=== PATIENT | male | born 1945 | race Caucasian/White ===

== ENCOUNTER → 2020-05-11 11:42 | Outpatient (BNVA) | payer MEDICARE, SELFPAY | PROVIDERS: PCP Internal Medicine; Visit Provider Internal Medicine | DX: E66.9 Obesity, unspecified (principal); G47.33 Obstructive sleep apnea (adult) (pediatric); J84.10 Pulmonary fibrosis, unspecified | CPT/HCPCS: 99212 ==

== ENCOUNTER → 2020-05-26 13:10 | Outpatient (REF) | payer MEDICARE, SELFPAY | LOC: HO.SL 13:10 | PROVIDERS: PCP Internal Medicine; Visit Provider Internal Medicine | DX: G47.33 Obstructive sleep apnea (adult) (pediatric) (principal) | CPT/HCPCS: 95806 ==

== ENCOUNTER 2020-06-08 15:28 | Inpatient (IN) | payer MEDICARE, SELFPAY ==
[2020-06-08] VITALS (8 sets, daily range): BP systolic 122–173; BP diastolic 60–76; PULSE 66–96; RESP 10–20; TEMP 36–36.8; O2SAT 91–98; BMI 27.1; BMI 27.8
--- NOTE | ~2020-06-08 | NM_ITS ---
Lexiscan Myocardial perfusion study Indication: Preoperative cardiovascular evaluation, assess for coronary disease Technique: The patient was brought in for a Lexiscan perfusion study on 06/11/2020 and was injected 0.4 mg of Lexiscan intravenously. Within a minute of this injection 30 mCi of sestamibi was given intravenously. Images were obtained using the SPECT gamma camera interlaced with the gating device. Images were obtained in supine position. Resting perfusion study was performed on 06/10/2020. Patient was administered 30 mCi of sestamibi intravenously at rest. Images were then obtained in supine position. Total DLP 71mGy-cm. Images were processed with the software and compared side to side in short axis, horizontal long axis and vertical long axis views. Findings: Raw acquisition was reviewed. The stress perfusion study showed no significant perfusion abnormality. Both uncorrected as well as CT attenuation corrected images were reviewed. The gated study shows normal LV systolic function with calculated LVEF of 63%. LV cavity is normal in size. The gated study shows normal wall thickening and contraction of segments. Resting study shows no significant perfusion abnormality. Gating at rest reveals normal wall motion with ejection fraction at 46%; but visually this appears much higher. The findings are consistent with no reversible or fixed perfusion defects. NM/NM bandar perf SPECT rest & str Impression: 1. Myocardial perfusion imaging study shows normal myocardial perfusion. 2. Gated LVEF is 60% during stress. 3. Transient ischemic dilatation not present. EKG component of the test reported separately.
--- NOTE | ~2020-06-08 | CT_ITS ---
EXAMINATION: CT ANGIOGRAM HEAD CT ANGIOGRAM NECK CLINICAL INFORMATION: Near syncope. History of carotid artery stenosis. COMPARISON: CT head from 01/20/2018. TECHNIQUE: Initial noncontrast gynecological assistant imaging of the head and neck was performed. Noncontrast head CT was also performed. Test bolus sequences followed by intravenous administration 70 mL of Omnipaque 350. Helical imaging was performed in the axial plane from the aortic arch to the skull vertex. Delayed postcontrast imaging of the head was also performed. The data was processed at the echocardiography technologist's workstation for generation of MIP sequences. Angled MIPs and volume rendered reformatted images were also generated at an offline 3D workstation. Stenoses are assessed in accordance with NASCET criteria unless otherwise indicated. This CT examination was performed using dose optimization techniques as appropriate, variously including the following: *Automated exposure control. *Adjustment of mA and/or kV according to patient size (this includes techniques or standardized protocols for targeted exams where dose is matched to indication/reason for exam; i.e. extremities or head). *Use of iterative reconstruction technique. DLP: 2309 mGy-cm FINDINGS: CT Head: There is no evidence of acute intracranial hemorrhage or edematous territorial infarction. Scattered hypoattenuation in the periventricular and deep white matter are consistent with moderate microangiopathy. Chronic lacunar infarcts of the bilateral lentiform nuclei. No new loss of dunbar-white matter differentiation. Proportional prominence of the ventricles and sulcal spaces. No evidence for obstructive hydrocephalus. No abnormal mass effect or midline shift. No extra-axial fluid collections. No pathologic intra-axial enhancement or regional oligemia. No acute soft tissue or osseous abnormalities. Mild mucosal thickening of the paranasal sinuses. Moderate rightward nasal septal deviation with spurring. Periapical lucency associated with the maxillary right 2nd molar. The mastoid air cells and middle ear cavities remain well aerated. Chronic mild diminutive appearance of the lateral semicircular canals bilaterally. Moderate left-sided and mild right-sided degenerative arthropathy of the temporal mandibular joints. Left-sided lens extraction. CT Neck: The thyroid gland and remaining cervical soft tissues are within normal limits. Moderate multilevel degenerative spondyloarthropathy of the cervical spine. There is mild degenerative anterolisthesis of C3 on C4 and C4 on C5. Advanced degenerative disc disease at C5-C6. Moderate degenerative disc disease at C6-C7. Associated disc-osteophyte complexes at these levels. Facet and uncovertebral joint arthropathy leads to osseous encroachment on the neural foramina from C5-C7. CT Upper Chest: The visualized lung apices and upper mediastinum are within normal limits. Neck CTA: Aortic Arch: Normal contour and caliber with moderate atherosclerotic disease. There are irregular plaques along the quintana of the visualized proximal descending thoracic aorta. Classic 3 vessel branching pattern of the aortic arch. Great Vessel Origins: No significant stenosis of the branch origins. Right Common Carotid Artery: Normal opacification without focal stenosis or occlusion. Cervical Right Internal Carotid Artery: Heavy mixed lipid-rich and calcific atherosclerotic disease of the carotid bulb and proximal internal carotid artery causes up to 85% stenosis, involving the proximal 1.5 cm segment of the right ICA. Left Common Carotid Artery: Normal opacification without focal stenosis or occlusion. Cervical Left Internal Carotid Artery: Calcific atherosclerotic disease of the carotid bulb and proximal internal carotid artery causes 60% stenosis of the origin of the left ICA. Cervical Right Vertebral Artery: Co-dominant. Normal opacification without focal stenosis or occlusion. Cervical Left Vertebral Artery: Co-dominant. Normal opacification without focal stenosis or occlusion. Brain CTA: Intracranial Internal Carotid Arteries: Calcific atherosclerotic disease of the intracranial internal carotid arteries without occlusion or flow-limiting stenosis. Otherwise, normal contrast opacification of the petrous, cavernous, paraophthalmic, and supraclinoid segments of the internal carotid arteries without focal stenosis. Right Anterior Cerebral Artery: Normal A1 segment. Normal opacification of the distal segments of the ELENA. Left Anterior Cerebral Artery: Normal A1 segment. Normal opacification of the distal segments of the ELENA. Anterior Communicating Artery: Normal. Right Middle Cerebral Artery: Normal opacification of the M1 segment of the MCA without focal stenosis or occlusion. Normal arborization of the distal segments. Left Middle Cerebral Artery: Normal opacification of the M1 segment of the MCA without focal stenosis or occlusion. Normal arborization of the distal segments. Right Vertebral Artery: Normal opacification of the V4 segment. Normal opacification of the proximal segments of the posterior inferior cerebellar artery. Left Vertebral Artery: Normal opacification of the V4 segment. Normal opacification of the proximal segments of the posterior inferior cerebellar artery. Basilar Artery: Normal opacification without focal stenosis or occlusion. Normal appearance of the proximal superior cerebellar arteries. Right Posterior Cerebral Artery: Normal P1 segment. Mild to moderate narrowing of the P2-P3 junction. Otherwise, normal opacification of the distal segments of the DE[employer]OR. Left Posterior Cerebral Artery: Normal P1 segment. Mild to moderate narrowing of the P2-P3 junction. Otherwise, normal opacification of the distal segments of the DE[employer] COUN[employer]OR. Normal opacification of the superior sagittal, straight, transverse, and sigmoid sinuses. CT/CT angio head neck IMPRESSION: 1. No evidence of acute intracranial hemorrhage or edematous territorial infarction. Moderate underlying microangiopathy and generalized cerebral volume loss. 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 2. Atherosclerotic disease causes up to 85% stenosis of the proximal 1.5 cm segment of the right ICA. Atherosclerotic disease causes 60% stenosis of the origin of the left ICA. 3. Otherwise, CTA of the head and neck without proximal occlusion.
--- NOTE | 2020-06-08 15:52 | ECG_ITS ---
Test Reason : FALL Blood Pressure : / mmHG Vent. Rate : 077 BPM Atrial Rate : 077 BPM P-R Int : 130 ms QRS Dur : 090 ms QT Int : 406 ms P-R-T Axes : 033 -05 033 degrees QTc Int : 459 ms Normal sinus rhythm Minimal voltage criteria for LVH, may be normal variant Nonspecific T wave abnormality Abnormal ECG When compared with ECG of 20-JAN-2018 16:04, No significant change was found Referred By: Generic ED Physician Electronically Signed By:AMANDA FUNES
--- NOTE | 2020-06-08 16:49 | ED_ITS ---
HPI - Syncope General Chief Complaint: Dizziness Stated Complaint: DIZZY,FALL Time Seen by Provider: 06/08/20 16:47 Source: patient Mode of arrival: ambulatory Limitations: no limitations History of Present Illness HPI narrative: Patient's history of pulmonary fibrosis obstructive sleep apnea not using CPAP in the night, history of right carotid artery stenosis been having these episodes of near syncope especially on standing multiple times which got worse for last 3 days had multiple times of near-syncope patient feels lightheaded and banerjee of blood to the head and sometime when he sits down he gets better, he fell couple of times. Symptoms are getting worse now. Patient denies any chest pain or palpitation no headache or head injury MD complaint: felt faint, almost passed out and collapsed Related Data Home Medications Medication Instructions Recorded Confirmed atorvastatin 40 mg tablet 40 mg PO DAILY tab 05/11/20 06/08/20 gabapentin 600 mg tablet 600 mg PO TID 05/11/20 06/08/20 meclizine 25 mg tablet 25 mg PO TID PRN tab 05/11/20 06/08/20 omeprazole 20 mg capsule,delayed 20 mg PO DAILY 05/11/20 06/08/20 release tamsulosin 0.4 mg capsule 0.4 mg PO DAILY 05/11/20 06/08/20 aspirin 81 mg PO DAILY 06/08/20 06/08/20 duloxetine 60 mg PO DAILY 06/08/20 06/08/20 Allergies Allergy/AdvReac Type Severity Reaction Status Date / Time Crustaceans Allergy Mild HIVES Uncoded 06/08/20 15:44 shrimp Allergy Mild Swelling Uncoded 06/09/20 00:14 Review of Systems Review of Systems: Constitutional : No Weight loss, No Fever, No Chills ENT/Mouth : No sore throat, No Rhinorrhea Eyes: No Eye Pain, No Swelling Cardiovascular : No Chest Pain, no palpitations Respiratory : No Cough, No Sputum, no shortness of breath Gastrointestinal : no Nausea, No Vomiting, No Diarrhea, No abdominal Pain, no black stools Genitourinary : No Dysuria, No Urinary Frequency Musculoskeletal : No joint pain, No Myalgias, No Joint Swelling Skin : No Skin Lesions, No rash Neuro : No Weakness, No Numbness, + Dizziness, No Headache Psych : No Anxiety/Panic, No Depression Heme/Lymph: No Bruising, No Lymphadenopathy Endocrine : No Polyuria, No Polydipsia All other systems reviewed and are negative [facility] Past Medical History Medical History BPH (benign prostatic hyperplasia) Carotid artery stenosis Chronic vertigo Dyspnea on exertion Esophageal reflux Fatigue Hypercholesteremia Obesity (BMI 30-39.9) MASSIEL (obstructive sleep apnea) Peripheral neuropathy Pulmonary fibrosis Skin lesion Surgical History H/O colonoscopy H/O lumbosacral spine surgery History of appendectomy Social History Social History Household Members: Spouse Household Members Other:: Housing: House Do you presently have visiting nurse or other home services: No Smoking Status: Never smoker Use of substances other than those prescribed or required for medical reasons: No Currently Displaying Signs/Symptoms of Drug Intoxication Withdrawal: No Have you been hit, kicked, punched, or otherwise hurt by someone within the past year? If so, by whom?: No Do you feel safe in your current relationship?: Yes Is there a partner from a previous relationship who is making you feel unsafe now?: No Are you made to feel afraid or neglected: No Advance Directives: No Advance Directives Information Provided: No Do you have thoughts of harming others: None Do you have a plan to hurt others: No Plan Recently lost weight without trying: No Physical Exam Vital Signs: Vital Signs: Last Vital Signs Temp 96.8 F 06/08/20 23:20 Pulse 66 06/08/20 23:20 Resp 20 06/08/20 23:20 BP 159/74 H 06/08/20 23:20 Pulse Ox 96 06/08/20 23:20 Body Mass Index 27.1 Appearance: Alert. Oriented X3. No acute distress. Eyes: Pupils equal, round and reactive to light. ENT: Pharynx normal. Neck: Normal inspection. Neck supple. No carotid bruit CVS: Normal heart rate and rhythm. Pulses normal. Respiratory: No respiratory distress. Breath sounds normal. Abdomen: Soft and nontender. Bowel sounds are present, no mass palpable, no CVA tenderness Skin: Skin warm and dry. Normal skin color. Normal skin turgor. Extremities: No lower extremity edema. No calf tenderness Neuro: Oriented X 3. No motor deficit. No sensory deficit. MDM - Syncope MDM Narrative Medical decision making narrative: Patient has recurrent near-syncope episode with bilateral carotid artery disease etiology is not very clear at this time ? because of carotid artery blockage versus cardiac arrhythmia. Will admit patient for further evaluation CTA done of the head and neck without any vertebrobasilar insufficiency, orthostatic was normal Differential Diagnosis Differential diagnosis: Likely syncope due to orthostatic hypotension and vasovagal syncope Medical Records Attestation: I reviewed the patient's medical records. Lab Data Attestation: I reviewed the patient's lab results. Result diagrams: 06/08/20 16:39 06/08/20 16:39 Labs: Lab Results 06/08/20 06/08/20 06/08/20 Range/Units 16:39 16:39 16:39 WBC 7.3 (4.8-10.8) X10*3/uL RBC 4.25 L (4.60-5.80) X10*6/uL Hgb 14.6 (14.0-18.0) g/dl Hct 41.1 L (42-52) % MCV 96.7 (80-98) fL MCH 34.4 H (27.0-33.0) pg MCHC 35.5 (31.0-36.0) g/dl RDW 12.3 (11.0-16.0) % Plt Count 193 (160-400) X10*3/uL MPV 9.3 L (9.4-12.4) fL Immature Gran % (Auto) 0.3 (0.0-0.4) % Neut % (Auto) 70.2 (45-73) % Lymph % (Auto) 16.0 L (20-40) % [place] % (Auto) 8.6 (2-11) % Eos % (Auto) 4.4 H (0-4) % Baso % (Auto) 0.5 (0-2) % Lymph # (Auto) 1.2 (1.2-4.9) X10*3/uL [place] # (Auto) 0.6 (0.1-1.2) X10*3/uL Eos # (Auto) 0.3 (0.0-0.4) X10*3/uL Baso # (Auto) 0.0 (0.0-0.2) X10*3/uL Abs Immat Gran (auto) 0.02 (0.00-0.03) X10*3/uL Absolute Neuts (auto) 5.2 (2.0-8.3) X10*3/uL Absolute Nucleated RBC 0.000 (0.0-0.012) X10*3/uL Nucleated RBC % (auto) 0.0 (0.0-0.2) /100WBC PT 12.8 (10.8-13.0) SEC INR 1.1 (0.9-1.1) Sodium 139 (135-145) mmol/L Potassium 4.3 (3.3-5.1) mmol/L Chloride 103 (96-108) mmol/L Carbon Dioxide 24 (22-29) mmol/L Anion Gap 16 (12-20) BUN 15 (9-16) mg/dL Creatinine 1.23 (0.5-1.4) mg/dL Estim Creat Clear Calc 53.5 Estimated GFR 57 Random Glucose 106 (60-115) mg/dL Calcium 9.0 (8.4-10.2) mg/dL Magnesium 2.2 (1.6-2.6) mg/dL Troponin I High Sens (<3.5-35.0) ng/L B-Natriuretic Peptide (<100) pg/mL COVID-19 (DEB) (Negative) COVID-19 Clin Com 06/08/20 06/08/20 06/08/20 Range/Units 16:39 16:39 17:07 WBC (4.8-10.8) X10*3/uL RBC (4.60-5.80) X10*6/uL Hgb (14.0-18.0) g/dl Hct (42-52) % MCV (80-98) fL MCH (27.0-33.0) pg MCHC (31.0-36.0) g/dl RDW (11.0-16.0) % Plt Count (160-400) X10*3/uL MPV (9.4-12.4) fL Immature Gran % (Auto) (0.0-0.4) % Neut % (Auto) (45-73) % Lymph % (Auto) (20-40) % [place] % (Auto) (2-11) % Eos % (Auto) (0-4) % Baso % (Auto) (0-2) % Lymph # (Auto) (1.2-4.9) X10*3/uL [place] # (Auto) (0.1-1.2) X10*3/uL Eos # (Auto) (0.0-0.4) X10*3/uL Baso # (Auto) (0.0-0.2) X10*3/uL Abs Immat Gran (auto) (0.00-0.03) X10*3/uL Absolute Neuts (auto) (2.0-8.3) X10*3/uL Absolute Nucleated RBC (0.0-0.012) X10*3/uL Nucleated RBC % (auto) (0.0-0.2) /100WBC PT (10.8-13.0) SEC INR (0.9-1.1) Sodium (135-145) mmol/L Potassium (3.3-5.1) mmol/L Chloride (96-108) mmol/L Carbon Dioxide (22-29) mmol/L Anion Gap (12-20) BUN (9-16) mg/dL Creatinine (0.5-1.4) mg/dL Estim Creat Clear Calc Estimated GFR Random Glucose (60-115) mg/dL Calcium (8.4-10.2) mg/dL Magnesium (1.6-2.6) mg/dL Troponin I High Sens 4.2 (<3.5-35.0) ng/L B-Natriuretic Peptide 20 (<100) pg/mL COVID-19 (DEB) Negative (Negative) COVID-19 Clin Com See Note ECG Data Attestation: I personally reviewed and interpreted this ECG as follows: Interpretation: Normal sinus rhythm with heart rate 77 beats per minute LVH nonspecific ST T wave changes normal intervals no acute ischemia Discharge Plan Discharge Clinical Impression: Syncope and collapse Patient Disposition: Admitted As Inpatient Interventions: Admission Worksheet (ED) Last Done: 06/08/20 23:12 Discharge Date/Time: 06/08/20 23:13
[2020-06-08 16:57] LABS: MANUAL DIFF FLAG NO
[2020-06-08 17:05] LABS: INTERNATIONAL NORM RATIO 1.1 (0.9-1.1); Prothrombin Time 12.8 SEC (10.8-13.0)
[2020-06-08 17:06] LABS: Basophils Percent Auto 0.5 % (0-2); Eosinophils Absolute Auto 0.3 X10*3/uL (0.0-0.4); Eosinophils Percent Auto 4.4 % (0-4); Hematocrit 41.1 % (42-52); Hemoglobin 14.6 g/dl (14.0-18.0); Imm Gran Abs Auto 0.02 X10*3/uL (0.00-0.03); Imm Gran Pct Auto 0.3 % (0.0-0.4); Lymphocytes Absolute Auto 1.2 X10*3/uL (1.2-4.9); Mean Corpuscular HGB Conc 35.5 g/dl (31.0-36.0); Mean Corpuscular Hemoglobin 34.4 pg (27.0-33.0); Mean Corpuscular Volume 96.7 fL (80-98); Mean Platelet Volume 9.3 fL (9.4-12.4); Monocytes Absolute Auto 0.6 X10*3/uL (0.1-1.2); Monocytes Percent Auto 8.6 % (2-11); Neutrophils Absolute Auto 5.2 X10*3/uL (2.0-8.3); Neutrophils Percent Auto 70.2 % (45-73); Platelet Count 193 X10*3/uL (160-400); Red Blood Count 4.25 X10*6/uL (4.60-5.80); Red Cell Distribution Width 12.3 % (11.0-16.0); White Blood Count 7.3 X10*3/uL (4.8-10.8)
--- NOTE | 2020-06-08 17:09 | PC.NURSE ---
TASHA [phone] DAUGHTER
[2020-06-08] MEDS: 0.9 % Sodium Chloride 1,000 ML 999 ML IVCONT (17:15)
[2020-06-08 17:29] LABS: Carbon Dioxide 24 mmol/L (22-29); Chloride 103 mmol/L (96-108); Potassium 4.3 mmol/L (3.3-5.1); Sodium 139 mmol/L (135-145)
[2020-06-08 17:30] LABS: Anion Gap 16 (12-20); Blood Urea Nitrogen 15 mg/dL (9-16); Creatinine Clr Calc Pharmacy 53.5; Estimated Glomerular Filt Rate 57; Glucose Random 106 mg/dL (60-115)
[2020-06-08 17:35] LABS: B Type Natriuretic Peptide 20 pg/mL (<100); Troponin-I High Sensitivity 4.2 ng/L (<3.5-35.0)
[2020-06-08 17:41] LABS: COVID-19 Test Negative (Negative); IDNOW Serial# 9DD0AD1C
[2020-06-08 17:57] LABS: Magnesium 2.2 mg/dL (1.6-2.6)
--- NOTE | 2020-06-08 21:41 | PM.IMHP ---
History of Present Illness Date of Service: 06/08/20 Chief Complaint: near-syncope This is a 75-year-old male with past medical history of chronic vertigo, esophageal reflux, chronic dyspnea on exertion, hyperlipidemia who presents to the hospital with complaints of near syncope. Patient reports that he was with his at a medical facility to get blood work, he was pushing her on a wheelchair, he started feeling dizzy, short of breath, hot and sweaty, by time they got to lab work for his , he felt severely weak and he was not able to stand straight, sat on the floor, and was unable to get up off the floor. He did not lose any consciousness, and he was so weak that they had to call EMS to get into the hospital. He denies any similar previous episodes. He does have chronic vertigo but this did not feel the same. He does have chronic shortness of breath, but this was worse and also this was sudden onset. He otherwise reports doing well, with no headache, change in vision, he did not have any chest pain, no palpitations, no nausea or vomiting, no diarrhea or constipation, no urinary symptoms. No abdominal pain. No lower extremity edema. On arrival to the ED patient hemodynamically stable with no significant abnormal vitals WBC of 7.3, hemoglobin of 14.6, PT of 12.8, INR of 1.1, sodium of 139, potassium of 4.3, labs otherwise unremarkable. COVID-19 negative. No acute EKG changes. CT angiogram of the head and neck done in the ED shows no evidence of acute intracranial hemorrhage or at [facility] territorial infarction but moderate underlying microangiopathy and generalized cerebral volume loss. This CT angiogram also showed atherosclerotic disease of up to 85% stenosis of the proximal 1.5 cm segment of the right ICA, as well as 60% stenosis of the origin of the left ICA. Past medical history as below on confirm with patient Review of Systems Review of Systems: Yes all other systems are reviewed and are negative [facility] Medical History (Updated 06/09/20 @ 05:39 by Eric La MD) BPH (benign prostatic hyperplasia) Chronic vertigo Dyspnea on exertion Esophageal reflux Fatigue Hypercholesteremia Obesity (BMI 30-39.9) MASSIEL (obstructive sleep apnea) Peripheral neuropathy Pulmonary fibrosis Skin lesion Surgical History H/O colonoscopy H/O lumbosacral spine surgery History of appendectomy Social History Household Members: Spouse Household Members Other:: Housing: House Do you presently have visiting nurse or other home services: No Smoking Status: Never smoker Use of substances other than those prescribed or required for medical reasons: No Currently Displaying Signs/Symptoms of Drug Intoxication Withdrawal: No Have you been hit, kicked, punched, or otherwise hurt by someone within the past year? If so, by whom?: No Do you feel safe in your current relationship?: Yes Is there a partner from a previous relationship who is making you feel unsafe now?: No Are you made to feel afraid or neglected: No Advance Directives: No Advance Directives Information Provided: No Do you have thoughts of harming others: None Do you have a plan to hurt others: No Plan Recently lost weight without trying: No Meds Allergies Allergy/AdvReac Type Severity Reaction Status Date / Time Crustaceans Allergy Mild HIVES Uncoded 06/08/20 15:44 shrimp Allergy Mild Swelling Uncoded 06/09/20 00:14 Active Medications: Current Medications Generic Name Dose Route Start Last Admin Trade Name Freq PRN Reason Stop Dose Admin Pharmacy Consult 1 each 06/08/20 19:43 Consult Rx Perform Med Rec MISCELLANE ONCE PRN Consult order Home Medications Medication Instructions Recorded Confirmed Last Taken Type atorvastatin 40 mg tablet 40 mg PO DAILY tab 05/11/20 06/08/20 Unknown History gabapentin 600 mg tablet 600 mg PO TID 05/11/20 06/08/20 Unknown History meclizine 25 mg tablet 25 mg PO TID PRN tab 05/11/20 06/08/20 Unknown History omeprazole 20 mg capsule,delayed 20 mg PO DAILY 05/11/20 06/08/20 Unknown History release tamsulosin 0.4 mg capsule 0.4 mg PO DAILY 05/11/20 06/08/20 Unknown History aspirin 81 mg PO DAILY 06/08/20 06/08/20 Unknown History duloxetine 60 mg PO DAILY 06/08/20 06/08/20 Unknown History Physical Exam Vital Signs and Narrative: Vital Signs: Last Vital Signs Temp 97.6 F 06/08/20 19:36 Pulse 71 06/08/20 19:36 Resp 17 06/08/20 19:36 BP 143/69 H 06/08/20 19:36 Pulse Ox 94 06/08/20 19:36 Body Mass Index 27.1 Const: General: cooperative and no acute distress Orientation/consciousness: patient oriented x3 Eyes: General: appearance normal, both eyes and all related structures Resp: Effort & Inspection: normal respiratory effort and able to speak in complete sentences Cardio: Rate: regular rate Rhythm: regular rhythm GI: Palpation (GI): Soft to palpation Auscultation: normal bowel sounds Skin: General skin exam: no rashes or lesions noted Neuro: Other: No neurological deficits, no nystagmus General: patient oriented x3 Cognition (Neuro): normal cognition Extrem: General: Yes normal to inspection and Yes no pedal edema Results Labs CBC and Chem 7: 06/09/20 04:09 06/08/20 16:39 Labs: Laboratory Results - last 24 hr 06/08/20 06/08/20 06/08/20 16:39 16:39 16:39 MCV 96.7 MCH 34.4 H MCHC 35.5 RDW 12.3 Plt Count 193 MPV 9.3 L Immature Gran % (Auto) 0.3 Neut % (Auto) 70.2 Lymph % (Auto) 16.0 L [place] % (Auto) 8.6 Eos % (Auto) 4.4 H Baso % (Auto) 0.5 Lymph # (Auto) 1.2 [place] # (Auto) 0.6 Eos # (Auto) 0.3 Baso # (Auto) 0.0 Abs Immat Gran (auto) 0.02 Absolute Neuts (auto) 5.2 Absolute Nucleated RBC 0.000 Nucleated RBC % (auto) 0.0 PT 12.8 INR 1.1 Anion Gap 16 Estim Creat Clear Calc 53.5 Estimated GFR 57 Random Glucose 106 Calcium 9.0 Magnesium 2.2 Troponin I High Sens B-Natriuretic Peptide COVID-19 (DEB) COVID-19 Clin Com 06/08/20 06/08/20 06/08/20 16:39 16:39 17:07 MCV MCH MCHC RDW Plt Count MPV Immature Gran % (Auto) Neut % (Auto) Lymph % (Auto) [place] % (Auto) Eos % (Auto) Baso % (Auto) Lymph # (Auto) [place] # (Auto) Eos # (Auto) Baso # (Auto) Abs Immat Gran (auto) Absolute Neuts (auto) Absolute Nucleated RBC Nucleated RBC % (auto) PT INR Anion Gap Estim Creat Clear Calc Estimated GFR Random Glucose Calcium Magnesium Troponin I High Sens 4.2 B-Natriuretic Peptide 20 COVID-19 (DEB) Negative COVID-19 Clin Com See Note Imaging Radiologist's Impressions: Impressions Head/Neck CTA 06/08/20 16:57 IMPRESSION: 1. No evidence of acute intracranial hemorrhage or edematous territorial infarction. Moderate underlying microangiopathy and generalized cerebral volume loss. 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 2. Atherosclerotic disease causes up to 85% stenosis of the proximal 1.5 cm segment of the right ICA. Atherosclerotic disease causes 60% stenosis of the origin of the left ICA. 3. Otherwise, CTA of the head and neck without proximal occlusion. Assessment and Plan (1) Pre-syncope: Status: Acute This is a 75-year-old male with past medical history of hyperlipidemia, chronic vertigo who presents to the hospital with complaints of presyncopal episodes. # Pre-syncope - Possibly vasvagal given his prodromal symptoms - Cardiac cannot be ruled out given CTA result of coronary artery stenosis plan: - will admit to telelmetry - obtain echocardiam to assess his cardiac risk - Will also consult cardiology to evaluate pt given his findings of high stenosis on CTA head and neck # CAD - pt has no chest pain - reports never had hx of heart attack or heart ds - Has no palpitations - EKG shows no acute changes - CTA head and neck shows stenosis of 85% of RCA - given the near-syncope and age will consult cardiology for eveluation and to possibly start OMT # Chronic vertigo - continue meclizine # hyperlipidemia - continue statin # esophageal reflux - continue omeprazole # BPH - continue tamsulosin DVT prophylaxis: Lovenox
--- NOTE | 2020-06-08 22:28 | PC.NURSE ---
CALLED UP TO FLOOR TO GIVE REPORT
[2020-06-08] MEDS: Enoxaparin Sodium 40 MG/0.4 ML SYRINGE SUBCUT (23:50)
[2020-06-08] MEDS: 0.9 % Sodium Chloride Flush 3 ML SYRINGE IVFLUSH (23:50)
[2020-06-09 03:16] VITALS: BP 137/60; PULSE 68; RESP 20; TEMP 35.7; O2SAT 95
[2020-06-09 05:02] LABS: MANUAL DIFF FLAG NO
[2020-06-09 05:13] LABS: Basophils Percent Auto 0.3 % (0-2); Eosinophils Absolute Auto 0.4 X10*3/uL (0.0-0.4); Eosinophils Percent Auto 6.8 % (0-4); Hematocrit 39.4 % (42-52); Hemoglobin 13.8 g/dl (14.0-18.0); Imm Gran Abs Auto 0.02 X10*3/uL (0.00-0.03); Imm Gran Pct Auto 0.3 % (0.0-0.4); Lymphocytes Absolute Auto 1.7 X10*3/uL (1.2-4.9); Lymphocytes Percent Auto 26.9 % (20-40); Mean Platelet Volume 9.5 fL (9.4-12.4); Monocytes Absolute Auto 0.6 X10*3/uL (0.1-1.2); Monocytes Percent Auto 9.4 % (2-11); Neutrophils Absolute Auto 3.5 X10*3/uL (2.0-8.3); Neutrophils Percent Auto 56.3 % (45-73); Platelet Count 188 X10*3/uL (160-400); Red Blood Count 4.06 X10*6/uL (4.60-5.80); Red Cell Distribution Width 12.3 % (11.0-16.0); White Blood Count 6.3 X10*3/uL (4.8-10.8)
[2020-06-09 05:44] LABS: Anion Gap 14 (12-20); Blood Urea Nitrogen 12 mg/dL (9-16); Calcium 8.4 mg/dL (8.4-10.2); Carbon Dioxide 26 mmol/L (22-29); Chloride 103 mmol/L (96-108); Creatinine Clr Calc Pharmacy 64.7; Estimated Glomerular Filt Rate > 60; Glucose Random 100 mg/dL (60-115); Potassium 3.8 mmol/L (3.3-5.1); Sodium 139 mmol/L (135-145)
[2020-06-09] MEDS: Omeprazole 20 MG CAPSULE.DR PO (05:52)
[2020-06-09 08:00] VITALS: BP 131/64; PULSE 67; RESP 18; TEMP 36.2; O2SAT 96
[2020-06-09] MEDS: 0.9 % Sodium Chloride Flush 3 ML SYRINGE IVFLUSH ×2 (08:20→16:48)
[2020-06-09] MEDS: Atorvastatin Calcium 40 MG TABLET PO (08:20)
[2020-06-09] MEDS: DULoxetine HCl 60 MG CAPSULE.DR PO (08:20)
[2020-06-09] MEDS: Tamsulosin HCL 0.4 MG CAPSULE PO (08:20)
[2020-06-09] MEDS: Gabapentin 600 MG TABLET PO ×2 (08:20→21:16)
--- NOTE | 2020-06-09 09:50 | MHC.CM.PN ---
IMM 06/09/20 MALE 75 DX NEAR-SYNCOPEHe lives with his . He is independent all functional mobility. 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 His is WC bound r/t MS and Lung CA. DP home no services private transportation. CM will follow.
--- NOTE | 2020-06-09 10:32 | PM.CNCAR ---
History of Present Illness History of Present Illness Date of Service: 06/09/20 Chief complaint: Near-syncope Narrative: This is a cardiology consultation regarding syncopal episode. He has chronic vertigo. However no known cardiovascular issues like coronary disease or myocardial infarction or cardiomyopathy. He states that he was pushing his who was in a wheelchair at [facility]. It at that time, he suddenly felt dizzy with some shortness of breath and also hot and sweaty. Then he sat on the floor unable to get up. He has had these steps episodes with exertion at different times in the past. He also has vertigo type symptoms but he states that these episodes are not the same and feel different. Whenever he exerts himself, he feels as though his whole body becomes very weak especially his legs. No anginal-type chest pains. These episodes have happened for the last few years and possibly more so recently. Review of Systems Review of Systems: Yes all other systems are reviewed and are negative Constitutional: Constitutional: Reports weakness Cardiovascular: Cardiovascular: Reports as per HPI, Reports no additional cardiovascular complaints, Denies acrocyanosis, Denies cool extremities, Denies painful fingertips, Denies chest pain, Denies chest pain at rest, Denies diaphoresis, Denies syncope, Denies irregular heart rhythm, Denies claudication, Denies leg edema, Reports lightheadedness, Denies palpitations and Reports dyspnea Respiratory: Respiratory: Reports dyspnea Neurologic: Denies syncope and Reports weakness Endocrine: Endocrine: Denies palpitations PMFSH Past Medical History Medical History (Updated 06/09/20 @ 10:40 by Norbert Chandra MD) BPH (benign prostatic hyperplasia) Chronic vertigo Dyspnea on exertion Esophageal reflux Fatigue Hypercholesteremia Obesity (BMI 30-39.9) MASSIEL (obstructive sleep apnea) Peripheral neuropathy Pulmonary fibrosis Skin lesion Family History Family history: reviewed and not pertinent Surgical History Surgical History H/O colonoscopy H/O lumbosacral spine surgery History of appendectomy Social History Social History Household Members: Spouse Household Members Other:: Housing: House Do you presently have visiting nurse or other home services: No Smoking Status: Never smoker Use of substances other than those prescribed or required for medical reasons: No Currently Displaying Signs/Symptoms of Drug Intoxication Withdrawal: No Have you been hit, kicked, punched, or otherwise hurt by someone within the past year? If so, by whom?: No Do you feel safe in your current relationship?: Yes Is there a partner from a previous relationship who is making you feel unsafe now?: No Are you made to feel afraid or neglected: No Advance Directives: No Advance Directives Information Provided: No Do you have thoughts of harming others: None Do you have a plan to hurt others: No Plan Recently lost weight without trying: No service: No Current occupational status: retired Meds Allergies Allergy/AdvReac Type Severity Reaction Status Date / Time Crustaceans Allergy Mild HIVES Uncoded 06/08/20 15:44 shrimp Allergy Mild Swelling Uncoded 06/09/20 00:14 Active Medications: Current Medications Generic Name Dose Route Start Last Admin Trade Name Freq PRN Reason Stop Dose Admin Acetaminophen 650 mg 06/08/20 22:42 Acetaminophen 325 Mg Tablet PO Q6H PRN Pain, Mild (Pain Scale 1-3) Atorvastatin Calcium 40 mg 06/09/20 09:00 06/09/20 08:20 Atorvastatin Calcium 40 Mg Tablet PO 40 mg DAILY KANNAN Administration Docusate Sodium 100 mg 06/08/20 22:42 Docusate Sodium 100 Mg Capsule PO DAILY PRN Constipation Duloxetine HCl 60 mg 06/09/20 09:00 06/09/20 08:20 Duloxetine Hcl 60 Mg Capsule. PO 60 mg DAILY KANNAN Administration Enoxaparin Sodium 40 mg 06/08/20 22:00 06/08/20 23:50 Enoxaparin Sodium 40 Mg/0.4 Ml Syringe SUBCUT 40 mg Q24H KANNAN Administration Gabapentin 600 mg 06/09/20 09:00 06/09/20 08:20 Gabapentin 600 Mg Tablet PO 600 mg TID KANNAN Administration Meclizine HCl 25 mg 06/08/20 22:42 Meclizine Hcl 25 Mg Tablet PO TID PRN Dizziness Omeprazole 20 mg 06/09/20 06:30 06/09/20 05:52 Omeprazole 20 Mg Capsule. PO 20 mg DAILY@0630 KANNAN Administration Ondansetron HCl 4 mg 06/08/20 22:42 Ondansetron Hcl 4 Mg/2 Ml Vial IVPUSH Q8H PRN Nausea and Vomiting Pharmacy Consult 1 each 06/08/20 19:43 Consult Rx Perform Med Rec MISCELLANE ONCE PRN Consult order Sodium Chloride 3 ml 06/09/20 00:00 06/09/20 08:20 0.9 % Sodium Chloride Flush 3 Ml Syringe IVFLUSH 3 ml QSHIFT KANNAN Administration Tamsulosin HCl 0.4 mg 06/09/20 09:00 06/09/20 08:20 Tamsulosin Hcl 0.4 Mg Capsule PO 0.4 mg DAILY KANNAN Administration Home Medications Medication Instructions Recorded Confirmed Last Taken Type atorvastatin 40 mg tablet 40 mg PO DAILY tab 05/11/20 06/08/20 Unknown History gabapentin 600 mg tablet 600 mg PO TID 05/11/20 06/08/20 Unknown History meclizine 25 mg tablet 25 mg PO TID PRN tab 05/11/20 06/08/20 Unknown History omeprazole 20 mg capsule,delayed 20 mg PO DAILY 05/11/20 06/08/20 Unknown History release tamsulosin 0.4 mg capsule 0.4 mg PO DAILY 05/11/20 06/08/20 Unknown History aspirin 81 mg PO DAILY 06/08/20 06/08/20 Unknown History duloxetine 60 mg PO DAILY 06/08/20 06/08/20 Unknown History Physical Exam Vital Signs: Vital Signs: Last Vital Signs Temp 97.2 F 06/09/20 08:00 Pulse 67 06/09/20 08:00 Resp 18 06/09/20 08:00 BP 131/64 06/09/20 08:00 Pulse Ox 96 06/09/20 08:00 Body Mass Index 27.8 Const: General: cooperative, comfortable and no acute distress Orientation/consciousness: patient oriented x3 HENMT: Other: Unremarkable Neck: Neck: Yes normal visual inspection Chest: Chest palpation & inspection: normal inspection of the chest Resp: Auscultation: clear to auscultation bilaterally, no crackles and no wheezes Cardio: Jugular venous distension: no JVD Palpation: normal PMI Heart sounds: S1 normal heart sound present, S2 normal heart sound present, no gallops, no murmurs and no rubs GI: Palpation (GI): Soft to palpation Back/Spine/Pelvis: Other: unremarkable Skin: General skin exam: no rashes or lesions noted Neuro: General: patient oriented x3 Extrem: General: Yes no clubbing, cyanosis or edema Psych: Mental Status: mental status grossly normal Results Labs and Meds Result diagrams: 06/09/20 04:09 06/09/20 04:09 Lab results: Laboratory Results - last 24 hr 06/08/20 06/08/20 06/08/20 16:39 16:39 16:39 WBC 7.3 RBC 4.25 L Hgb 14.6 Hct 41.1 L MCV 96.7 MCH 34.4 H MCHC 35.5 RDW 12.3 Plt Count 193 MPV 9.3 L Immature Gran % (Auto) 0.3 Neut % (Auto) 70.2 Lymph % (Auto) 16.0 L [place] % (Auto) 8.6 Eos % (Auto) 4.4 H Baso % (Auto) 0.5 Lymph # (Auto) 1.2 [place] # (Auto) 0.6 Eos # (Auto) 0.3 Baso # (Auto) 0.0 Abs Immat Gran (auto) 0.02 Absolute Neuts (auto) 5.2 Absolute Nucleated RBC 0.000 Nucleated RBC % (auto) 0.0 PT 12.8 INR 1.1 Sodium 139 Potassium 4.3 Chloride 103 Carbon Dioxide 24 Anion Gap 16 BUN 15 Creatinine 1.23 Estim Creat Clear Calc 53.5 Estimated GFR 57 Random Glucose 106 Calcium 9.0 Magnesium 2.2 Troponin I High Sens B-Natriuretic Peptide COVID-19 (DEB) COVID-19 Clin Com 06/08/20 06/08/20 06/08/20 16:39 16:39 17:07 WBC RBC Hgb Hct MCV MCH MCHC RDW Plt Count MPV Immature Gran % (Auto) Neut % (Auto) Lymph % (Auto) [place] % (Auto) Eos % (Auto) Baso % (Auto) Lymph # (Auto) [place] # (Auto) Eos # (Auto) Baso # (Auto) Abs Immat Gran (auto) Absolute Neuts (auto) Absolute Nucleated RBC Nucleated RBC % (auto) PT INR Sodium Potassium Chloride Carbon Dioxide Anion Gap BUN Creatinine Estim Creat Clear Calc Estimated GFR Random Glucose Calcium Magnesium Troponin I High Sens 4.2 B-Natriuretic Peptide 20 COVID-19 (DEB) Negative COVID-19 Clin Com See Note 06/09/20 06/09/20 04:09 04:09 WBC 6.3 RBC 4.06 L Hgb 13.8 L Hct 39.4 L MCV 97.0 MCH 34.0 H MCHC 35.0 RDW 12.3 Plt Count 188 MPV 9.5 Immature Gran % (Auto) 0.3 Neut % (Auto) 56.3 Lymph % (Auto) 26.9 [place] % (Auto) 9.4 Eos % (Auto) 6.8 H Baso % (Auto) 0.3 Lymph # (Auto) 1.7 [place] # (Auto) 0.6 Eos # (Auto) 0.4 Baso # (Auto) 0.0 Abs Immat Gran (auto) 0.02 Absolute Neuts (auto) 3.5 Absolute Nucleated RBC 0.000 Nucleated RBC % (auto) 0.0 PT INR Sodium 139 Potassium 3.8 Chloride 103 Carbon Dioxide 26 Anion Gap 14 BUN 12 Creatinine 1.10 Estim Creat Clear Calc 64.7 Estimated GFR > 60 Random Glucose 100 Calcium 8.4 D Magnesium Troponin I High Sens B-Natriuretic Peptide COVID-19 (DEB) COVID-19 Clin Com ECG Attestation: I personally reviewed and interpreted this ECG as follows: Interpretation: Admission EKG with sinus rhythm at 77/Min; minimal criteria for LVH which may be normal variant, but otherwise unremarkable. Overall, similar to prior EKG from 2018. Imaging Radiologist's impression: Impressions Head/Neck CTA 06/08/20 16:57 IMPRESSION: 1. No evidence of acute intracranial hemorrhage or edematous territorial infarction. Moderate underlying microangiopathy and generalized cerebral volume loss. 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 2. Atherosclerotic disease causes up to 85% stenosis of the proximal 1.5 cm segment of the right ICA. Atherosclerotic disease causes 60% stenosis of the origin of the left ICA. 3. Otherwise, CTA of the head and neck without proximal occlusion. Assessment and Plan (1) Syncope and collapse: Status: Acute (2) Stenosis of right carotid artery: Status: Acute Reviewed his prior cardiology notes from , [facility]. Similar presentations around 2019 or so. Echocardiogram then with normal LVEF, 60-65% and essentially otherwise unremarkable. It seems that he also underwent a Holter monitor than that showed rare supraventricular ventricular ectopy but otherwise unremarkable. Carotid had shown right-sided 50-69% stenosis by ultrasound but nothing significant on the left side. Exercise treadmill test in 2019 showed poor exercise tolerance of only 1.25 minutes reaching 3.6 Mets and 94% of predicted heart rate. No ischemia at that level of activity. Limited by shortness of breath and dizziness. Overall, he could be extremely deconditioned at baseline leading to his symptoms. Current CTA shows 85% stenosis on the right side and I am not clear if that plays a role in his description of generalized weakness with activity. Requires vascular evaluation of carotids. Consider Neurology evaluation. Telemetry this admission is essentially unremarkable showing sinus only. Overall doubt any clear cardiac etiology for his symptoms. We will follow up with you tomorrow.
[2020-06-09 11:51] VITALS: BP 133/60; PULSE 73; RESP 18; TEMP 36.2; O2SAT 96
--- NOTE | 2020-06-09 13:25 | MHC.CM.PN ---
IMM 06/09/20 The Pt is scheduled for an ECHO today. The plan is to discharge to home later today, per MD rounds. CM will follow.
--- NOTE | 2020-06-09 14:30 | HO.PM.IMPN ---
Subjective Subjective Date of Service: 06/09/20 Interval History: f/u on recurrent syncopal episodes, no evidence of arrythmia Review of Systems Gen: no fever Resp: no sob, no cough CV: no chest, no [place], no leg edema GI: No n/v, no abd pain Neuro: No confusion Physical Exam Vital Signs: Vital Signs: Last Vital Signs Temp 97.1 F 06/09/20 11:51 Pulse 73 06/09/20 11:51 Resp 18 06/09/20 11:51 BP 133/60 06/09/20 11:51 Pulse Ox 96 06/09/20 11:51 Body Mass Index 27.8 General: AO X 3, no acute distress Resp: CTA bilateral CVS: S1,S2,RRR GI: +BS, NT, no distention Skin: No rash Neuro: motor grossly intact Psych: appropriate affect Objective Data Current Medications Generic Name Dose Route Start Last Admin Trade Name Freq PRN Reason Stop Dose Admin Acetaminophen 650 mg 06/08/20 22:42 Acetaminophen 325 Mg Tablet PO Q6H PRN Pain, Mild (Pain Scale 1-3) Atorvastatin Calcium 40 mg 06/09/20 09:00 06/09/20 08:20 Atorvastatin Calcium 40 Mg Tablet PO 40 mg DAILY KANNAN Administration Docusate Sodium 100 mg 06/08/20 22:42 Docusate Sodium 100 Mg Capsule PO DAILY PRN Constipation Duloxetine HCl 60 mg 06/09/20 09:00 06/09/20 08:20 Duloxetine Hcl 60 Mg Capsule. PO 60 mg DAILY KANNAN Administration Enoxaparin Sodium 40 mg 06/08/20 22:00 06/08/20 23:50 Enoxaparin Sodium 40 Mg/0.4 Ml Syringe SUBCUT 40 mg Q24H KANNAN Administration Gabapentin 600 mg 06/09/20 09:00 06/09/20 14:13 Gabapentin 600 Mg Tablet PO Not Given TID KANNAN Meclizine HCl 25 mg 06/08/20 22:42 Meclizine Hcl 25 Mg Tablet PO TID PRN Dizziness Omeprazole 20 mg 06/09/20 06:30 06/09/20 05:52 Omeprazole 20 Mg Capsule. PO 20 mg DAILY@0630 KANNAN Administration Ondansetron HCl 4 mg 06/08/20 22:42 Ondansetron Hcl 4 Mg/2 Ml Vial IVPUSH Q8H PRN Nausea and Vomiting Pharmacy Consult 1 each 06/08/20 19:43 Consult Rx Perform Med Rec MISCELLANE ONCE PRN Consult order Sodium Chloride 3 ml 06/09/20 00:00 06/09/20 08:20 0.9 % Sodium Chloride Flush 3 Ml Syringe IVFLUSH 3 ml QSHIFT KANNAN Administration Tamsulosin HCl 0.4 mg 06/09/20 09:00 06/09/20 08:20 Tamsulosin Hcl 0.4 Mg Capsule PO 0.4 mg DAILY KANNAN Administration Labs CBC & Chem 7: 06/09/20 04:09 06/09/20 04:09 Assessment and Plan (1) Pre-syncope: Status: Acute Assessment and Plan: 75-year-old male with past medical history of hyperlipidemia, chronic vertigo who presents to the hospital with complaints of presyncopal episodes. # Pre-syncope etilogy not clear, he has had these in past, cardiac w/u has been unremarkable. -It is probable signficant carotid stenosis 85% on right side is playing a role -will continue to observe and get Vascular surgery evaluation, he may need CEA # CAD - pt has no chest pain - reports never had hx of heart attack or heart ds - Has no palpitations - EKG shows no acute changes # Chronic vertigo - continue meclizine # hyperlipidemia - continue statin # esophageal reflux - continue omeprazole # BPH - continue tamsulosin DVT prophylaxis: Lovenox
[2020-06-09 16:00] VITALS: BP 175/73; PULSE 76; RESP 19; TEMP 36.6; O2SAT 98
--- NOTE | 2020-06-09 17:12 | PM.CNGS ---
History of Present Illness Consult details Consult date: 06/09/20 Reason for consult: other (Carotid stenosis) Narrative: Very pleasant 75-year-old gentleman with a known history of carotid stenosis is had a near syncopal episode. Of note he was caring for his who has metastatic cancer and history of MS where he started to feel dizzy lightheaded and started to have profuse sweating. He subsequently was brought over to the emergency room and worked up. He was noted to have high-grade right carotid stenosis on CTA of the neck. There was no evidence of acute stroke. Of note this is a recurrent event in upon discussion with him he had a similar episode when he was up in [place] on not too long ago. He now presents to us for vascular evaluation. Review of Systems Review of Systems: Yes all other systems are reviewed and are negative Constitutional: Constitutional: Reports no additional constitutional complaints ENT: Reports Normal hearing present Cardiovascular: Cardiovascular: Denies chest pain, Denies chest pain at rest, Denies chest pain with activity and Denies pedal edema Respiratory: Respiratory: Denies cough Gastrointestinal: Gastrointestinal: Denies abdominal pain Musculoskeletal: Musculoskeletal: Denies abnormal gait, Denies muscle cramps and Denies radiating pain into limb Integumentary/Breasts: Skin/Breast: Denies skin ulcer and Denies wounds Neurologic: Reports Normal hearing present and Denies abnormal gait Psychiatric: Psychiatric: Reports no additional psychiatric complaints [facility] Past Medical History Medical History (Updated 06/09/20 @ 10:40 by Norebrt Chandra MD) BPH (benign prostatic hyperplasia) Chronic vertigo Dyspnea on exertion Esophageal reflux Fatigue Hypercholesteremia Obesity (BMI 30-39.9) MASSIEL (obstructive sleep apnea) Peripheral neuropathy Pulmonary fibrosis Skin lesion Family History Family history: reviewed and not pertinent Surgical History Surgical History H/O colonoscopy H/O lumbosacral spine surgery History of appendectomy Social History Social History Household Members: Spouse Household Members Other:: Housing: House Do you presently have visiting nurse or other home services: No Smoking Status: Never smoker Use of substances other than those prescribed or required for medical reasons: No Currently Displaying Signs/Symptoms of Drug Intoxication Withdrawal: No Have you been hit, kicked, punched, or otherwise hurt by someone within the past year? If so, by whom?: No Do you feel safe in your current relationship?: Yes Is there a partner from a previous relationship who is making you feel unsafe now?: No Are you made to feel afraid or neglected: No Advance Directives: No Advance Directives Information Provided: No Do you have thoughts of harming others: None Do you have a plan to hurt others: No Plan Recently lost weight without trying: No service: No Current occupational status: retired Meds Allergies Allergy/AdvReac Type Severity Reaction Status Date / Time Crustaceans Allergy Mild HIVES Uncoded 06/08/20 15:44 shrimp Allergy Mild Swelling Uncoded 06/09/20 00:14 Active Medications: Current Medications Generic Name Dose Route Start Last Admin Trade Name Freq PRN Reason Stop Dose Admin Acetaminophen 650 mg 06/08/20 22:42 Acetaminophen 325 Mg Tablet PO Q6H PRN Pain, Mild (Pain Scale 1-3) Atorvastatin Calcium 40 mg 06/09/20 09:00 06/09/20 08:20 Atorvastatin Calcium 40 Mg Tablet PO 40 mg DAILY KANNAN Administration Docusate Sodium 100 mg 06/08/20 22:42 Docusate Sodium 100 Mg Capsule PO DAILY PRN Constipation Duloxetine HCl 60 mg 06/09/20 09:00 06/09/20 08:20 Duloxetine Hcl 60 Mg Capsule. PO 60 mg DAILY KANNAN Administration Enoxaparin Sodium 40 mg 06/08/20 22:00 06/08/20 23:50 Enoxaparin Sodium 40 Mg/0.4 Ml Syringe SUBCUT 40 mg Q24H KANNAN Administration Gabapentin 600 mg 06/09/20 09:00 06/09/20 14:13 Gabapentin 600 Mg Tablet PO Not Given TID KANNAN Meclizine HCl 25 mg 06/08/20 22:42 Meclizine Hcl 25 Mg Tablet PO TID PRN Dizziness Omeprazole 20 mg 06/09/20 06:30 06/09/20 05:52 Omeprazole 20 Mg Capsule. PO 20 mg DAILY@0630 KANNAN Administration Ondansetron HCl 4 mg 06/08/20 22:42 Ondansetron Hcl 4 Mg/2 Ml Vial IVPUSH Q8H PRN Nausea and Vomiting Pharmacy Consult 1 each 06/08/20 19:43 Consult Rx Perform Med Rec MISCELLANE ONCE PRN Consult order Sodium Chloride 3 ml 06/09/20 00:00 06/09/20 16:48 0.9 % Sodium Chloride Flush 3 Ml Syringe IVFLUSH 3 ml QSHIFT KANNAN Administration Tamsulosin HCl 0.4 mg 06/09/20 09:00 06/09/20 08:20 Tamsulosin Hcl 0.4 Mg Capsule PO 0.4 mg DAILY KANNAN Administration Home Medications Medication Instructions Recorded Confirmed Last Taken Type atorvastatin 40 mg tablet 40 mg PO DAILY tab 05/11/20 06/08/20 Unknown History gabapentin 600 mg tablet 600 mg PO TID 05/11/20 06/08/20 Unknown History meclizine 25 mg tablet 25 mg PO TID PRN tab 05/11/20 06/08/20 Unknown History omeprazole 20 mg capsule,delayed 20 mg PO DAILY 05/11/20 06/08/20 Unknown History release tamsulosin 0.4 mg capsule 0.4 mg PO DAILY 05/11/20 06/08/20 Unknown History aspirin 81 mg PO DAILY 06/08/20 06/08/20 Unknown History duloxetine 60 mg PO DAILY 06/08/20 06/08/20 Unknown History Physical Exam Vital Signs: Vital Signs: Last Vital Signs Temp 97.9 F 06/09/20 16:00 Pulse 76 06/09/20 16:00 Resp 19 06/09/20 16:00 BP 175/73 H 06/09/20 16:00 Pulse Ox 98 06/09/20 16:00 Body Mass Index 27.8 Const: General: cooperative, healthy appearing and comfortable Orientation/consciousness: oriented to person, oriented to place and oriented to time HENMT: Head: Yes normal to inspection Neck: Neck: Yes normal visual inspection Carotids: no bruits Chest: Chest palpation & inspection: normal inspection of the chest Resp: Effort & Inspection: normal respiratory effort and able to speak in complete sentences Auscultation: clear to auscultation bilaterally, no crackles, no rales, no rhonchi and no wheezes Cardio: Rate: regular rate Rhythm: regular rhythm Heart sounds: S1 normal heart sound present and S2 normal heart sound present Bruits: no carotid bruits Peripheral pulses: Peripheral pulses 2+ throughout GI: Inspection: Yes normal to inspection Skin: Wounds: no wounds Hair: normal Neuro: General: oriented to person, oriented to place and oriented to time Cranial nerves: Yes CN's II-XII intact bilaterally and Yes Normal hearing present Cognition (Neuro): normal cognition Motor exam (neuro): 5/5 motor strength present throughout Extrem: Other: venous exam: No significant superficial varicosities or spider telangiectasias, minimal edema General: No clubbing, No cyanosis and No edema Psych: Appearance: grossly normal Mental Status: mental status grossly normal Speech and movement: Normal speech and movement present Results Labs Result diagrams: 06/09/20 04:09 06/09/20 04:09 Labs: Abnormal lab results 06/09/20 Range/Units 04:09 RBC 4.06 L (4.60-5.80) X10*6/uL Hgb 13.8 L (14.0-18.0) g/dl Hct 39.4 L (42-52) % MCH 34.0 H (27.0-33.0) pg Eos % (Auto) 6.8 H (0-4) % Short CBC 06/09/20 Range/Units 04:09 WBC 6.3 (4.8-10.8) X10*3/uL Hgb 13.8 L (14.0-18.0) g/dl Hct 39.4 L (42-52) % Plt Count 188 (160-400) X10*3/uL BMP 06/08/20 06/09/20 16:39 04:09 Sodium 139 139 Potassium 4.3 3.8 Chloride 103 103 Carbon Dioxide 24 26 BUN 15 12 Creatinine 1.23 1.10 Calcium 9.0 8.4 D All other labs normal. Assessment and Plan (1) Stenosis of right carotid artery: Status: Acute In short the patient has high-grade right carotid stenosis of nearly 85% the question is whether this was a TIA episode or an independent event. In either event he will require right carotid endarterectomy at some point. He will need cardiac risk stratification. He has already been seen by Cardiology. S spent an extensive amount of time discussing findings with the patient along with the pathophysiology of carotid disease and stroke. He demonstrated a clear understanding of this. He is eager to proceed with whatever needs to be done as he is the caregiver for his . He is quite concerned about her overall status. Will also order Pulmonary evaluation as he has a history of pulmonary fibrosis and sleep apnea. He has been seen by Pulmonary and past. At the time of my exam he had no respiratory issues. We will closely monitor this patient with you. Thank you for allowing us to assist in this patient's care. 45 minutes was spent with direct discussion with the patient, record assessment, ordering and reviewing imaging, independent assessment of imaging, and management of services.
[2020-06-09 19:26] VITALS: BP 115/56; PULSE 79; RESP 19; TEMP 36.8; O2SAT 94
[2020-06-09] MEDS: Enoxaparin Sodium 40 MG/0.4 ML SYRINGE SUBCUT (21:16)
--- NOTE | 2020-06-09 22:42 | CA_ITS ---
Transthoracic Echocardiogram Patient (Last, First, Middle): Martín Jordan, Gender: Male Date of : 1945 Age: 75 Procedure Date: 06/09/2020 Procedure Type: Transthoracic Echocardiogram Location: [facility] [place] Height: 180.34 cm Weight: 90.27 kg BSA: 2.10 m2 Heart Rate: bpm BP: 137 / 60 mmHg Urology Nurse: Referring MD: Eric La MD Symptoms: near syncope Study Quality: Fair ECG Rhythm: Sinus Conclusions: - The left ventricular systolic function is normal. The visually estimated ejection fraction is between 55-60%. - The basal inferior segment is hypokinetic. - There is mild tricuspid valve regurgitation. Findings Left Ventricle Normal left ventricular cavity size. There is normal left ventricular wall thickness. The left ventricular systolic function is normal. The visually estimated ejection fraction is between 55-60%. Diastolic function is normal for age. Wall Motion Rest Echo Findings The basal inferior segment is hypokinetic. Right Ventricle Normal right ventricular cavity size and systolic function. Atria Both atria are normal in size. Aortic Valve There is a normal trileaflet aortic valve. There is no aortic valve stenosis. There is trace (trivial) aortic valve regurgitation. Mitral Valve The mitral valve appears normal. There is trace mitral valve regurgitation. There is no mitral valve stenosis. Pulmonic Valve The pulmonic valve was not well visualized. There is trace pulmonic valve regurgitation. Tricuspid Valve Normal tricuspid valve structure. There is mild tricuspid valve regurgitation. The pulmonary artery systolic pressure is normal. Great Vessels The aortic annulus, sinuses of valsalva, and asc aorta are normal in size. Venous The inferior vena cava was not well visualized. The inferior vena cava is normal in size. Pericardium/Pleural There is no evidence of pericardial effusion. Prior Study Comparison No prior study available for comparison. Measurements 2D Linear Measurements IVSd: 1.03 0.6-0.9/0.6-1.0 cm LVIDd: 4.06 3.9-5.3/4.2-5.9 cm LVIDd Index: 1.93 2.4-3.2/2.2-3.1 cm/m2 LVIDs: 2.77 2.0-3.6 cm LVPWd: 0.91 0.7-1.1 cm Ao Root: 3.10 2.1-3.5 cm LA Diam: 3.50 2.7-3.8/3.0-4.0 cm LAIDs Index: 1.67 1.5-2.3 cm/m2 LV Mass: 155.38 67-162/88-224 g LV Mass Index: 73.99 43-95/49-115 g/m2 LVOT Diam: 2.10 3.0+(-)1.3 cm Mitral Valve MV Pk E: 0.73 MV PK A: 0.92 MV Decel Time: 243.00 E/A: 0.80 E'Lateral: 6.29 E'Medial: 5.90 E/E' Med: 12.30 E/E' Lat: 11.60 PHT: 71.00 MVA PHT: 3.10 Decel Galax: 2.99 Aortic Valve AoV Pk Yobani: 1.44 AoV Mn Yobani: 0.96 AoV VTI: 0.32 AoV Pk Grad: 8.00 Aov Mn Grad: 4.00 STEPHEN Cont.VTI: 1.89 LVOT LVOT Pk Yobani: 0.88 LVOT Mn Yobani: 0.53 LVOT VTI: 0.18 LVOT Pk Grad: 3.00 LVOT Mn Grad: 1.00 LVOT Diam: 2.10 LVOT Area: 3.46 Diastolic Function MV Pk E: 0.73 MV Pk A: 0.92 E/A: 0.80 E'Medial: 5.90 E/E' Med: 12.30 E' Laterial: 6.29 E/E' Lat: 11.60 Tricuspid Valve TR Pk Yobani: 2.34 TR Pk Grad: 22.00 RA Press: 3.00 RVSP: 25.00 Great Vessels Aorta Ao Root-2D: 3.10 2.0-3.7 cm Ao Asc: 3.10 2.1-3.4 cm Pulmonary Valve PV Pk Yobani: 1.15 Peak PV Grad: 5.00 Updated in Other Vendor System with Status of Final Norbert Chandra MD electronically signed on 06/09/2020 5:23:26 PM with status of Final
[2020-06-09 23:32] VITALS: BP 128/59; PULSE 80; RESP 18; TEMP 37.1; O2SAT 94
--- NOTE | 2020-06-10 | CA_ITS ---
Acquisition Time: 2020-06-11 10:34:06 Total Exercise Time: 00:02:00 Test Indications: syncope, fatigue, Medications: see chart Protocol: LEXISCAN Max HR: 115 BPM 80% of Pred: 143 BPM Max BP: 124/084 mmHG Max Work Load: 1.0 METS Pharmacological stress test using Lexiscan while sitting. Denies any anginal sx. EKG with no arrhythmias, non-diagnostic for ischemia. Nuclear images to follow. Normotensive response to test. Test reviewed with Dr. Chandra. Referred By: Norbert Chandra Overread By: Cecily Chance NP
[2020-06-10] MEDS: 0.9 % Sodium Chloride Flush 3 ML SYRINGE IVFLUSH ×4 (00:39→21:33)
[2020-06-10 03:17] VITALS: BP 123/62; PULSE 75; RESP 18; TEMP 36.3; O2SAT 94
[2020-06-10] MEDS: Omeprazole 20 MG CAPSULE.DR PO (05:41)
[2020-06-10 07:38] VITALS: BP 132/62; PULSE 70; RESP 18; TEMP 36.1; O2SAT 94
[2020-06-10] MEDS: Gabapentin 600 MG TABLET PO ×3 (09:14→21:33)
[2020-06-10] MEDS: Tamsulosin HCL 0.4 MG CAPSULE PO (09:14)
[2020-06-10] MEDS: DULoxetine HCl 60 MG CAPSULE.DR PO (09:15)
[2020-06-10] MEDS: Atorvastatin Calcium 40 MG TABLET PO (09:15)
--- NOTE | 2020-06-10 10:39 | P.PNCA_ITS ---
Subjective Subjective Date of Service: 06/10/20 Interval history: He states that he feels okay. No specific complaints. Review of Systems Review of Systems Yes all other systems are reviewed and are negative Constitutional: Reports weakness Cardiovascular: Reports as per HPI, Reports no additional cardiovascular complaints, Denies acrocyanosis, Denies cool extremities, Denies painful fingertips, Denies chest pain, Denies chest pain at rest, Denies diaphoresis, Denies syncope, Denies irregular heart rhythm, Denies claudication, Denies leg edema, Reports lightheadedness, Denies palpitations and Reports dyspnea Respiratory: Reports dyspnea Denies syncope and Reports weakness Endocrine: Denies palpitations Physical Exam Vital Signs: Last Vital Signs Temp 97 F 06/10/20 07:38 Pulse 70 06/10/20 07:38 Resp 18 06/10/20 07:38 BP 132/62 06/10/20 07:38 Pulse Ox 94 06/10/20 07:38 Body Mass Index 27.8 Const General: cooperative, comfortable and no acute distress Orientation/consciousness: patient oriented x3 HENMT Other: Unremarkable Neck Neck: Yes normal visual inspection Chest Chest palpation & inspection: normal inspection of the chest Resp Auscultation: clear to auscultation bilaterally, no crackles and no wheezes Cardio Jugular venous distension: no JVD Palpation: normal PMI Heart sounds: S1 normal heart sound present, S2 normal heart sound present, no gallops, no murmurs and no rubs GI Palpation (GI): Soft to palpation Back/Spine/Pelvis Other: unremarkable Skin General skin exam: no rashes or lesions noted Neuro General: patient oriented x3 Extrem General: Yes no clubbing, cyanosis or edema Psych Mental Status: mental status grossly normal Results Labs and Meds Result diagrams: 06/09/20 04:09 06/09/20 04:09 Progress Note: A&P Assessment and plan (1) Syncope and collapse: Status: Acute (2) Stenosis of right carotid artery: Status: Acute Assessment and Plan: Reviewed his prior cardiology notes from , [facility]. Similar presentations around 2019 or so. Echocardiogram then with normal LVEF, 60-65% and essentially otherwise unremarkable. It seems that he also underwent a Holter monitor than that showed rare supraventricular ventricular ectopy but otherwise unremarkable. Carotid had shown right-sided 50-69% stenosis by ultrasound but nothing significant on the left side. Exercise treadmill test in 2019 showed poor exercise tolerance of only 1.25 minutes reaching 3.6 Mets and 94% of predicted heart rate. No ischemia at that level of activity. Limited by shortness of breath and dizziness. Current CTA shows 85% stenosis on the right side and I am not clear if that plays a role in his description of generalized weakness with activity. Vascular consultation is noted. We can proceed with stress test for ischemia evaluation in anticipation of possible carotid endarterectomy per his note. Fall Risk Details Current Medications: Current Medications Generic Name Dose Route Start Last Admin Trade Name Freq PRN Reason Stop Dose Admin Acetaminophen 650 mg 06/08/20 22:42 Acetaminophen 325 Mg Tablet PO Q6H PRN Pain, Mild (Pain Scale 1-3) Atorvastatin Calcium 40 mg 06/09/20 09:00 06/10/20 09:15 Atorvastatin Calcium 40 Mg Tablet PO 40 mg DAILY KANNAN Administration Docusate Sodium 100 mg 06/08/20 22:42 Docusate Sodium 100 Mg Capsule PO DAILY PRN Constipation Duloxetine HCl 60 mg 06/09/20 09:00 06/10/20 09:15 Duloxetine Hcl 60 Mg Capsule. PO 60 mg DAILY KANNAN Administration Enoxaparin Sodium 40 mg 06/08/20 22:00 06/09/20 21:16 Enoxaparin Sodium 40 Mg/0.4 Ml Syringe SUBCUT 40 mg Q24H KANNAN Administration Gabapentin 600 mg 06/09/20 09:00 06/10/20 09:14 Gabapentin 600 Mg Tablet PO 600 mg TID KANNAN Administration Meclizine HCl 25 mg 06/08/20 22:42 Meclizine Hcl 25 Mg Tablet PO TID PRN Dizziness Omeprazole 20 mg 06/09/20 06:30 06/10/20 05:41 Omeprazole 20 Mg Capsule. PO 20 mg DAILY@0630 KANNAN Administration Ondansetron HCl 4 mg 06/08/20 22:42 Ondansetron Hcl 4 Mg/2 Ml Vial IVPUSH Q8H PRN Nausea and Vomiting Pharmacy Consult 1 each 06/08/20 19:43 Consult Rx Perform Med Rec MISCELLANE ONCE PRN Consult order Sodium Chloride 3 ml 06/09/20 00:00 06/10/20 09:15 0.9 % Sodium Chloride Flush 3 Ml Syringe IVFLUSH 3 ml QSHIFT KANNAN Administration Tamsulosin HCl 0.4 mg 06/09/20 09:00 06/10/20 09:14 Tamsulosin Hcl 0.4 Mg Capsule PO 0.4 mg DAILY KANNAN Administration Time Spent With Patient Time: Total time spent is greater than 50% in coordination of care (as documented) at patient's floor/unit and/or counseling patient: Time with patient: less than 15 minutes
[2020-06-10 11:32] VITALS: BP 116/69; PULSE 80; RESP 16; TEMP 36.1; O2SAT 94
--- NOTE | 2020-06-10 12:46 | PM.CNPUL ---
History of Present Illness History of Present Illness Consult date: 06/10/20 Reason for consult: other (PREOP) Chief complaint: Near-syncope Narrative: This is a 75-year-old male who presents to the hospital with complaints of near syncope. Patient reports that he was with his at a medical facility to get blood work, he was pushing her on a wheelchair, he started feeling dizzy, short of breath, hot and sweaty, by time they got to lab work for his , he felt severely weak and he was not able to stand straight, sat on the floor, and was unable to get up off the floor. He did not lose any consciousness, and he was so weak that they had to call EMS to get into the hospital. He denies any similar previous episodes. He does have chronic vertigo but this did not feel the same. Therefore, the patient was brought to the [facility] ED. He did have a CT scan of the brain and also CT scan of the neck demonstrating evidence of carotid stenosis. He was then evaluated by vascular surgery. Patient carries a diagnosis of obstructive sleep apnea. Initially diagnosed back in 2012 with a positive sleep study. He did try CPAP at the time but could not tolerated. The patient has been symptomatic with daytime drowsiness. Therefore he had a repeat study more recently demonstrating mild sleep apnea and significant hypoxia. In addition to that he has underlying history of chronic respiratory restriction. His last PFTs in 2019 demonstrating a moderate restrictive ventilatory defect. He did have a CT scan of the chest previously demonstrating some areas of pulmonary fibrosis primarily in the left base that likely is contributing to the decreased total lung capacity. The patient does not use any oxygen although he does get short of breath with activity. He does not use any inhalers at this time. He did not have any evidence of any obstructive airway disease on his recent pulmonary function studies. At this point the patient is being evaluated for potential surgery. He does have increased risk for perioperative pulmonary complications which include atelectasis, hypoxia, prolonged mechanical ventilation and pneumonia. At this point the patient has moderate risks, but, he is medically optimized and is able to proceed with surgery at this time from a pulmonary standpoint. In the meantime time we will see about starting his CPAP therapy to see if we can get him to get acquainted with it and get used to it while he is here. Review of Systems Constitutional: Constitutional: Reports daytime sleepiness, Denies night sweats and Denies weakness ENT: Denies change in voice, Reports dizziness, Denies lip swelling, Denies mouth pain, Reports nasal congestion, Reports nasal discharge and Denies tongue swelling Cardiovascular: Cardiovascular: Denies chest pain, Reports dyspnea and Reports dyspnea on exertion Respiratory: Respiratory: Reports cough, Reports dyspnea and Reports dyspnea on exertion Gastrointestinal: Gastrointestinal: Denies abdominal pain Musculoskeletal: Musculoskeletal: Denies no additional musculoskeletal complaints Neurologic: Reports Neuro-related abnormal movements, Reports dizziness and Denies weakness Psychiatric: Psychiatric: Denies no additional psychiatric complaints Hematologic/Lymphatic: Hematologic/Lymphatic: Denies easy bleeding and Denies lymphadenopathy Allergic/Immunologic: Allergic/Immunologic: Denies lip swelling and Denies tongue swelling PMFSH Past Medical History Medical History (Updated 06/10/20 @ 12:57 by Jean Carlos Recinos MD) BPH (benign prostatic hyperplasia) Chronic vertigo Dyspnea on exertion Esophageal reflux Fatigue Hypercholesteremia Obesity (BMI 30-39.9) MASSIEL (obstructive sleep apnea) Peripheral neuropathy Pre-op chest exam Pulmonary fibrosis Skin lesion Family History Family history: reviewed and not pertinent Surgical History Surgical History H/O colonoscopy H/O lumbosacral spine surgery History of appendectomy Social History Social History Household Members: Spouse Household Members Other:: Housing: House Do you presently have visiting nurse or other home services: No Smoking Status: Never smoker Use of substances other than those prescribed or required for medical reasons: No Currently Displaying Signs/Symptoms of Drug Intoxication Withdrawal: No Have you been hit, kicked, punched, or otherwise hurt by someone within the past year? If so, by whom?: No Do you feel safe in your current relationship?: Yes Is there a partner from a previous relationship who is making you feel unsafe now?: No Are you made to feel afraid or neglected: No Advance Directives: No Advance Directives Information Provided: No Do you have thoughts of harming others: None Do you have a plan to hurt others: No Plan Recently lost weight without trying: No service: No Current occupational status: retired Meds Allergies Allergy/AdvReac Type Severity Reaction Status Date / Time Crustaceans Allergy Mild HIVES Uncoded 06/08/20 15:44 shrimp Allergy Mild Swelling Uncoded 06/09/20 00:14 Active Medications: Current Medications Generic Name Dose Route Start Last Admin Trade Name Miguelina PRN Reason Stop Dose Admin Acetaminophen 650 mg 06/08/20 22:42 Acetaminophen 325 Mg Tablet PO Q6H PRN Pain, Mild (Pain Scale 1-3) Atorvastatin Calcium 40 mg 06/09/20 09:00 06/10/20 09:15 Atorvastatin Calcium 40 Mg Tablet PO 40 mg DAILY KANNAN Administration Docusate Sodium 100 mg 06/08/20 22:42 Docusate Sodium 100 Mg Capsule PO DAILY PRN Constipation Duloxetine HCl 60 mg 06/09/20 09:00 06/10/20 09:15 Duloxetine Hcl 60 Mg Capsule. PO 60 mg DAILY KANNAN Administration Enoxaparin Sodium 40 mg 06/08/20 22:00 06/09/20 21:16 Enoxaparin Sodium 40 Mg/0.4 Ml Syringe SUBCUT 40 mg Q24H KANNAN Administration Gabapentin 600 mg 06/09/20 09:00 06/10/20 09:14 Gabapentin 600 Mg Tablet PO 600 mg TID KANNAN Administration Meclizine HCl 25 mg 06/08/20 22:42 Meclizine Hcl 25 Mg Tablet PO TID PRN Dizziness Omeprazole 20 mg 06/09/20 06:30 06/10/20 05:41 Omeprazole 20 Mg Capsule. PO 20 mg DAILY@0630 KANNAN Administration Ondansetron HCl 4 mg 06/08/20 22:42 Ondansetron Hcl 4 Mg/2 Ml Vial IVPUSH Q8H PRN Nausea and Vomiting Pharmacy Consult 1 each 06/08/20 19:43 Consult Rx Perform Med Rec MISCELLANE ONCE PRN Consult order Sodium Chloride 3 ml 06/09/20 00:00 06/10/20 09:15 0.9 % Sodium Chloride Flush 3 Ml Syringe IVFLUSH 3 ml QSHIFT KANNAN Administration Tamsulosin HCl 0.4 mg 06/09/20 09:00 06/10/20 09:14 Tamsulosin Hcl 0.4 Mg Capsule PO 0.4 mg DAILY KANNAN Administration Home Medications Medication Instructions Recorded Confirmed Last Taken Type atorvastatin 40 mg tablet 40 mg PO DAILY tab 05/11/20 06/08/20 Unknown History gabapentin 600 mg tablet 600 mg PO TID 05/11/20 06/08/20 Unknown History meclizine 25 mg tablet 25 mg PO TID PRN tab 05/11/20 06/08/20 Unknown History omeprazole 20 mg capsule,delayed 20 mg PO DAILY 05/11/20 06/08/20 Unknown History release tamsulosin 0.4 mg capsule 0.4 mg PO DAILY 05/11/20 06/08/20 Unknown History aspirin 81 mg PO DAILY 06/08/20 06/08/20 Unknown History duloxetine 60 mg PO DAILY 06/08/20 06/08/20 Unknown History Physical Exam Vital Signs: Vital Signs: Last Vital Signs Temp 97 F 06/10/20 11:32 Pulse 80 06/10/20 11:32 Resp 16 06/10/20 11:32 BP 116/69 06/10/20 11:32 Pulse Ox 94 06/10/20 11:32 Body Mass Index 27.8 Const: General: alert HENMT: General nose exam: Abnormal external nose present and Nasal discharge present Neck: Neck: Yes normal visual inspection, Yes full ROM and Yes no lymphadenopathy Chest: Chest palpation & inspection: normal inspection of the chest Resp: Auscultation: crackles bilateral at the base and diminished lung sounds Cardio: Rate: regular rate Rhythm: regular rhythm Heart sounds: S1 normal heart sound present and S2 normal heart sound present GI: Palpation (GI): Soft to palpation and nontender Auscultation: normal bowel sounds Skin: General skin exam: rashes and/or lesions noted Results Laboratory Findings CBC and BMP: 06/09/20 04:09 06/09/20 04:09 ABG, PT/INR, D-dimer: PT/INR, D-dimer PT 12.8 SEC (10.8-13.0) 06/08/20 16:39 INR 1.1 (0.9-1.1) 06/08/20 16:39 Abnormal lab findings: Abnormal Labs 06/08/20 06/09/20 16:39 04:09 RBC 4.25 L 4.06 L Hgb 13.8 L Hct 41.1 L 39.4 L MCH 34.4 H 34.0 H MPV 9.3 L Lymph % (Auto) 16.0 L Eos % (Auto) 4.4 H 6.8 H Assessment and Plan (1) Pre-op chest exam: Problem details: The patient does have evidence of restrictive lung disease moderate severity and untreated sleep apnea. Therefore, patient is moderate risk for perioperative pulmonary complications which include again, atelectasis hypoxia up pneumonia and prolonged mechanical ventilation. The patient is okay to undergo surgery understanding these risks. Patient is able to tolerate general anesthesia. Will try to minimize her to less than 4 hours of possible. Incentive spirometer and oxygen supplementation may be necessary postoperatively. Status: Acute (2) Pulmonary fibrosis: Problem details: MILD BIBASIALR FIBROSIS Status: Acute (3) MASSIEL (obstructive sleep apnea): Problem details: HE DOES HAVE PST H/O MASSIEL, BUT STOPPED USING CPAP ABOUT 6 YERAS AGO . C/O INCREASED SYMPTOMS . AND WOULD LIKE TO BE ON CPAP THERAPY AGAIN . HE HAS NOT USED IT FOR ABOUT SIX YERAS , HE WOULD NEED A NEW SLEEP STUDY . CAN DO IT AT HOME . Status: Acute Okay to undergo surgery with general anesthesia or pulmonary standpoint. May need oxygen supplementation afterwards Start CPAP therapy Workup and follow-up pulmonary fibrosis is outpatient
--- NOTE | 2020-06-10 13:58 | HO.PM.IMPN ---
Subjective Subjective Date of Service: 06/10/20 Interval History: f/u on recurrent syncopal episodes, no evidence of arrythmia, no dizziness or passing today Review of Systems Gen: no fever Resp: no sob, no cough CV: no chest, no MCLAUGHLIN, no leg edema GI: No n/v, no abd pain Neuro: No confusion Physical Exam Vital Signs: Vital Signs: Last Vital Signs Temp 97 F 06/10/20 11:32 Pulse 80 06/10/20 11:32 Resp 16 06/10/20 11:32 BP 116/69 06/10/20 11:32 Pulse Ox 94 06/10/20 11:32 Body Mass Index 27.8 General: AO X 3, no acute distress Resp: CTA bilateral CVS: S1,S2,RRR, slight right carotid bruit GI: +BS, NT, no distention Skin: No rash Neuro: motor grossly intact Psych: appropriate affect Objective Data Current Medications Generic Name Dose Route Start Last Admin Trade Name Freq PRN Reason Stop Dose Admin Acetaminophen 650 mg 06/08/20 22:42 Acetaminophen 325 Mg Tablet PO Q6H PRN Pain, Mild (Pain Scale 1-3) Atorvastatin Calcium 40 mg 06/09/20 09:00 06/10/20 09:15 Atorvastatin Calcium 40 Mg Tablet PO 40 mg DAILY KANNAN Administration Docusate Sodium 100 mg 06/08/20 22:42 Docusate Sodium 100 Mg Capsule PO DAILY PRN Constipation Duloxetine HCl 60 mg 06/09/20 09:00 06/10/20 09:15 Duloxetine Hcl 60 Mg Capsule. PO 60 mg DAILY KANNAN Administration Enoxaparin Sodium 40 mg 06/08/20 22:00 06/09/20 21:16 Enoxaparin Sodium 40 Mg/0.4 Ml Syringe SUBCUT 40 mg Q24H KANNAN Administration Gabapentin 600 mg 06/09/20 09:00 06/10/20 09:14 Gabapentin 600 Mg Tablet PO 600 mg TID KANNAN Administration Meclizine HCl 25 mg 06/08/20 22:42 Meclizine Hcl 25 Mg Tablet PO TID PRN Dizziness Omeprazole 20 mg 06/09/20 06:30 06/10/20 05:41 Omeprazole 20 Mg Capsule. PO 20 mg DAILY@0630 KANNAN Administration Ondansetron HCl 4 mg 06/08/20 22:42 Ondansetron Hcl 4 Mg/2 Ml Vial IVPUSH Q8H PRN Nausea and Vomiting Pharmacy Consult 1 each 06/08/20 19:43 Consult Rx Perform Med Rec MISCELLANE ONCE PRN Consult order Sodium Chloride 3 ml 06/09/20 00:00 06/10/20 09:15 0.9 % Sodium Chloride Flush 3 Ml Syringe IVFLUSH 3 ml QSHIFT KANNAN Administration Tamsulosin HCl 0.4 mg 06/09/20 09:00 06/10/20 09:14 Tamsulosin Hcl 0.4 Mg Capsule PO 0.4 mg DAILY KANNAN Administration Labs CBC & Chem 7: 06/09/20 04:09 06/09/20 04:09 Assessment and Plan (1) Pre-syncope: Status: Acute Assessment and Plan: 75-year-old male with past medical history of hyperlipidemia, chronic vertigo who presents to the hospital with complaints of presyncopal episodes. # Pre-syncope etilogy not clear, he has had these in past, cardiac w/u has been unremarkable. -It is probable signficant carotid stenosis 85% on right side is playing a role -Vascular recommend CEA planned for tomorrow Right carotid stenosis likely cause of dizziness and passing out -CEA tomorrow, aware of risks and benefits and would like to proceed. Will have stress test today. Pulmonary cleared # CAD - pt has no chest pain - reports never had hx of heart attack or heart ds - Has no palpitations - EKG shows no acute changes # Chronic vertigo - continue meclizine # hyperlipidemia - continue statin # esophageal reflux - continue omeprazole # BPH - continue tamsulosin DVT prophylaxis: Lovenox
--- NOTE | 2020-06-10 14:19 | PC.NURSE ---
1400 Denies dizziness. Gavi diet. No c/o pain. Had first half of stress test. Tomorow to finish. VSS
[2020-06-10 15:30] VITALS: BP 104/62; PULSE 90; RESP 18; TEMP 36.2; O2SAT 94
--- NOTE | 2020-06-10 16:39 | P.PNVS_ITS ---
Subjective Subjective Date of Service: 06/10/20 Patient reports: no new complaints and feels better Interval history: 75-year-old gentleman presents for follow-up regarding right carotid stenosis. He has had multiple syncopal episodes. Unclear etiology. He had undergone CTA, which demonstrated no acute stroke but right-sided stenosis of 85% and left-sided stenosis of 60%. He is currently undergoing cardiac evaluation and he has undergone stress testing today. In addition he has undergone Pulmonary evaluation as well. Physical Exam Vital Signs: Vital Signs: Last Vital Signs Temp 97.2 F 06/10/20 15:30 Pulse 90 06/10/20 15:30 Resp 18 06/10/20 15:30 BP 104/62 06/10/20 15:30 Pulse Ox 94 06/10/20 15:30 Body Mass Index 27.8 Const: General: cooperative, healthy appearing and no acute distress Orientation/consciousness: oriented to person, oriented to place and oriented to time HENMT: Head: Yes normal to inspection Neck: Carotids: no bruits Chest: Chest palpation & inspection: normal inspection of the chest Resp: Effort & Inspection: normal respiratory effort and able to speak in complete sentences Auscultation: clear to auscultation bilaterally Cardio: Rate: regular rate Heart sounds: S1 normal heart sound present and S2 normal heart sound present GI: Inspection: Yes normal to inspection Skin: General skin exam: no rashes or lesions noted Wounds: no wounds Neuro: General: oriented to person, oriented to place, oriented to time and CN's II-XI intact bilaterally Extrem: General: Yes normal to inspection, Yes full ROM and Yes no clubbing, cyanosis or edema Psych: Appearance: grossly normal and well kempt Speech and movement: Normal speech and movement present Affect: normal affect Progress Note: A&P Assessment and plan (1) Stenosis of right carotid artery: Status: Acute Assessment and Plan: In short Martín has high-grade right carotid stenosis. He is in need of a right carotid endarterectomy. We are waiting final cardiac risk stratification. ECHO demonstrates ejection fraction between 55 and 60%. Stress test results are still pending. He is noted to be stable from a pulmonary perspective. We will try to schedule him during this admission. Thank you for allowing us to assist in his care. Fall Risk Details Current Medications: Current Medications Generic Name Dose Route Start Last Admin Trade Name Freq PRN Reason Stop Dose Admin Acetaminophen 650 mg 06/08/20 22:42 Acetaminophen 325 Mg Tablet PO Q6H PRN Pain, Mild (Pain Scale 1-3) Atorvastatin Calcium 40 mg 06/09/20 09:00 06/10/20 09:15 Atorvastatin Calcium 40 Mg Tablet PO 40 mg DAILY KANNAN Administration Docusate Sodium 100 mg 06/08/20 22:42 Docusate Sodium 100 Mg Capsule PO DAILY PRN Constipation Duloxetine HCl 60 mg 06/09/20 09:00 06/10/20 09:15 Duloxetine Hcl 60 Mg Capsule. PO 60 mg DAILY KANNAN Administration Enoxaparin Sodium 40 mg 06/08/20 22:00 06/09/20 21:16 Enoxaparin Sodium 40 Mg/0.4 Ml Syringe SUBCUT 40 mg Q24H KANNAN Administration Gabapentin 600 mg 06/09/20 09:00 06/10/20 15:35 Gabapentin 600 Mg Tablet PO 600 mg TID KANNAN Administration Meclizine HCl 25 mg 06/08/20 22:42 Meclizine Hcl 25 Mg Tablet PO TID PRN Dizziness Omeprazole 20 mg 06/09/20 06:30 06/10/20 05:41 Omeprazole 20 Mg Capsule. PO 20 mg DAILY@0630 KANNAN Administration Ondansetron HCl 4 mg 06/08/20 22:42 Ondansetron Hcl 4 Mg/2 Ml Vial IVPUSH Q8H PRN Nausea and Vomiting Pharmacy Consult 1 each 06/08/20 19:43 Consult Rx Perform Med Rec MISCELLANE ONCE PRN Consult order Sodium Chloride 3 ml 06/09/20 00:00 06/10/20 15:35 0.9 % Sodium Chloride Flush 3 Ml Syringe IVFLUSH 3 ml QSHIFT KANNAN Administration Tamsulosin HCl 0.4 mg 06/09/20 09:00 06/10/20 09:14 Tamsulosin Hcl 0.4 Mg Capsule PO 0.4 mg DAILY KANNAN Administration Time Spent With Patient Time: Total time spent is greater than 50% in coordination of care (as doc umented) at patient's floor/unit and/or counseling patient: Time with patient: 15 - 24 minutes
[2020-06-10 19:09] VITALS: BP 124/62; PULSE 84; RESP 18; TEMP 36.4; O2SAT 94
[2020-06-10] MEDS: Enoxaparin Sodium 40 MG/0.4 ML SYRINGE SUBCUT (21:33)
[2020-06-10 23:33] VITALS: BP 166/72; PULSE 76; RESP 18; TEMP 36.8; O2SAT 92
[2020-06-11 03:12] VITALS: BP 135/56; PULSE 70; RESP 18; TEMP 36.1; O2SAT 93
[2020-06-11 07:45] VITALS: BP 137/65; PULSE 71; RESP 20; TEMP 35.7; O2SAT 94
[2020-06-11] MEDS: 0.9 % Sodium Chloride Flush 3 ML SYRINGE IVFLUSH ×3 (08:18→21:08)
[2020-06-11] MEDS: Gabapentin 600 MG TABLET PO ×3 (08:18→21:03)
[2020-06-11] MEDS: Omeprazole 20 MG CAPSULE.DR PO (08:18)
[2020-06-11] MEDS: DULoxetine HCl 60 MG CAPSULE.DR PO (08:18)
--- NOTE | 2020-06-11 08:45 | HO.PM.IMPN ---
Subjective Subjective Date of Service: 06/11/20 Interval History: f/u on recurrent syncopal episodes, and carotid stenosis. For surgery today. Review of Systems Gen: no fever Resp: no sob, no cough CV: no chest, no MCLAUGHLIN, no leg edema GI: No n/v, no abd pain Neuro: No confusion Physical Exam Vital Signs: Vital Signs: Last Vital Signs Temp 96.2 F L 06/11/20 07:45 Pulse 71 06/11/20 07:45 Resp 20 06/11/20 07:45 BP 137/65 06/11/20 07:45 Pulse Ox 94 06/11/20 07:45 Body Mass Index 27.8 Objective Data Current Medications Generic Name Dose Route Start Last Admin Trade Name Freq PRN Reason Stop Dose Admin Acetaminophen 650 mg 06/08/20 22:42 Acetaminophen 325 Mg Tablet PO Q6H PRN Pain, Mild (Pain Scale 1-3) Atorvastatin Calcium 40 mg 06/11/20 21:00 Atorvastatin Calcium 40 Mg Tablet PO BEDTIME KANNAN Docusate Sodium 100 mg 06/08/20 22:42 Docusate Sodium 100 Mg Capsule PO DAILY PRN Constipation Duloxetine HCl 60 mg 06/09/20 09:00 06/11/20 08:18 Duloxetine Hcl 60 Mg Capsule. PO 60 mg DAILY KANNAN Administration Enoxaparin Sodium 40 mg 06/08/20 22:00 06/10/20 21:33 Enoxaparin Sodium 40 Mg/0.4 Ml Syringe SUBCUT 40 mg Q24H KANNAN Administration Gabapentin 600 mg 06/09/20 09:00 06/11/20 08:18 Gabapentin 600 Mg Tablet PO 600 mg TID KANNAN Administration Meclizine HCl 25 mg 06/08/20 22:42 Meclizine Hcl 25 Mg Tablet PO TID PRN Dizziness Omeprazole 20 mg 06/09/20 06:30 06/11/20 08:18 Omeprazole 20 Mg Capsule. PO 20 mg DAILY@0630 KANNAN Administration Ondansetron HCl 4 mg 06/08/20 22:42 Ondansetron Hcl 4 Mg/2 Ml Vial IVPUSH Q8H PRN Nausea and Vomiting Pharmacy Consult 1 each 06/08/20 19:43 Consult Rx Perform Med Rec MISCELLANE ONCE PRN Consult order Sodium Chloride 3 ml 06/09/20 00:00 06/11/20 08:18 0.9 % Sodium Chloride Flush 3 Ml Syringe IVFLUSH 3 ml QSHIFT KANNAN Administration Tamsulosin HCl 0.4 mg 06/11/20 17:30 Tamsulosin Hcl 0.4 Mg Capsule PO DAILY@1730 [facility] Labs CBC & Chem 7: 06/09/20 04:09 06/09/20 04:09 Assessment and Plan (1) Pre-syncope: Status: Acute Assessment and Plan: 75-year-old male with past medical history of hyperlipidemia, chronic vertigo who presents to the hospital with complaints of presyncopal episodes. # Pre-syncope etilogy not clear, he has had these in past, cardiac w/u has been unremarkable. -It is probable signficant carotid stenosis 85% on right side is playing a role -Vascular recommend CEA planned for today 06/[address] Slaughter Right carotid stenosis likely cause of dizziness and passing out -CEA tomorrow, aware of risks and benefits and would like to proceed. Will have stress test today. Pulmonary cleared # CAD - pt has no chest pain - reports never had hx of heart attack or heart ds - Has no palpitations - EKG shows no acute changes # Chronic vertigo - continue meclizine # hyperlipidemia - continue statin # esophageal reflux - continue omeprazole # BPH - continue tamsulosin DVT prophylaxis: Lovenox
--- NOTE | 2020-06-11 10:34 | P.PNCA_ITS ---
Subjective Subjective Date of Service: 06/11/20 Interval history: He states that he feels ok. Review of Systems Review of Systems Yes all other systems are reviewed and are negative Constitutional: Reports weakness Cardiovascular: Reports as per HPI, Reports no additional cardiovascular complaints, Denies acrocyanosis, Denies cool extremities, Denies painful fingertips, Denies chest pain, Denies chest pain at rest, Denies diaphoresis, Denies syncope, Denies irregular heart rhythm, Denies claudication, Denies leg edema, Reports lightheadedness, Denies palpitations and Reports dyspnea Respiratory: Reports dyspnea Denies syncope and Reports weakness Endocrine: Denies palpitations Physical Exam Vital Signs: Last Vital Signs Temp 96.2 F L 06/11/20 07:45 Pulse 71 06/11/20 07:45 Resp 20 06/11/20 07:45 BP 137/65 06/11/20 07:45 Pulse Ox 94 06/11/20 07:45 Body Mass Index 27.8 Const General: cooperative, comfortable and no acute distress Orientation/consciousness: patient oriented x3 HENMT Other: Unremarkable Neck Neck: Yes normal visual inspection Chest Chest palpation & inspection: normal inspection of the chest Resp Auscultation: clear to auscultation bilaterally, no crackles and no wheezes Cardio Jugular venous distension: no JVD Palpation: normal PMI Heart sounds: S1 normal heart sound present, S2 normal heart sound present, no gallops, no murmurs and no rubs GI Palpation (GI): Soft to palpation Back/Spine/Pelvis Other: unremarkable Skin General skin exam: no rashes or lesions noted Neuro General: patient oriented x3 Extrem General: Yes no clubbing, cyanosis or edema Psych Mental Status: mental status grossly normal Results Labs and Meds Result diagrams: 06/09/20 04:09 06/09/20 04:09 Progress Note: A&P Assessment and plan (1) Syncope and collapse: Status: Acute (2) Stenosis of right carotid artery: Status: Acute Assessment and Plan: Reviewed his prior cardiology notes from , [facility]. Similar presentations around 2019 or so. Echocardiogram then with normal LVEF, 60-65% and essentially otherwise unremarkable. It seems that he also underwent a Holter monitor than that showed rare supraventricular ventricular ectopy but otherwise unremarkable. Carotid had shown right-sided 50-69% stenosis by ultrasound but nothing significant on the left side. Exercise treadmill test in 2019 showed poor exercise tolerance of only 1.25 minutes reaching 3.6 Mets and 94% of predicted heart rate. No ischemia at that level of activity. Limited by shortness of breath and dizziness. Current CTA shows 85% stenosis on the right side and I am not clear if that plays a role in his description of generalized weakness with activity. Vascular consultation is noted. Stress test today for evaluation in anticipation of possible carotid endarterectomy per his note. Fall Risk Details Current Medications: Current Medications Generic Name Dose Route Start Last Admin Trade Name Freq PRN Reason Stop Dose Admin Acetaminophen 650 mg 06/08/20 22:42 Acetaminophen 325 Mg Tablet PO Q6H PRN Pain, Mild (Pain Scale 1-3) Atorvastatin Calcium 40 mg 06/11/20 21:00 Atorvastatin Calcium 40 Mg Tablet PO BEDTIME KANNAN Docusate Sodium 100 mg 06/08/20 22:42 Docusate Sodium 100 Mg Capsule PO DAILY PRN Constipation Duloxetine HCl 60 mg 06/09/20 09:00 06/11/20 08:18 Duloxetine Hcl 60 Mg Capsule. PO 60 mg DAILY KANNAN Administration Enoxaparin Sodium 40 mg 06/08/20 22:00 06/10/20 21:33 Enoxaparin Sodium 40 Mg/0.4 Ml Syringe SUBCUT 40 mg Q24H KANNAN Administration Gabapentin 600 mg 06/09/20 09:00 06/11/20 08:18 Gabapentin 600 Mg Tablet PO 600 mg TID KANNAN Administration Meclizine HCl 25 mg 06/08/20 22:42 Meclizine Hcl 25 Mg Tablet PO TID PRN Dizziness Omeprazole 20 mg 06/09/20 06:30 06/11/20 08:18 Omeprazole 20 Mg Capsule. PO 20 mg DAILY@0630 KANNAN Administration Ondansetron HCl 4 mg 06/08/20 22:42 Ondansetron Hcl 4 Mg/2 Ml Vial IVPUSH Q8H PRN Nausea and Vomiting Pharmacy Consult 1 each 06/08/20 19:43 Consult Rx Perform Med Rec MISCELLANE ONCE PRN Consult order Sodium Chloride 3 ml 06/09/20 00:00 06/11/20 08:18 0.9 % Sodium Chloride Flush 3 Ml Syringe IVFLUSH 3 ml QSHIFT KANNAN Administration Tamsulosin HCl 0.4 mg 06/11/20 17:30 Tamsulosin Hcl 0.4 Mg Capsule PO DAILY@1730 KANNAN Time Spent With Patient Time: Total time spent is greater than 50% in coordination of care (as doc umented) at patient's floor/unit and/or counseling patient: Time with patient: less than 15 minutes
--- NOTE | 2020-06-11 11:21 | P.PNVS_ITS ---
Subjective Subjective Date of Service: 06/11/20 Patient reports: no new complaints and feels better Interval history: 75-year-old gentleman presents to hospital for syncopal episode. Upon workup he was noted to have high-grade right carotid stenosis. He has undergone Pulmonary evaluation. We are waiting 2nd part of stress test. Should that prove to be negative will plan for operative intervention on Sunday. Physical Exam Vital Signs: Vital Signs: Last Vital Signs Temp 96.2 F L 06/11/20 07:45 Pulse 71 06/11/20 07:45 Resp 20 06/11/20 07:45 BP 137/65 06/11/20 07:45 Pulse Ox 94 06/11/20 07:45 Body Mass Index 27.8 Const: General: cooperative, healthy appearing and no acute distress Orientation/consciousness: oriented to person, oriented to place and oriented to time HENMT: Head: Yes normal to inspection Neck: Carotids: no bruits Chest: Chest palpation & inspection: normal inspection of the chest Resp: Effort & Inspection: normal respiratory effort and able to speak in complete sentences Auscultation: clear to auscultation bilaterally Cardio: Rate: regular rate Heart sounds: S1 normal heart sound present and S2 normal heart sound present GI: Inspection: Yes normal to inspection Skin: General skin exam: no rashes or lesions noted Wounds: no wounds Neuro: General: oriented to person, oriented to place, oriented to time and CN's II-XI intact bilaterally Extrem: General: Yes normal to inspection, Yes full ROM and Yes no clubbing, cyanosis or edema Psych: Appearance: grossly normal and well kempt Speech and movement: Normal speech and movement present Affect: normal affect Progress Note: A&P Assessment and plan (1) Stenosis of right carotid artery: Status: Acute Assessment and Plan: In short patient has right carotid stenosis. Will plan for right carotid endarterectomy on Sunday. Risks benefits complications of the procedure including but not limited to bleeding infection stroke and were discussed in detail with the patient patient demonstrated clear understanding and would like to proceed with the operation. Case discussed with Cardiology and the hospitalist team along with pulmonology. Thank you for allowing us to assist in his care. Fall Risk Details Current Medications: Current Medications Generic Name Dose Route Start Last Admin Trade Name Freq PRN Reason Stop Dose Admin Acetaminophen 650 mg 06/08/20 22:42 Acetaminophen 325 Mg Tablet PO Q6H PRN Pain, Mild (Pain Scale 1-3) Atorvastatin Calcium 40 mg 06/11/20 21:00 Atorvastatin Calcium 40 Mg Tablet PO BEDTIME KANNAN Docusate Sodium 100 mg 06/08/20 22:42 Docusate Sodium 100 Mg Capsule PO DAILY PRN Constipation Duloxetine HCl 60 mg 06/09/20 09:00 06/11/20 08:18 Duloxetine Hcl 60 Mg Capsule. PO 60 mg DAILY KANNAN Administration Enoxaparin Sodium 40 mg 06/08/20 22:00 06/10/20 21:33 Enoxaparin Sodium 40 Mg/0.4 Ml Syringe SUBCUT 40 mg Q24H KANNAN Administration Gabapentin 600 mg 06/09/20 09:00 06/11/20 08:18 Gabapentin 600 Mg Tablet PO 600 mg TID KANNAN Administration Cefazolin Sodium/Dextrose 2 gm in 50 mls @ 100 mls/hr 06/11/20 11:18 Ancef IV 06/11/20 11:47 PREOP ONE Meclizine HCl 25 mg 06/08/20 22:42 Meclizine Hcl 25 Mg Tablet PO TID PRN Dizziness Omeprazole 20 mg 06/09/20 06:30 06/11/20 08:18 Omeprazole 20 Mg Capsule. PO 20 mg DAILY@0630 [facility] Administration Ondansetron HCl 4 mg 06/08/20 22:42 Ondansetron Hcl 4 Mg/2 Ml Vial IVPUSH Q8H PRN Nausea and Vomiting Pharmacy Consult 1 each 06/08/20 19:43 Consult Rx Perform Med Rec MISCELLANE ONCE PRN Consult order Sodium Chloride 3 ml 06/09/20 00:00 06/11/20 08:18 0.9 % Sodium Chloride Flush 3 Ml Syringe IVFLUSH 3 ml QSHIFT KANNAN Administration Tamsulosin HCl 0.4 mg 06/11/20 17:30 Tamsulosin Hcl 0.4 Mg Capsule PO DAILY@1730 [facility] Time Spent With Patient Time: Total time spent is greater than 50% in coordination of care (as documented) at patient's floor/unit and/or counseling patient: Time with patient: 15 - 24 minutes
[2020-06-11 12:00] VITALS: BP 136/60; PULSE 72; RESP 20; TEMP 36; O2SAT 94
--- NOTE | 2020-06-11 13:13 | MHC.CM.PN ---
DP Male DX Near syncope. Discharge plan is to home no services w family transport. The Pt is scheduled for part 2 of stress test. Plan is for CEA sunday if stress test neg. Pt may need a VNA a DC. CM will continue to follow.
[2020-06-11] MEDS: Tamsulosin HCL 0.4 MG CAPSULE PO (15:49)
[2020-06-11 15:55] VITALS: BP 154/60; PULSE 72; RESP 20; TEMP 35.9; O2SAT 72
[2020-06-11 19:41] VITALS: BP 147/55; PULSE 84; RESP 18; TEMP 36.4; O2SAT 94
[2020-06-11] MEDS: Atorvastatin Calcium 40 MG TABLET PO (21:03)
[2020-06-11] MEDS: Enoxaparin Sodium 40 MG/0.4 ML SYRINGE SUBCUT (21:03)
[2020-06-11 22:00] VITALS: PULSE 84; O2SAT 94
[2020-06-12] VITALS (7 sets, daily range): BP systolic 124–166; BP diastolic 59–78; PULSE 69–96; RESP 15–19; TEMP 36.1–37.1; O2SAT 94–98
[2020-06-12] MEDS: Omeprazole 20 MG CAPSULE.DR PO (06:15)
[2020-06-12] MEDS: Gabapentin 600 MG TABLET PO ×3 (08:05→20:02)
[2020-06-12] MEDS: DULoxetine HCl 60 MG CAPSULE.DR PO (08:05)
[2020-06-12] MEDS: 0.9 % Sodium Chloride Flush 3 ML SYRINGE IVFLUSH ×3 (08:05→20:09)
--- NOTE | 2020-06-12 09:56 | HO.PM.IMPN ---
Subjective Subjective Date of Service: 06/12/20 Interval History: f/u on recurrent syncopal episodes, and carotid stenosis. For carotid artery surgery on SundayJune 14. Presently have no complaint. Review of Systems Gen: no fever Resp: no sob, no cough CV: no chest, no [place], no leg edema GI: No n/v, no abd pain Neuro: No confusion Physical Exam Vital Signs: Vital Signs: Last Vital Signs Temp 96.9 F 06/12/20 08:00 Pulse 73 06/12/20 08:00 Resp 19 06/12/20 08:00 BP 126/67 06/12/20 08:00 Pulse Ox 95 06/12/20 08:00 Body Mass Index 27.8 General: AO X 3, no acute distress Resp: CTA bilateral CVS: S1,S2,RRR, slight right carotid bruit GI: +BS, NT, no distention Skin: No rash Neuro: motor grossly intact Psych: appropriate affect Objective Data Current Medications Generic Name Dose Route Start Last Admin Trade Name Freq PRN Reason Stop Dose Admin Acetaminophen 650 mg 06/08/20 22:42 Acetaminophen 325 Mg Tablet PO Q6H PRN Pain, Mild (Pain Scale 1-3) Atorvastatin Calcium 40 mg 06/11/20 21:00 06/11/20 21:03 Atorvastatin Calcium 40 Mg Tablet PO 40 mg BEDTIME KANNAN Administration Docusate Sodium 100 mg 06/08/20 22:42 Docusate Sodium 100 Mg Capsule PO DAILY PRN Constipation Duloxetine HCl 60 mg 06/09/20 09:00 06/12/20 08:05 Duloxetine Hcl 60 Mg Capsule.Dr PO 60 mg DAILY KANNAN Administration Enoxaparin Sodium 40 mg 06/08/20 22:00 06/11/20 21:03 Enoxaparin Sodium 40 Mg/0.4 Ml Syringe SUBCUT 40 mg Q24H KANNAN Administration Gabapentin 600 mg 06/09/20 09:00 06/12/20 08:05 Gabapentin 600 Mg Tablet PO 600 mg TID KANNAN Administration Cefazolin Sodium/Dextrose 2 gm in 50 mls @ 100 mls/hr 06/14/20 07:00 Ancef IV 06/14/20 07:29 PREOP ONE Meclizine HCl 25 mg 06/08/20 22:42 Meclizine Hcl 25 Mg Tablet PO TID PRN Dizziness Omeprazole 20 mg 06/09/20 06:30 06/12/20 06:15 Omeprazole 20 Mg Capsule. PO 20 mg DAILY@0630 KANNAN Administration Ondansetron HCl 4 mg 06/08/20 22:42 Ondansetron Hcl 4 Mg/2 Ml Vial IVPUSH Q8H PRN Nausea and Vomiting Pharmacy Consult 1 each 06/08/20 19:43 Consult Rx Perform Med Rec MISCELLANE ONCE PRN Consult order Sodium Chloride 3 ml 06/09/20 00:00 06/12/20 08:05 0.9 % Sodium Chloride Flush 3 Ml Syringe IVFLUSH 3 ml QSHIFT KANNAN Administration Tamsulosin HCl 0.4 mg 06/11/20 17:30 06/11/20 15:49 Tamsulosin Hcl 0.4 Mg Capsule PO 0.4 mg DAILY@1730 KANNAN Administration Labs CBC & Chem 7: 06/09/20 04:09 06/09/20 04:09 Assessment and Plan (1) Pre-syncope: Status: Acute Assessment and Plan: 75-year-old male with past medical history of hyperlipidemia, chronic vertigo who presents to the hospital with complaints of presyncopal episodes. # Pre-syncope etilogy not clear, he has had these in past, cardiac w/u has been unremarkable. -It is probable signficant carotid stenosis 85% on right side is the cause -Vascular recommend CEA planned for Wednesday 06/[address] Slaughter -completed surgery stress Right carotid stenosis likely cause of dizziness and passing out -CEA tomorrow, aware of risks and benefits and would like to proceed. Will have stress test today. Pulmonary cleared # CAD - pt has no chest pain - reports never had hx of heart attack or heart ds - Has no palpitations - EKG shows no acute changes -Pre surgery stress test on shows: 1. normal myocardialperfusion. 2. Gated LVEF is 60% during stress. 3. Transient ischemic dilatation not present. # Chronic vertigo - continue meclizine # hyperlipidemia - continue statin # esophageal reflux - continue omeprazole # BPH - continue tamsulosin DVT prophylaxis: Lovenox
--- NOTE | 2020-06-12 11:22 | PM.PNCARD ---
Subjective Subjective Date of Service: 06/12/20 Interval history: states he feels ok Review of Systems Review of Systems Yes all other systems are reviewed and are negative Constitutional: Reports weakness Cardiovascular: Reports as per HPI, Reports no additional cardiovascular complaints, Denies acrocyanosis, Denies cool extremities, Denies painful fingertips, Denies chest pain, Denies chest pain at rest, Denies diaphoresis, Denies syncope, Denies irregular heart rhythm, Denies claudication, Denies leg edema, Reports lightheadedness, Denies palpitations and Reports dyspnea Respiratory: Reports dyspnea Denies syncope and Reports weakness Endocrine: Denies palpitations Physical Exam Vital Signs: Last Vital Signs Temp 96.9 F 06/12/20 08:00 Pulse 73 06/12/20 08:00 Resp 19 06/12/20 08:00 BP 126/67 06/12/20 08:00 Pulse Ox 95 06/12/20 08:00 Body Mass Index 27.8 Const General: cooperative, comfortable and no acute distress Orientation/consciousness: patient oriented x3 HENMT Other: Unremarkable Neck Neck: Yes normal visual inspection Chest Chest palpation & inspection: normal inspection of the chest Resp Auscultation: clear to auscultation bilaterally, no crackles and no wheezes Cardio Jugular venous distension: no JVD Palpation: normal PMI Heart sounds: S1 normal heart sound present, S2 normal heart sound present, no gallops, no murmurs and no rubs GI Palpation (GI): Soft to palpation Back/Spine/Pelvis Other: unremarkable Skin General skin exam: no rashes or lesions noted Neuro General: patient oriented x3 Extrem General: Yes no clubbing, cyanosis or edema Psych Mental Status: mental status grossly normal Results Labs and Meds Result diagrams: 06/09/20 04:09 06/09/20 04:09 Lab results: Laboratory Results - last 24 hr 06/11/20 12:54 Blood Type O Positive Antibody Screen NEGATIVE Imaging Radiologist's impression: Impressions Myocardial Perfusion Scan Nuc Med 06/10/20 09:28 Impression: 1. Myocardial perfusion imaging study shows normal myocardial perfusion. 2. Gated LVEF is 60% during stress. 3. Transient ischemic dilatation not present. EKG component of the test reported separately. Progress Note: A&P Assessment and plan (1) Syncope and collapse: Status: Acute (2) Stenosis of right carotid artery: Status: Acute Assessment and Plan: Reviewed his prior cardiology notes from , [facility]. Similar presentations around 2019 or so. Echocardiogram then with normal LVEF, 60-65% and essentially otherwise unremarkable. It seems that he also underwent a Holter monitor than that showed rare supraventricular ventricular ectopy but otherwise unremarkable. Carotid had shown right-sided 50-69% stenosis by ultrasound but nothing significant on the left side. Exercise treadmill test in 2019 showed poor exercise tolerance of only 1.25 minutes reaching 3.6 Mets and 94% of predicted heart rate. No ischemia at that level of activity. Limited by shortness of breath and dizziness. Current CTA shows 85% stenosis on the right side. Not clear if that is what is leading to his current symptoms however. Echocardiogram with LVEF 55-60% in suspected basal inferior hypokinesis. . However, myocardial perfusion imaging shows normal perfusion. May proceed with carotid endarterectomy. Intermediate cardiac risk. Fall Risk Details Current Medications: Current Medications Generic Name Dose Route Start Last Admin Trade Name Freq PRN Reason Stop Dose Admin Acetaminophen 650 mg 06/08/20 22:42 Acetaminophen 325 Mg Tablet PO Q6H PRN Pain, Mild (Pain Scale 1-3) Atorvastatin Calcium 40 mg 06/11/20 21:00 06/11/20 21:03 Atorvastatin Calcium 40 Mg Tablet PO 40 mg BEDTIME KANNAN Administration Docusate Sodium 100 mg 06/08/20 22:42 Docusate Sodium 100 Mg Capsule PO DAILY PRN Constipation Duloxetine HCl 60 mg 06/09/20 09:00 06/12/20 08:05 Duloxetine Hcl 60 Mg Capsule. PO 60 mg DAILY KANNAN Administration Enoxaparin Sodium 40 mg 06/08/20 22:00 06/11/20 21:03 Enoxaparin Sodium 40 Mg/0.4 Ml Syringe SUBCUT 40 mg Q24H KANNAN Administration Gabapentin 600 mg 06/09/20 09:00 06/12/20 08:05 Gabapentin 600 Mg Tablet PO 600 mg TID KANNAN Administration Cefazolin Sodium/Dextrose 2 gm in 50 mls @ 100 mls/hr 06/14/20 07:00 Ancef IV 06/14/20 07:29 PREOP ONE Meclizine HCl 25 mg 06/08/20 22:42 Meclizine Hcl 25 Mg Tablet PO TID PRN Dizziness Omeprazole 20 mg 06/09/20 06:30 06/12/20 06:15 Omeprazole 20 Mg Capsule. PO 20 mg DAILY@0630 [facility] Administration Ondansetron HCl 4 mg 06/08/20 22:42 Ondansetron Hcl 4 Mg/2 Ml Vial IVPUSH Q8H PRN Nausea and Vomiting Pharmacy Consult 1 each 06/08/20 19:43 Consult Rx Perform Med Rec MISCELLANE ONCE PRN Consult order Sodium Chloride 3 ml 06/09/20 00:00 06/12/20 08:05 0.9 % Sodium Chloride Flush 3 Ml Syringe IVFLUSH 3 ml QSHIFT KANNAN Administration Tamsulosin HCl 0.4 mg 06/11/20 17:30 06/11/20 15:49 Tamsulosin Hcl 0.4 Mg Capsule PO 0.4 mg DAILY@1730 [facility] Administration Time Spent With Patient Time: Total time spent is greater than 50% in coordination of care (as documented) at patient's floor/unit and/or counseling patient: Time with patient: less than 15 minutes
[2020-06-12] MEDS: Tamsulosin HCL 0.4 MG CAPSULE PO (17:21)
[2020-06-12] MEDS: Atorvastatin Calcium 40 MG TABLET PO (20:02)
[2020-06-12] MEDS: Enoxaparin Sodium 40 MG/0.4 ML SYRINGE SUBCUT (20:04)
[2020-06-13] VITALS (7 sets, daily range): BP systolic 110–139; BP diastolic 58–72; PULSE 76–100; RESP 16–20; TEMP 36.1–36.8; O2SAT 93–96
[2020-06-13] MEDS: Omeprazole 20 MG CAPSULE.DR PO (06:09)
[2020-06-13] MEDS: Gabapentin 600 MG TABLET PO ×3 (09:07→22:33)
[2020-06-13] MEDS: DULoxetine HCl 60 MG CAPSULE.DR PO (09:07)
[2020-06-13] MEDS: 0.9 % Sodium Chloride Flush 3 ML SYRINGE IVFLUSH ×3 (09:08→22:36)
--- NOTE | 2020-06-13 14:17 | HO.PM.IMPN ---
Subjective Subjective Date of Service: 06/13/20 Interval History: no further syncopal episodes no chest pain or dyspnea Physical Exam Vital Signs: Vital Signs: Last Vital Signs Temp 97.6 F 06/13/20 11:43 Pulse 100 06/13/20 11:43 Resp 20 06/13/20 11:43 BP 129/60 06/13/20 11:43 Pulse Ox 94 06/13/20 11:43 Body Mass Index 27.8 Gen: in no acute distress HEENT: sclera anicteric, moist mucus membranes Neck: R carotid bruit Lungs: clear to auscultation bilaterally Heart: regular rate and rhythm, no murmurs Abd: soft, non-tender, non-distended Ext: no edema Skin: warm/well-perfused Neuro: alert and oriented x3, no focal findings Psych: appropriate affect Objective Data Current Medications Generic Name Dose Route Start Last Admin Trade Name Freq PRN Reason Stop Dose Admin Acetaminophen 650 mg 06/08/20 22:42 Acetaminophen 325 Mg Tablet PO Q6H PRN Pain, Mild (Pain Scale 1-3) Atorvastatin Calcium 40 mg 06/11/20 21:00 06/12/20 20:02 Atorvastatin Calcium 40 Mg Tablet PO 40 mg BEDTIME KANNAN Administration Docusate Sodium 100 mg 06/08/20 22:42 Docusate Sodium 100 Mg Capsule PO DAILY PRN Constipation Duloxetine HCl 60 mg 06/09/20 09:00 06/13/20 09:07 Duloxetine Hcl 60 Mg Capsule. PO 60 mg DAILY KANNAN Administration Enoxaparin Sodium 40 mg 06/08/20 22:00 06/12/20 20:04 Enoxaparin Sodium 40 Mg/0.4 Ml Syringe SUBCUT 40 mg Q24H KANNAN Administration Gabapentin 600 mg 06/09/20 09:00 06/13/20 09:07 Gabapentin 600 Mg Tablet PO 600 mg TID KANNAN Administration Cefazolin Sodium/Dextrose 2 gm in 50 mls @ 100 mls/hr 06/14/20 07:00 Ancef IV 06/14/20 07:29 PREOP ONE Meclizine HCl 25 mg 06/08/20 22:42 Meclizine Hcl 25 Mg Tablet PO TID PRN Dizziness Omeprazole 20 mg 06/09/20 06:30 06/13/20 06:09 Omeprazole 20 Mg Capsule. PO 20 mg DAILY@0630 KANNAN Administration Ondansetron HCl 4 mg 06/08/20 22:42 Ondansetron Hcl 4 Mg/2 Ml Vial IVPUSH Q8H PRN Nausea and Vomiting Pharmacy Consult 1 each 06/08/20 19:43 Consult Rx Perform Med Rec MISCELLANE ONCE PRN Consult order Sodium Chloride 3 ml 06/09/20 00:00 06/13/20 09:08 0.9 % Sodium Chloride Flush 3 Ml Syringe IVFLUSH 3 ml QSHIFT KANNAN Administration Tamsulosin HCl 0.4 mg 06/11/20 17:30 06/12/20 17:21 Tamsulosin Hcl 0.4 Mg Capsule PO 0.4 mg DAILY@1730 KANNAN Administration Labs CBC & Chem 7: 06/09/20 04:09 06/09/20 04:09 Labs: Assessment and Plan (1) Pre-syncope: Status: Acute Assessment and Plan: hospital d#6 75yo M with HLD, chronic vertigo, admitted for multiple presyncopal episodes and found to have critical carotid stenosis # carotid stenosis (85% proximal R ICA) - seen by Dr Slaughter [Vascular], plan CEA tomorrow - preop cardiac + pulmonary workup done: Reviewed his prior cardiology notes from , [facility]. Similar presentations around 2019 or so. Echocardiogram then with normal LVEF, 60-65% and essentially otherwise unremarkable. It seems that he also underwent a Holter monitor than that showed rare supraventricular ventricular ectopy but otherwise unremarkable. Carotid had shown right-sided 50-69% stenosis by ultrasound but nothing significant on the left side. Exercise treadmill test in 2019 showed poor exercise tolerance of only 1.25 minutes reaching 3.6 Mets and 94% of predicted heart rate. No ischemia at that level of activity. Limited by shortness of breath and dizziness. Current CTA shows 85% stenosis on the right side. Not clear if that is what is leading to his current symptoms however. Echocardiogram with LVEF 55-60% in suspected basal inferior hypokinesis. . However, myocardial perfusion imaging shows normal perfusion. May proceed with carotid endarterectomy. Intermediate cardiac risk. The patient does have evidence of restrictive lung disease moderate severity and untreated sleep apnea. Therefore, patient is moderate risk for perioperative pulmonary complications which include again, atelectasis hypoxia up pneumonia and prolonged mechanical ventilation. The patient is okay to undergo surgery understanding these risks. Patient is able to tolerate general anesthesia. Will try to minimize her to less than 4 hours of possible. Incentive spirometer and oxygen supplementation may be necessary postoperatively. # presyncope # chronic vertigo - etiology unclear - continue prn meclizine # MASSIEL - home sleep study for CPAP, use in hospital 8cm H20 # HLD - continue statin # GERD - continue PPI # BPH - continue tamsulosin # peripheral neuropathy - continue duloxetine + gabapentin # VTE ppx - LMWH
[2020-06-13] MEDS: Tamsulosin HCL 0.4 MG CAPSULE PO (17:09)
[2020-06-13] MEDS: Atorvastatin Calcium 40 MG TABLET PO (22:33)
[2020-06-13] MEDS: Enoxaparin Sodium 40 MG/0.4 ML SYRINGE SUBCUT (22:33)
[2020-06-14] VITALS (24 sets, daily range): BP systolic 109–146; BP diastolic 47–73; PULSE 66–107; RESP 12–20; TEMP 36.2–37.1; O2SAT 92–99
[2020-06-14 07:05] LABS: MANUAL DIFF FLAG NO
[2020-06-14 07:16] LABS: Basophils Percent Auto 0.6 % (0-2); Eosinophils Absolute Auto 0.5 X10*3/uL (0.0-0.4); Eosinophils Percent Auto 7.6 % (0-4); Hematocrit 44.5 % (42-52); Hemoglobin 15.4 g/dl (14.0-18.0); Imm Gran Abs Auto 0.02 X10*3/uL (0.00-0.03); Imm Gran Pct Auto 0.3 % (0.0-0.4); Lymphocytes Absolute Auto 2.1 X10*3/uL (1.2-4.9); Lymphocytes Percent Auto 29.9 % (20-40); Mean Corpuscular HGB Conc 34.6 g/dl (31.0-36.0); Mean Corpuscular Volume 98.2 fL (80-98); Mean Platelet Volume 9.4 fL (9.4-12.4); Monocytes Absolute Auto 0.6 X10*3/uL (0.1-1.2); Monocytes Percent Auto 8.6 % (2-11); Neutrophils Absolute Auto 3.6 X10*3/uL (2.0-8.3); Platelet Count 199 X10*3/uL (160-400); Red Blood Count 4.53 X10*6/uL (4.60-5.80); Red Cell Distribution Width 12.5 % (11.0-16.0); White Blood Count 6.9 X10*3/uL (4.8-10.8)
--- NOTE | 2020-06-14 07:16 | P.CONAN_ITS ---
HPI - Anesthesia Eval Consult details Narrative: 75 yo male patient here for Right carotid endarterectomy [facility] Active Problems Active Problems: All Active Problems (Updated 06/10/20 @ 12:57 by Jean Carlos Recinos MD) Pre-op chest exam (Acute) Stenosis of right carotid artery (Acute) Pre-syncope (Acute) Syncope and collapse (Acute) Pulmonary fibrosis (Acute) MASSIEL (obstructive sleep apnea) (Acute) Obesity (BMI 30-39.9) (Acute) Past Medical History Medical History BPH (benign prostatic hyperplasia) Chronic vertigo Dyspnea on exertion Esophageal reflux Fatigue Hypercholesteremia Obesity (BMI 30-39.9) MASSIEL (obstructive sleep apnea) Peripheral neuropathy Pre-op chest exam Pulmonary fibrosis Skin lesion Family History Family history of problems with anesthesia: No Surgical History Surgical History H/O colonoscopy H/O lumbosacral spine surgery History of appendectomy History of Problems with Anesthesia: No Social History Social History Household Members: Spouse Household Members Other:: Housing: House Do you presently have visiting nurse or other home services: No Smoking Status: Never smoker Use of substances other than those prescribed or required for medical reasons: No Currently Displaying Signs/Symptoms of Drug Intoxication Withdrawal: No Have you been hit, kicked, punched, or otherwise hurt by someone within the past year? If so, by whom?: No Do you feel safe in your current relationship?: Yes Is there a partner from a previous relationship who is making you feel unsafe now?: No Are you made to feel afraid or neglected: No Advance Directives: No Advance Directives Information Provided: No Do you have thoughts of harming others: None Do you have a plan to hurt others: No Plan Recently lost weight without trying: No service: No Current occupational status: retired Meds Allergies Allergy/AdvReac Type Severity Reaction Status Date / Time Crustaceans Allergy Mild HIVES Uncoded 06/14/20 07:12 shrimp Allergy Mild Swelling Uncoded 06/14/20 07:12 Active Medications: Current Medications Generic Name Dose Route Start Last Admin Trade Name Freq PRN Reason Stop Dose Admin Acetaminophen 650 mg 06/08/20 22:42 Acetaminophen 325 Mg Tablet PO Q6H PRN Pain, Mild (Pain Scale 1-3) Atorvastatin Calcium 40 mg 06/11/20 21:00 06/13/20 22:33 Atorvastatin Calcium 40 Mg Tablet PO 40 mg BEDTIME KANNAN Administration Docusate Sodium 100 mg 06/08/20 22:42 Docusate Sodium 100 Mg Capsule PO DAILY PRN Constipation Duloxetine HCl 60 mg 06/09/20 09:00 06/13/20 09:07 Duloxetine Hcl 60 Mg Capsule. PO 60 mg DAILY KANNAN Administration Enoxaparin Sodium 40 mg 06/08/20 22:00 06/13/20 22:33 Enoxaparin Sodium 40 Mg/0.4 Ml Syringe SUBCUT 40 mg Q24H KANNAN Administration Gabapentin 600 mg 06/09/20 09:00 06/13/20 22:33 Gabapentin 600 Mg Tablet PO 600 mg TID KANNAN Administration Cefazolin Sodium/Dextrose 2 gm in 50 mls @ 100 mls/hr 06/14/20 07:00 Ancef IV 06/14/20 07:29 PREOP ONE Meclizine HCl 25 mg 06/08/20 22:42 Meclizine Hcl 25 Mg Tablet PO TID PRN Dizziness Omeprazole 20 mg 06/09/20 06:30 06/14/20 05:56 Omeprazole 20 Mg Capsule. PO Not Given DAILY@0630 [facility] Ondansetron HCl 4 mg 06/08/20 22:42 Ondansetron Hcl 4 Mg/2 Ml Vial IVPUSH Q8H PRN Nausea and Vomiting Pharmacy Consult 1 each 06/08/20 19:43 Consult Rx Perform Med Rec MISCELLANE ONCE PRN Consult order Sodium Chloride 3 ml 06/09/20 00:00 06/13/20 22:36 0.9 % Sodium Chloride Flush 3 Ml Syringe IVFLUSH 3 ml QSHIFT [facility] Administration Tamsulosin HCl 0.4 mg 06/11/20 17:30 06/13/20 17:09 Tamsulosin Hcl 0.4 Mg Capsule PO 0.4 mg DAILY@1730 [facility] Administration Home Medications Medication Instructions Recorded Confirmed Last Taken Type atorvastatin 40 mg tablet 40 mg PO DAILY tab 05/11/20 06/08/20 Unknown History gabapentin 600 mg tablet 600 mg PO TID 05/11/20 06/08/20 Unknown History meclizine 25 mg tablet 25 mg PO TID PRN tab 05/11/20 06/08/20 Unknown History omeprazole 20 mg capsule,delayed 20 mg PO DAILY 05/11/20 06/08/20 Unknown History release tamsulosin 0.4 mg capsule 0.4 mg PO DAILY 05/11/20 06/08/20 Unknown History aspirin 81 mg PO DAILY 06/08/20 06/08/20 Unknown History duloxetine 60 mg PO DAILY 06/08/20 06/08/20 Unknown History Exam Exam Date and Time: June 14, 2020 0716 Height,Weight and Vital Signs: Height 5 ft 11 in Weight 90.7 kg Last Vital Signs Temp 97.8 F 06/14/20 07:01 Pulse 66 06/14/20 07:01 Resp 18 06/14/20 07:01 BP 134/65 06/14/20 07:01 Pulse Ox 95 06/14/20 07:01 Pertinent Lab Results Pertinent Lab Results: Laboratory Tests 06/08/20 06/08/20 06/08/20 16:39 16:39 16:39 WBC 7.3 RBC 4.25 L Hgb 14.6 Hct 41.1 L MCV 96.7 MCH 34.4 H MCHC 35.5 RDW 12.3 Plt Count 193 MPV 9.3 L Immature Gran % (Auto) 0.3 Neut % (Auto) 70.2 Lymph % (Auto) 16.0 L [place] % (Auto) 8.6 Eos % (Auto) 4.4 H Baso % (Auto) 0.5 Lymph # (Auto) 1.2 [place] # (Auto) 0.6 Eos # (Auto) 0.3 Baso # (Auto) 0.0 Abs Immat Gran (auto) 0.02 Absolute Neuts (auto) 5.2 Absolute Nucleated RBC 0.000 Nucleated RBC % (auto) 0.0 PT 12.8 INR 1.1 Sodium 139 Potassium 4.3 Chloride 103 Carbon Dioxide 24 Anion Gap 16 BUN 15 Creatinine 1.23 Estim Creat Clear Calc 53.5 Estimated GFR 57 Random Glucose 106 Calcium 9.0 Magnesium 2.2 Troponin I High Sens B-Natriuretic Peptide COVID-19 (DEB) COVID-19 Clin Com Blood Type Antibody Screen 06/08/20 06/08/20 06/08/20 16:39 16:39 17:07 WBC RBC Hgb Hct MCV MCH MCHC RDW Plt Count MPV Immature Gran % (Auto) Neut % (Auto) Lymph % (Auto) [place] % (Auto) Eos % (Auto) Baso % (Auto) Lymph # (Auto) [place] # (Auto) Eos # (Auto) Baso # (Auto) Abs Immat Gran (auto) Absolute Neuts (auto) Absolute Nucleated RBC Nucleated RBC % (auto) PT INR Sodium Potassium Chloride Carbon Dioxide Anion Gap BUN Creatinine Estim Creat Clear Calc Estimated GFR Random Glucose Calcium Magnesium Troponin I High Sens 4.2 B-Natriuretic Peptide 20 COVID-19 (DEB) Negative COVID-19 Clin Com See Note Blood Type Antibody Screen 06/09/20 06/09/20 06/11/20 04:09 04:09 12:54 WBC 6.3 RBC 4.06 L Hgb 13.8 L Hct 39.4 L MCV 97.0 MCH 34.0 H MCHC 35.0 RDW 12.3 Plt Count 188 MPV 9.5 Immature Gran % (Auto) 0.3 Neut % (Auto) 56.3 Lymph % (Auto) 26.9 [place] % (Auto) 9.4 Eos % (Auto) 6.8 H Baso % (Auto) 0.3 Lymph # (Auto) 1.7 [place] # (Auto) 0.6 Eos # (Auto) 0.4 Baso # (Auto) 0.0 Abs Immat Gran (auto) 0.02 Absolute Neuts (auto) 3.5 Absolute Nucleated RBC 0.000 Nucleated RBC % (auto) 0.0 PT INR Sodium 139 Potassium 3.8 Chloride 103 Carbon Dioxide 26 Anion Gap 14 BUN 12 Creatinine 1.10 Estim Creat Clear Calc 64.7 Estimated GFR > 60 Random Glucose 100 Calcium 8.4 D Magnesium Troponin I High Sens B-Natriuretic Peptide COVID-19 (DEB) COVID-19 Clin Com Blood Type O Positive Antibody Screen NEGATIVE Airway Mallampati Class: III TM Dist: >3cm Neck ROM: Full Heart: RRR Lungs: Decreased BS? crackles bases Assessment and Plan Assessment Anesthesia Assessment: Anesthesia Plan Discussed and Chart Reviewed Final Anesthetic Review NPO: Yes ASA Class: III Final Preanesthetic Review: No Changes in Pt Med Stat, Consent Obtained/Reviewed and Anes Risks/Benef Reviewed Patient Risk: Intermediate Procedure Risk: High Assessment/Block/Sedation in SS: Assess/Block/Sedation-SS Anesthetic Plan Anesthetic Plan: GA Disposition: Inp. Admit - ICU
[2020-06-14 07:21] LABS: Prothrombin Time 12.1 SEC (10.8-13.0)
[2020-06-14] MEDS: Lactated Ringers 1,000 ML 50 ML IV (07:31)
[2020-06-14 07:32] LABS: Anion Gap 15 (12-20); Blood Urea Nitrogen 16 mg/dL (9-16); Calcium 8.8 mg/dL (8.4-10.2); Carbon Dioxide 24 mmol/L (22-29); Chloride 103 mmol/L (96-108); Creatinine Clr Calc Pharmacy 65.9; Estimated Glomerular Filt Rate > 60; Glucose Random 108 mg/dL (60-115); Potassium 4.2 mmol/L (3.3-5.1); Sodium 138 mmol/L (135-145)
--- NOTE | 2020-06-14 11:08 | W.PM.OPN ---
Operative Note Operative Note Date of Service: 06/14/20 Narrative: Operative note by [facility] Preoperative diagnosis: High-grade right carotid stenosis Postoperative diagnosis: Same Procedure: Right carotid endarterectomy Surgeon:Fabrizio Slaughter M.D. Parts Counter Salesperson: Dr. Umair LANDAVERDE Anesthesia: General Specimens: 1 Drains: 1 Estimated blood loss: 100 cc Indications: 75-year-old gentleman who presented to the hospital with syncopal episodes. Upon workup was found to have high-grade right carotid stenosis with 85% occlusion on CT a. He now presents for right carotid endarterectomy. The patient has signed the informed consent after reviewing risks, complications, benefits, and alternatives previously discussed with the patient in my office. The patient was given the opportunity to ask any additional questions or voice any concerns. All questions were answered to the patient's satisfaction. Procedure in detail: Patient was taken to the operating room prior to which a time-out was called for patient identification site verification right neck was prepped and draped in standard surgical fashion. Incision was carried out over the anterior border of the right sternocleidomastoid down to the carotid sheath. Carotid sheath was then dissected free. We were immediately able to identify the common carotid which was isolated with a Ojry tourniquet. Significant dissection had to be performed to get to the external and internal carotid arteries. Once this was done this were isolated with silastic loops. At this time 5000 units of systemic heparin was administered. After 5 minutes of circulation time we clamped the internal common and external carotid artery in that order. Arteriotomy was made from the common to the internal carotid. We placed a Krueger KRUEGER shot. Once this was in position and good flow was achieved we then performed an endarterectomy. [place] elevator was used to remove the plaque. Once the plaque was removed in its entirety on it was flushed clear. Using fine mosquitoes external carotid was cleared as well. Once this was all accomplished we flushed this clear. We sutured on a xenosure patch using a 6 0 Prolene in a circumferential manner. Prior to closure the shunt was removed. It was flushed clear. We then performed the closure. Once this was all accomplished we had to place several interrupted 7 0 Prolene sutures to obtain hemostasis on the suture line mostly towards the apex. Once this was accomplished snow was placed and excellent hemostasis was achieved. Seven flat Donald-Miller drain was then placed. We reapproximated deep layer using 2 0 poly sore be superficial layer with 3-0 Polysorb and finally skin with a 4-0 Monocryl Steri-Strips and a sterile dressing were applied. At the end of the case patient awoke neurologically intact, and return to the PACU with stable vitals. This note is constructed using voice recognition software. While every effort has been made to ensure accuracy, signal maintainer helper errors may have been included. Thank you for allowing me to participate in the care of your patient. Yours sincerely, Fabrizio Slaughter MD, FACS, R.P.V.I.
[2020-06-14] MEDS: ceFAZolin Sodium/Dextrose,Iso 2 GM/50 ML PIGGYBACK IV ×2 (14:31→23:43)
[2020-06-14] MEDS: oxyCODONE HCl Immed Release 5 MG TABLET PO (14:36)
--- NOTE | 2020-06-14 14:56 | MHC.SHP ---
Pre-Procedural Eval Section B Chief Complaint: Near-syncope Allergies: Allergies Allergy/AdvReac Type Severity Reaction Status Date / Time Crustaceans Allergy Mild HIVES Uncoded 06/14/20 07:12 shrimp Allergy Mild Swelling Uncoded 06/14/20 07:12 Plan I have reviewed the history and physical and performed a pertinent physical examination on my patient. No changes have occurred unless specified.
[2020-06-14] MEDS: 0.9 % Sodium Chloride 1,000 ML 80 ML IVCONT ×2 (15:15→23:32)
--- NOTE | 2020-06-14 17:57 | PC.NURSE ---
Patient arrived from PACU at approximately 17:40 A/O x 3, neuro signs intact, pain well controlled, talkative, good spirits, oriented to plan of care/ICU routines, lungs CTA room air sat 90%, 2L NC on sats 96%, Left radial A line patent, calibrated and correlated BP to manual, IV fluids infusing as ordered, watt patient, JAYNE drain to right neck draining scant SS drainage. Dressing over incision clean dry and intact. compression boots on, pulses strong to lower extremities.
--- NOTE | 2020-06-14 18:18 | P.PNCC_ITS ---
Subjective Subjective Date of Service: 06/14/20 Interval History: 75-year-old gentleman with underlying history of chronic vertigo, GERD, MASSIEL, admitted on 06/08/2020 with near-syncope. Patient was noted to have critical right-sided carotid stenosis and had right carotid endarterectomy on 06/14/2020. His been monitored in the intensive care unit in the immediate postop period. Physical Exam Vital Signs: Vital Signs: Last Vital Signs Temp 98.7 F 06/14/20 16:30 Pulse 100 06/14/20 17:55 Resp 16 06/14/20 17:55 BP 130/60 06/14/20 17:55 Pulse Ox 96 06/14/20 17:55 Body Mass Index 27.8 Const: General: no acute distress, alert and awake Eyes: Sclerae: sclerae normal EOM: EOMs intact bilaterally Neck: Neck: Yes no lymphadenopathy, Yes trachea midline, Yes supple and Yes other (Right surgical site with JAYNE drain, surgical dressing, and no hematoma) Resp: Effort & Inspection: normal respiratory effort and no respiratory distress Auscultation: clear to auscultation bilaterally Cardio: Rate: tachycardic Rhythm: regular rhythm Heart sounds: no gallops, no murmurs and no rubs GI: Palpation (GI): Soft to palpation and Other GI palpation findings present ( Nontender) Auscultation: normal bowel sounds Extrem: General: Yes no pedal edema, No clubbing and No cyanosis Objective Data Labs CBC & Chem 7: 06/14/20 06:34 06/14/20 06:34 Labs: Laboratory Results - last 24 hr 06/14/20 06/14/20 06/14/20 06:34 06:34 06:34 WBC 6.9 RBC 4.53 L Hgb 15.4 Hct 44.5 MCV 98.2 H MCH 34.0 H MCHC 34.6 RDW 12.5 Plt Count 199 MPV 9.4 Immature Gran % (Auto) 0.3 Neut % (Auto) 53.0 Lymph % (Auto) 29.9 [place] % (Auto) 8.6 Eos % (Auto) 7.6 H Baso % (Auto) 0.6 Lymph # (Auto) 2.1 [place] # (Auto) 0.6 Eos # (Auto) 0.5 H Baso # (Auto) 0.0 Abs Immat Gran (auto) 0.02 Absolute Neuts (auto) 3.6 Absolute Nucleated RBC 0.000 Nucleated RBC % (auto) 0.0 PT 12.1 INR 1.0 Sodium 138 Potassium 4.2 Chloride 103 Carbon Dioxide 24 Anion Gap 15 BUN 16 Creatinine 1.08 Estim Creat Clear Calc 65.9 Estimated GFR > 60 Random Glucose 108 Calcium 8.8 Progress Note: A&P Assessment and plan (1) Stenosis of right carotid artery: Status: Acute Assessment and Plan: Assessment: 75-year-old gentleman admitted with knee a syncopal episode on 06/08/2020 and noted to have critical right-sided carotid stenosis, now status post of right carotid endarterectomy on 06/14/2020, monitored in ICU. Plan: Neuro: Presyncopal episode, on the background of critical right-sided carotid stenosis, now status post carotid endarterectomy on 06/14/2020. Cardiac: Status post endarterectomy on 06/14/2020. Vascular surgery service care appreciated. Maintain systolic blood pressure under 160. Pulmonary: No acute issues. Underlying history obstructive sleep apnea, cont inue with CPAP. Renal: No acute issues. Endo: No acute issues. GI: No acute issues. ID: No acute issues Heme/Onc: No acute issues. Psych: No acute issues. Miscellaneous: No acute issues. Prophylaxis: Per vascular surgery Diet: Regular Critical care time spent: (2) MASSIEL (obstructive sleep apnea): Status: Acute (3) Pre-syncope: Status: Acute Time Spent With Patient Total time spent with greater than 50% in coordination of care (as documented) at patient's floor/unit and/or counseling patient:: 0
--- NOTE | 2020-06-14 20:32 | PC.NURSE ---
pt denies pain, no s/s of resp distress, right carotid angel drained serosang drainage dressing dry intact no crepatis. pt has full motion of his neck, lawrence. sophia lower arm swelling non pitting, sophia lower leg edema non pitting. candelaria olegario with bp. pt asking for food. pudding and diet gingerale given. pt has none of his belongings, pt missing clothing, cell phone and cpap. imc called
[2020-06-14] MEDS: Atorvastatin Calcium 40 MG TABLET PO (20:39)
[2020-06-14] MEDS: Gabapentin 600 MG TABLET PO (20:39)
[2020-06-14] MEDS: Tamsulosin HCL 0.4 MG CAPSULE PO (20:39)
[2020-06-14] MEDS: Enoxaparin Sodium 40 MG/0.4 ML SYRINGE SUBCUT (22:11)
--- NOTE | 2020-06-14 22:14 | PC.NURSE ---
pt denies pain at this time dressing to right side of neck dry and intact. pt is aox3 with no s/s of distress. pt watching tv, watt patent. vitals stable.
--- NOTE | 2020-06-14 22:27 | PC.NURSE ---
pt denies pain. pt declined pain medications. vitals stable rr even and reg. pt aox3
[2020-06-14] MEDS: 0.9 % Sodium Chloride Flush 3 ML SYRINGE IVFLUSH ×2 (23:35→23:36)
[2020-06-15] VITALS (15 sets, daily range): BP systolic 110–154; BP diastolic 46–75; PULSE 67–86; RESP 9–19; TEMP 36.5–37.2; O2SAT 90–96; BMI 30.1
--- NOTE | 2020-06-15 02:28 | PC.NURSE ---
CARE ASSUMED 23;15...AWAKE..ALERT..ORIENTED X3..SPEECH CLEAR..TONGUE MID-LINE...WEIR WITH GOOD STRENGTH--DRINKING FLUIDS W/O DIFFICULTY--RIGHT NECK DRESSING SMALL OLD STAINING..RIGHT NECK JAYNE DRAIN WITH SMALL AMOUNT SEROSANGUINOUS DRAINAGE...LEFT RADIAL A-LINE WITH GOOD WAVEFORM..LEFT HAND [facility] INTACT..DENIES DISCOMFORT....PLACED ON NOCTURNAL CPAP AT FOR MASSIEL (ROOM AIR)..NO DISTRESS
[2020-06-15 05:38] LABS: MANUAL DIFF FLAG NO
[2020-06-15 05:39] LABS: VBG HCO3 24 mmol/L (22-26); VBG pCO2 39 mmHg; VBG pO2 142 mmHg
[2020-06-15 05:40] LABS: Basophils Percent Auto 0.1 % (0-2); Eosinophils Percent Auto 0.1 % (0-4); Hematocrit 37.7 % (42-52); Imm Gran Abs Auto 0.06 X10*3/uL (0.00-0.03); Imm Gran Pct Auto 0.4 % (0.0-0.4); Lymphocytes Absolute Auto 0.9 X10*3/uL (1.2-4.9); Lymphocytes Percent Auto 6.9 % (20-40); Mean Corpuscular HGB Conc 34.5 g/dl (31.0-36.0); Mean Corpuscular Hemoglobin 33.8 pg (27.0-33.0); Mean Corpuscular Volume 97.9 fL (80-98); Mean Platelet Volume 9.3 fL (9.4-12.4); Monocytes Absolute Auto 0.7 X10*3/uL (0.1-1.2); Monocytes Percent Auto 4.8 % (2-11); Neutrophils Absolute Auto 11.8 X10*3/uL (2.0-8.3); Neutrophils Percent Auto 87.7 % (45-73); Platelet Count 183 X10*3/uL (160-400); Red Blood Count 3.85 X10*6/uL (4.60-5.80); Red Cell Distribution Width 12.5 % (11.0-16.0); White Blood Count 13.5 X10*3/uL (4.8-10.8)
[2020-06-15 05:42] LABS: Venous Blood Gas Refer to POC result
[2020-06-15 06:07] LABS: Albumin Level 3.5 g/dL (3.5-5.0); Anion Gap 13 (12-20); Blood Urea Nitrogen 15 mg/dL (9-16); Calcium 8.4 mg/dL (8.4-10.2); Carbon Dioxide 25 mmol/L (22-29); Chloride 105 mmol/L (96-108); Creatinine Clr Calc Pharmacy 74.5; Estimated Glomerular Filt Rate > 60; Glucose Random 137 mg/dL (60-115); Magnesium 1.9 mg/dL (1.6-2.6); Phosphorus 2.8 mg/dL (2.7-4.5); Potassium 4.4 mmol/L (3.3-5.1); Sodium 139 mmol/L (135-145)
[2020-06-15] MEDS: Omeprazole 20 MG CAPSULE.DR PO (06:58)
[2020-06-15] MEDS: Gabapentin 600 MG TABLET PO (08:52)
[2020-06-15] MEDS: DULoxetine HCl 60 MG CAPSULE.DR PO (08:52)
[2020-06-15] MEDS: 0.9 % Sodium Chloride Flush 3 ML SYRINGE IVFLUSH (08:53)
--- NOTE | 2020-06-15 09:14 | PC.NURSE ---
F/C AND CYRUS D/C PER MD ORDERS. MILD BLEEDING FROM CYRUS INSERTION SITE NOTED, PRESSURE HELD X 10 MINUTED AND PRESSURE DRESSING APPLIED WILL CONTINUE TO MONITOR
--- NOTE | 2020-06-15 12:18 | PM.DS ---
DS: Providers Provider Date of Service: 06/15/20 Date of admission: 06/08/20 21:27 Primary care physician: Jose Galindo MD Consults: 06/08/20 22:42 Consult to Cardiology Routine Consulting Provider: Norbert Chandra Reason for consultation: sig CAD on CTA of neck Has provider been notified: No 06/09/20 10:50 Consult to Vascular Surgery Routine Consulting Provider: Fabrizio Slaughter Reason for consultation: Carotid stenosis with recurrent syncope 06/09/20 17:21 Consult to Pulmonology Routine Consulting Provider: Eric Bustos Reason for consultation: pre-op pulm eval Has provider been notified: No DS: Diagnosis Discharge Diagnosis (1) Stenosis of right carotid artery: Status: Acute (2) MASSIEL (obstructive sleep apnea): Status: Acute (3) Pre-syncope: Status: Acute DS: Medications Discharge Medications Home Medications: Home Medications Medication Instructions Recorded Confirmed atorvastatin 40 mg tablet 40 mg PO DAILY tab 05/11/20 06/08/20 gabapentin 600 mg tablet 600 mg PO TID 05/11/20 06/08/20 meclizine 25 mg tablet 25 mg PO TID PRN tab 05/11/20 06/08/20 omeprazole 20 mg capsule,delayed 20 mg PO DAILY 05/11/20 06/08/20 release tamsulosin 0.4 mg capsule 0.4 mg PO DAILY 05/11/20 06/08/20 aspirin 81 mg PO DAILY 06/08/20 06/08/20 duloxetine 60 mg PO DAILY 06/08/20 06/08/20 Previous Rx's Medication Instructions Recorded oxycodone 5 mg PO Q4H PRN #10 cap 06/15/20 DS: Summary Hospital Course Time spent discussing smoking cessation with patient: 3 to 10 minutes Time Spent with Patient Time attestation: Total time spent providing and/or coordinating discharge services: Discharge coordination time: Greater than 30 minutes Physical Exam Vital Signs: Vital Signs: Last Vital Signs Temp 97.7 F 06/15/20 08:00 Pulse 67 06/15/20 11:00 Resp 11 L 06/15/20 11:00 BP 128/48 L 06/15/20 11:00 Pulse Ox 96 06/15/20 11:00 Body Mass Index 30.1 Const: General: cooperative, healthy appearing and no acute distress Orientation/consciousness: oriented to person, oriented to place and oriented to time HENMT: Head: Yes normal to inspection Neck: Carotids: no bruits Chest: Chest palpation & inspection: normal inspection of the chest Resp: Effort & Inspection: normal respiratory effort and able to speak in complete sentences Auscultation: clear to auscultation bilaterally Cardio: Rate: regular rate Heart sounds: S1 normal heart sound present and S2 normal heart sound present GI: Inspection: Yes normal to inspection Skin: Other: Incision healing well General skin exam: no rashes or lesions noted Wounds: no wounds Neuro: General: oriented to person, oriented to place, oriented to time and CN's II-XI intact bilaterally Extrem: General: Yes normal to inspection, Yes full ROM and Yes no clubbing, cyanosis or edema Psych: Appearance: grossly normal and well kempt Speech and movement: Normal speech and movement present Affect: normal affect DS: Data Data Completed and Pending Completed studies during hospitalization [Text1]: Pending at discharge 06/14/20 08:53 Surgical [PTH] Routine Labs on day of discharge: Laboratory Results - last 24 hr 06/15/20 06/15/20 06/15/20 05:25 05:25 05:32 WBC 13.5 H RBC 3.85 L Hgb 13.0 L Hct 37.7 L MCV 97.9 MCH 33.8 H MCHC 34.5 RDW 12.5 Plt Count 183 MPV 9.3 L Immature Gran % (Auto) 0.4 Neut % (Auto) 87.7 H Lymph % (Auto) 6.9 L [place] % (Auto) 4.8 Eos % (Auto) 0.1 Baso % (Auto) 0.1 Lymph # (Auto) 0.9 L [place] # (Auto) 0.7 Eos # (Auto) 0.0 Baso # (Auto) 0.0 Abs Immat Gran (auto) 0.06 H Absolute Neuts (auto) 11.8 H Absolute Nucleated RBC 0.000 Nucleated RBC % (auto) 0.0 VBG pH 7.40 VBG pCO2 39 VBG pO2 142 VBG HCO3 24 VBG O2 Saturation 99.0 VBG Base Excess 0.0 Sodium 139 Potassium 4.4 Chloride 105 Carbon Dioxide 25 Anion Gap 13 BUN 15 Creatinine 0.99 Estim Creat Clear Calc 74.5 Estimated GFR > 60 Random Glucose 137 H Calcium 8.4 Phosphorus 2.8 Magnesium 1.9 Albumin 3.5 Discharge Plan Discharge Patient Disposition: Home, Self-Care Referrals: Jose Galindo MD [Primary Care Provider] - Discharge Medications: New oxycodone 5 mg capsule 5 mg PO Q4H PRN (Reason: pain) Qty: 10 RF: 0 Continued duloxetine 60 mg Capsule, Delayed Rel Sprinkle 60 mg PO DAILY RF: 0 aspirin 81 mg Tablet 81 mg PO DAILY RF: 0 tamsulosin 0.4 mg capsule 0.4 mg PO DAILY RF: 0 gabapentin 600 mg tablet 600 mg PO TID RF: 0 omeprazole 20 mg capsule,delayed release(DR/EC) 20 mg PO DAILY RF: 0 atorvastatin 40 mg tablet 40 mg PO DAILY RF: 0 meclizine 25 mg tablet 25 mg PO TID PRN (Reason: Dizziness) RF: 0 Discharge Orders: Discharge Order (Routine); Ordered 06/15/20 Ordered By: Fabrizio Slaughter Activity on Discharge: As tolerated Stand Alone Forms: Patient Portal Discharge page Activity Restrictions/Additional Instructions: Discharge instruction sheet given to patient. See me in 2 weeks in follow-up. No driving until seen by me Care Plan Goals: prevent stroke Health Concerns: carotid disease Plan of Treatment: post op ultrasound carotid surveilence
--- NOTE | 2020-06-15 12:22 | MHC.CM.PN ---
Met with pt briefly to ensure he was comfortable with returning to home with outpt f/u after carotid endartectomy. Pt states MD and RN went over self care and monitoring for complications. Family to transport home.
--- NOTE | 2020-06-15 14:08 | HO.POSTANES ---
Post Anesthesia Evaluation Post Anesthesia Evaluation Vital Signs: Vital Signs Temp Pulse Resp BP Pulse Ox 06/15/20 13:00 98.2 F 81 19 117/75 90 L 06/15/20 12:00 83 14 148/49 H 96 06/15/20 11:00 67 11 L 128/48 L 96 06/15/20 10:00 73 13 121/46 L 96 06/15/20 09:00 72 12 154/72 H 95 06/15/20 08:00 97.7 F 68 11 L 139/64 95 06/15/20 07:00 72 14 128/61 95 06/15/20 05:53 74 16 121/57 L 94 06/15/20 05:00 16 110/55 L 93 06/15/20 04:00 76 16 112/54 L 94 06/15/20 03:00 98.0 F 74 16 116/58 L 92 Anesthesia: General Endotracheal-GETA Mental Status: Awake Pain Control: Satisfactory Nausea/Vomiting: None Hydration: Adequate Anesthesia-Related Issues: No Anes. Related Issues
== END 2020-06-15 13:58 | disposition home or self-care (01) | DRG 39 ==
LOC: HO.ED 16:45 → HO.EDOVER 21:43 → HO.IMC 21:49 → HO.ICU 06-14 20:06
PROVIDERS: Family Medicine; Internal Medicine Pulmonary Disease; Surgery Vascular Surgery; Admitting Provider Internal Medicine; Emergency Provider Internal Medicine; PCP Internal Medicine; Visit Provider Internal Medicine
PROC: 03CH0ZZ Extirpation of Matter from Right Common Carotid Artery, Open Approach (ICD-10-PCS; CPT 35301; principal; 2020-06-14 07:30)
DX: I65.21 Occlusion and stenosis of right carotid artery (principal); I25.10 Atherosclerotic heart disease of native coronary artery without angina pectoris; J84.10 Pulmonary fibrosis, unspecified; E78.5 Hyperlipidemia, unspecified; K21.9 Gastro-esophageal reflux disease without esophagitis; G47.33 Obstructive sleep apnea (adult) (pediatric); N40.0 Benign prostatic hyperplasia without lower urinary tract symptoms; Z20.822 Contact with and (suspected) exposure to COVID-19; Z79.82 Long term (current) use of aspirin; Z79.899 Other long term (current) drug therapy
CPT/HCPCS: 36415; 70496; 70498; 78452; 80048; 82040; 83735; 83880; 84100; 84484; 85025; 85610; 86850; 86900; 87635; 88304; 93005; 93017; 93306; 94660; 99285; A9500; C1768; J0280; J0690; J1100; J1650; J2250; J2370; J2405; J2785; J3010; Q9967

== ENCOUNTER → 2020-07-06 15:06 | Outpatient (BNVA) | payer MEDICARE, SELFPAY | PROVIDERS: PCP Internal Medicine; Visit Provider Surgery Vascular Surgery | DX: I65.21 Occlusion and stenosis of right carotid artery (principal); I73.9 Peripheral vascular disease, unspecified | CPT/HCPCS: 99212 ==

== ENCOUNTER 2020-07-13 13:14 | Outpatient (REF) | payer MEDICARE, SELFPAY ==
--- NOTE | ~2020-07-13 | XR_ITS ---
EXAMINATION: XR CHEST CLINICAL INFORMATION: Other disorder of lung COMPARISON: Chest CT October 24, 2019 and chest x-ray September 30, 2019 TECHNIQUE: 2 views of the chest were obtained. FINDINGS: Cardiac silhouette is normal in size. The lungs are well aerated. There is no lobar consolidation. No pleural effusion or pneumothorax. Old healed left posterior rib fracture. Mild to moderate degenerative changes of the spine. Small hiatal hernia suspected. XR/XR chest 2V IMPRESSION: No acute pulmonary pathology.
== END 2020-07-13 13:15 | disposition home or self-care (01) ==
LOC: HO.XRAY 13:14
PROVIDERS: PCP Internal Medicine; Visit Provider Internal Medicine
DX: R06.00 Dyspnea, unspecified (principal); J84.10 Pulmonary fibrosis, unspecified; J98.4 Other disorders of lung
CPT/HCPCS: 71046; 99212

== ENCOUNTER 2020-09-10 22:33 | Emergency (ER) | payer MEDICARE, SELFPAY ==
--- NOTE | ~2020-09-10 | XR_ITS ---
EXAMINATION: XR CHEST CLINICAL INFORMATION: History of lung disease. Weakness. COMPARISON: Chest x-ray 07/13/2020 TECHNIQUE: Frontal portable view of the chest was obtained. 2313 hours FINDINGS: No significant abnormality is noted involving the heart, lungs, mediastinum, bony thorax or soft tissues. XR/XR chest 1V IMPRESSION: Unremarkable examination.
--- NOTE | ~2020-09-10 | CT_ITS ---
EXAMINATION: CT HEAD WITHOUT CONTRAST CLINICAL INFORMATION: Weakness and falls with recent carotid and artery ectomy. COMPARISON: None TECHNIQUE: Contiguous axial imaging was performed from the skull base to vertex without intravenous administration of contrast. This CT examination was performed using dose optimization techniques as appropriate, variously including the following: *Automated exposure control *Adjustment of mA and/or kV according to patient size (this includes techniques or standardized protocols for targeted exams where dose is matched to indication/reason for exam; i.e. extremities or head) *Use of iterative reconstruction technique DLP: 680 mGy-cm FINDINGS: There is no evidence of acute intracranial hemorrhage or territorial infarction. No abnormal mass effect or midline shift is seen. Senior to white matter differentiation is well preserved. No extra-axial fluid collections are identified. The lateral ventricles are symmetrical in size and configuration without enlargement. The senior to white matter difference is maintained normal. Small lacunar infarction in right centrum semiovale. The osseous structures and soft tissues are normal. The mastoid air cells and visualized portions of the paranasal sinuses are well aerated. CT/CT head/brain wo con IMPRESSION: No acute intracranial process seen. Age-related cerebral volume loss. Small infarction right centrum semiovale.
--- NOTE | 2020-09-10 22:44 | ECG_ITS ---
Test Reason : WEAKNESS Blood Pressure : / mmHG Vent. Rate : 082 BPM Atrial Rate : 082 BPM P-R Int : 124 ms QRS Dur : 090 ms QT Int : 382 ms P-R-T Axes : 055 -05 064 degrees QTc Int : 446 ms Normal sinus rhythm Nonspecific ST and T wave abnormality Abnormal ECG When compared with ECG of 08-JUN-2020 15:29, No significant change was found Referred By: Generic ED Physician Electronically Signed By:Wilfrid Savage
[2020-09-10 22:49] VITALS: BP 137/71; PULSE 84; RESP 18; TEMP 37.3; O2SAT 91; BMI 27.1
[2020-09-10 23:08] LABS: MANUAL DIFF FLAG NO
[2020-09-10 23:09] LABS: Basophils Percent Auto 0.4 % (0-2); Eosinophils Absolute Auto 0.1 X10*3/uL (0.0-0.4); Eosinophils Percent Auto 1.7 % (0-4); Hematocrit 40.6 % (42-52); Hemoglobin 14.5 g/dl (14.0-18.0); Imm Gran Abs Auto 0.03 X10*3/uL (0.00-0.03); Imm Gran Pct Auto 0.4 % (0.0-0.4); Lymphocytes Absolute Auto 0.7 X10*3/uL (1.2-4.9); Lymphocytes Percent Auto 8.2 % (20-40); Mean Corpuscular HGB Conc 35.7 g/dl (31.0-36.0); Mean Corpuscular Hemoglobin 34.9 pg (27.0-33.0); Mean Corpuscular Volume 97.6 fL (80-98); Mean Platelet Volume 8.8 fL (9.4-12.4); Monocytes Absolute Auto 0.8 X10*3/uL (0.1-1.2); Monocytes Percent Auto 9.7 % (2-11); Neutrophils Absolute Auto 6.4 X10*3/uL (2.0-8.3); Neutrophils Percent Auto 79.6 % (45-73); Platelet Count 151 X10*3/uL (160-400); Red Blood Count 4.16 X10*6/uL (4.60-5.80); Red Cell Distribution Width 12.5 % (11.0-16.0)
--- NOTE | 2020-09-10 23:15 | ED.GENADULT ---
HPI - General Adult General Chief complaint: General Medical Stated complaint: weakness dizzy Time Seen by Provider: 09/10/20 23:15 Source: patient, family and EMS Mode of arrival: EMS Limitations: no limitations History of Present Illness HPI narrative: Patient with chronic lung disease peripheral artery disease sleep apnea came here for increased weakness and shakiness for last few months with frequent falls, getting worse now gained about 50 lb in the last few months also patient has seen neurologist in the past and not been diagnosis with Parkinson disease. Family strongly thinks that patient has Parkinson disease. Patient is on carbidopa for last 1 month started by his PCP. Patient lives with his unsteady on his feet walks with a walker falls often because of shakiness yesterday he fell ambulance had to come for help also complaining of exertional dyspnea which is chronic Patient just had right carotid enterectomy 2 weeks ago patient used to have home physical therapy until 3 weeks ago and was feeling much better at that time since he does not have physical therapy at home for last 3 weeks he is feeling much more weak and unsteady Related Data Home Medications Medication Instructions Recorded Confirmed atorvastatin 40 mg tablet 40 mg PO DAILY tab 05/11/20 09/11/20 gabapentin 600 mg tablet 600 mg PO TID 05/11/20 09/11/20 meclizine 25 mg tablet 25 mg PO TID PRN tab 05/11/20 09/11/20 omeprazole 20 mg capsule,delayed 20 mg PO DAILY 05/11/20 09/11/20 release aspirin 81 mg PO DAILY 06/08/20 09/11/20 carbidopa 25 mg-levodopa 100 mg tab PO 07/06/20 tablet duloxetine 60 mg capsule,delayed 60 mg PO DAILY 07/06/20 09/11/20 release cholecalciferol (vitamin D3) 50 50 mcg PO DAILY 07/13/20 09/11/20 mcg (2,000 unit) capsule coenzyme [id number]-sndshtd E 100 mg-100 cap PO 07/13/20 unit capsule Allergies Allergy/AdvReac Type Severity Reaction Status Date / Time Crustaceans Allergy Mild HIVES Uncoded 07/06/20 15:08 shrimp Allergy Mild Swelling Uncoded 07/06/20 15:08 Review of Systems Review of Systems: Constitutional : No Weight loss, No Fever, No Chills ENT/Mouth : No sore throat, No Rhinorrhea Eyes: No Eye Pain, No Swelling Cardiovascular : No Chest Pain, no palpitations Respiratory : No Cough, No Sputum, no shortness of breath Gastrointestinal : no Nausea, No Vomiting, No Diarrhea, No abdominal Pain, no black stools Genitourinary : No Dysuria, No Urinary Frequency Musculoskeletal : No joint pain, No Myalgias, No Joint Swelling Skin : No Skin Lesions, No rash Neuro : ++ Weakness, No Numbness, No Dizziness, No Headache Psych : No Anxiety/Panic, No Depression Heme/Lymph: No Bruising, No Lymphadenopathy Endocrine : No Polyuria, No Polydipsia All other systems reviewed and are negative [facility] Past Medical History Medical History BPH (benign prostatic hyperplasia) Chronic vertigo Dyspnea on exertion Dyspnea on exertion Esophageal reflux Fatigue Hypercholesteremia Obesity (BMI 30-39.9) MASSIEL (obstructive sleep apnea) Peripheral neuropathy Pre-op chest exam Pulmonary fibrosis Restrictive lung disease Skin lesion Surgical History H/O colonoscopy H/O lumbosacral spine surgery History of appendectomy Social History Social History Household Members: Spouse Household Members Other:: Housing: House Do you presently have visiting nurse or other home services: No Advance Directives: No Advance Directives Information Provided: No service: No Current occupational status: retired Physical Exam Vital Signs: Vital Signs: Last Vital Signs Temp 99.2 F 09/10/20 22:49 Pulse 84 09/10/20 22:49 Resp 18 09/10/20 22:49 BP 137/71 09/10/20 22:49 Pulse Ox 91 L 09/10/20 22:49 Body Mass Index 27.1 Appearance: Alert. Oriented X3. No acute distress. Eyes: PERRLA, No Nystagmus ENT: Pharynx normal. Oral Mucosa moist Neck: Normal inspection. Neck supple. CVS: Normal heart rate and rhythm. Pulses normal. Respiratory: No respiratory distress. Equal air entry bilateral, no wheezing/rales/rhonchi Abdomen: Soft and nontender. Bowel sounds are present, no mass palpable, no CVA tenderness Skin: Skin warm and dry. Normal skin color. Normal skin turgor. Extremities: No lower extremity edema. No calf tenderness less muscle mass in lower extremity Neuro: Oriented X 3. No motor deficit. No sensory deficit.No cerebellar signs , cranial nerves II-XII intact no tremors noticed normal tone and facies Medical Decision Making MDM Narrative Medical decision making narrative: Patient with overall weakness with multiple medical problems no clinical findings of Parkinson disease no increased tone no intention tremors patient was able to ambulate in the ER with walker very unsteady on his feet because of weakness no shuffling gait noticed pulse ox remained 94% at room air. Will consult Case Management tomorrow for possible rehab placement Lab Data Lab results reviewed: Yes I reviewed the patient's lab results. Result diagrams: 09/10/20 23:02 09/10/20 23:02 Labs: Lab Results 09/10/20 09/10/20 09/10/20 Range/Units 23:02 23:02 23:02 WBC 8.0 (4.8-10.8) X10*3/uL RBC 4.16 L (4.60-5.80) X10*6/uL Hgb 14.5 (14.0-18.0) g/dl Hct 40.6 L (42-52) % MCV 97.6 (80-98) fL MCH 34.9 H (27.0-33.0) pg MCHC 35.7 (31.0-36.0) g/dl RDW 12.5 (11.0-16.0) % Plt Count 151 L (160-400) X10*3/uL MPV 8.8 L (9.4-12.4) fL Immature Gran % (Auto) 0.4 (0.0-0.4) % Neut % (Auto) 79.6 H (45-73) % Lymph % (Auto) 8.2 L (20-40) % [place] % (Auto) 9.7 (2-11) % Eos % (Auto) 1.7 (0-4) % Baso % (Auto) 0.4 (0-2) % Lymph # (Auto) 0.7 L (1.2-4.9) X10*3/uL [place] # (Auto) 0.8 (0.1-1.2) X10*3/uL Eos # (Auto) 0.1 (0.0-0.4) X10*3/uL Baso # (Auto) 0.0 (0.0-0.2) X10*3/uL Abs Immat Gran (auto) 0.03 (0.00-0.03) X10*3/uL Absolute Neuts (auto) 6.4 (2.0-8.3) X10*3/uL Absolute Nucleated RBC 0.000 (0.0-0.012) X10*3/uL Nucleated RBC % (auto) 0.0 (0.0-0.2) /100WBC Sodium 135 (135-145) mmol/L Potassium 4.0 (3.3-5.1) mmol/L Chloride 101 (96-108) mmol/L Carbon Dioxide 23 (22-29) mmol/L Anion Gap 15 (12-20) BUN 14 (9-16) mg/dL Creatinine 1.31 (0.5-1.4) mg/dL Estim Creat Clear Calc 50.2 Estimated GFR 53 Random Glucose 200 H D (60-115) mg/dL Calcium 9.0 D (8.4-10.2) mg/dL Troponin I High Sens 10.6 (<3.5-35.0) ng/L B-Natriuretic Peptide (<100) pg/mL COVID-19 (DEB) (Negative) COVID-19 Clin Com 09/10/20 09/11/20 Range/Units 23:02 00:10 WBC (4.8-10.8) X10*3/uL RBC (4.60-5.80) X10*6/uL Hgb (14.0-18.0) g/dl Hct (42-52) % MCV (80-98) fL MCH (27.0-33.0) pg MCHC (31.0-36.0) g/dl RDW (11.0-16.0) % Plt Count (160-400) X10*3/uL MPV (9.4-12.4) fL Immature Gran % (Auto) (0.0-0.4) % Neut % (Auto) (45-73) % Lymph % (Auto) (20-40) % [place] % (Auto) (2-11) % Eos % (Auto) (0-4) % Baso % (Auto) (0-2) % Lymph # (Auto) (1.2-4.9) X10*3/uL [place] # (Auto) (0.1-1.2) X10*3/uL Eos # (Auto) (0.0-0.4) X10*3/uL Baso # (Auto) (0.0-0.2) X10*3/uL Abs Immat Gran (auto) (0.00-0.03) X10*3/uL Absolute Neuts (auto) (2.0-8.3) X10*3/uL Absolute Nucleated RBC (0.0-0.012) X10*3/uL Nucleated RBC % (auto) (0.0-0.2) /100WBC Sodium (135-145) mmol/L Potassium (3.3-5.1) mmol/L Chloride (96-108) mmol/L Carbon Dioxide (22-29) mmol/L Anion Gap (12-20) BUN (9-16) mg/dL Creatinine (0.5-1.4) mg/dL Estim Creat Clear Calc Estimated GFR Random Glucose (60-115) mg/dL Calcium (8.4-10.2) mg/dL Troponin I High Sens (<3.5-35.0) ng/L B-Natriuretic Peptide 25 (<100) pg/mL COVID-19 (DEB) Negative (Negative) COVID-19 Clin Com See Note Discharge Plan Discharge Clinical Impression: Weakness, Frequent falls Prescriptions: No Action aspirin 81 mg Tablet 81 mg PO DAILY RF: 0 cholecalciferol (vitamin D3) 50 mcg (2,000 unit) capsule 50 mcg PO DAILY RF: 0 coenzyme A47-domzcpu E 100-100 mg-unit capsule PO RF: 0 carbidopa-levodopa 25-100 mg tablet PO RF: 0 duloxetine 60 mg capsule,delayed release(DR/EC) 60 mg PO DAILY RF: 0 gabapentin 600 mg tablet 600 mg PO TID RF: 0 omeprazole 20 mg capsule,delayed release(DR/EC) 20 mg PO DAILY RF: 0 atorvastatin 40 mg tablet 40 mg PO DAILY RF: 0 meclizine 25 mg tablet 25 mg PO TID PRN (Reason: Dizziness) RF: 0
[2020-09-10 23:30] LABS: Anion Gap 15 (12-20); Blood Urea Nitrogen 14 mg/dL (9-16); Carbon Dioxide 23 mmol/L (22-29); Chloride 101 mmol/L (96-108); Creatinine Clr Calc Pharmacy 50.2; Estimated Glomerular Filt Rate 53; Glucose Random 200 mg/dL (60-115); Sodium 135 mmol/L (135-145)
[2020-09-10 23:35] LABS: Troponin-I High Sensitivity 10.6 ng/L (<3.5-35.0)
[2020-09-10 23:36] LABS: B Type Natriuretic Peptide 25 pg/mL (<100)
[2020-09-11] VITALS (7 sets, daily range): BP systolic 121–137; BP diastolic 57–72; PULSE 67–82; RESP 15–17; TEMP 36.6; O2SAT 94–99
--- NOTE | 2020-09-11 00:13 | PC.NURSE ---
MD REQUESTED PT WALK DOWN HALLWAY WITH WALKER AND SPO2 MONITOR. PT HAD DIFFICULTY STANDING DUE TO WEAKNESS AND UNSTEADY AT FIRST. PT WAS ABLE TO WALK 7-8 STEPS OUT OF ROOM WITH STEADY GAIT USING WALKER. SPO2 REMAINED ABOVE 90%. PLAN IS TO KEEP PT IN ER, AND COSULT WITH CASE MANAGEMENT FOR SHORT TERM REHAB.
[2020-09-11 00:30] LABS: COVID-19 Test Negative (Negative)
--- NOTE | 2020-09-11 01:08 | PC.NURSE ---
PT REPORTS THAT HE LIVES AT HOME WITH HIS , WHO IS DX WITH MS. PT HAS DIFFICULTY GETTING BACK UP, IF HE FALLS. PT SAID THAT HE FRACTURED MULTIPLE RIBS ON HIS RIGHT SIDE, THIS PAST YEAR. HE IS CONCERNED THAT IF HE GOES TO SHORT TERM REHAB, THAT HE WILL MISS HIS NEUROLOGY APPOITMENT THIS SUNDAY, HE HAS BEEN WAITING 2 MONTHS TO R/O PARKINSON'S DISEASE. PT HAD HOME PT A FEW WEEKS AGO X 2 WEEKS. HE DOESN'T THINK HOME PT WAS VERY EFFECTIVE. PT ADMITS HE DIDN'T COMMIT TO ASSIGNED EXERCISES. HE REPORTS FEELING SHORT OF BREATH WGEN WALKING TO MAILBOX. HE FEELS FINE [address], THEN BECOMES WINDED AND WEAK. PT IS TO SEE MD FAJARDO THIS WEEK, EXPECTS TO BE PLACED ON HOME OXYGEN. PT RECENTLY STARTED USING CPAP AT NIGHT TO SLEEP.
[2020-09-11] MEDS: Gabapentin 600 MG TABLET PO ×3 (02:57→15:16)
[2020-09-11 03:07] LABS: Glucose Urine UA NEG (NEG); Leukocyte Esterase Urine NEG (NEG); Nitrite Urine NEG (NEG); Specific Gravity - Urine <= 1.005 (1.005-1.025); Urine Blood NEG (NEG); Urine Ketones NEG (NEG); Urine Protein NEG (NEG-TRACE)
[2020-09-11 03:09] LABS: Appearance Urine CLEAR; Color Urine YELLOW; UACC CULT NO
[2020-09-11 03:14] LABS: Amorphous Sediment Urine 1+ /LPF; Mucus Urine TRACE /LPF; RBC Urine 0-2 /HPF (0); Squamous Epithelial Cell Urine 2+ /LPF; WBC Urine 0-2 /HPF (0-4)
[2020-09-11] MEDS: Omeprazole 20 MG CAPSULE.DR PO (07:32)
--- NOTE | 2020-09-11 08:15 | PC.NURSE ---
PT SEEN BY PHYSICAL THERAPY. PT ATE 100% OF BREAKFAST
[2020-09-11] MEDS: Atorvastatin Calcium 40 MG TABLET PO (09:08)
[2020-09-11] MEDS: Cholecalciferol (Vitamin D3) 25 MCG TABLET 50 MCG PO (09:08)
[2020-09-11] MEDS: DULoxetine HCl 60 MG CAPSULE.DR PO (09:08)
[2020-09-11] MEDS: Aspirin 81 MG TAB.CHEW PO (09:09)
--- NOTE | 2020-09-11 11:02 | PC.NURSE ---
Per patient it is okay to speak with his daughter Linda [phone]
--- NOTE | 2020-09-11 12:07 | MHC.CM.PN ---
Addendum entered by Savanna De Jesus RN 09/11/20 13:02: CM MET WITH PT WHO VERIFIED PCP WILLA KAMARA, NEUROLOGIST MARISOL NG AND HELPDESK ADMINISTRATOR DR FAJARDO, CM WILL LET SNF KNOW OF UPCOMING NEUROLOGY APPT 09/14 3:30PM Original Note: CM CONTACTED PT'S HCP/ DTR TAS[place] FROM [place] AT 11:45AM [phone], CM ASSESSMENT INFO OBTAINED FROM DTR DUE TO PT'S FORGETFULNESS AND POOR HISTORIAN, PER DTR PT LIVES W/ WHO HAS MS AND LUNG CA, PT NORMALLY ASSISTS AND COOKS FOR , PT RECENTLY STARTED USING WALKER INSTEAD OF [place] AFTER INCREASINGLY UNSTEADY AND FALLS, PT NORMALLY DOES OWN PERSONAL CARE HOWEVER HAS DIFFICULTY W/PUTTING ON PANTS AND SHOES, 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 FAMILY IS WORKING ON PLAN TO MOVE PT & TO BE NEAR DTR OR SON WHO ALSO LIVES IN ANOTHER STATE. DTR REPORTS PT & WOOULD WANT PT TO STAY IN [facility] FOR STR AND THERE IS AN AUNT IN [place] WHO CAN CHECK ON . D/C PLAN: STR W/ACTION FOR BLS TRANSPORT DTR TO EMAIL CM TIFFANIE AND HCP
--- NOTE | 2020-09-11 12:24 | PC.NURSE ---
case management spoke with the patients daughter and referrals for local SNFs for STR placed
--- NOTE | 2020-09-11 13:54 | PC.NURSE ---
per case management the patient has a bed at [facility] and is just awaiting a time
--- NOTE | 2020-09-11 14:52 | MHC.CM.PN ---
PT DISCHARGING TO [facility] W/ACTION FOR BLS TRANSPORT
--- NOTE | 2020-09-11 15:25 | PC.NURSE ---
attempted to call report- case loader operator called the facility and nurse to call back soon
--- NOTE | 2020-09-11 15:39 | PC.NURSE ---
report called to the facility, patient changed into this regular clothing and IV taken out- ambulance here to transfer
== END 2020-09-11 15:40 | disposition skilled nursing facility (03) ==
PROVIDERS: Emergency Provider Internal Medicine; PCP Internal Medicine
DX: R53.1 Weakness (principal); R29.6 Repeated falls; I73.9 Peripheral vascular disease, unspecified; J84.10 Pulmonary fibrosis, unspecified; Z20.822 Contact with and (suspected) exposure to COVID-19
CPT/HCPCS: 36415; 70450; 71045; 80048; 81001; 83880; 84484; 85025; 87635; 93005; 97161; 99285

== ENCOUNTER → 2020-09-13 10:21 | Outpatient (BNVA) | payer MEDICARE, SELFPAY | PROVIDERS: PCP Internal Medicine; Visit Provider Internal Medicine | DX: J98.4 Other disorders of lung (principal); J84.10 Pulmonary fibrosis, unspecified; R06.00 Dyspnea, unspecified; G47.33 Obstructive sleep apnea (adult) (pediatric) | CPT/HCPCS: 99212 ==

== ENCOUNTER 2020-10-13 13:14 | Outpatient (REF) | payer MEDICARE, SELFPAY ==
--- NOTE | ~2020-10-13 | US_ITS ---
EXAMINATION: NONINVASIVE ASSESSMENT OF THE ARTERIES OF BOTH LOWER EXTREMITIES Jaron Mackey MD CLINICAL INFORMATION: Peripheral vascular disease TECHNIQUE: Bilateral lower extremity duplex ultrasound was performed with velocity measurements and waveform analysis in the common femoral arteries, profunda femoris arteries, proximal mid and distal superficial femoral arteries, popliteal arteries and tibial vessels. This study was performed only at rest. In addition, ABIs were performed and pulse volume recordings were obtained at the ankles. COMPARISON: None FINDINGS: Velocities in cm/sec and phasicity as well as the presence of plaque are reported below. RIGHT LEG: NICOLAS is 1.15 with triphasic flow throughout with minimal plaque. PVR waveform at the ankle is normal. Common Femoral: 153 Profunda Femoris: 88 Proximal SFA: 101 Mid SFA: 114 Distal SFA: 40 Popliteal: 68 Tibial: 60 LEFT LEG: NICOLAS is 1.16 with triphasic flow noted throughout with minimal plaque. PVR waveforms are normal. Common Femoral: 162 Profunda Femoris: 63 Proximal SFA: 94 Mid SFA: 36 Distal SFA: 91 Popliteal: 70 Tibial: 60 US/US arterial duplex LE BI IMPRESSION: There is no evidence of any hemodynamically significant lower extremity arterial disease by pressure, waveform or duplex Doppler criteria at rest.
--- NOTE | ~2020-10-13 | US_ITS ---
EXAMINATION: US EXTRACRANIAL CAROTID DUPLEX, BILATERAL CLINICAL INFORMATION: Occluded right carotid artery status post right carotid endarterectomy COMPARISON: None TECHNIQUE: Real-time ultrasound and Doppler techniques (integrating B-mode 2-D vascular images, Doppler spectral analysis and color-flow Doppler imaging) were utilized to interrogate the extracranial carotid arteries, the vertebral arteries and proximal subclavian arteries bilaterally. The degree of stenosis is determined by criteria similar to NASCET. FINDINGS: Right Side: 1. There is no atherosclerotic plaque seen in the bifurcation/proximal ICA region. 2. The common carotid artery PSV proximally is 121 cm/s and distally 73 cm/s. 3. The proximal internal carotid artery velocities are 64 cm/s systolic and 18 cm/s diastolic. 4. The proximal external carotid artery PSV is 115 cm/s. 5. The vertebral artery shows antegrade flow. 6. The subclavian artery waveforms are normal. Left Side: 1. There is no atherosclerotic plaque seen in the bifurcation/proximal ICA region. 2. The common carotid artery PSV proximally is 101 cm/s and distally 76 cm/s. 3. The proximal internal carotid artery velocities are 116 cm/s systolic and 20 cm/s diastolic. 4. The proximal external carotid artery PSV is 134 cm/s. 5. The vertebral artery shows antegrade flow. 6. The subclavian artery waveforms are normal. US/US carotid duplex BI IMPRESSION: 1. RIGHT: Normal right internal carotid artery without atherosclerotic plaque or hemodynamically significant stenosis. 2. LEFT: Normal left internal carotid artery without atherosclerotic plaque or hemodynamically significant stenosis.
== END 2020-10-13 13:15 | disposition home or self-care (01) ==
LOC: HO.US 13:14
PROVIDERS: Visit Provider Surgery Vascular Surgery
DX: I73.9 Peripheral vascular disease, unspecified (principal); I65.21 Occlusion and stenosis of right carotid artery; I65.23 Occlusion and stenosis of bilateral carotid arteries; I70.213 Atherosclerosis of native arteries of extremities with intermittent claudication, bilateral legs
CPT/HCPCS: 93880; 93925

== ENCOUNTER → 2020-11-11 12:54 | Outpatient (BNVA) | payer MEDICARE, SELFPAY | PROVIDERS: PCP Internal Medicine; Referring Provider Internal Medicine; Visit Provider Surgery Vascular Surgery | DX: I73.9 Peripheral vascular disease, unspecified (principal); I65.21 Occlusion and stenosis of right carotid artery; J84.10 Pulmonary fibrosis, unspecified; R06.00 Dyspnea, unspecified; R53.83 Other fatigue | CPT/HCPCS: 99212 ==

== ENCOUNTER 2021-05-05 10:04 | Outpatient (REF) | payer MEDICARE, SELFPAY ==
--- NOTE | ~2021-05-05 | US_ITS ---
EXAMINATION: US EXTRACRANIAL CAROTID DUPLEX, BILATERAL CLINICAL INFORMATION: This is a 76-year-old male with occlusion/stenosis of right carotid artery. Atherosclerotic disease. COMPARISON: Comparison is made to a previous study dated 10/13/2020 which demonstrated normal bilateral carotid arteries. TECHNIQUE: Real-time ultrasound and Doppler techniques (integrating B-mode 2-D vascular images, Doppler spectral analysis and color-flow Doppler imaging) were utilized to interrogate the extracranial carotid arteries, the vertebral arteries and proximal subclavian arteries bilaterally. The degree of stenosis is determined by criteria similar to NASCET. FINDINGS: Right Side: 1. There is minimal atherosclerotic plaque seen in the bifurcation/proximal ICA region. 2. The common carotid artery PSV proximally is 62 cm/s and distally 57 cm/s. 3. The proximal internal carotid artery velocities are 84 cm/s systolic and 25 cm/s diastolic. 4. The proximal external carotid artery PSV is 90 cm/s. 5. The vertebral artery shows antegrade flow. 6. The subclavian artery waveforms are normal. Left Side: 1. There is minimal atherosclerotic plaque seen in the bifurcation/proximal ICA region. 2. The common carotid artery PSV proximally is 67 cm/s and distally at C2 cm/s. 3. The proximal internal carotid artery velocities are 103 cm/s systolic and 27 cm/s diastolic. 4. The proximal external carotid artery PSV is 139 cm/s. 5. The vertebral artery shows antegrade flow. 6. The subclavian artery waveforms are normal. US/US carotid duplex BI IMPRESSION: 1. RIGHT: Minimal, non-hemodynamically significant stenosis of the proximal right internal carotid artery corresponding to a 0-49% stenosis by velocity criteria. 2. LEFT: Minimal, non-hemodynamically significant stenosis of the proximal left internal carotid artery corresponding to a 0-49% stenosis by velocity criteria. 3. Although the previous study did not report any atherosclerotic plaque I do believe that there is currently no change in the category severity of disease when compared to the previous study dated 10/13/2020.
== END 2021-05-05 10:05 | disposition home or self-care (01) ==
LOC: HO.US 10:04
PROVIDERS: PCP Internal Medicine; Visit Provider Surgery Vascular Surgery
DX: I65.21 Occlusion and stenosis of right carotid artery (principal)
CPT/HCPCS: 93880

== ENCOUNTER → 2021-05-19 11:07 | Outpatient (BNVA) | payer MEDICARE, SELFPAY | PROVIDERS: PCP Internal Medicine; Visit Provider Surgery Vascular Surgery | DX: I77.9 Disorder of arteries and arterioles, unspecified (principal); G20 Parkinson's disease; R26.81 Unsteadiness on feet; Z91.013 Allergy to seafood; Z98.890 Other specified postprocedural states | CPT/HCPCS: 99212 ==

== ENCOUNTER → 2021-07-27 11:30 | Outpatient (BNVA) | payer MEDICARE, SELFPAY | PROVIDERS: PCP Internal Medicine; Visit Provider Internal Medicine | DX: G47.33 Obstructive sleep apnea (adult) (pediatric) (principal); R06.00 Dyspnea, unspecified; J98.4 Other disorders of lung; J84.10 Pulmonary fibrosis, unspecified | CPT/HCPCS: 99212 ==

== ENCOUNTER 2022-01-16 14:22 | Inpatient (IN) | payer MEDICARE, SELFPAY ==
[2022-01-16] VITALS (7 sets, daily range): BP systolic 115–148; BP diastolic 48–84; PULSE 88–111; RESP 13–22; TEMP 37.6; O2SAT 91–95; BMI 28.4
--- NOTE | ~2022-01-16 | XR_ITS ---
EXAMINATION: XR CHEST CLINICAL INFORMATION: Weakness COMPARISON: 09/10/2020 TECHNIQUE: Frontal view of the chest was obtained. FINDINGS: New dense retrocardiac consolidation with air bronchograms and volume loss obscures the left hemidiaphragm consistent with atelectasis, aspiration, or pneumonia. Right lung and pleural spaces are clear. Cardiac silhouette is difficult to assess, as there is loss of the heart borders but it does not appear grossly changed from the prior study. Degenerative changes of the shoulders and spine are seen. XR/XR chest 1V IMPRESSION: New dense retrocardiac consolidation could represent atelectasis, aspiration, or pneumonia. Small left pleural effusion cannot be excluded.
--- NOTE | ~2022-01-16 | CT_ITS ---
EXAMINATION: CT CHEST WITHOUT CONTRAST CLINICAL INFORMATION: Elevated white blood cell count. Lactic acidosis. COMPARISON: Chest x-ray 01/16/2022. CT chest 10/24/2019 TECHNIQUE: Multidetector volumetric CT imaging of the chest was done. Axial MIP volume rendering provided. Sagittal and coronal reformatted images were obtained. This CT examination was performed using dose optimization techniques as appropriate, variously including the following: *Automated exposure control *Adjustment of mA and/or kV according to patient size (this includes techniques or standardized protocols for targeted exams where dose is matched to indication/reason for exam; i.e. extremities or head) *Use of iterative reconstruction technique DLP: 282 mGy-cm FINDINGS: LUNGS: Patchy parenchymal airspace opacity involving the left lower lobe and lingula. Findings concerning for pneumonia. There is also dependent atelectasis at the posterior left upper lobe. Right lung is normally aerated. MEDIASTINUM: No mediastinal mass or significant lymphadenopathy. There are a few small subcentimeter lymph nodes in the mediastinum which may be reactive. Heart size is normal. Small volume of coronary artery calcification. Scattered vascular calcifications of thoracic aorta. No aneurysm of aorta. Thyroid is unremarkable. Moderate-sized hiatal hernia. CORONARY ARTERY CALCIFICATION: Small volume of coronary artery calcification. PLEURA: There is no pleural effusion. No pleural mass or thickening. AXILLA: No lymphadenopathy. UPPER ABDOMEN: Mild low-attenuation of liver parenchyma consistent with fatty change. No focal liver lesions evident. Visualized portions of the spleen, pancreas, kidneys and adrenal glands are unremarkable. Gallbladder is contracted. No bile duct dilatation. OSSEOUS STRUCTURES: Multilevel degenerative spondylosis spine. CT/CT chest wo IV con IMPRESSION: 1. Patchy airspace opacity in the left lower lobe and lingula concerning for pneumonia. 2. Mild diffuse fatty change of liver. 3. Moderate-sized hiatal hernia. Fleischner guidelines were followed.
--- NOTE | ~2022-01-16 | CT_ITS ---
EXAMINATION: CT HEAD WITHOUT CONTRAST CLINICAL INFORMATION: Right-sided weakness. Unable to ambulate. COMPARISON: 09/11/2020 TECHNIQUE: Contiguous axial imaging was performed from the skull base to vertex without intravenous administration of contrast. This CT examination was performed using dose optimization techniques as appropriate, variously including the following: *Automated exposure control *Adjustment of mA and/or kV according to patient size (this includes techniques or standardized protocols for targeted exams where dose is matched to indication/reason for exam; i.e. extremities or head) *Use of iterative reconstruction technique DLP: 693 mGy-cm FINDINGS: No acute findings compared to prior head CT from 09/11/2020. No intracranial hemorrhage, extra-axial fluid collection, focal mass effect or midline shift. Chronic patchy hypoattenuation within supratentorial white matter is compatible with sequela of chronic microangiopathy. There appear to be old, small lacunar infarcts of basal ganglia as well as old infarct within right macario radiata. The dunbar-white matter differentiation is maintained. No evidence of an acute major vascular territory infarction. There is atherosclerotic calcification of cavernous carotid arteries. No acute findings within the posterior fossa. The cerebellar tonsils are in normal position. [id number] parenchymal volume loss with commensurate prominence of ventricles and sulci; no hydrocephalus. The visualized paranasal sinuses are well aerated. There is chronic opacification of some of the left mastoid air cells. The orbits and globes are unremarkable. CT/CT head/brain wo IV con IMPRESSION: No intracranial hemorrhage or acute major vascular territory infarction. No acute intracranial pathology compared to 09/11/2020.
--- NOTE | 2022-01-16 14:54 | ECG_ITS ---
Test Reason : DIZZY Blood Pressure : / mmHG Vent. Rate : 108 BPM Atrial Rate : 108 BPM P-R Int : 124 ms QRS Dur : 084 ms QT Int : 334 ms P-R-T Axes : 064 -24 112 degrees QTc Int : 447 ms Sinus tachycardia Left axis deviation Nonspecific ST and T wave abnormality Abnormal ECG When compared with ECG of 10-SEP-2020 23:28, ST more depressed Referred By: Naheed Kamara Electronically Signed By:KAELA PHILLIPS MD
--- NOTE | 2022-01-16 14:58 | ED.WEAKNESS ---
HPI - Weakness General Chief complaint: Weakness <REBECCA Mcgregor Last Filed: 01/16/22 17:55> Stated complaint: WEAKNESS PER EMS <REBECCA Mcgregor Last Filed: 01/16/22 17:55> Time Seen by Provider: 01/16/22 14:30 <REBECCA Mcgregor Last Filed: 01/16/22 17:55> Source: patient and EMS <REBECCA Mcgregor Last Filed: 01/16/22 17:55> Mode of arrival: EMS <REBECCA Mcgregor Last Filed: 01/16/22 17:55> History of Present Illness HPI Narrative: 76-year-old male with a past medical history of HLD, chronic vertigo, carotid stenosis, MASSIEL, GERD, BPH, peripheral neuropathy, presenting to ED via EMS from home complaining of increasing generalized fatigue/weakness, difficulty/inability to ambulate over the past few days, right sided weakness/numbness, and room spinning dizziness. Denies known fever, chills, CP/SOB, abdominal pain, nausea/vomiting, headache, vision change/loss <REBECCA Mcgregor Last Filed: 01/16/22 17:55> MD Complaint: generalized weakness, tingling, lack of energy and difficulty walking <REBECCA Mcgregor Last Filed: 01/16/22 17:55> Onset (ago): day(s) <REBECCA Mcgregor Last Filed: 01/16/22 17:55> Related Data Home medications: Home Medications Medication Instructions Recorded Confirmed atorvastatin 40 mg tablet 40 mg PO DAILY 05/11/20 01/16/22 omeprazole 20 mg capsule,delayed 20 mg PO BEDTIME 05/11/20 01/16/22 release cholecalciferol (vitamin D3) 50 50 mcg PO DAILY 07/13/20 01/16/22 mcg (2,000 unit) capsule coenzyme [id number] E 100 mg-100 1 cap PO BEDTIME 07/13/20 01/16/22 unit capsule carbidopa 25 mg-levodopa 100 mg 3 tab PO TID 07/27/21 01/16/22 tablet duloxetine 60 mg capsule,delayed 60 mg PO BID 07/27/21 01/16/22 release omega 9-hms-gnd-fish oil 60 mg-90 1 cap PO BEDTIME 07/27/21 01/16/22 mg-500 mg capsule (Fish Oil) pregabalin 75 mg capsule (Lyrica) 75 mg PO BID 07/27/21 01/16/22 aspirin 81 mg chewable tablet 81 mg PO DAILY 01/16/22 01/16/22 copper 2 mg tablet 1 mg PO DAILY 01/16/22 01/16/22 zinc 15 mg tablet 15 mg PO DAILY 01/16/22 01/16/22 <REBECCA Mcgregor Last Filed: 01/16/22 17:55> Allergies/Adverse reactions: Allergies Allergy/AdvReac Type Severity Reaction Status Date / Time Crustaceans Allergy Mild HIVES Uncoded 07/27/21 12:07 shrimp Allergy Mild Swelling Uncoded 07/27/21 12:07 <REBECCA Mcgregro Last Filed: 01/16/22 17:55> Review of Systems Review of Systems: Constitutional: No Fever, No Chills, No Fatigue, No Malaise ENT/Mouth: No Ear Pain, No Nasal Congestion, No Hoarseness, No sore throat, No Rhinorrhea, No Swallowing Difficulty Eyes: No Eye Pain, No Swelling, No Redness, No Vision Changes Cardiovascular: No Chest Pain, No SOB, No Orthopnea, No Edema, No Palpitations Respiratory: No Cough, No Sputum, No Dyspnea Gastrointestinal: No Nausea, No Vomiting, No Diarrhea, No Constipation, No Abdominal pain Genitourinary: No Dysuria, No Urinary Frequency, No Hematuria, No Urinary Incontinence/retention, No Flank Pain Musculoskeletal: No joint pain, No Myalgias, No Joint Swelling Skin: No Skin Lesions, No rash Neuro: + Weakness, + Numbness, No Paresthesias, No Loss of Consciousness, + Dizziness, No Headache <REBECCA Mcgregor Last Filed: 01/16/22 17:55> Yes all other systems are reviewed and are negative <REBECCA Mcgregor Last Filed: 01/16/22 17:55> Constitutional: Constitutional: Reports as per HPI <REBECCA Mcgregor Last Filed: 01/16/22 17:55> PMFSH Past Medical History Attestation statement: The following information was validated with the patient. <REBECCA Mcgregor Last Filed: 01/16/22 17:55> Medical History: Medical History BPH (benign prostatic hyperplasia) Chronic vertigo Dyspnea on exertion Dyspnea on exertion Esophageal reflux Fatigue Hypercholesteremia Obesity (BMI 30-39.9) MASSIEL (obstructive sleep apnea) Peripheral neuropathy Pre-op chest exam Pulmonary fibrosis Restrictive lung disease Skin lesion <REBECCA Mcgregor - Last Filed: 01/16/22 17:55> Surgical History: Surgical History H/O colonoscopy H/O lumbosacral spine surgery History of appendectomy <REBECCA Mcgregor - Last Filed: 01/16/22 17:55> Social History Social History: Social History Household Members: Spouse Household Members Other:: Housing: House Do you presently have visiting nurse or other home services: No Alcohol intake: never Patient Tobacco Use Status: Never used Tobacco Advance Directives: No Advance Directives Information Provided: No service: No Current occupational status: retired <REBECCA Mcgregor - Last Filed: 01/16/22 17:55> Physical Exam Vital Signs: Vital Signs: Last Vital Signs Temp 99.6 F 01/16/22 14:45 Pulse 94 01/16/22 18:20 Resp 20 01/16/22 18:20 BP 124/52 L 01/16/22 18:20 Pulse Ox 95 01/16/22 18:20 O2 Del Method 01/16/22 18:20 BMI result Body Mass Index 28.4 <REBECCA Mcgregor - Last Filed: 01/16/22 17:55> Vital Signs: Last Vital Signs Temp 99.6 F 01/16/22 14:45 Pulse 94 01/16/22 18:20 Resp 20 01/16/22 18:20 BP 124/52 L 01/16/22 18:20 Pulse Ox 95 01/16/22 18:20 O2 Del Method 01/16/22 18:20 BMI result Body Mass Index 28.4 <REBECCA Dubois - Last Filed: 01/16/22 19:01> Const: General: cooperative and no acute distress <REBECCA Mcgregor - Last Filed: 01/16/22 17:55> Orientation/consciousness: patient oriented x3 <REBECCA Mcgregor - Last Filed: 01/16/22 17:55> Limitations: no limitations <REBECCA Mcgregor - Last Filed: 01/16/22 17:55> HEENT: Head: Yes normal to inspection and Yes atraumatic <REBECCA Mcgregor - Last Filed: 01/16/22 17:55> Ears: hearing grossly normal bilaterally <REBECCA Mcgregor - Last Filed: 01/16/22 17:55> General nose exam: Normal external nose present <REBECCA Mcgregor - Last Filed: 01/16/22 17:55> Face and sinus: Yes normal facial exam <REBECCA Mcgregor - Last Filed: 01/16/22 17:55> Mouth: Normal oral and palatal mucosa present <REBECCA Mcgregor - Last Filed: 01/16/22 17:55> Throat: Yes posterior oropharynx normal, Yes tonsils normal and Yes uvula midline <REBECCA Mcgregor - Last Filed: 01/16/22 17:55> Eyes: General: appearance normal, both eyes and all related structures <REBECCA Mcgregor - Last Filed: 01/16/22 17:55> Pupils: Equal, round and reactive pupils present <REBECCA Mcgregor - Last Filed: 01/16/22 17:55> EOM: EOMs intact bilaterally <REBECCA Mcgregor - Last Filed: 01/16/22 17:55> Neck: Neck: Yes normal visual inspection and Yes no meningeal signs <REBECCA Mcgregor - Last Filed: 01/16/22 17:55> Resp: Effort & Inspection: normal respiratory effort and no respiratory distress <REBECCA Mcgregor - Last Filed: 01/16/22 17:55> Auscultation: no crackles, no rales, no rhonchi and diminished lung sounds bilateral in the lower lung echevarria <REBECCA Mcgregor - Last Filed: 01/16/22 17:55> Cardio: Rate: regular rate <Naheed Pouliot, PA - Last Filed: 01/16/22 17:55> Heart sounds: S1 normal heart sound present and S2 normal heart sound present <Naheed Pouliot, PA - Last Filed: 01/16/22 17:55> GI: Inspection: Yes normal to inspection <Naheed Pouliot, PA - Last Filed: 01/16/22 17:55> Palpation (GI): Soft to palpation, nontender, no guarding and not rigid <Naheed Pouliot, PA - Last Filed: 01/16/22 17:55> : General: Yes no CVA tenderness <Naheed Pouliot, PA - Last Filed: 01/16/22 17:55> Back/Spine/Pelvis: Back: no CVA tenderness <Naheed Pouliot, PA - Last Filed: 01/16/22 17:55> Skin: Rashes: no rashes <Naheed Pouliot, PA - Last Filed: 01/16/22 17:55> Wounds: no wounds <Naheed Pouliot, PA - Last Filed: 01/16/22 17:55> Neuro: General: patient oriented x3, gait normal, tone normal, moves all extremities, no meningeal signs, no focal motor deficits and CN's II-XI intact bilaterally <Naheed Pouliot, PA - Last Filed: 01/16/22 17:55> Cranial nerves: Yes CN's II-XII intact bilaterally and Yes Equal, round and reactive pupils present <Naheed Pouliot, PA - Last Filed: 01/16/22 17:55> Gait exam (Neuro): Normal gait present <Naheed Pouliot, PA - Last Filed: 01/16/22 17:55> Motor exam (neuro): 5/5 motor strength present throughout, Pronator motor function not present and no tremor noted <Naheed Pouliot, PA - Last Filed: 01/16/22 17:55> Coordination: [id number] test normal <Naheed Pouliot, PA - Last Filed: 01/16/22 17:55> Romberg Test: Negative <Naheed Pouliot, PA - Last Filed: 01/16/22 17:55> Extrem: General: Yes normal to inspection and Yes no pedal edema <REBECCA Mcgregor Last Filed: 01/16/22 17:55> Course Course Course Narrative: 1637--XR chest 1V IMPRESSION: New dense retrocardiac consolidation could represent atelectasis, aspiration, or pneumonia. Small left pleural effusion cannot be excluded. >> IV Rocephin and Azithro given CT head/brain wo IV con IMPRESSION: No intracranial hemorrhage or acute major vascular territory infarction. No acute intracranial pathology compared to 09/11/2020. -1753--leukocytosis of 17.0 with left shift. H&H stable. Lactic acidosis of 2.3 -1800--ED care transferred to REBECCA Desir pending labs and anticipated admission <REBECCA Mcgregor Last Filed: 01/16/22 17:55> Reevaluation(s) Reevaluation #1: Chest CT again showing pneumonia. At this time patient will be admitted to the hospital for lactic acidosis, pneumonia, weakness. <REBECCA Dubois - Last Filed: 01/16/22 19:01> Time: 19:00 <REBECCA Dubois - Last Filed: 01/16/22 19:01> MDM - Weakness MDM Narrative Medical decision making narrative: 76-year-old male with a past medical history of HLD, chronic vertigo, carotid stenosis, MASSIEL, GERD, BPH, peripheral neuropathy, presenting to ED via EMS from home complaining of increasing generalized fatigue/weakness, difficulty/inability to ambulate over the past few days, right sided weakness/numbness, and room spinning dizziness. On exam low-grade temp at 99.6 degrees, tachycardic likely from fever, 91% on RA, decreased lung sounds bibasilarly, no focal neuro deficits. Concern for infectious/metabolic etiology vs CVA vs progressive Parkinson's. Rule out ACS. Lower suspicion for PE. Patient is out of the window for TPA Low suspicion for severe sepsis at this time Plan: EKG, labs, UA, CXR, head CT, admission <REBECCA Mcgregor Last Filed: 01/16/22 17:55> Differential Diagnosis Differential diagnosis: Likely UTI, anemia and dehydration <REBECCA Mcgregor Last Filed: 01/16/22 17:55> Medical Records Attestation: I reviewed the patient's medical records. <REBECCA Mcgregor - Last Filed: 01/16/22 17:55> Lab Data Attestation: I reviewed the patient's lab results. <REBECCA Mcgregor - Last Filed: 01/16/22 17:55> Result diagrams: : 01/16/22 17:00 01/16/22 16:59 <REBECCA Mcgregor - Last Filed: 01/16/22 17:55> Labs: Lab Results 01/16/22 01/16/22 01/16/22 Range/Units 16:59 16:59 16:59 WBC (4.8-10.8) X10*3/uL RBC (4.60-5.80) X10*6/uL Hgb (14.0-18.0) g/dl Hct (42.0-52.0) % MCV (80.0-98.0) fL MCH (27.0-33.0) pg MCHC (31.0-36.0) g/dl RDW (11.0-16.0) % Plt Count (160-400) X10*3/uL MPV (9.4-12.4) fL Immature Gran % (Auto) (0.0-0.4) % Neut % (Auto) (45-73) % Lymph % (Auto) (20-40) % [place] % (Auto) (2-11) % Eos % (Auto) (0-4) % Baso % (Auto) (0-2) % Lymph # (Auto) (1.2-4.9) X10*3/uL [place] # (Auto) (0.1-1.2) X10*3/uL Eos # (Auto) (0.0-0.4) X10*3/uL Baso # (Auto) (0.0-0.2) X10*3/uL Abs Immat Gran (auto) (0.00-0.03) X10*3/uL Absolute Neuts (auto) (2.0-8.3) x10*3/uL Absolute Nucleated RBC (0.0-0.012) X10*3/uL Nucleated RBC % (auto) (0.0-0.2) /100WBC PT 12.8 (10.0-13.1) SEC INR 1.1 (0.9-1.1) Sodium 136 (135-145) mmol/L Potassium 5.1 D (3.3-5.1) mmol/L Chloride 99 (96-108) mmol/L Carbon Dioxide 28 (22-29) mmol/L Anion Gap 14 (12-20) BUN 14 (9-16) mg/dL Creatinine 1.02 (0.5-1.4) mg/dL Estim Creat Clear Calc 69.3 Estimated GFR > 60 Random Glucose 222 H (60-115) mg/dL Lactic Acid 2.2 H* (0.5-2.0) mmol/L Calcium 9.4 (8.4-10.2) mg/dL Magnesium 1.8 (1.6-2.6) mg/dL Total Bilirubin 0.9 (0.0-1.0) mg/dL Direct Bilirubin 0.4 (0.0-0.5) mg/dL AST 47 H (5-37) U/L ALT 13 (0-40) U/L Alkaline Phosphatase 96 (39-117) U/L Troponin I High Sens (<3.5-35.0) ng/L B-Natriuretic Peptide (<100) pg/mL Total Protein 7.5 (6.5-8.0) g/dL Albumin 4.0 (3.5-5.0) g/dL Influenza Type A (PCR) (Negative) Influenza Type B (PCR) (Negative) RSV RNA Qual (PCR) (Negative) SARS-CoV-2 RNA (RT-PCR) (Negative) 01/16/22 01/16/22 01/16/22 Range/Units 16:59 17:00 17:14 WBC 17.0 H (4.8-10.8) X10*3/uL RBC 4.53 L (4.60-5.80) X10*6/uL Hgb 15.2 (14.0-18.0) g/dl Hct 44.0 (42.0-52.0) % MCV 97.1 (80.0-98.0) fL MCH 33.6 H (27.0-33.0) pg MCHC 34.5 (31.0-36.0) g/dl RDW 12.9 (11.0-16.0) % Plt Count 240 (160-400) X10*3/uL MPV 9.5 (9.4-12.4) fL Immature Gran % (Auto) 0.6 H (0.0-0.4) % Neut % (Auto) 89.0 H (45-73) % Lymph % (Auto) 4.3 L (20-40) % [place] % (Auto) 4.9 (2-11) % Eos % (Auto) 0.7 (0-4) % Baso % (Auto) 0.5 (0-2) % Lymph # (Auto) 0.7 L (1.2-4.9) X10*3/uL [place] # (Auto) 0.8 (0.1-1.2) X10*3/uL Eos # (Auto) 0.1 (0.0-0.4) X10*3/uL Baso # (Auto) 0.1 (0.0-0.2) X10*3/uL Abs Immat Gran (auto) 0.11 H (0.00-0.03) X10*3/uL Absolute Neuts (auto) 15.1 H (2.0-8.3) x10*3/uL Absolute Nucleated RBC 0.000 (0.0-0.012) X10*3/uL Nucleated RBC % (auto) 0.0 (0.0-0.2) /100WBC PT (10.0-13.1) SEC INR (0.9-1.1) Sodium (135-145) mmol/L Potassium (3.3-5.1) mmol/L Chloride (96-108) mmol/L Carbon Dioxide (22-29) mmol/L Anion Gap (12-20) BUN (9-16) mg/dL Creatinine (0.5-1.4) mg/dL Estim Creat Clear Calc Estimated GFR Random Glucose (60-115) mg/dL Lactic Acid (0.5-2.0) mmol/L Calcium (8.4-10.2) mg/dL Magnesium (1.6-2.6) mg/dL Total Bilirubin (0.0-1.0) mg/dL Direct Bilirubin (0.0-0.5) mg/dL AST (5-37) U/L ALT (0-40) U/L Alkaline Phosphatase (39-117) U/L Troponin I High Sens 4.8 (<3.5-35.0) ng/L B-Natriuretic Peptide 29 (<100) pg/mL Total Protein (6.5-8.0) g/dL Albumin (3.5-5.0) g/dL Influenza Type A (PCR) NEGATIVE (Negative) Influenza Type B (PCR) NEGATIVE (Negative) RSV RNA Qual (PCR) NEGATIVE (Negative) SARS-CoV-2 RNA (RT-PCR) NEGATIVE (Negative) <REBECCA Mcgregor - Last Filed: 01/16/22 17:55> Lab Results 01/16/22 01/16/22 01/16/22 Range/Units 16:59 16:59 16:59 WBC (4.8-10.8) X10*3/uL RBC (4.60-5.80) X10*6/uL Hgb (14.0-18.0) g/dl Hct (42.0-52.0) % MCV (80.0-98.0) fL MCH (27.0-33.0) pg MCHC (31.0-36.0) g/dl RDW (11.0-16.0) % Plt Count (160-400) X10*3/uL MPV (9.4-12.4) fL Immature Gran % (Auto) (0.0-0.4) % Neut % (Auto) (45-73) % Lymph % (Auto) (20-40) % [place] % (Auto) (2-11) % Eos % (Auto) (0-4) % Baso % (Auto) (0-2) % Lymph # (Auto) (1.2-4.9) X10*3/uL [place] # (Auto) (0.1-1.2) X10*3/uL Eos # (Auto) (0.0-0.4) X10*3/uL Baso # (Auto) (0.0-0.2) X10*3/uL Abs Immat Gran (auto) (0.00-0.03) X10*3/uL Absolute Neuts (auto) (2.0-8.3) x10*3/uL Absolute Nucleated RBC (0.0-0.012) X10*3/uL Nucleated RBC % (auto) (0.0-0.2) /100WBC PT 12.8 (10.0-13.1) SEC INR 1.1 (0.9-1.1) Sodium 136 (135-145) mmol/L Potassium 5.1 D (3.3-5.1) mmol/L Chloride 99 (96-108) mmol/L Carbon Dioxide 28 (22-29) mmol/L Anion Gap 14 (12-20) BUN 14 (9-16) mg/dL Creatinine 1.02 (0.5-1.4) mg/dL Estim Creat Clear Calc 69.3 Estimated GFR > 60 Random Glucose 222 H (60-115) mg/dL Lactic Acid 2.2 H* (0.5-2.0) mmol/L Calcium 9.4 (8.4-10.2) mg/dL Magnesium 1.8 (1.6-2.6) mg/dL Total Bilirubin 0.9 (0.0-1.0) mg/dL Direct Bilirubin 0.4 (0.0-0.5) mg/dL AST 47 H (5-37) U/L ALT 13 (0-40) U/L Alkaline Phosphatase 96 (39-117) U/L Troponin I High Sens (<3.5-35.0) ng/L B-Natriuretic Peptide (<100) pg/mL Total Protein 7.5 (6.5-8.0) g/dL Albumin 4.0 (3.5-5.0) g/dL Influenza Type A (PCR) (Negative) Influenza Type B (PCR) (Negative) RSV RNA Qual (PCR) (Negative) SARS-CoV-2 RNA (RT-PCR) (Negative) 01/16/22 01/16/22 01/16/22 Range/Units 16:59 17:00 17:14 WBC 17.0 H (4.8-10.8) X10*3/uL RBC 4.53 L (4.60-5.80) X10*6/uL Hgb 15.2 (14.0-18.0) g/dl Hct 44.0 (42.0-52.0) % MCV 97.1 (80.0-98.0) fL MCH 33.6 H (27.0-33.0) pg MCHC 34.5 (31.0-36.0) g/dl RDW 12.9 (11.0-16.0) % Plt Count 240 (160-400) X10*3/uL MPV 9.5 (9.4-12.4) fL Immature Gran % (Auto) 0.6 H (0.0-0.4) % Neut % (Auto) 89.0 H (45-73) % Lymph % (Auto) 4.3 L (20-40) % [place] % (Auto) 4.9 (2-11) % Eos % (Auto) 0.7 (0-4) % Baso % (Auto) 0.5 (0-2) % Lymph # (Auto) 0.7 L (1.2-4.9) X10*3/uL [place] # (Auto) 0.8 (0.1-1.2) X10*3/uL Eos # (Auto) 0.1 (0.0-0.4) X10*3/uL Baso # (Auto) 0.1 (0.0-0.2) X10*3/uL Abs Immat Gran (auto) 0.11 H (0.00-0.03) X10*3/uL Absolute Neuts (auto) 15.1 H (2.0-8.3) x10*3/uL Absolute Nucleated RBC 0.000 (0.0-0.012) X10*3/uL Nucleated RBC % (auto) 0.0 (0.0-0.2) /100WBC PT (10.0-13.1) SEC INR (0.9-1.1) Sodium (135-145) mmol/L Potassium (3.3-5.1) mmol/L Chloride (96-108) mmol/L Carbon Dioxide (22-29) mmol/L Anion Gap (12-20) BUN (9-16) mg/dL Creatinine (0.5-1.4) mg/dL Estim Creat Clear Calc Estimated GFR Random Glucose (60-115) mg/dL Lactic Acid (0.5-2.0) mmol/L Calcium (8.4-10.2) mg/dL Magnesium (1.6-2.6) mg/dL Total Bilirubin (0.0-1.0) mg/dL Direct Bilirubin (0.0-0.5) mg/dL AST (5-37) U/L ALT (0-40) U/L Alkaline Phosphatase (39-117) U/L Troponin I High Sens 4.8 (<3.5-35.0) ng/L B-Natriuretic Peptide 29 (<100) pg/mL Total Protein (6.5-8.0) g/dL Albumin (3.5-5.0) g/dL Influenza Type A (PCR) NEGATIVE (Negative) Influenza Type B (PCR) NEGATIVE (Negative) RSV RNA Qual (PCR) NEGATIVE (Negative) SARS-CoV-2 RNA (RT-PCR) NEGATIVE (Negative) <REBECCA Dubois - Last Filed: 01/16/22 19:01> ECG Data Attestation: I personally reviewed and interpreted this ECG as follows: <REBECCA Mcgregor - Last Filed: 01/16/22 17:55> ECG interpretation date: 01/16/22 <REBECCA Mcgregor - Last Filed: 01/16/22 17:55> ECG interpretation time: 15:00 <REBECCA Mcgregor - Last Filed: 01/16/22 17:55> Interpretation: EKG sinus tachycardia rate 108. FL interval 124. QTC 447. No STEMI nonspecific ST and T changes unchanged from prior EKGs <REBECCA Mcgregor Last Filed: 01/16/22 17:55> Critical Care Time Critical Care Time Critical Care Time: Yes <REBECCA Mcgregor - Last Filed: 01/16/22 17:55> Total Critical Care Time: 45 <REBECCA Mcgregor Last Filed: 01/16/22 17:55> Attestation: I have personally provided critical care time exclusive of time spent on separately billable procedures. Time includes review of lab data, radiology results, discussion with consultants, and monitoring for potential decompensation. Intervention performed as documented. <REBECCA Mcgregor Last Filed: 01/16/22 17:55> Discharge Plan Discharge Clinical Impression: Pneumonia, Weakness, Dizziness, Acidosis, lactic <REBECCA Mcgregor - Last Filed: 01/16/22 17:55> Patient Disposition: Still a Patient <REBECCA Mcgregor - Last Filed: 01/16/22 17:55> Prescriptions: No Action zinc 15 mg Tablet 15 mg PO DAILY aspirin 81 mg Tablet,Chewable 81 mg PO DAILY copper 2 mg Tablet 1 mg PO DAILY cholecalciferol (vitamin D3) 50 mcg (2,000 unit) capsule 50 mcg PO DAILY coenzyme [id number] E 100-100 mg-unit capsule 1 cap PO BEDTIME duloxetine 60 mg capsule,delayed release(DR/EC) 60 mg PO BID carbidopa-levodopa 25-100 mg tablet 3 tab PO TID Rx Instructions: 3 tabs tid omeprazole 20 mg capsule,delayed release(DR/EC) 20 mg PO BEDTIME atorvastatin 40 mg tablet 40 mg PO DAILY pregabalin [Lyrica] 75 mg capsule 75 mg PO BID omega 3-ecj-rgk-fish oil [Fish Oil] 60-90-500 mg capsule 1 cap PO BEDTIME <REBECCA Mcgregor - Last Filed: 01/16/22 17:55>
[2022-01-16] MEDS: Meclizine HCl 25 MG TABLET PO (16:01)
[2022-01-16] MEDS: Acetaminophen 325 MG TABLET 650 MG PO (16:01)
[2022-01-16] MEDS: cefTRIAXone sodium 1 GM in 0.9 % Sodium Chloride 50 ML IV (17:01)
[2022-01-16] MEDS: 0.9 % Sodium Chloride 500 ML 999 ML IV ×2 (17:02→17:59)
[2022-01-16] MEDS: Albuterol/Iprat 2.5/0.5MG 3 ML AMPUL.NEB INHALE (17:03)
[2022-01-16 17:17] LABS: INTERNATIONAL NORM RATIO 1.1 (0.9-1.1); Prothrombin Time 12.8 SEC (10.0-13.1)
[2022-01-16 17:33] LABS: Basophils Absolute Auto 0.1 X10*3/uL (0.0-0.2); Basophils Percent Auto 0.5 % (0-2); Eosinophils Absolute Auto 0.1 X10*3/uL (0.0-0.4); Eosinophils Percent Auto 0.7 % (0-4); Hemoglobin 15.2 g/dl (14.0-18.0); Imm Gran Abs Auto 0.11 X10*3/uL (0.00-0.03); Imm Gran Pct Auto 0.6 % (0.0-0.4); Lymphocytes Absolute Auto 0.7 X10*3/uL (1.2-4.9); Lymphocytes Percent Auto 4.3 % (20-40); MANUAL DIFF FLAG NO; Mean Corpuscular HGB Conc 34.5 g/dl (31.0-36.0); Mean Corpuscular Hemoglobin 33.6 pg (27.0-33.0); Mean Corpuscular Volume 97.1 fL (80.0-98.0); Mean Platelet Volume 9.5 fL (9.4-12.4); Monocytes Absolute Auto 0.8 X10*3/uL (0.1-1.2); Monocytes Percent Auto 4.9 % (2-11); Neutrophils Absolute Auto 15.1 x10*3/uL (2.0-8.3); Platelet Count 240 X10*3/uL (160-400); Red Blood Count 4.53 X10*6/uL (4.60-5.80); Red Cell Distribution Width 12.9 % (11.0-16.0)
[2022-01-16 17:54] LABS: B Type Natriuretic Peptide 29 pg/mL (<100); Troponin-I High Sensitivity 4.8 ng/L (<3.5-35.0)
[2022-01-16 17:58] LABS: Influenza A PCR NEGATIVE (Negative); Influenza B PCR NEGATIVE (Negative); Resp Syncy Virus RNA Qual PCR NEGATIVE (Negative); SARS COV2 PCR INHOUSE NEGATIVE (Negative)
[2022-01-16 18:04] LABS: Alanine Aminotransferase 13 U/L (0-40); Alkaline Phosphatase 96 U/L (39-117); Anion Gap 14 (12-20); Aspartate Amino Transferase 47 U/L (5-37); Bilirubin Direct 0.4 mg/dL (0.0-0.5); Bilirubin Total 0.9 mg/dL (0.0-1.0); Blood Urea Nitrogen 14 mg/dL (9-16); Calcium 9.4 mg/dL (8.4-10.2); Carbon Dioxide 28 mmol/L (22-29); Chloride 99 mmol/L (96-108); Creatinine Clr Calc Pharmacy 69.3; Estimated Glomerular Filt Rate > 60; Glucose Random 222 mg/dL (60-115); Magnesium 1.8 mg/dL (1.6-2.6); Potassium 5.1 mmol/L (3.3-5.1); Sodium 136 mmol/L (135-145); Total Protein 7.5 g/dL (6.5-8.0)
[2022-01-16 18:10] LABS: Lactic Acid 2.2 mmol/L (0.5-2.0)
[2022-01-16] MEDS: Azithromycin 500 MG in 0.9 % Sodium Chloride 250 ML 125 MG IV (18:33)
[2022-01-16 19:08] LABS: Reflex Lactate? Lactic Acid Added
--- NOTE | 2022-01-16 21:03 | PM.IMHP ---
History of Present Illness Date of Service: 01/16/22 Chief Complaint: Dizziness This is a 76-year-old male with past medical history of HLD, Parkinson's chronic vertigo, carotid stenosis, MASSIEL, GERD, BPH, peripheral neuropathy, who presents to the hospital with complaints of increased generalized weakness, difficulty/inability to ambulate over the past few days. He is also complaining of worsening dizziness, and weakness on the right side. Patient currently is stable, reports that he has to pee, otherwise denies any chest pain, he reports shortness of breath for the past week. He is also complaining of a cough, no sputum production, denies any fever or chills. Denies any urinary symptoms. No abdominal pain nausea or vomiting. No diarrhea constipation. On arrival to the ED patient hemodynamically stable with no significant abnormal vitals Labs are significant for WBC count of 17, hemoglobin of 15.2, hematocrit 44, lactic acid of 2.2, UA negative, Chest x-ray showed new dense retrocardiac consolidation, chest CT was done showed patchy airspace opacity in the left lower lobe and lingula concerning for pneumonia, Head CT negative for any intracranial hemorrhage or acute major vascular territory infarct. Patient was ambulated with respiratory therapist, became significantly hypoxic satting 85% on few steps of ambulation, Patient started on IV antibiotics will be admitted for further management Review of Systems Review of Systems: Yes all other systems are reviewed and are negative [facility] Medical History BPH (benign prostatic hyperplasia) Chronic vertigo Dyspnea on exertion Dyspnea on exertion Esophageal reflux Fatigue Hypercholesteremia Obesity (BMI 30-39.9) MASSIEL (obstructive sleep apnea) Peripheral neuropathy Pre-op chest exam Pulmonary fibrosis Restrictive lung disease Skin lesion Surgical History H/O colonoscopy H/O lumbosacral spine surgery History of appendectomy Social History Household Members: Spouse Household Members Other:: Housing: House Do you presently have visiting nurse or other home services: No Alcohol intake: current Alcohol intake frequency: holidays/special occasions only Alcohol type: hard liquor Patient Tobacco Use Status: Never used Tobacco Smoked in Last 30 Days: No Use of substances other than those prescribed or required for medical reasons: No Advance Directives: No Advance Directives Information Provided: No service: No Current occupational status: retired Meds Allergies Allergy/AdvReac Type Severity Reaction Status Date / Time Crustaceans Allergy Mild HIVES Uncoded 07/27/21 12:07 shrimp Allergy Mild Swelling Uncoded 07/27/21 12:07 Active Medications: Current Medications Pharmacy Consult (Consult Rx Perform Med Rec) 1 each MISCELLANE ONCE PRN PRN Reason: Consult order Home Medications Medication Instructions Recorded Confirmed Last Taken Type atorvastatin 40 mg tablet 40 mg PO DAILY 05/11/20 01/16/22 01/16/22 History omeprazole 20 mg capsule,delayed 20 mg PO BEDTIME 05/11/20 01/16/22 01/16/22 History release cholecalciferol (vitamin D3) 50 50 mcg PO DAILY 07/13/20 01/16/22 01/16/22 History mcg (2,000 unit) capsule coenzyme [id number] E 100 mg-100 1 cap PO BEDTIME 07/13/20 01/16/22 01/16/22 History unit capsule carbidopa 25 mg-levodopa 100 mg 3 tab PO TID 07/27/21 01/16/22 01/16/22 History tablet duloxetine 60 mg capsule,delayed 60 mg PO BID 07/27/21 01/16/22 01/16/22 History release omega 5-xyl-ajg-fish oil 60 mg-90 1 cap PO BEDTIME 07/27/21 01/16/22 01/16/22 History mg-500 mg capsule (Fish Oil) pregabalin 75 mg capsule (Lyrica) 75 mg PO BID 07/27/21 01/16/22 01/16/22 History aspirin 81 mg chewable tablet 81 mg PO DAILY 01/16/22 01/16/22 01/16/22 History copper 2 mg tablet 1 mg PO DAILY 01/16/22 01/16/22 01/16/22 History zinc 15 mg tablet 15 mg PO DAILY 01/16/22 01/16/22 01/16/22 History Physical Exam Vital Signs and Narrative: Vital Signs: Last Vital Signs Temp 99.6 F 01/16/22 14:45 Pulse 94 01/16/22 18:20 Resp 20 01/16/22 18:20 BP 124/52 L 01/16/22 18:20 Pulse Ox 95 01/16/22 18:20 O2 Del Method 01/16/22 18:20 BMI result Body Mass Index 28.4 Const: General: cooperative and no acute distress Orientation/consciousness: patient oriented x3 Eyes: General: appearance normal, both eyes and all related structures Resp: Other: Crackles on the left lung Effort & Inspection: normal respiratory effort Cardio: Rate: regular rate Rhythm: regular rhythm GI: Palpation (GI): Soft to palpation Auscultation: normal bowel sounds Skin: General skin exam: no rashes or lesions noted Neuro: Other: Strength is 5/5 in all extremities General: patient oriented x3 Cognition (Neuro): normal cognition Extrem: General: Yes normal to inspection and Yes no pedal edema Results Labs CBC and Chem 7: 01/17/22 06:10 01/16/22 16:59 Labs: Laboratory Results - last 24 hr 01/16/22 01/16/22 01/16/22 16:59 16:59 16:59 MCV MCH MCHC RDW Plt Count MPV Immature Gran % (Auto) Neut % (Auto) Lymph % (Auto) [place] % (Auto) Eos % (Auto) Baso % (Auto) Lymph # (Auto) [place] # (Auto) Eos # (Auto) Baso # (Auto) Abs Immat Gran (auto) Absolute Neuts (auto) Absolute Nucleated RBC Nucleated RBC % (auto) PT 12.8 INR 1.1 Anion Gap 14 Estim Creat Clear Calc 69.3 Estimated GFR > 60 Random Glucose 222 H Lactic Acid 2.2 H* Lactic Acid F/U @ 2Hr Calcium 9.4 Magnesium 1.8 Total Bilirubin 0.9 Direct Bilirubin 0.4 AST 47 H ALT 13 Alkaline Phosphatase 96 Troponin I High Sens B-Natriuretic Peptide Total Protein 7.5 Albumin 4.0 Influenza Type A (PCR) Influenza Type B (PCR) RSV RNA Qual (PCR) SARS-CoV-2 RNA (RT-PCR) 01/16/22 01/16/22 01/16/22 16:59 17:00 17:14 MCV 97.1 MCH 33.6 H MCHC 34.5 RDW 12.9 Plt Count 240 MPV 9.5 Immature Gran % (Auto) 0.6 H Neut % (Auto) 89.0 H Lymph % (Auto) 4.3 L [place] % (Auto) 4.9 Eos % (Auto) 0.7 Baso % (Auto) 0.5 Lymph # (Auto) 0.7 L [place] # (Auto) 0.8 Eos # (Auto) 0.1 Baso # (Auto) 0.1 Abs Immat Gran (auto) 0.11 H Absolute Neuts (auto) 15.1 H Absolute Nucleated RBC 0.000 Nucleated RBC % (auto) 0.0 PT INR Anion Gap Estim Creat Clear Calc Estimated GFR Random Glucose Lactic Acid Lactic Acid F/U @ 2Hr Calcium Magnesium Total Bilirubin Direct Bilirubin AST ALT Alkaline Phosphatase Troponin I High Sens 4.8 B-Natriuretic Peptide 29 Total Protein Albumin Influenza Type A (PCR) NEGATIVE Influenza Type B (PCR) NEGATIVE RSV RNA Qual (PCR) NEGATIVE SARS-CoV-2 RNA (RT-PCR) NEGATIVE 01/16/22 19:55 MCV MCH MCHC RDW Plt Count MPV Immature Gran % (Auto) Neut % (Auto) Lymph % (Auto) [place] % (Auto) Eos % (Auto) Baso % (Auto) Lymph # (Auto) [place] # (Auto) Eos # (Auto) Baso # (Auto) Abs Immat Gran (auto) Absolute Neuts (auto) Absolute Nucleated RBC Nucleated RBC % (auto) PT INR Anion Gap Estim Creat Clear Calc Estimated GFR Random Glucose Lactic Acid Lactic Acid F/U @ 2Hr 3.0 H* Calcium Magnesium Total Bilirubin Direct Bilirubin AST ALT Alkaline Phosphatase Troponin I High Sens B-Natriuretic Peptide Total Protein Albumin Influenza Type A (PCR) Influenza Type B (PCR) RSV RNA Qual (PCR) SARS-CoV-2 RNA (RT-PCR) Imaging Radiologist's Impressions: Impressions Head CT 01/16/22 15:19 IMPRESSION: No intracranial hemorrhage or acute major vascular territory infarction. No acute intracranial pathology compared to 09/11/2020. Chest X-Ray 01/16/22 15:23 IMPRESSION: New dense retrocardiac consolidation could represent atelectasis, aspiration, or pneumonia. Small left pleural effusion cannot be excluded. Chest CT 01/16/22 18:19 IMPRESSION: 1. Patchy airspace opacity in the left lower lobe and lingula concerning for pneumonia. 2. Mild diffuse fatty change of liver. 3. Moderate-sized hiatal hernia. Fleischner guidelines were followed. Assessment and Plan (1) Acute respiratory failure with hypoxia: Status: Acute (2) Pneumonia: Status: Acute (3) Weakness: Status: Acute (4) Dizziness: Status: Acute (5) Acidosis, lactic: Status: Acute Plan 76-year-old male with past medical history of reported Parkinson's, PID, chronic vertigo presents to the hospital with complaints of generalized weakness found to have acute pneumonia # acute hypoxic respiratory failure - secondary to acute pneumonia - COVID-19 negative - will treat with IV antibiotics - follow cultures - monitor respiratory status # community-acquired pneumonia - hypoxic - chest imaging showed pneumonia - will treat with IV antibiotics - follow cultures - monitor respiratory status # weakness/dizziness - has chronic vertigo - weakness likely secondary to acute pneumonia - will consult PT # lactic acidosis - likely secondary to above - IV fluids - trend DVT prophylaxis: Heparin subQ Given the requirement for IV antibiotics in the setting of acute has back sick respiratory failure as well as oxygen requirement patient required minimum tonight hospital stay Quality Stroke Does the patient have a stroke diagnosis?: No VTE Prior VTE?: No VTE Risk Level:: Medical - moderate - high VTE Device Contraindication: Treatment Not Indicated VTE Drug Contraindication: N/A - Med Ordered
[2022-01-16] MEDS: Heparin Sodium,Porcine 5,000 UNIT/ML VIAL 5000 UNIT SUBCUT (21:48)
[2022-01-16] MEDS: Lactated Ringers 1,000 ML 100 ML IVCONT (21:49)
--- NOTE | 2022-01-16 21:56 | PC.NURSE ---
pt assisted to and from bathroom w/ this RN and the use of a walker. pt steady on feet but close staff assist, needs help getting up from bed. pt resting comfortably on stretcher, vital sings stable. on aircraft mechanic armament. LR fluids running 100ml/hr. pt has no current complaints. call myers within reach.
[2022-01-16 21:57] LABS: Reflex Lactate? 2 Y
[2022-01-16 22:44] LABS: ~Lactic Acid-LAB USE ONLY 2.2 mmol/L (0.5-2.0)
[2022-01-17] VITALS (7 sets, daily range): BP systolic 115–149; BP diastolic 48–71; PULSE 60–87; RESP 12–20; TEMP 36.1–36.8; O2SAT 94–99; BMI 28.4
--- NOTE | 2022-01-17 01:25 | PC.NURSE ---
pt was inc of urine ,care given and bedding change .
[2022-01-17 01:54] LABS: Appearance Urine Cloudy; Color Urine Yellow; Glucose Urine UA Negative (Negative); Leukocyte Esterase Urine Negative (Negative); Nitrite Urine Negative (Negative); PH 8.5 (5.0-9.0); Specific Gravity - Urine 1.015 (1.005-1.025); Urine Blood Negative (Negative); Urine Ketones Negative (Negative); Urine Protein Negative (Neg-Trace)
[2022-01-17 06:26] LABS: MANUAL DIFF FLAG NO
[2022-01-17 06:31] LABS: Basophils Absolute Auto 0.1 X10*3/uL (0.0-0.2); Basophils Percent Auto 0.4 % (0-2); Eosinophils Absolute Auto 0.2 X10*3/uL (0.0-0.4); Eosinophils Percent Auto 1.7 % (0-4); Hematocrit 39.7 % (42.0-52.0); Hemoglobin 13.4 g/dl (14.0-18.0); Imm Gran Abs Auto 0.05 X10*3/uL (0.00-0.03); Imm Gran Pct Auto 0.4 % (0.0-0.4); Lymphocytes Absolute Auto 2.3 X10*3/uL (1.2-4.9); Lymphocytes Percent Auto 16.7 % (20-40); Mean Corpuscular HGB Conc 33.8 g/dl (31.0-36.0); Mean Corpuscular Hemoglobin 33.4 pg (27.0-33.0); Mean Platelet Volume 9.4 fL (9.4-12.4); Monocytes Absolute Auto 0.9 X10*3/uL (0.1-1.2); Monocytes Percent Auto 6.3 % (2-11); Neutrophils Absolute Auto 10.3 x10*3/uL (2.0-8.3); Neutrophils Percent Auto 74.5 % (45-73); Platelet Count 190 X10*3/uL (160-400); Red Blood Count 4.01 X10*6/uL (4.60-5.80); Red Cell Distribution Width 12.7 % (11.0-16.0); White Blood Count 13.8 X10*3/uL (4.8-10.8)
[2022-01-17 07:01] LABS: Anion Gap 13 (12-20); Blood Urea Nitrogen 16 mg/dL (9-16); Carbon Dioxide 31 mmol/L (22-29); Chloride 103 mmol/L (96-108); Estimated Glomerular Filt Rate > 60; Glucose Random 125 mg/dL (60-115); Potassium 4.5 mmol/L (3.3-5.1); Sodium 142 mmol/L (135-145)
[2022-01-17] MEDS: Lactated Ringers 1,000 ML 100 ML IVCONT ×2 (08:24→17:22)
[2022-01-17] MEDS: 0.9 % Sodium Chloride Flush 3 ML SYRINGE IVFLUSH ×2 (08:24→21:10)
[2022-01-17] MEDS: Heparin Sodium,Porcine 5,000 UNIT/ML VIAL 5000 UNIT SUBCUT ×2 (08:24→21:09)
--- NOTE | 2022-01-17 08:57 | MHC.CM.PN ---
Patient lives in a house with his and he uses a walker to assist with mobility. Patient receives a daily Family Practice Physician Assistant and Homemaker (assists with ADLs also) through [employer]. Home/resume said services is the goal and CM has initiated and will follow for dc planning. Patient has received Moderna/Covid vax X2 and his PCP is Dr. Jose Galindo. IMM has been addressed.
--- NOTE | 2022-01-17 09:47 | MHC.CM.PN ---
CM spoke with Patient's Daughter/Chula @ [phone], in [place]. Chula explained that she lives in [place] and her Brother lives in [place] and there is no other family in this area. Chula asks to be closely updated/involved in dc planning because Patient's 's care/plan (not Chula's Mother)will need to be considered/adjusted accordingly. Patient's has MS and Lung Ca and requires care of her own. CM will follow. Patient will benefit from a PT eval.
--- NOTE | 2022-01-17 10:18 | PC.NURSE ---
patient awake/alert vss, PT at bedside, ivf running per order, case management was called to assist the family, call myers within reach, will continue to monitor
--- NOTE | 2022-01-17 13:18 | P.PNIM_ITS ---
Subjective Subjective Date of Service: 01/17/22 Interval History: No significant nursing events since admission. Patient states he feels much better since admission and his cough has improved. Physical Exam Vital Signs: Vital Signs: Last Vital Signs Temp 98.0 F 01/17/22 09:11 Pulse 74 01/17/22 09:11 Resp 14 01/17/22 09:11 BP 120/48 L 01/17/22 09:11 Pulse Ox 96 01/17/22 09:11 O2 Del Method 01/17/22 09:11 BMI result Body Mass Index 28.4 Elderly male lying in bed in no distress Neck supple, no JVD Regular rate and rhythm, S1-S2 heard Left-sided crackles Abdomen soft nontender, no guarding, no rigidity Patient is awake, alert and oriented to self, place, time and person ; no focal motor deficit Psych: Normal mood No pedal edema Objective Data Active Medications Acetaminophen (Acetaminophen 325 Mg Tablet) 650 mg PO Q6H PRN PRN Reason: Pain, Mild (Pain Scale 1-3) Azithromycin (Azithromycin 500 Mg Tablet) 500 mg PO Q24H [place] Docusate Sodium (Docusate Sodium 100 Mg Capsule) 100 mg PO DAILY PRN PRN Reason: Constipation Heparin Sodium (Porcine) (Heparin Sodium,Porcine 5,000 Unit/Ml Vial) 5,000 unit SUBCUT Q12H [facility] Last Admin: 01/17/22 08:24 Dose: 5,000 unit Documented By: JAYSON Lactated Ringer's (Lr) 1,000 mls @ 100 mls/hr IVCONT .Q10H [facility] Last Admin: 01/17/22 08:24 Dose: 100 mls/hr Documented By: JAYSON Ceftriaxone Sodium 1 gm/ (Sodium Chloride) 50 mls @ 100 mls/hr IV Q24H [facility] Ondansetron HCl (Ondansetron Hcl 4 Mg/2 Ml Vial) 4 mg IVPUSH Q8H PRN PRN Reason: Nausea and Vomiting Pharmacy Consult (Consult Rx Perform Med Rec) 1 each MISCELLANE ONCE PRN PRN Reason: Consult order Sodium Chloride (0.9 % Sodium Chloride Flush 3 Ml Syringe) 3 ml IVFLUSH QSHIFT [facility] Last Admin: 01/17/22 08:24 Dose: 3 ml Documented By: JAYSON Labs CBC & Chem 7: 01/17/22 06:10 01/17/22 06:10 Labs: Laboratory Results - last 24 hr 01/16/22 01/16/22 01/16/22 16:59 16:59 16:59 MCV MCH MCHC RDW Plt Count MPV Immature Gran % (Auto) Neut % (Auto) Lymph % (Auto) [place] % (Auto) Eos % (Auto) Baso % (Auto) Lymph # (Auto) [place] # (Auto) Eos # (Auto) Baso # (Auto) Abs Immat Gran (auto) Absolute Neuts (auto) Absolute Nucleated RBC Nucleated RBC % (auto) PT 12.8 INR 1.1 Anion Gap 14 Estim Creat Clear Calc 69.3 Estimated GFR > 60 Random Glucose 222 H Lactic Acid 2.2 H* Lactic Acid F/U @ 2Hr Lactic Acid F/U @ 4Hr Calcium 9.4 Magnesium 1.8 Total Bilirubin 0.9 Direct Bilirubin 0.4 AST 47 H ALT 13 Alkaline Phosphatase 96 Troponin I High Sens B-Natriuretic Peptide Total Protein 7.5 Albumin 4.0 Urine Color Urine Appearance Urine pH Ur Specific [place] Urine Protein Urine Glucose (UA) Urine Ketones Urine Blood Urine Nitrite Ur Leukocyte Esterase Influenza Type A (PCR) Influenza Type B (PCR) RSV RNA Qual (PCR) SARS-CoV-2 RNA (RT-PCR) 01/16/22 01/16/22 01/16/22 16:59 17:00 17:14 MCV 97.1 MCH 33.6 H MCHC 34.5 RDW 12.9 Plt Count 240 MPV 9.5 Immature Gran % (Auto) 0.6 H Neut % (Auto) 89.0 H Lymph % (Auto) 4.3 L [place] % (Auto) 4.9 Eos % (Auto) 0.7 Baso % (Auto) 0.5 Lymph # (Auto) 0.7 L [place] # (Auto) 0.8 Eos # (Auto) 0.1 Baso # (Auto) 0.1 Abs Immat Gran (auto) 0.11 H Absolute Neuts (auto) 15.1 H Absolute Nucleated RBC 0.000 Nucleated RBC % (auto) 0.0 PT INR Anion Gap Estim Creat Clear Calc Estimated GFR Random Glucose Lactic Acid Lactic Acid F/U @ 2Hr Lactic Acid F/U @ 4Hr Calcium Magnesium Total Bilirubin Direct Bilirubin AST ALT Alkaline Phosphatase Troponin I High Sens 4.8 B-Natriuretic Peptide 29 Total Protein Albumin Urine Color Urine Appearance Urine pH Ur Specific [place] Urine Protein Urine Glucose (UA) Urine Ketones Urine Blood Urine Nitrite Ur Leukocyte Esterase Influenza Type A (PCR) NEGATIVE Influenza Type B (PCR) NEGATIVE RSV RNA Qual (PCR) NEGATIVE SARS-CoV-2 RNA (RT-PCR) NEGATIVE 01/16/22 01/16/22 01/17/22 19:55 22:16 01:45 MCV MCH MCHC RDW Plt Count MPV Immature Gran % (Auto) Neut % (Auto) Lymph % (Auto) [place] % (Auto) Eos % (Auto) Baso % (Auto) Lymph # (Auto) [place] # (Auto) Eos # (Auto) Baso # (Auto) Abs Immat Gran (auto) Absolute Neuts (auto) Absolute Nucleated RBC Nucleated RBC % (auto) PT INR Anion Gap Estim Creat Clear Calc Estimated GFR Random Glucose Lactic Acid Lactic Acid F/U @ 2Hr 3.0 H* Lactic Acid F/U @ 4Hr 2.2 H* Calcium Magnesium Total Bilirubin Direct Bilirubin AST ALT Alkaline Phosphatase Troponin I High Sens B-Natriuretic Peptide Total Protein Albumin Urine Color Yellow Urine Appearance Cloudy Urine pH 8.5 Ur Specific [place] 1.015 Urine Protein Negative Urine Glucose (UA) Negative Urine Ketones Negative Urine Blood Negative Urine Nitrite Negative Ur Leukocyte Esterase Negative Influenza Type A (PCR) Influenza Type B (PCR) RSV RNA Qual (PCR) SARS-CoV-2 RNA (RT-PCR) 01/17/22 01/17/22 06:10 06:10 MCV 99.0 H MCH 33.4 H MCHC 33.8 RDW 12.7 Plt Count 190 MPV 9.4 Immature Gran % (Auto) 0.4 Neut % (Auto) 74.5 H Lymph % (Auto) 16.7 L [place] % (Auto) 6.3 Eos % (Auto) 1.7 Baso % (Auto) 0.4 Lymph # (Auto) 2.3 [place] # (Auto) 0.9 Eos # (Auto) 0.2 Baso # (Auto) 0.1 Abs Immat Gran (auto) 0.05 H Absolute Neuts (auto) 10.3 H Absolute Nucleated RBC 0.000 Nucleated RBC % (auto) 0.0 PT INR Anion Gap 13 Estim Creat Clear Calc 70.0 Estimated GFR > 60 Random Glucose 125 H D Lactic Acid Lactic Acid F/U @ 2Hr Lactic Acid F/U @ 4Hr Calcium 9.0 Magnesium Total Bilirubin Direct Bilirubin AST ALT Alkaline Phosphatase Troponin I High Sens B-Natriuretic Peptide Total Protein Albumin Urine Color Urine Appearance Urine pH Ur Specific [place] Urine Protein Urine Glucose (UA) Urine Ketones Urine Blood Urine Nitrite Ur Leukocyte Esterase Influenza Type A (PCR) Influenza Type B (PCR) RSV RNA Qual (PCR) SARS-CoV-2 RNA (RT-PCR) Assessment and Plan (1) Acute respiratory failure with hypoxia: Status: Acute (2) Pneumonia: Status: Acute (3) Dizziness: Status: Acute (4) Weakness: Status: Acute (5) Acidosis, lactic: Status: Acute Plan 76-year-old male with past medical history of reported Parkinson's, PID, chronic vertigo presents to the hospital with complaints of generalized weakness found to have acute pneumonia. # Acute hypoxic respiratory failure secondary to #.CAP - COVID-19 negative - On empiric antibiotcs - improved since admission # Weakness/dizziness - has chronic vertigo - weakness likely secondary to acute pneumonia, improved since admission - Consult PT who recommend Short term rehab. Will consult for assistance #. Parkinsons -continue home po medication # Lactic acidosis - likely secondary to above - IV fluids - trend #. Peripheral neuropathy -On cymbalta, pregabalin #. GERD -om omeprazole DVT prophylaxis:? Heparin subQ Admit as inpatient and will require two night minimum hospital stay for need for IV antibiotics. Also needs short term rehab as per PT recommendations Quality Stroke Does the patient have a stroke diagnosis?: No VTE Prior VTE?: No VTE Risk Level:: Medical - moderate - high VTE Device Contraindication: Treatment Not Indicated VTE Drug Contraindication: N/A - Med Ordered
--- NOTE | 2022-01-17 14:10 | MHC.CM.PN ---
Per Daughter/Linda's request to be updated regularly with changes, CM left a detailed message for Linda @ [phone], informing her the the PT eval was completed and the recommendation is for STR. CM will follow.
--- NOTE | 2022-01-17 14:29 | MHC.CM.PN ---
CM received a return call from Patient's Daughter/Linda. Per Linda and Patient, the goal is for Patient to receive his PT at home from [facility]. Linda is actively working on hiring PP Caregivers through a local agency as well. WANDA has relayed this information to the MD and WANDA will continue to follow.
[2022-01-17] MEDS: Cholecalciferol (Vitamin D3) 25 MCG TABLET 50 MCG PO (15:07)
[2022-01-17] MEDS: Carbidopa/Levodopa 25/100 TABLET 3 TAB PO ×2 (15:07→21:09)
[2022-01-17] MEDS: DULoxetine HCl 60 MG CAPSULE.DR PO ×2 (15:07→21:09)
[2022-01-17] MEDS: Pregabalin 75 MG CAPSULE PO ×2 (15:07→21:09)
[2022-01-17] MEDS: Atorvastatin Calcium 40 MG TABLET PO (15:08)
[2022-01-17] MEDS: Aspirin 81 MG TAB.CHEW PO (15:08)
--- NOTE | 2022-01-17 15:11 | PC.NURSE ---
patient a&ox3, no c/o pain or discomfort, pt medicated per order, vss, call myres within reach, will continue to monitor
[2022-01-17] MEDS: Azithromycin 500 MG TABLET PO (17:23)
[2022-01-17] MEDS: Omeprazole 20 MG CAPSULE.DR PO (21:09)
[2022-01-18 03:09] VITALS: BP 142/63; PULSE 80; RESP 16; TEMP 36.1; O2SAT 92
[2022-01-18] MEDS: Lactated Ringers 1,000 ML 100 ML IVCONT (03:30)
[2022-01-18 06:41] LABS: MANUAL DIFF FLAG NO
[2022-01-18 06:43] LABS: Basophils Percent Auto 0.3 % (0-2); Eosinophils Absolute Auto 0.5 X10*3/uL (0.0-0.4); Eosinophils Percent Auto 6.5 % (0-4); Hematocrit 38.5 % (42.0-52.0); Hemoglobin 13.1 g/dl (14.0-18.0); Imm Gran Abs Auto 0.01 X10*3/uL (0.00-0.03); Imm Gran Pct Auto 0.1 % (0.0-0.4); Lymphocytes Percent Auto 27.7 % (20-40); Mean Corpuscular Hemoglobin 33.4 pg (27.0-33.0); Mean Corpuscular Volume 98.2 fL (80.0-98.0); Mean Platelet Volume 9.5 fL (9.4-12.4); Monocytes Absolute Auto 0.4 X10*3/uL (0.1-1.2); Monocytes Percent Auto 5.5 % (2-11); Neutrophils Absolute Auto 4.2 x10*3/uL (2.0-8.3); Neutrophils Percent Auto 59.9 % (45-73); Platelet Count 192 X10*3/uL (160-400); Red Blood Count 3.92 X10*6/uL (4.60-5.80); Red Cell Distribution Width 12.7 % (11.0-16.0)
[2022-01-18 06:59] LABS: Anion Gap 17 (12-20); Blood Urea Nitrogen 14 mg/dL (9-16); Carbon Dioxide 25 mmol/L (22-29); Chloride 102 mmol/L (96-108); Creatinine Clr Calc Pharmacy 77.7; Estimated Glomerular Filt Rate > 60; Glucose Random 105 mg/dL (60-115); Potassium 4.3 mmol/L (3.3-5.1); Sodium 140 mmol/L (135-145)
[2022-01-18 07:56] VITALS: BP 142/72; PULSE 76; RESP 15; TEMP 36.1; O2SAT 96
[2022-01-18] MEDS: Cholecalciferol (Vitamin D3) 25 MCG TABLET 50 MCG PO (08:03)
[2022-01-18] MEDS: Carbidopa/Levodopa 25/100 TABLET 3 TAB PO ×2 (08:03→14:12)
[2022-01-18] MEDS: Aspirin 81 MG TAB.CHEW PO (08:03)
[2022-01-18] MEDS: DULoxetine HCl 60 MG CAPSULE.DR PO (08:03)
[2022-01-18] MEDS: Pregabalin 75 MG CAPSULE PO (08:03)
[2022-01-18] MEDS: Atorvastatin Calcium 40 MG TABLET PO (08:03)
[2022-01-18] MEDS: Heparin Sodium,Porcine 5,000 UNIT/ML VIAL 5000 UNIT SUBCUT (08:04)
[2022-01-18] MEDS: 0.9 % Sodium Chloride Flush 3 ML SYRINGE IVFLUSH (08:06)
--- NOTE | 2022-01-18 10:11 | PM.DS ---
DS: Providers Provider Date of Service: 01/18/22 Date of admission: 01/16/22 21:01 Primary care physician: Unknown Physician DS: Diagnosis Discharge Diagnosis (1) Acute respiratory failure with hypoxia: Status: Acute (2) Pneumonia: Status: Acute (3) Dizziness: Status: Acute (4) Weakness: Status: Acute (5) Acidosis, lactic: Status: Acute DS: Summary Hospital Course Hospital Course: HPI: This is a 76-year-old male with past medical history of HLD, Parkinson's chronic vertigo, carotid stenosis, MASSIEL, GERD, BPH, peripheral neuropathy, who presents to the hospital with complaints of increased generalized weakness, difficulty/inability to ambulate over the past few days.? He is also complaining of worsening dizziness, and weakness on the right side.? Patient currently is stable, reports that he has to pee, otherwise denies any chest pain, he reports shortness of breath for the past week.? He is also complaining of a cough, no sputum production, denies any fever or chills.? Denies any urinary symptoms.? No abdominal pain nausea or vomiting.? No diarrhea constipation.? On arrival to the ED patient hemodynamically stable with no significant abnormal vitals Labs are significant for WBC count of 17, hemoglobin of 15.2, hematocrit 44, lactic acid of 2.2, UA negative, Chest x-ray showed new dense retrocardiac consolidation, chest CT was done showed patchy airspace opacity in the left lower lobe and lingula concerning for pneumonia, Head CT negative for any intracranial hemorrhage or acute major vascular territory infarct. Patient was ambulated with respiratory therapist, became significantly hypoxic satting 85% on few steps of ambulation, Patient started on IV antibiotics will be admitted for further management Hospital course: Patient with significant improvement in symptoms with IV antibiotics throughout hospital course. Maintaining normal oxygen saturation at room air prior to discharge. Patient is stable to be discharged with p.o. antibiotics to complete 5 day course for community-acquired pneumonia. Physical therapy recommended short-term rehab. polysilicon preparation worker spoke with the daughter who is working on hiring private pay caregivers and wants her dad to get physical therapy at home. Status at Discharge Overall status at discharge: patient is back to baseline Time Spent with Patient Time attestation: Total time spent providing and/or coordinating discharge services: Discharge coordination time: Greater than 30 minutes Quality: Safe Use of Opioids Does Pt have an Active Cancer Diagnosis on the Problem List?: No Quality: Stroke Does the patient have a stroke diagnosis?: No Physical Exam Vital Signs: Vital Signs: Last Vital Signs Temp 97.0 F 01/18/22 07:56 Pulse 76 01/18/22 07:56 Resp 15 01/18/22 07:56 BP 142/72 H 01/18/22 07:56 Pulse Ox 96 01/18/22 07:56 O2 Del Method 01/18/22 07:56 BMI result Body Mass Index 28.4 Elderly male lying in bed in no distress Neck supple, no JVD Regular rate and rhythm, S1-S2 heard Left-sided crackles, improved Abdomen soft nontender, no guarding, no rigidity Patient is awake, alert and oriented to self, place, time and person ; no focal motor deficit Psych: Normal mood No pedal edema DS: Data Data Completed and Pending Completed studies during hospitalization [Text1]: Procedures Extirpation of Matter from Right Common Carotid Artery, Open Approach (06/08/20) Extirpation of Matter from Right External Carotid Artery, Open Approach (06/08/20) Extirpation of Matter from Right Internal Carotid Artery, Open Approach (06/08/20) Labs on day of discharge: Laboratory Results - last 24 hr 01/18/22 01/18/22 05:53 05:53 WBC 7.0 RBC 3.92 L Hgb 13.1 L Hct 38.5 L MCV 98.2 H MCH 33.4 H MCHC 34.0 RDW 12.7 Plt Count 192 MPV 9.5 Immature Gran % (Auto) 0.1 Neut % (Auto) 59.9 Lymph % (Auto) 27.7 Pratt % (Auto) 5.5 Eos % (Auto) 6.5 H Baso % (Auto) 0.3 Lymph # (Auto) 2.0 Pratt # (Auto) 0.4 Eos # (Auto) 0.5 H Baso # (Auto) 0.0 Abs Immat Gran (auto) 0.01 Absolute Neuts (auto) 4.2 Absolute Nucleated RBC 0.000 Nucleated RBC % (auto) 0.0 Sodium 140 Potassium 4.3 Chloride 102 Carbon Dioxide 25 Anion Gap 17 BUN 14 Creatinine 0.91 Estim Creat Clear Calc 77.7 Estimated GFR > 60 Random Glucose 105 Calcium 9.0 Preliminary micro results at discharge 01/16/22 17:14 Blood Culture - Preliminary Blood - Venous No growth after 24 hours. 01/16/22 16:54 Blood Culture - Preliminary Blood - Venous No growth after 24 hours. Imaging Chest x-ray: Radiologist's impression: ITS Impressions Head CT 01/16/22 15:19 IMPRESSION: No intracranial hemorrhage or acute major vascular territory infarction. No acute intracranial pathology compared to 09/11/2020. Chest X-Ray 01/16/22 15:23 IMPRESSION: New dense retrocardiac consolidation could represent atelectasis, aspiration, or pneumonia. Small left pleural effusion cannot be excluded. Chest CT 01/16/22 18:19 IMPRESSION: 1. Patchy airspace opacity in the left lower lobe and lingula concerning for pneumonia. 2. Mild diffuse fatty change of liver. 3. Moderate-sized hiatal hernia. Fleischner guidelines were followed. Discharge Plan Discharge Anticipated Discharge Date/Time: 01/18/22 11:30 Patient Disposition: Home, Self-Care Discharge Diagnosis: Acute hypoxic respiratory failure secondary to CAP Referrals: Physician,Unknown J [Primary Care Provider] - 1 Week Discharge Medications: New cefpodoxime 200 mg tablet 200 mg PO BID 3 Days Qty: 6 0RF Rx Instructions: must administer with a meal/food doxycycline hyclate 100 mg capsule 100 mg PO BID 3 Days Qty: 6 0RF Continued zinc 15 mg Tablet 15 mg PO DAILY aspirin 81 mg Tablet,Chewable 81 mg PO DAILY copper 2 mg Tablet 1 mg PO DAILY cholecalciferol (vitamin D3) 50 mcg (2,000 unit) capsule 50 mcg PO DAILY coenzyme H42-sdtcnps E 100-100 mg-unit capsule 1 cap PO BEDTIME duloxetine 60 mg capsule,delayed release(DR/EC) 60 mg PO BID carbidopa-levodopa 25-100 mg tablet 3 tab PO TID Rx Instructions: 3 tabs tid omeprazole 20 mg capsule,delayed release(DR/EC) 20 mg PO BEDTIME atorvastatin 40 mg tablet 40 mg PO DAILY pregabalin [Lyrica] 75 mg capsule 75 mg PO BID omega 8-vvr-tvu-fish oil [Fish Oil] 60-90-500 mg capsule 1 cap PO BEDTIME Discharge Orders: Discharge Order (Routine); Ordered 01/18/22 Ordered By: Caren Perez Diet: Regular diet Activity on Discharge: As tolerated Stand Alone Forms: Patient Portal Discharge page Care Plan Goals: Follow up with PCP in one week. Recommend Physcial therapy at home Health Concerns: Chronic vertigo and weakness Plan of Treatment: Continue po antibiotics for PNA x 3 days Assessment: As per summary
[2022-01-18 11:17] VITALS: BP 116/65; PULSE 81; RESP 17; TEMP 36.3; O2SAT 95
--- NOTE | 2022-01-18 11:31 | W.MHC.F2F ---
Service Date Service Date: 01/18/22 Encounter Date of encounter: 01/18/22 Reasons for Services Signs and symptoms assessed: Chronic dizziness and weakness Reason for retirement: neurological assessment, diabetic teaching, medication management, medication treatment and teach disease management Homebound: Leaving the home is medically contraindicated at this time without the asist of a device and/or another person due th the listed conditions above and below. Reason homebound: other Homebound supporting statement: Chronic dizziness and weakness Certification: Based on the above findings, I certify that this patient is confined to the home and needs intermittent retirement care, physical therapy and/or speech therapy, or continues to need occupational therapy. The patient is under my care, and I have initiated the establishment of the plan of care. The patient will be followed by a physician who will periodically review the plan of care.
--- NOTE | 2022-01-18 11:52 | MHC.CM.PN ---
HCP RECEIVED FROM [facility], AND UPLOADED INTO [facility] [place] PLAN IS NOW STR AT [facility] AND THEN HOME WITH [facility] ONCE HOME CARE PRIVATE PAY 09/10 IS SET UP RN AND UNIT AWARE OF PLAN.
--- NOTE | 2022-01-18 12:24 | MHC.CM.PN ---
[facility] TO TRANSPORT PATIENT FOR 1529 TO [facility]. PT, RN, AND UNIT AWARE.
[2022-01-18 15:13] VITALS: BP 115/58; PULSE 74; RESP 18; TEMP 36.2; O2SAT 95
== END 2022-01-18 18:00 | disposition skilled nursing facility (03) | DRG 193 ==
LOC: HO.ED 19:02 → HO.EDOVER 21:10 → HO.S3 01-17 18:40
PROVIDERS: Physician Assistant; Admitting Provider Internal Medicine; Emergency Provider Internal Medicine; PCP Internal Medicine; Visit Provider Student in an Organized Health Care Education/Training Program
DX: J18.9 Pneumonia, unspecified organism (principal); J96.01 Acute respiratory failure with hypoxia; E87.20 Acidosis, unspecified; G47.33 Obstructive sleep apnea (adult) (pediatric); K21.9 Gastro-esophageal reflux disease without esophagitis; N40.0 Benign prostatic hyperplasia without lower urinary tract symptoms; G20 Parkinson's disease; E86.0 Dehydration; G62.9 Polyneuropathy, unspecified; Z23 Encounter for immunization; Z20.822 Contact with and (suspected) exposure to COVID-19; Z91.013 Allergy to seafood; Z79.82 Long term (current) use of aspirin; Z79.899 Other long term (current) drug therapy
CPT/HCPCS: 0241U; 36415; 70450; 71045; 71250; 80048; 80076; 81003; 83605; 83735; 83880; 84484; 85025; 85610; 87040; 90686; 93005; 94640; 97162; 99285; J0456; J0696

== ENCOUNTER 2022-10-08 18:39 | Emergency (ER) | payer MEDICARE, SELFPAY ==
--- NOTE | ~2022-10-08 | CT_ITS ---
EXAMINATION: CT HEAD WITHOUT CONTRAST CLINICAL INFORMATION: Altered mental status. COMPARISON: CT head 01/16/2022. TECHNIQUE: Contiguous axial imaging was performed from the skull base to vertex without intravenous administration of contrast. This CT examination was performed using dose optimization techniques as appropriate, variously including the following: *Automated exposure control *Adjustment of mA and/or kV according to patient size (this includes techniques or standardized protocols for targeted exams where dose is matched to indication/reason for exam; i.e. extremities or head) *Use of iterative reconstruction technique DLP: 644 mGy-cm FINDINGS: There is no evidence of acute intracranial hemorrhage or edematous territorial infarction. A few foci of hypoattenuation in the periventricular and deep white matter are consistent with mild microangiopathy. Senior-white matter differentiation is preserved. Proportional prominence of the ventricles and sulcal spaces. No evidence for obstructive hydrocephalus. No abnormal mass effect or midline shift. No extra-axial fluid collections. No acute soft tissue or osseous abnormalities. Small left-sided mastoid effusion. The paranasal sinuses are clear. Left-sided lens extraction. CT/CT head/brain wo IV con IMPRESSION: No evidence of acute intracranial hemorrhage or edematous territorial infarction.
[2022-10-08 18:53] VITALS: BP 119/49; BP 151/95; PULSE 79; PULSE 81; RESP 22; TEMP 37.1; O2SAT 92; O2SAT 97; BMI 26.7
--- OUTSIDE RECORDS SUMMARY | 2022-10-08 19:43 | XMS_ITS | Continuity of Care Document ---
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) - 07/26/21 Chronic vertigo(Discharge Diagnosis) - 07/26/21 Urge incontinence of urine(Discharge Diagnosis) - 07/26/21 Attending Physician: Jose Galindo MD Allergies, Adverse Reactions, Alerts Substance Reaction Severity Status shellfish Active Shrimp Active Immunizations Given and Recorded Vaccine Date Status Refusal Reason SARS-CoV-2 (COVID-19) mRNA-1273 vaccine 03/17/21 R ecorded SARS-CoV-2 (COVID-19) mRNA-1273 vaccine 05/27/20 R ecorded SARS-CoV-2 (COVID-19) mRNA-1273 vaccine 04/30/20 R ecorded zoster vaccine, inactivated 02/08/21 Recorded zoster vaccine, inactivated 02/01/21 Recorded influenza virus vaccine, inactivated 01/11/21 Barry rded influenza virus vaccine, inactivated 03/30/20 Give n influenza virus vaccine, inactivated 01/14/19 Give n pneumococcal 23-valent vaccine 03/18/19 Given pneumococcal 23-valent vaccine 10/12/16 Recorded pneumococcal 13-valent vaccine 10/24/18 Given tetanus/diphtheria/pertussis, acel(Tdap) 10/24/18 Given Medications aspirin 81 mg oral delayed release tablet 81 mg, 1, tablet, By Mouth, Daily, Refills 0, Maintenance, 12/13/18 14:06:14 EDT Start Date: 12/13/18 Status: Ordered atorvastatin 40 mg oral tablet 1 tablet = 40 mg, By Mouth, Daily, # 90 tablet, 3 Refills, Maintenance, 07/26/21 10:31:00 EDT, Tablet, [facility], 176.8, cm, 07/26/21 10:04:00 EDT, Height, 82.1, kg, 07/19/21 17:49:00 EDT, Dry Weight Start Date: 07/26/21 Status: Ordered Co-Q10 100 mg oral capsule 2 capsule = 200 mg, By Mouth, Daily, # 60 capsule, 0 Refills, Maintenance, 07/27/21 9:04:00 EDT, Capsule, Partial fill upon patient request if the prescription is for a schedule II opioid drug. Start Date: 07/27/21 Status: Ordered copper (as bisglycinate)-zinc (as bisglycinate) 2 mg-25 mg oral capsule 1 capsule, By Mouth, Daily, 0 Refills, Maintenance, 07/27/21 9:03:00 EDT, Partial fill upon patientrequest if the prescription is for a schedule II opioid drug. Start Date: 07/27/21 Status: Ordered Cymbalta 60 mg oral enteric coated capsule 1 capsule = 60 mg, By Mouth, 2 times a day, # 180 capsule, 3 Refills, Maintenance, 07/26/21 10:31:00 EDT, EC Capsule, [facility], Partial fill upon patient request if the prescription is fora schedule II opioid drug., 176.8, cm, 07/26/21 10:... Start Date: 07/26/21 Stop Date: 07/21/22 Status: Ordered Fish Oil 1000 mg oral capsule 1 capsule = 1,000 mg, By Mouth, Daily, 0 Refills, Maintenance, 07/27/21 9:04:00 EDT, Partial fill upon patient request if the prescription is for a schedule II opioid drug. Start Date: 07/27/21 Status: Ordered Lyrica 75 mg oral capsule 1 capsule = 75 mg, By Mouth, 2 times a day, # 180 capsule, 1 Refills, Maintenance, 07/26/21 10:31:00 EDT, Capsule, [facility], Partial fill upon patient request if the prescription is for a schedule II opioid drug., 176.8, cm, 07/26/21 10:04:... Start Date: 07/26/21 Status: Ordered meclizine 25 mg oral tablet 1 tablet = 25 mg, By Mouth, 3 times a day, PRN for dizziness, # 60 tablet, 1 Refills, Maintenance, 07/26/21 10:32:00 EDT, Tablet, [facility], Partial fill upon patient request if the prescription is for a schedule II opioid drug., 176.8, cm,... Start Date: 07/26/21 Status: Ordered omeprazole 20 mg oral delayed release tablet 1 tablet = 20 mg, By Mouth, Daily, # 90 tablet, 3 Refills, Maintenance, 07/26/21 10:31:00 EDT, CR Tablet, [facility], Partial fill upon patient request if the prescription is for a schedule II opioid drug., 176.8, cm, 07/26/21 10:04:00 EDT, H... Start Date: 07/26/21 Status: Ordered Sinemet 25 mg-100 mg oral tablet 3 tablet, By Mouth, 3 times a day, DOSE INCREASE, # 810 tablet, 2 Refills, Maintenance, 12/23/20 20:36:00 EDT, [facility], Partial fill upon patient request if the prescription is for a schedule II opioid drug., 3 tablet By Mouth 3 times a da... Start Date: 12/23/20 Stop Date: 09/19/21 Status: Ordered Vitamin D3 5000 intl units oral capsule 1 capsule = 125 mcg, By Mouth, Daily, 0 Refills, Maintenance, 07/27/21 9:02:00 EDT, Partial fill upon patient request if the prescription is for a schedule II opioid drug. Start Date: 07/27/21 Status: Ordered wheelchair wheelchair, See Instructions, # 1 each, Refills 0, Tot. Refills 0, Maintenance, Unsteady gait R26.81 Parkinsons R25.9 chronic pain G89.4 Weight 89.4kg height 176.8 cm Lifetime need self propel standard footrests, 05/17/21 14:29:00 EST, Supply Start Date: 05/17/21 Status: Ordered Problem List Condition Effective Dates Status Health Status Inform ant Carotid artery stenosis(Confirmed) 1 Active Chronic low back pain(Confirmed) Active Chronic vertigo(Confirmed) Active Dyspnea on exertion(Confirmed) Active Fatigue(Confirmed) Active Esophageal reflux(Confirmed) Active History of colonoscopy(Confirmed) 2 Active Hypercholesterolemia(Confirmed) Active Claudication(Confirmed) Active Localized, 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 [id number] Diagnosis Diagnosis Type Effective Dates Health Status Clinical Service Informant Major depression in partial remission Discharge Diagnosis 07/26/21 Chronic vertigo Discharge Diagnosis 07/26/21 Urge incontinence of urine Discharge Diagnosis 07/26/21 Vital Signs Most recent to oldest [Reference Range]: 1 Height 176.8 cm (07/26/21 10:04 AM) Oxygen Saturation [94-100 %] 98 % (07/26/21 10:04 AM) Pulse Rate [55-90 bpm] 71 bpm (07/26/21 10:04 AM) Blood Pressure [90-138/55-84 mm Hg] 126/ 80mm Hg (07/26/21 10:04 AM) Mode of Delivery (Oxygen) Room air (07/26/21 10:04 AM) Blood pressure sites Arm, left (07/26/21 10:04 AM) Social History Social History Type Response Smoking Status Never (less than 100 in lifetime) entered on: 10/11/18 Sex
--- OUTSIDE RECORDS SUMMARY | 2022-10-08 19:43 | XMS_ITS | Continuity of Care Document ---
Author Name Unknown Organization [facility] Address [address] [place] [address]- Care Team Providers Care Water Engineer Name Role Phone Jose Galindo MD Primary Care Physician Encounter [facility] Date(s): 05/18/21 - 06/17/21 [facility] Adult [address] [place] [address]- Attending Physician: Admtr, Ar8 Admitting Physician: Admtr, Ar8 Referring Physician: Admtr, Ar8 Allergies, Adverse Reactions, Alerts Substance Reaction Severity [...] Daily, # 90 tablet, 3 Refills, Maintenance, 08/11/20 19:13:00 EDT, Tablet, [facility], 176.8, cm, 08/11/20 12:51:00 EDT, Height, 89.4, kg, 01/17/19 14:16:00 EDT, Dry Weight Start Date: 08/11/20 Status: Ordered Cymbalta 60 mg oral enteric coated capsule 1 capsule = 60 mg, By Mouth, 2 times a day, # 180 capsule, 3 Refills, Maintenance, 04/05/21 11:29:00 EST, EC Capsule, [facility], Partial fill upon patient request if the prescription is fora schedule II opioid drug., 176.8, cm, 04/05/21 11:... Start Date: 04/05/21 Stop Date: 03/31/22 Status: Ordered doxycycline hyclate 100 mg oral capsule 1 capsule = 100 mg, By Mouth, 2 times a day, # 20 capsule, 0 Refills, Acute 06/28/21 8:00:00 EDT, 06/17/21 14:05:00 EDT, Capsule, [facility], Partial fill upon patient request if the prescription is for a schedule II opioid drug., 176.8, cm,... Start Date: 06/17/21 Stop Date: 06/28/21 Status: Ordered gabapentin 600 mg oral tablet 1 tablet = 600 mg, By Mouth, 2 times a day, decrease to bid from tid by neurology 05/10/21, 0 Refills, Maintenance, 05/10/21 15:34:00 EST, Partial fill upon patient request if the prescription is for a schedule II opioid drug. Start Date: 05/10/21 Status: Ordered Lyrica 75 mg oral capsule 1 capsule = 75 mg, By Mouth, 2 times a day, # 180 capsule, 1 Refills, Maintenance, 01/04/21 17:14:00 EDT, Capsule, [facility], Partial fill upon patient request if the prescription is for a schedule II opioid drug., 176.8, cm, 11/19/20 13:14:... Start Date: 01/04/21 Status: Ordered omeprazole 20 mg oral delayed release tablet 1 tablet = 20 mg, By Mouth, Daily, # 90 tablet, 3 Refills, Maintenance, 04/13/21 11:32:00 EST, CR Tablet, [facility] # [facility], Partial fill upon patient request if the prescription is for a schedule II opioid drug., 176.8, cm, 04/05/21 11:00:00 EST, H... Start Date: 04/13/21 Status: Ordered physical therapy physical therapy, See Instructions, # 1 each, Refills 0, Tot. Refills 0, Maintenance, evaluate and treat for lbp, 03/18/19 11:23:00 EST, Compound Start Date: 03/18/19 Status: Ordered Rollator walker Rollator walker, See Instructions, # 1 each, Refills 0, Tot. Refills 0, Maintenance, rollator walker use as directed dx unsteady gait ICD 10 R26.81 Chronic Vertigo ICD R42 weight 200 LBS Ht 5'10 length of need lifetime, 07/13/20 11:02:00... Start Date: 07/13/20 Status: Ordered Sinemet 25 mg-100 mg oral tablet 3 tablet, By Mouth, 3 times a day, DOSE INCREASE, # 810 tablet, 2 Refills, Maintenance, 12/23/20 20:36:00 EDT, [facility], Partial fill upon patient request if the prescription is for a schedule II opioid drug., 3 tablet By Mouth 3 times a da... Start Date: 12/23/20 Stop Date: 09/19/21 Status: Ordered wheelchair wheelchair, See Instructions, # [...] with nocturia(Confirmed) Active Obstructive sleep apnea(Confirmed) Active Parkinsonian features(Confirmed) Active Neuropathy, peripheral(Confirmed) Active Skin lesion(Confirmed) Active Urge incontinence of urine(Confirmed) Active 150 to 69% on right. [id number] Social History Social History Type Response Smoking Status Never (less than 100 in lifetime) entered on: 10/11/18 Sex
--- OUTSIDE RECORDS SUMMARY | 2022-10-08 19:43 | XMS_ITS | Continuity of Care Document ---
Author Name Unknown Organization [facility] Quique lt Address [address] [place] [address]- Care Team Providers Care Huc Ob Name Role Phone Jose Galindo MD Primary Care Physician [facility]counter [facility] Date(s): 06/09/22 - 07/09/22 [facility] Adult [address] [place] [address]- Allergies, Adverse Reactions, Alerts Substance Reaction Severity Status shellfish Active Shrimp Active Immunizations Given and Recorded Vaccine Date Status Refusal Reason [id number] 12y+ bivalent booster vax 06/06/22 Given influenza virus vaccine, inactivated 01/17/22 Barry rded influenza virus vaccine, inactivated 01/11/21 Barry rded influenza virus vaccine, inactivated 03/30/20 Give n influenza virus vaccine, inactivated 01/14/19 Give n SARS-CoV-2 (COVID-19) mRNA-1273 vaccine 03/17/21 R ecorded SARS-CoV-2 (COVID-19) mRNA-1273 vaccine 05/27/20 R ecorded SARS-CoV-2 (COVID-19) mRNA-1273 vaccine 04/30/20 R ecorded zoster vaccine, inactivated 02/08/21 Recorded zoster vaccine, inactivated 02/01/21 Recorded pneumococcal 23-valent vaccine 03/18/19 Given pneumococcal 23-valent vaccine 10/12/16 Recorded pneumococcal 13-valent vaccine 10/24/18 Given tetanus/diphtheria/pertussis, acel(Tdap) 10/24/18 Given Medications aspirin 81 mg oral delayed release tablet 81 mg, By Mouth, Daily, # 30 tablet, Refills 2, Tot. Refills 2, Maintenance, 06/30/22 10:11:00 EDT,Route to Pharmacy Electronically, [facility], Partial fill upon patient request if the prescription is for a schedule II opioid drug., 18... Start Date: 06/30/22 Status: Ordered atorvastatin 80 mg oral tablet 1 tablet = 80 mg, By Mouth, Daily at bedtime, # 30 tablet, 2 Refills, Maintenance, 06/30/22 10:09:00 EDT, Tablet, [facility], Partial fill upon patient request if the prescription is for a schedule II opioid drug., 180, cm, 06/30/22 7:52... Start Date: 06/30/22 Status: Ordered Co-Q10 100 mg oral capsule [...] Date: 07/26/21 Stop Date: 07/21/22 Status: Ordered Eligen B12 1000 mcg oral tablet 1 tablet, By Mouth, Daily, on an empty stomach, # 90 tablet, 2 Refills, Maintenance, 03/07/22 12:18:00 EST, Tablet, [facility], Partial fill upon patient request if the prescription is for aschedule II opioid drug., 176.8, cm, 03/06/22 13:20... Start Date: 03/07/22 Status: Ordered Fish Oil 1000 mg oral capsule 1 capsule = 1,000 mg, By Mouth, Daily, 0 Refills, Maintenance, 07/27/21 9:04:00 EDT, Partial fill upon patient request if the prescription is for a schedule II opioid drug. Start Date: 07/27/21 Status: Ordered losartan 25 mg oral tablet 25 mg, 1, tablet, By Mouth, Daily, # 30 tablet, Refills 2, Tot. Refills 2, Maintenance, 06/30/22 10:10:00 EDT, Route to Pharmacy Electronically, [facility], Partial fill upon patient request if the prescription is for a schedule II opioi... Start Date: 06/30/22 Status: Ordered Lyrica 150 mg oral capsule 1 capsule = 150 mg, By Mouth, 2 times a day, # 180 capsule, 0 Refills, Maintenance, 06/13/22 14:29:00 EDT, [facility], Partial fill upon patient request if the prescription is for a scheduleII opioid drug., 176.8, cm, 06/12/22 11:10:00 EDT,... Start Date: 06/13/22 Stop Date: 09/11/22 Status: Ordered meclizine 25 mg oral tablet 1 tablet = 25 mg, By Mouth, 3 times a day, PRN for dizziness, # 60 tablet, 1 Refills, Maintenance, 07/26/21 10:32:00 EDT, Tablet, [facility] # [facility], Partial fill upon patient request if the prescription is for a schedule II opioid drug., 176.8, cm,... Start Date: 07/26/21 Status: Ordered metoprolol 25 mg oral tablet, extended release 25 mg, 1, tablet, By Mouth, Daily, # 30 tablet, Refills 2, Tot. Refills 2, Maintenance, 06/30/22 10:10:00 EDT, Route to Pharmacy Electronically, [facility], Partial fill upon patient request if the prescription is for a schedule II opioi... Start Date: 06/30/22 Status: Ordered omeprazole 20 mg oral delayed release tablet 1 tablet = 20 mg, By Mouth, Daily, # 90 tablet, 3 Refills, Maintenance, 07/26/21 10:31:00 EDT, CR Tablet, [facility], Partial fill upon patient request if the prescription is for a schedule II opioid drug., 176.8, cm, 07/26/21 10:04:00 EDT, H... Start Date: 07/26/21 Status: Ordered Plavix 75 mg oral tablet 75 mg, 1, tablet, By Mouth, Daily, # 30 tablet, Refills 2, Tot. Refills 2, Maintenance, 06/30/22 10:09:00 EDT, Route to Pharmacy Electronically, [facility], Partial fill upon patient request if the prescription is for a schedule II opioi... Start Date: 06/30/22 Status: Ordered Sinemet 25 mg-100 mg oral tablet 3 tablet, By Mouth, 3 times a day, for 90 days, # 810 tablet, 1 Refills, Hard Stop 10/06/22 7:09:00EDT, 04/09/22 7:09:00 EST, [facility], Partial fill upon patient request if the prescription is for a schedule II opioid drug., 3 tablet By Mo... Start Date: 04/09/22 Stop Date: 10/06/22 Status: Ordered traZODone 50 mg oral tablet 50 mg, 1, tablet, By Mouth, Daily at bedtime, increased dose, # 30 tablet, Refills 11, Tot. [id number], Maintenance, 06/13/22 14:08:00 EDT, Route to Pharmacy Electronically, [facility], 176.8, cm, 06/12/22 11:10:00 EDT, Height, 82.1, kg, 05/0... Start Date: 06/13/22 Status: Ordered Vitamin D3 5000 intl units [...] Date: 05/17/21 Status: Ordered Problem List Condition Confirmation Course Effective Dates Status Health Status Informant Carotid artery stenosis 1 Confirmed Active Chronic low back pain Confirmed Active Chronic vertigo Confirmed Active COVID-19 2 Confirmed 03/15/22 Active COVID-19 virus infection Confirmed Active Dyspnea on exertion Confirmed Active Fatigue Confirmed Active Esophageal reflux Confirmed Active History of colonoscopy 3 Confirmed Active Hypercholesterolemia Confirmed Active Claudication Confirmed Active Localized, primary osteoarthritis of the ankle and/or foot Confirmed Active Major depression in partial remission Confirmed Active BPH associated with nocturia Confirmed Active Obstructive sleep apnea Confirmed Active Parkinsons disease Confirmed Active Neuropathy, peripheral Confirmed Active Skin lesion Confirmed Active Toxic metabolic encephalopathy Confirmed Active Unsteady gait Confirmed Active Urge incontinence of urine Confirmed Active 150 to 69% on right. 2Problem added by Discern Expert [id number] Social History Social History Type Response Smoking Status Never (less than 100 in lifetime) entered on: 10/11/18 Sex Patient Care team information Care Team Personnel Name: Azael Stafford RN Position: [facility] RN Member Role: Primary Care Nurse Name: Martín Thornton RN Position: [facility] RN Member Role: Primary Care Nurse Name: Froylan Cooley RN Position: [facility] RN Member Role: Primary Care Nurse Name: Jose Galindo MD Position: [facility] Primary Care Physician Member Role: PCP Address: Address: [address] [place] [id number]- Name: Xiao Cervantes RN Position: [facility] RN Member Role: Primary Care Nurse Name: Jenni Tran RN Position: [facility] Onco RN Member Role: Primary Care Nurse Care Team Related Persons Name: LEIGH ANN LARRY Address: home [address] [place] [address] Name: ALFRED LARRY Address: home [address] [place] [address] Name: LEIGH ANN SILVERIO Address: home [address] [place] [address]
--- OUTSIDE RECORDS SUMMARY | 2022-10-08 19:43 | XMS_ITS | Continuity of Care Document ---
Author Name Unknown Organization [facility] Address Unknown Care Team Providers Care Airset Molder Name Role Phone Josie LANDAVERDE, Jose Vidal Primary Care Physician [phone] [place] [facility] [place]18[place] 04/17/21 [facility] Allergies, Adverse Reactions, Alerts Substance Reaction Severity [...] Refills, Maintenance, 04/05/21 11:29:00 EST, EC Capsule, [facility], Partial fill upon patient request if the prescription is fora schedule II opioid drug., 176.8, cm, 04/05/21 11:... Start Date: 04/05/21 Stop Date: 03/31/22 Status: Ordered Lyrica 75 mg oral capsule 1 capsule = 75 mg, By Mouth, 2 times a day, # 180 capsule, 1 Refills, Maintenance, 01/04/21 17:14:00 EDT, Capsule, [facility], Partial fill upon patient request if the prescription is for a schedule II opioid drug., 176.8, cm, 11/19/20 13:14:... Start Date: 01/04/21 Status: Ordered omeprazole 20 mg oral delayed release tablet 1 tablet = 20 mg, By Mouth, Daily, # 90 tablet, 3 Refills, Maintenance, 04/13/21 11:32:00 EST, CR Tablet, [facility] # [facility], Partial fill upon patient [...] tablet, 2 Refills, Maintenance, 12/23/20 20:36:00 EDT, [facility], Partial fill upon patient request if the prescription is for a schedule II opioid drug., 3 tablet By Mouth 3 times a da... Start Date: 12/23/20 Stop Date: 09/19/21 Status: Ordered Problem List Condition Effective Dates [...] urine(Confirmed) Active 150 to 69% on right. [id number] Social History Social History Type Response Smoking Status Never (less than 100 in lifetime) entered on: 10/11/18 Sex
--- OUTSIDE RECORDS SUMMARY | 2022-10-08 19:43 | XMS_ITS | Continuity of Care Document ---
Author Name Unknown Organization [facility] Quique lt Address [address] [place] [address]- Care Team Providers Care Box Nailer Name Role Phone Jose Galindo MD Primary Care Physician [place] [facility] [place] 11/14/21 - 11/21/21 [facility] Adult [address] [place] [address]- Encounter Diagnosis Claudication(Discharge Diagnosis) - 11/14/21 Major depression in partial remission(Discharge Diagnosis) - 11/14/21 Parkinsons disease(Discharge Diagnosis) - 11/14/21 Neuropathy, peripheral(Discharge Diagnosis) - 11/14/21 Hypercholesterolemia(Discharge Diagnosis) - 11/14/21 Carotid artery stenosis(Discharge Diagnosis) - 11/14/21 Attending Physician: Jose Galindo MD Allergies, Adverse [...] 3 Refills, Maintenance, 07/26/21 10:31:00 EDT, Tablet, [facility], 176.8, cm, 07/26/21 [...] Refills, Maintenance, 07/26/21 10:31:00 EDT, EC Capsule, [facility], Partial fill upon [...] 1 Refills, Maintenance, 07/26/21 10:31:00 EDT, Capsule, [facility], Partial fill upon patient request if the prescription is for a schedule II opioid drug., 176.8, cm, 07/26/21 10:04:... Start Date: 07/26/21 Status: Ordered meclizine 25 mg oral tablet 1 tablet = 25 mg, By Mouth, 3 times a day, PRN for dizziness, # 60 tablet, 1 Refills, Maintenance, 07/26/21 10:32:00 EDT, Tablet, [facility] # [facility], Partial fill upon patient request if the prescription is for a schedule II opioid drug., 176.8, cm,... Start Date: 07/26/21 Status: Ordered omeprazole 20 mg oral delayed release tablet 1 tablet = 20 mg, By Mouth, Daily, # 90 tablet, 3 Refills, Maintenance, 07/26/21 10:31:00 EDT, CR Tablet, [facility] # [facility], Partial fill upon patient request if the prescription is for a schedule II opioid drug., 176.8, cm, 07/26/21 10:04:00 EDT, H... Start Date: 07/26/21 Status: Ordered Sinemet 25 mg-100 mg oral tablet 3 tablet, By Mouth, 3 times a day, # 810 tablet, 1 Refills, Maintenance, 10/11/21 7:09:00 EDT, [facility] # [facility], Partial fill upon patient request if the prescription is for a schedule II opioid drug., 3 tablet By Mouth 3 times a day,x90 days, 176.... Start Date: 10/11/21 Stop Date: 04/09/22 Status: Ordered Vitamin D3 5000 intl units [...] urine(Confirmed) Active 150 to 69% on right. [id number] Diagnosis Diagnosis Type Effective Dates Health Status Clinical Service Informant Claudication Discharge Diagnosis 11/14/21 Major depression in partial remission Discharge Diagnosis 11/14/21 Parkinsons disease Discharge Diagnosis 11/14/21 Neuropathy, peripheral Discharge Diagnosis 11/14/21 Hypercholesterolemia Discharge Diagnosis 11/14/21 Carotid artery stenosis Discharge Diagnosis 11/14/21 Vital Signs Most recent to oldest [Reference Range]: 1 Height 176.8 cm (11/14/21 3:02 PM) Oxygen Saturation [94-100 %] 96 % (11/14/21 3:02 PM) Pulse Rate [55-90 bpm] 80 bpm (11/14/21 3:02 PM) Blood Pressure [90-138/55-84 mm Hg] 123/ 63mm Hg (11/14/21 3:02 PM) Mode of Delivery (Oxygen) Room air (11/14/21 3:02 PM) Blood pressure sites Arm, left (11/14/21 3:02 PM) Social History Social History Type Response Smoking Status Never (less than 100 in lifetime) entered on: 10/11/18 Sex Care Team Personnel Name: Jose Galindo MD Address: [address] [place] [id number]
--- OUTSIDE RECORDS SUMMARY | 2022-10-08 19:43 | XMS_ITS | Continuity of Care Document ---
Author Name Unknown Organization [facility] Quique lt Address [address] [place] [address]- Care Team Providers Care Exam Proctor Name Role Phone Jose Galindo MD Primary Care Physician [place] [facility] [place](s[place] 05/27/20 - 06/03/20 [facility] Adult [address] [place] [address]- Encounter Diagnosis Fatigue(Discharge Diagnosis) - 05/27/20 Chronic low back pain(Discharge Diagnosis) - 05/27/20 Attending Physician: Jose Galindo MD Allergies, Adverse Reactions, Alerts Substance Reaction Severity Status Shrimp Active Immunizations Given and Recorded Vaccine Date Status Refusal Reason influenza virus vaccine, inactivated 03/30/20 Give n influenza virus vaccine, inactivated 01/14/19 Give n pneumococcal 23-valent vaccine 03/18/19 Given pneumococcal 13-valent vaccine 10/24/18 Given tetanus/diphtheria/pertussis, acel(Tdap) 10/24/18 Given Medications aspirin 81 mg oral delayed release tablet 81 mg, 1, tablet, By Mouth, Daily, Refills 0, Maintenance, 12/13/18 14:06:14 EDT Start Date: 12/13/18 Status: Ordered atorvastatin 40 mg oral tablet 1 tablet = 40 mg, By Mouth, Daily, # 90 tablet, 1 Refills, Maintenance, 05/29/20 8:45:00 EST, Tablet, [facility], 176.8, cm, 05/27/20 11:03:00 EST, Height, 89.4, kg, 01/17/19 14:16:00 EDT, Dry Weight Start Date: 05/29/20 Status: Ordered CeleBREX 200 mg oral capsule 1 capsule = 200 mg, By Mouth, Daily, # 30 capsule, 0 Refills, Maintenance, 03/18/19 11:21:00 EST, Capsule, [facility], 176.8, cm, 03/18/19 10:53:00 EST, Height, 89.4, kg, 01/17/19 14:16:00 EDT, Dry Weight Start Date: 03/18/19 Status: Ordered Cymbalta 60 mg oral enteric coated capsule 1 capsule = 60 mg, By Mouth, Daily, # 30 capsule, 11 Refills, Maintenance, 05/27/20 11:22:00 EST, EC Capsule, [facility], Partial fill upon patient request if the prescription is for a schedule II opioid drug., 176.8, cm, 05/27/20 11:03:00 ES... Start Date: 05/27/20 Status: Ordered Flomax 0.4 mg oral capsule 0.4 mg, 1, capsule, By Mouth, Daily, Refills 0, Maintenance, 03/29/20 13:07:00 EST, Partial fill upon patient request if the prescription is for a schedule II opioid drug. Start Date: 03/29/20 Status: Ordered gabapentin 600 mg oral tablet 1 tablet = 600 mg, By Mouth, 3 times a day, # 90 tablet, 11 Refills, Maintenance, 02/11/20 16:02:00EST, Tablet, [facility], Partial fill upon patient request, 176.8, cm, 09/23/19 11:05:00 EDT, Height, 89.4, kg, 01/17/19 14:16:00 EDT, Dry Weight Start Date: 02/11/20 Status: Ordered meclizine 25 mg oral tablet 1 tablet, By Mouth, 3 times a day, PRN NEEDED FOR DIZZINESS, # 30 Unknown, 0 Refills, Acute, 05/11/20 16:24:00 EST, [facility], 176.8, cm, 03/29/20 13:02:00 EST, Height, 89.4, kg, 01/17/19 14:16:00 EDT, Dry Weight Start Date: 05/11/20 Status: Ordered omeprazole 20 mg oral delayed release tablet 1 tablet = 20 mg, By Mouth, Daily, before a meal, # 90 tablet, 1 Refills, Maintenance, 06/02/20 9:36:00 EDT, EC Tablet, [facility], 176.8, cm, 05/27/20 11:03:00 EST, Height, 89.4, kg, 01/17/19 14:16:00 EDT, Dry Weight Start Date: 06/02/20 Stop Date: 11/29/20 Status: Ordered physical therapy physical therapy, See Instructions, # 1 each, Refills 0, Tot. Refills 0, Maintenance, evaluate and treat for lbp, 03/18/19 11:23:00 EST, Compound Start Date: 03/18/19 Status: Ordered Problem List Condition Effective Dates Status Health Status Inform ant Carotid artery stenosis(Confirmed) 1 Active Chronic low back pain(Confirmed) Active Chronic vertigo(Confirmed) Active Dyspnea on exertion(Confirmed) Active Fatigue(Confirmed) Active Esophageal reflux(Confirmed) Active History of colonoscopy(Confirmed) 2 Active Hypercholesterolemia(Confirmed) Active BPH associated with nocturia(Confirmed) Active Obstructive sleep apnea(Confirmed) Active Neuropathy, peripheral(Confirmed) Active Skin lesion(Confirmed) Active 150 to 69% on right. [id number] Diagnosis Diagnosis Type Effective Dates Health Status Cl inical Service Informant Fatigue Discharge Diagnosis 05/27/20 Chronic low back pain Discharge Diagnosis 05/27/20 Vital Signs Most recent to oldest [Reference Range]: 1 Height 176.8 cm (05/27/20 11:03 AM) Weight 90.6 kg (05/27/20 11:03 AM) Oxygen Saturation [94-100 %] 96 % (05/27/20 11:03 AM) Pulse Rate [55-90 bpm] 85 bpm (05/27/20 11:03 AM) Body Mass Index [18.5-24.99] 28.98 *H* (05/27/20 11:03 AM) Blood Pressure [90-138/55-84 mm Hg] 116/ 66mm Hg (05/27/20 11:03 AM) Mode of Delivery (Oxygen) Room air (05/27/20 11:03 AM) Blood pressure sites Arm, left (05/27/20 11:03 AM) Weight Obtained Via Standing scale (05/27/20 11:03 AM) Social History Social History Type Response Smoking Status Never (less than 100 in lifetime) entered on: 10/11/18 Sex
--- OUTSIDE RECORDS SUMMARY | 2022-10-08 19:43 | XMS_ITS | Continuity of Care Document ---
Author Name Unknown Organization [facility] Address [address] [place] [address]- Care Team Providers Care Digital Media Manager Name Role Phone Josie LANDAVERDE, Jose Vidal Primary Care Physician [phone] [facility] Date(s): 05/02/19 - 05/12/[address] [address]- [facility] Attending Physician: Aidan Sun Admitting Physician: AdmtrAidan Referring Physician: Admtr ArLuis E Allergies, Adverse Reactions, Alerts Substance Reaction Severity Status Shrimp Active Immunizations Given and Recorded Vaccine Date Status Refusal Reason pneumococcal 23-valent vaccine 03/18/19 Given influenza virus vaccine, inactivated 01/14/19 Give n pneumococcal 13-valent vaccine 10/24/18 Given tetanus/diphtheria/pertussis, acel(Tdap) 10/24/18 Given Medications aspirin 81 mg oral delayed release tablet 81 mg, 1, tablet, By Mouth, Daily, Refills 0, Maintenance, 12/13/18 14:06:14 EDT Start Date: 12/13/18 Status: Ordered atorvastatin 40 mg oral tablet 1 tablet = 40 mg, By Mouth, Daily, # 90 tablet, 3 Refills, Maintenance, 10/24/18 7:38:44 EDT, Tablet Start Date: 10/24/18 Status: Ordered CeleBREX 200 mg oral capsule 1 capsule = 200 mg, By Mouth, Daily, # 30 capsule, 0 Refills, Maintenance, 03/18/19 11:21:00 EST, Capsule, [facility], 176.8, cm, 03/18/19 10:53:00 EST, Height, 89.4, kg, 01/17/19 14:16:00 EDT, Dry Weight Start Date: 03/18/19 Status: Ordered omeprazole 20 mg oral delayed release tablet 1 tablet = 20 mg, By Mouth, Daily, before a meal, # 90 tablet, 3 Refills, Maintenance, 10/11/18 11:19:13 EDT, EC Tablet Start Date: 10/11/18 Stop Date: 10/06/19 Status: Ordered physical therapy physical therapy, See [...] History of colonoscopy(Confirmed) 2 Active Hypercholesterolemia(Confirmed) Active Obstructive sleep apnea(Confirmed) Active Neuropathy, peripheral(Confirmed) Active 150 to 69% on right. [id number] Social History Social History Type Response Smoking Status Never (less than 100 in lifetime) entered on: 10/11/18 Sex
--- OUTSIDE RECORDS SUMMARY | 2022-10-08 19:44 | XMS_ITS | Continuity of Care Document ---
Author Name Unknown Organization [facility] Quique lt Address [address] [place] [address]- Care Team Providers Care Animal Cruelty Investigation Supervisor Name Role Phone Jose Galindo MD Primary Care Physician Encounter [facility] [place] Date(s): 03/29/20 - 04/05/20 [facility] Adult [address] [place] [address]- Encounter Diagnosis Neuropathy, peripheral(Discharge Diagnosis) - 03/29/20 Chronic low back pain(Discharge Diagnosis) - 03/29/20 Esophageal reflux(Discharge Diagnosis) - 03/29/20 Fatigue(Discharge Diagnosis) - 03/29/20 Hypercholesterolemia(Discharge Diagnosis) - 03/29/20 Obstructive sleep apnea(Discharge Diagnosis) - 03/29/20 Attending Physician: Jose Galindo MD Allergies, Adverse [...] Daily, # 90 tablet, 1 Refills, Maintenance, 11/03/19 11:59:00 EDT, Tablet, [facility], 176.8, cm, 09/23/19 11:05:00 EDT, Height, 89.4, kg, 01/17/19 14:16:00 EDT, Dry Weight Start Date: 11/03/19 Status: Ordered CeleBREX 200 mg oral capsule 1 capsule = 200 mg, By Mouth, Daily, # 30 capsule, 0 Refills, Maintenance, 03/18/19 11:21:00 EST, Capsule, [facility], 176.8, cm, 03/18/19 10:53:00 EST, Height, 89.4, kg, 01/17/19 14:16:00 EDT, Dry Weight Start Date: 03/18/19 Status: Ordered Cymbalta 30 mg oral enteric coated capsule 1 capsule = 30 mg, By Mouth, Daily, do not crush or chew, # 30 capsule, 5 Refills, Maintenance, 03/29/20 13:51:00 EST, CR Capsule, [facility], Partial fill upon patient request if the prescription is for a schedule II opioid drug., 176.8, cm,... Start Date: 03/29/20 Status: Ordered Flomax 0.4 mg oral capsule [...] tablet, 11 Refills, Maintenance, 02/11/20 16:02:00EST, Tablet, [facility], Partial fill upon patient request, 176.8, cm, 09/23/19 11:05:00 EDT, Height, 89.4, kg, 01/17/19 14:16:00 EDT, Dry Weight Start Date: 02/11/20 Status: Ordered meclizine 25 mg oral tablet See Instructions, TAKE ONE TABLET BY MOUTH THREE TIMES A DAY NEEDED FOR DIZZINESS, # 30 Unknown,0 Refills, Acute, [facility], 176.8, cm, 09/23/19 11:05:00 EDT, Height, 89.4, kg, 01/17/1914:16:00 EDT, Dry Weight Start Date: 02/11/20 Status: Ordered omeprazole 20 mg oral delayed release tablet 1 tablet = 20 mg, By Mouth, Daily, before a meal, # 90 tablet, 0 Refills, Maintenance, 03/05/20 11:29:00 EST, EC Tablet, [facility], 176.8, cm, 09/23/19 11:05:00 EDT, Height, 89.4, kg, 01/17/19 14:16:00 EDT, Dry Weight Start Date: 03/05/20 Stop Date: 06/03/20 Status: Ordered physical therapy physical therapy, See [...] lesion(Confirmed) Active 150 to 69% on right. [id number] Diagnosis Diagnosis Type Effective Dates Health Status Clinical Service Informant Neuropathy, peripheral Discharge Diagnosis 03/29/20 Chronic low back pain Discharge Diagnosis 03/29/20 Esophageal reflux Discharge Diagnosis 03/29/20 Fatigue Discharge Diagnosis 03/29/20 Hypercholesterolemia Discharge Diagnosis 03/29/20 Obstructive sleep apnea Discharge Diagnosis 03/29/20 Vital Signs Most recent to oldest [Reference Range]: 1 Height 176.8 cm (03/29/20 1:02 PM) Weight 89.2 kg (03/29/20 1:02 PM) Oxygen Saturation [94-100 %] 96 % (03/29/20 1:02 PM) Body Mass Index [18.5-24.99] 28.54 *H* (03/29/20 1:02 PM) Blood Pressure [90-138/55-84 mm Hg] 134/ 84mm Hg (03/29/20 1:02 PM) Mode of Delivery (Oxygen) Room air (03/29/20 1:02 PM) Blood pressure sites Arm, left (03/29/20 1:02 PM) Weight Obtained Via Standing scale (03/29/20 1:02 PM) Social History Social History Type Response Smoking Status Never (less than 100 in lifetime) entered on: 10/11/18 Sex
--- OUTSIDE RECORDS SUMMARY | 2022-10-08 19:44 | XMS_ITS | Continuity of Care Document ---
Author Name Unknown Organization [facility] Address [address], [address], [address] [place] [address]- Care Team Providers Care Director Regulatory Affairs Name Role Phone Jose Galindo MD Primary Care Physician [place] [facility] [place]22 [facility] [address], [address], [address] [place] [id number]- Allergies, Adverse Reactions, Alerts Substance Reaction Severity Status shellfish Active Shrimp Active Immunizations Given and Recorded Vaccine Date Status Refusal Reason [id number] 12y+ bivalent booster vax 06/06/22 Given influenza [...] By Mouth, Daily, # 30 tablet, Refills 0, Maintenance, 03/15/22 12:21:00 EST, Partial fill upon patient request if the prescription is for a schedule II opioid drug. Start Date: 03/15/22 Status: Ordered atorvastatin 40 mg oral tablet [...] 1 Refills, Maintenance, 07/26/21 10:31:00 EDT, Capsule, [facility] # [facility], Partial fill upon patient request if the prescription is for a schedule II opioid drug., 176.8, cm, 07/26/21 10:04:... Start Date: 07/26/21 Status: Ordered meclizine 25 mg oral tablet 1 tablet = 25 mg, By Mouth, 3 times a day, PRN for dizziness, # 60 tablet, 1 Refills, Maintenance, 07/26/21 10:32:00 EDT, Tablet, [facility] # [facility], Partial fill upon patient request if the prescription is for a schedule II opioid drug., 176.8, cm,... Start Date: 07/26/21 Status: Ordered omeprazole 20 mg oral delayed release tablet 1 tablet = 20 mg, By Mouth, Daily, # 90 tablet, 3 Refills, Maintenance, 07/26/21 10:31:00 EDT, CR Tablet, [facility] # 50, Partial fill upon patient request if the prescription is for a schedule II opioid drug., 176.8, cm, 07/26/21 10:04:00 EDT, H... Start Date: 07/26/21 Status: Ordered Sinemet 25 mg-100 mg oral tablet 3 tablet, By Mouth, 3 times a day, for 90 days, # 810 tablet, 1 Refills, Hard Stop 10/06/22 7:09:00EDT, 04/09/22 7:09:00 EST, [facility] # 50, Partial fill upon patient request if the prescription is for a schedule II opioid drug., 3 tablet By Mo... Start Date: 04/09/22 Stop Date: 10/06/22 Status: Ordered traZODone 50 mg oral tablet 0.5, tablet, By Mouth, Daily at bedtime, # 15 tablet, Refills 11, Maintenance, 01/05/22 17:57:00 EDT, Route to Pharmacy Electronically, [facility] # [facility], 176.8, cm, 11/14/21 15:02:00 EDT, Height, 82.1, kg, 07/19/21 17:49:00 EDT, Dry Weight Start Date: 01/05/22 Status: Ordered Vitamin D3 5000 intl units [...] on right. 2Problem added by Discern Expert [id number] Social History Social History Type Response Smoking Status Never (less than 100 in lifetime) entered on: 10/11/18 Sex Patient Care team information Care Team Personnel Name: Azael Stafford RN Position: [facility] RN Member Role: Primary Care Nurse Name: Martín Thornton RN Position: [facility] RN Member Role: Primary Care Nurse Name: Froylan Cooley RN Position: [facility] RN Member Role: Primary Care Nurse Name: Jose Galindo MD Position: [facility] Primary Care Physician Member Role: PCP Address: Address: [address] [place] [id number] Name: Jenni Tran RN Position: [facility] Onco RN Member Role: Primary Care Nurse Care Team Related Persons Name: LEIGH ANN LARRY Address: [address] [address] Name: ALFRED LARRY Address: home [id number] [place] [address] Name: LEIGH ANN SILVERIO Address: home [address] [place] [id number]
--- OUTSIDE RECORDS SUMMARY | 2022-10-08 19:44 | XMS_ITS | Continuity of Care Document ---
Author Name Unknown Organization [facility] Qu[facility] Address [address] [place] [address]- Care Team Providers Care Lna Name Role Phone Jose Galindo MD Primary Care Physician [facility]counter [facility] Date(s): 10/05/20 - 11/04/20 [facility] Adult [address] [place] [address]- Allergies, Adverse Reactions, Alerts Substance Reaction Severity Status shellfish Active Shrimp Active Immunizations Given and Recorded Vaccine Date Status Refusal Reason SARS-CoV-2 (COVID-19) mRNA-1273 vaccine 05/27/20 R ecorded SARS-CoV-2 (COVID-19) mRNA-1273 vaccine 04/30/20 R ecorded influenza virus vaccine, inactivated 03/30/20 Give n [...] = 60 mg, By Mouth, Daily, # 90 capsule, 3 Refills, Maintenance, 08/11/20 19:12:00 EDT, ECCapsule, [facility] # [facility], Partial fill upon patient request if the prescription is for a schedule II opioid drug., 176.8, cm, 08/11/20 12:51:00 EDT... Start Date: 08/11/20 Status: Ordered Lyrica 75 mg oral capsule 1 capsule = 75 mg, By Mouth, 2 times a day, # 60 capsule, 0 Refills, Maintenance, 11/04/20 14:21:00EDT, Capsule, [facility] # [facility], Partial fill upon patient request if the prescription is for a schedule II opioid drug., 176.8, cm, 11/04/20 13:50:0... Start Date: 11/04/20 Status: Ordered omeprazole 20 mg oral delayed release tablet 1 tablet = 20 mg, By Mouth, Daily, before a meal, # 90 tablet, 1 Refills, Maintenance, 08/11/20 19:13:00 EDT, EC Tablet, [facility] # [facility], 176.8, cm, 08/11/20 12:51:00 EDT, Height, 89.4, kg, 01/17/19 14:16:00 EDT, Dry Weight Start Date: 08/11/20 Stop Date: 02/07/21 Status: Ordered physical therapy physical therapy, See [...] Ordered Sinemet 25 mg-100 mg oral tablet 2 tablet, By Mouth, 3 times a day, DOSE INCREASE, # 540 tablet, 2 Refills, Maintenance, 09/17/20 12:52:00 EDT, [facility] # [facility], Partial fill upon patient request if the prescription is for a schedule II opioid drug., 2 tablet By Mouth 3 times a da... 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 536[address] Social History Social History Type Response Smoking Status Never (less than 100 in lifetime) entered on: 10/11/18 Sex
--- OUTSIDE RECORDS SUMMARY | 2022-10-08 19:44 | XMS_ITS | Continuity of Care Document ---
Author Name Unknown Organization [facility] Address [address] [place] [address]- Care Team Providers Care Political Organizer Name Role Phone Jose Galindo MD Primary Care Physician Encounter [facility] Date(s): 07/29/20 - 08/28/20 [facility] [place] Adult [address] [place] [address]- Encounter Diagnosis Parkinsonian features(Discharge Diagnosis) - 07/30/20 Allergies, Adverse Reactions, Alerts Substance Reaction Severity [...] 3 Refills, Maintenance, 08/11/20 19:12:00 EDT, ECCapsule, [facility] # 50, Partial fill upon patient request if the prescription is for a schedule II opioid drug., 176.8, cm, 08/11/20 12:51:00 EDT... Start Date: 08/11/20 Status: Ordered gabapentin 600 mg oral tablet 1 tablet = 600 mg, By Mouth, 3 times a day, # 270 tablet, 3 Refills, Maintenance, 08/11/20 19:13:00EDT, Tablet, [facility] # 50, Partial fill upon patient request, 176.8, cm, 08/11/20 12:51:00 EDT, Height, 89.4, kg, 01/17/19 14:16:00 EDT, Dry Weight Start Date: 08/11/20 Status: Ordered meclizine 25 mg oral tablet 1 tablet, By Mouth, 3 times a day, PRN NEEDED FOR DIZZINESS, # 90 tablet, 1 Refills, Maintenance, 08/11/20 19:14:00 EDT, [facility] # 50, 176.8, cm, 08/11/20 12:51:00 EDT, Height, 89.4, kg, 01/17/19 14:16:00 EDT, Dry Weight Start Date: 08/11/20 Status: Ordered omeprazole 20 mg oral delayed release tablet 1 tablet = 20 mg, By Mouth, Daily, before a meal, # 90 tablet, 1 Refills, Maintenance, 08/11/20 19:13:00 EDT, EC Tablet, [facility] # 50, 176.8, cm, 08/11/20 12:51:00 [...] Ordered Sinemet 25 mg-100 mg oral tablet 1 tablet, By Mouth, 3 times a day, # 270 tablet, 4 Refills, Maintenance, 08/11/20 19:13:00 EDT, [facility] # 50, Partial fill upon patient request if the prescription is for a schedule II opioid drug., 1 tablet By Mouth 3 times a day,x90 days, 176... Start Date: 08/11/20 Stop Date: 11/04/21 Status: Ordered Problem List Condition Effective Dates [...] lesion(Confirmed) Active 150 to 69% on right. [id number] Diagnosis Diagnosis Type Effective Dates Health Status Clinical Service Informant Parkinsonian features Discharge Diagnosis 07/30/20 Social History Social History Type Response Smoking Status Never (less than 100 in lifetime) entered on: 10/11/18 Sex
--- OUTSIDE RECORDS SUMMARY | 2022-10-08 19:44 | XMS_ITS | Continuity of Care Document ---
Author Name Unknown Organization [facility] Address [address] [address], [address], [address] [place] [address]- Care Team Providers Care Caving Guide Name Role Phone Jose Galindo MD Primary Care Physician Encounter [facility] Date(s): 09/06/22 - 10/06/22 [facility] [address], [address], [address] [place] [id number]- Allergies, Adverse Reactions, Alerts Substance Reaction Severity Status shellfish Active Shrimp Active Immunizations Given and Recorded Vaccine Date Status Refusal Reason [id number] 12y+ bivalent booster vax 06/06/22 Given influenza [...] Maintenance, 06/30/22 10:11:00 EDT,Route to Pharmacy Electronically, [facility], Partial fill upon patient request if the prescription is for a schedule II opioid drug., 18... Start Date: 06/30/22 Status: Ordered atorvastatin 40 mg oral tablet 1 tablet, By Mouth, Daily, # 90 tablet, 0 Refills, Maintenance, 10/05/22 8:52:00 EDT, [facility], 180, cm, 09/30/22 19:09:00 EDT, Height, 92, kg, 09/30/22 19:09:00 EDT, Dry Weight Start Date: 10/05/22 Status: Ordered Co-Q10 100 mg oral capsule [...] opioid drug. Start Date: 07/27/21 Status: Ordered digital b/p cuff to check b/p at home digital b/p cuff to check b/p at home, See Instructions, # 1 each, Refills 0, Tot. Refills 0, Maintenance, to check b/p at home daily per PCP instructions. dx Hypotention, 07/10/22 9:25:00 EDT, Supply Start Date: 07/10/22 Status: Ordered duloxetine 60 mg oral enteric coated capsule 1 capsule, By Mouth, 2 times a day, # 180 capsule, 0 Refills, Maintenance, 10/05/22 8:52:00 EDT, [facility] # [facility], 180, cm, 09/30/22 19:09:00 EDT, Height, 92, kg, 09/30/22 19:09:00 EDT, Dry Weight Start Date: 10/05/22 Status: Ordered Eligen B12 1000 mcg oral [...] tablet, Refills 2, Tot. Refills 2, Maintenance, 08/08/22 11:11:00 EDT, [id number] Partial fill upon patient request if the prescription is for a schedule II opioid drug... Start Date: 08/08/22 Status: Ordered meclizine 25 mg oral tablet 1 tablet, By Mouth, 3 times a day, PRN NEEDED FOR DIZZINESS, # 60 tablet, 1 Refills, Maintenance, 07/26/22 13:26:00 EDT, [facility] # [facility], 180, cm, 07/10/22 12:52:00 EDT, Height, 93.4, kg, 06/29/22 12:39:00 EDT, Dry Weight Start Date: 07/26/22 Status: Ordered omeprazole 20 mg oral enteric coated capsule 1 capsule, By Mouth, Daily, # 90 capsule, 1 Refills, Maintenance, 08/14/22 7:59:00 EDT, [facility] # [facility], 180, cm, 07/26/22 15:35:00 EDT, Height, 93.4, kg, 06/29/22 12:39:00 EDT, Dry Weight Start Date: 08/14/22 Status: Ordered Plavix 75 mg oral tablet 75 mg, 1, tablet, By Mouth, Daily, # 30 tablet, Refills 2, Tot. Refills 2, Maintenance, 06/30/22 10:09:00 EDT, Route to Pharmacy Electronically, [facility], Partial fill upon patient request if the prescription is for a schedule II opioi... Start Date: 06/30/22 Status: Ordered pregabalin 150 mg oral capsule 1 capsule, By Mouth, 2 times a day, # 180 capsule, 1 Refills, Maintenance, 09/20/22 15:59:00 EDT, [facility] # [facility], 180, cm, 07/26/22 15:35:00 EDT, Height, 93.4, kg, 06/29/22 12:39:00 EDT, Dry Weight Start Date: 09/20/22 Status: Ordered Sinemet 25 mg-100 mg oral tablet 3 tablet, By Mouth, 3 times a day, for 90 days, # 810 tablet, 3 Refills, Hard Stop 10/01/23 7:09:00EDT, 10/06/22 7:09:00 EDT, [facility] # 50, Partial fill upon patient request if the prescription is for a schedule II opioid drug., 3 tablet By Mo... Start Date: 10/06/22 Stop Date: 10/01/23 Status: Ordered Toprol XL 50 mg oral tablet, extended release 50 mg, 1, tablet, By Mouth, Daily, # 30 tablet, Refills 5, Tot. Refills 5, Maintenance, 07/26/22 16:10:00 EDT, Route to Pharmacy Electronically, [facility] # [facility], Partial fill upon patient requestif the prescription is for a schedule II opioid jett... Start Date: 07/26/22 Status: Ordered traZODone 50 mg oral tablet 50 mg, 1, tablet, By Mouth, Daily at bedtime, increased dose, # 30 tablet, Refills 5, Tot. Refills 5, Maintenance, 09/25/22 13:57:00 EDT, Route to Pharmacy Electronically, [facility] #[id number], 180, cm, 07/26/22 15:35:00 EDT, Height, 93.4, kg, 06/29/22... 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 [id number] 3Problem added by Discern Expert Social History Social History Type Response Smoking Status Never (less than 100 in lifetime) entered on: 10/11/18 Sex Patient Care team information Care Team Personnel Name: Azael Stafford RN Position: [facility] [place] RN Member Role: Primary Care Nurse Name: Martín Thornton RN Position: [facility] RN Member Role: Primary Care Nurse Name: Froylan Cooley RN Position: [facility] RN Member Role: Primary Care Nurse Name: Jose Galindo MD Position: [facility] Physician - Primary Care Member Role: PCP Address: Address: [address] [place] [id number]- Name: Xiao eCrvantes RN Position: [facility] RN Member Role: Primary Care Nurse Name: Jenni Tran RN Position: [facility] Onco RN Member Role: Primary Care Nurse Care Team Related Persons Name: LEIGH ANN LARRY Address: [address] [place] [address] Name: ALFRED LARRY Address: home [address] [place] [address] Name: LEIGH ANN SILVERIO Address: home [address] [place] [id number]
--- OUTSIDE RECORDS SUMMARY | 2022-10-08 19:44 | XMS_ITS | Continuity of Care Document ---
Author Name Unknown Organization [facility] Address Unknown Care Team Providers Care Draw In Hand Name Role Phone Josie LANDAVERDE, Jose Vidal Primary Care Physician Encounter [facility] Date(s): 07/06/21 - 11/03/21 [facility] Attending Physician: Barbara Cedillo NP Admitting Physician: Barbara Cedillo NP Allergies, Adverse Reactions, Alerts Substance Reaction Severity [...] Refills, Maintenance, 07/26/21 10:31:00 EDT, EC Capsule, [facility] # [facility], Partial fill upon [...] 1 Refills, Maintenance, 07/26/21 10:31:00 EDT, Capsule, [facility] # [facility], Partial fill upon patient request if the prescription is for a schedule II opioid drug., 176.8, cm, 07/26/21 10:04:... Start Date: 07/26/21 Status: Ordered meclizine 25 mg oral tablet 1 tablet = 25 mg, By Mouth, 3 times a day, PRN for dizziness, # 60 tablet, 1 Refills, Maintenance, 07/26/21 10:32:00 EDT, Tablet, [facility] # [facility], Partial fill upon patient request if the prescription is for a schedule II opioid drug., 176.8, cm,... Start Date: 07/26/21 Status: Ordered omeprazole 20 mg oral delayed release tablet 1 tablet = 20 mg, By Mouth, Daily, # 90 tablet, 3 Refills, Maintenance, 07/26/21 10:31:00 EDT, CR Tablet, [facility] # 50, Partial fill upon patient request if the prescription is for a schedule II opioid drug., 176.8, cm, 07/26/21 10:04:00 EDT, H... Start Date: 07/26/21 Status: Ordered Paxlovid 150 mg-100 mg oral tablet See Instructions, Last GFR >60 - 300mg nirmatrelvir (two 150mg tablets) with 100mg ritonavir (one tablet). Take all 3 tablets together twice a day for 5 days with food, # 30 tablet, 0 Refills, Maintenance, 10/26/21 17:43:00 EDT, [facility] # [facility], P... Start Date: 10/26/21 Status: Ordered Sinemet 25 mg-100 mg oral tablet 3 tablet, By Mouth, 3 times a day, # 810 tablet, 1 Refills, Maintenance, 10/11/21 7:09:00 EDT, [facility] # [facility], Partial [...] urine(Confirmed) Active 150 to 69% on right. [id number] Social History Social History Type Response Smoking Status Never (less than 100 in lifetime) entered on: 10/11/18 Sex
--- OUTSIDE RECORDS SUMMARY | 2022-10-08 19:44 | XMS_ITS | Continuity of Care Document ---
Author Name Unknown Organization [facility] ter Address [address] [place] [id number] Care Team Providers Care Director Cloud Transformation Name Role Phone Jose Galindo MD Primary Care Physician [phone] [place] [facility] [place](s[place] 03/12/22 - 03/15/[address] [id number]- Encounter Diagnosis COVID(Final) - 03/12/22 Delirium(Final) - 03/12/22 Weakness(Final) - 03/12/22 Cough(Final) - 03/12/22 Discharge Disposition: A-Transfer VNA/Home Health Attending Physician: Valerie Bonner MD Admitting Physician: Selin LANDAVERDE, Cary Hernandez Referring Physician: Not on Staff, Referring MD Allergies, Adverse Reactions, Alerts Substance Reaction Severity Status shellfish Active Shrimp Active Immunizations Given and Recorded Vaccine Date Status Refusal Reason influenza virus vaccine, inactivated 01/17/22 Barry rded [...] Refills, Maintenance, 07/26/21 10:31:00 EDT, EC Capsule, [facility], Partial fill upon [...] 1 Refills, Maintenance, 07/26/21 10:32:00 EDT, Tablet, [facility], Partial fill upon patient request if the prescription is for a schedule II opioid drug., 176.8, cm,... Start Date: 07/26/21 Status: Ordered omeprazole 20 mg oral delayed release tablet 1 tablet = 20 mg, By Mouth, Daily, # 90 tablet, 3 Refills, Maintenance, 07/26/21 10:31:00 EDT, CR Tablet, [facility], Partial fill upon patient request if the prescription is for a schedule II opioid drug., 176.8, cm, 07/26/21 10:04:00 EDT, H... Start Date: 07/26/21 Status: Ordered Sinemet 25 mg-100 mg oral tablet 3 tablet, By Mouth, 3 times a day, for 90 days, # 810 tablet, 1 Refills, Hard Stop 04/09/22 7:09:00EST, 10/11/21 7:09:00 EDT, [facility], Partial fill upon patient request if the prescription is for a schedule II opioid drug., 176.8, cm, ... Start Date: 10/11/21 Stop Date: 04/09/22 Status: Ordered traZODone 50 mg oral tablet 0.5, tablet, By Mouth, Daily at bedtime, # 15 tablet, Refills 11, Maintenance, 01/05/22 17:57:00 EDT, Route to Pharmacy Electronically, [facility], 176.8, cm, 11/14/21 15:02:00 [...] Confirmed Active COVID-19 2 Confirmed 03/15/22 Active Dyspnea on exertion Confirmed Active Fatigue [...] on right. 2Problem added by Discern Expert [id number] Results Orders for Microbiology Reports Name Date Urine Culture (URINE CULTURE) 03/12/22 Blood Culture 03/12/22 Blood Culture #2 03/12/22 Microbiology Reports TEST:Urine Culture STATUS:Auth (Verified) BODY SITE: SOURCE:URINE COLLECTED DATE/TIME:03/12/22 9:03 PM Urine Culture SPECIMEN DESCRIPTION : URINE SPECIAL REQUESTS : NONE CULTURE : NO GROWTH REPORT STATUS : FINAL 03/14/2022 TEST:Blood Culture, Second Order STATUS:Unauthenticated BODY SITE: SOURCE:Blood COLLECTED DATE/TIME:03/12/22 8:57 PM Blood Culture, Second Order SPECIMEN DESCRIPTION : BLOOD RAC SPECIAL REQUESTS : NONE CULTURE : NO GROWTH AFTER 48 HOURS REPORT STATUS : PRELIMINARY REPORT TEST:Blood Culture STATUS:Unauthenticated BODY SITE: SOURCE:Blood COLLECTED DATE/TIME:03/12/22 8:34 PM Blood Culture SPECIMEN DESCRIPTION : BLOOD NONE SPECIAL REQUESTS : NONE CULTURE : NO GROWTH AFTER 48 HOURS REPORT STATUS : PRELIMINARY REPORT Radiology Reports * Exam Date Time Procedure Performing Provider Status 03/12/22 9:18 PM Chest 2 Views Frontal and Lat Janiya Higuera; Auth (Verified) Notes: (Chest 2 Views Frontal and Lat) Reason For Exam: Shortness of Breath, Fever;Other: RESULT: Chest 2 Views Frontal and Lat Chest 2 Views Frontal and Lat Hx of Present Illness: trouble walking dizzy; Reason: Other:; Shortness of Breath, Fever; Clinical Question(s): Pneumonia COMPARISON: 03/09/2022 FINDINGS: LINES AND TUBES: None. LUNGS AND PLEURA: Mild increased density in the left lower lobe. Possible pneumonia. No pleural effusion. No pneumothorax. HEART, MEDIASTINUM AND AGATA: Heart is normal in size. Normal mediastinal and hilar contour. BONES AND SOFT TISSUES: No acute abnormality. IMPRESSION: No acute abnormality. WSN: [id number] Ordering Physician: Anni Lindsey Dictated By: Choco Melgar MD Dictated Date/Time: 03/12/22 9:24 pm Reviewed By: Choco Melgar MD Signed By: Choco Melgar MD Signed Date/Time: 03/12/22 9:24 pm Transcribed By: JONY Transcribed Date/Time: 03/12/22 9:23 pm Vital Signs Most recent to oldest [Reference Range]: 1 2 3 Weight 87.5 kg (03/12/22 11:38 PM) Oxygen Saturation [94-100 %] 91 % *L* (03/15/22 8:24 AM) 95 % (03/15/22 4:00 AM) 93 % *L* (03/15/22 12:11 AM) Pulse Rate [55-90 bpm] 72 bpm (12/28/22 8:24 AM) 71 bpm (03/15/22 4:00 AM) 83 bpm (03/15/22 12:11 AM) Blood Pressure [90-138/55-84 mm Hg] 130/62mm Hg (03/15/22 8:24 AM) 133/49mm Hg (03/15/22 4:00 AM) 141/61mm Hg *H* (03/15/22 12:11 AM) Respiratory Rate [16-30 br/min] 16 br/min (03/15/22 8:24 AM) 18 br/min (03/15/22 4:00 AM) 20 br/min (03/15/22 12:11 AM) Temperature [96.8-100.4 DegF] 98.8 DegF (03/15/22 8:24 AM) 99.1 DegF (03/15/22 4:00 AM) 98.7 DegF (03/15/22 12:11 AM) Mode of Delivery (Oxygen) Room air (03/15/22 8:24 AM) Room air (03/15/22 4:00 AM) Room air (03/15/22 12:11 AM) Blood pressure sites Arm, left (03/15/22 8:24 AM) Arm, left (03/15/22 4:00 AM) Arm, left (03/15/22 12:11 AM) Temperature Route Oral (03/15/22 8:24 AM) Oral (03/15/22 4:00 AM) Oral (03/15/22 12:11 AM) Social History Social History Type Response Smoking Status Never (less than 100 in lifetime) entered on: 10/11/18 Sex Admission evaluation note * Mario LANDAVERDE, Delgado: PERFORM, MODIFY Event Display: Admission Note Authored Date: [id number] Patient: ??MARTÍN LARRY ? Age:??77 Years?Sex:??Male?:??1945?? Chief Complaint/Reason for Consultation trouble walking more than usual History of Present Illness Mr. Martín Gomez is a is a 77-year-old male who initially presented to the emergency room with complaints of generalized weakness and altered mental status.?? Patient has past medical history of CAD, hyperlipidemia, Parkinson's disease, urinary incontinence, GERD.?? Based on ER provider note, patient was initially unsure why she was in the hospital and based on reported history, patient was noted to be slumped on the couch by patient's aide patient was unable to get up on his own and was assisted by his aide to the walker.?? Patient was noted to have cough for few days.?? Patient does reporthaving subjective fevers at home and coughing.?? During my interview he is alert and oriented x4.??Answering questions appropriately.?? Reports that his confusion and weakness has improved significantly.?? He does endorses some baseline confusion but feels that he is back to baseline.?? I attempted to speak to patient's Porsha over the phone but left a voicemail.?? Patient says that he wantsto be full code.?? Patient denies any chest pain.?? He was noted to have temperature of 100.8 in the ER. ??Patient does endorse??being unsteady??on gait which is normal than his usual??Parkinson's unsteadiness. ?? Noted to be normotensive, maintaining saturation of 97% on room air, heart rate in 70s and 80s.?? On review of labs, CBC showed white count of 8.1, hemoglobin 15.6, platelet 196, INR 1.1, sodium 135, potassium 4.9, anion gap 13, glucose 132, creatinine 1.1, T is unremarkable, magnesium 1.8, lactate 1.7, proBNP 126, high-sensitivity troponin 19, TSH 1.8, COVID-19 PCR positive, influenza AB and RSV negative, urinalysis shows trace leukocyte, 8 WBCs, chest x-ray does not have any acute abnormalities.?? EKG obtained shows normal sinus rhythm with nonspecific ST changes with normal intervals based on my review. Review of Systems General ROS:??Positive for fever, noted fatigue, no night sweats, no unexpained weight loss or weight gain Psychological ROS:negative for anxiety or depressive symptoms, no suicidal thoughts, appropriate insight into situation, mood appears appropriate for situation ENT ROS:??negative for nasal congestion, no sinus drainage, no nosebleeding, no sore throat, no dysphagia, no ear pain Hematological and Lymphatic ROS:??negative for bleeding problems, no history of blood clots, no recent increase in bruising, no noted swollen lymph nodes Endocrine ROS:??negative for polyuria/polydipsia?? Respiratory ROS:??Positive for cough, no shortness of breath, no wheezing Cardiovascular ROS:??no chest pain, ??No dyspnea on exertion, ??No edema, no palpitations, no history of loss of consciousness, no orthopnea, no paroxysmal nocturnal dyspnea?? Gastrointestinal ROS:??negative for reflux, no abdominal pain, no black or bloody stools- also no history of constipation, diarrhea, heartburn or hematemesis Genito-Urinary ROS:??no dysuria, no trouble voiding, or hematuria Musculoskeletal ROS:??negative for worsening ongoing back pain, no worsening or chronic neck pain, no new or worsening joint pain, no calf swelling Neurological ROS:??Positive for confusion???improving, no dizziness, positive unsteady gait and generalized weakness, no memory loss, no history of seizures, no history of speech problems, positive for baseline tremors , no visual changes. ?? Objective Measurements?? Weight: 87.5 kg (03/12/22) ?? Vital Signs?? Temperature: 98.5 DegF (03/13/22 03:00:00) Temperature Route: Oral (03/13/22 03:00:00) Pulse Rate: 71 bpm (03/13/22 03:00:00) Respiratory Rate: 17 br/min (03/13/22 03:00:00) Systolic Blood Pressure: 133 mm Hg (03/13/22 03:00:00) Diastolic Blood Pressure: 58 mm Hg (03/13/22 03:00:00) Blood pressure sites: Arm, right (03/13/22 03:00:00) Mean Arterial Pressure: 87 mm Hg (03/12/22 23:38:00) Pulse Pressure: 75 mm Hg (03/12/22 23:38:00) Oxygen Saturation: 97 % (03/13/22 03:00:00) Mode of Delivery (Oxygen): Room air (03/13/22 03:00:00) Early Warning Score: 1 (03/13/22 03:33:27) ? Pain Scores?? No qualifying data available. ? Intake/Output? 03/12 22:14 03/13 07:00 03/12 07:00 03/11 07:00 03/10 07:00 ?? 03/13 06:43 03/13 06:43 03/13 06:59 03/12 06:59 03/11 06:59 Intake ?0 ?0 ?0 ?0 ?0 Output ?250 ?0 ?250 ?0 ?0 Net Total ? -250 ?0 ? -250 ?0 ?0 ? Mark Coma Scale Hoyt Coma Score: 15 (03/12/22 20:13:00) Motor Response-Adult: Obeys commands (03/12/22 20:13:00) Response Eye Opening: Spontaneously (03/12/22 20:13:00) Verbal Response-Adult: Oriented and converses (03/12/22 20:13:00) ? Physical Exam Enhanced respiratory precautions were observed while examining this patient General appearance- alert, cooperative, no distress, appears stated age, oriented to time, place and person,??answering most questions appropriately Head- Normocephalic, without obvious abnormality, atraumatic Eyes-conjunctivae/corneas clear. PERRL, EOM's intact. Nose- Nares normal. Septum midline. Mucosa normal. No drainage or sinus tenderness. Throat-Lips, mucosa, and tongue normal. Neck- supple, symmetrical, trachea midline, no adenopathy, thyroid: not enlarged, symmetric, no tenderness/mass/nodules, no carotid bruit and no JVD Back- symmetric, no curvature. No CVA tenderness Lungs-??clear to auscultation bilaterally Chest wall- no tenderness, no skin rash or lesions or bruising, no crepitance Heart- regular rate and rhythm, S1, S2 normal, no click, rub or gallop Abdomen-??soft, non-tender. Bowel sounds normal. No masses,?? No organomegaly Extremities- extremities normal, atraumatic, no cyanosis or edema, warm and well perfused. Muscle tone is normal and equal bilaterally Pulses- 2+ and symmetric on dorsal pedal pulses, posterior tibial pulses, radial pulses Skin- Skin color, texture, turgor normal. No rashes or lesions Neurologic- Normal, nonfocal, no focal weakness, baseline tremors, strength 5/5 all throughout, sensation intact ? Assessment/Plan Mr. Martín Gomez is a is a 77-year-old male who initially presented to the emergency room with complaints of generalized weakness and altered mental status.?? Patient has past medical history of CAD, hyperlipidemia, Parkinson's disease, urinary incontinence, GERD.?Patient is being admitted to??hospital service for further management of??confusion, generalized weakness and unsteady gait ?? Generalized weakness/confusion Patient reports improvement in confusion??and weakness, answering questions appropriately during exam Suspect secondary to??COVID-19 infection Continue to monitor mentation closely TSH normal Check ammonia PT eval? COVID-19 infection without hypoxia Enhanced respiratory precaution Check procalcitonin, will consider antibiotic initiation??based on procalcitonin levels Due to lack of hypoxia, does not meet criteria for inpatient treatment for COVID-19 ?? Hyperlipidemia Continue statin ?? Parkinson's disease Continue??Sinemet at home dose ?? Insomnia Continue trazodone ?? GERD Continue PPI ?? CODE STATUS???full code ?? DVT prophylaxis???Heparin subcu ?? Diet???cardiac ?? Delgado Martin MD [facility] Date-March 13, 2022. ??Patient seen at??2:15 AM ?? IMPORTANT: This document was created by voice recognition software. A conscious effort has been made to improve accuracy of the corn sheller operator. Any obvious errors or omissions should be clarified with the authorof this document. Histories Allergies Allergies ?(Active and Proposed Allergies Only) shellfish? (Severity: Unknown severity, Onset: Unknown) Shrimp? (Severity: Unknown severity, Onset: Unknown) ? 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 Past Surgical History Carotid endarterectomy RIGHT: 06/04/20 Colonoscopy: 03/29/12 Appendectomy; History of lumbar spine surgery ? Social History Alcohol Details:??Use: Current. ??Frequency: 1-2 times per month. ??Type: Wine. Details:??Use: Current. ??Frequency: 1-2 times per month. Employment/School Details:??Status: Retired. 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 Exercise Details:??Self assessment: Poor condition. Home/Environment Details:??Living situation: Home/Independent. ??Lives with: Spouse. Nutrition/Health Details:??Diet: Regular. Substance Abuse Details:??Use: Never. Details:??Use: Never. Tobacco Details:??Use: Never (less than 100 in lifetime). Details:??Use: Never (less than 100 in lifetime). ? Psychosocial History ? Family History Mother (): CAD - Coronary artery disease; Hyperlipidemia; Hypertension Sister (): Alzheimer's disease ? Travel History Travel Outside [facility]: No ?? Medications Home Medications Aspirin (aspirin 81 mg oral delayed release tablet)?81?Milligram?1?tablet?By Mouth?Daily Atorvastatin (atorvastatin 40 mg oral tablet)?1?tab(s)?40?Milligram?By Mouth?Daily Carbidopa-Levodopa (Sinemet 25 mg-100 mg oral tablet)?3?tab(s)?By Mouth?3 times a day?for 90?Days Carbidopa-Levodopa (Sinemet 25 mg-100 mg oral tablet)?4?tab(s)?By Mouth?3 times a day?for 90?Days Cholecalciferol (Vitamin D3 5000 intl units oral capsule)?1?capsule?125?Microgram?ByMouth?Daily copper glycinate-zinc glycinate (copper (as bisglycinate)-zinc (as bisglycinate) 2 mg-25 mg oral capsule)?1?capsule?By Mouth?Daily Cyanocobalamin (Eligen B12 1000 mcg oral tablet)?1?tab(s)?By Mouth?Daily?on an [facility] Duloxetine (Cymbalta 60 mg oral enteric coated capsule)?1?capsule?60?Milligram?By Mouth?2 times a day?for 90?Days Durable Medical Equipment (wheelchair)?See Instructions?Unsteady gait R26.81Parkinsons R25.9chronic pain G89.4Weight 89.4kgheight 176.8 cmLifetime needself propelstandard footrests Meclizine (meclizine 25 mg oral tablet)?1?tab(s)?25?Milligram?By Mouth?3 times a day?as needed?for dizziness [place]-3 Polyunsaturated Fatty Acids (Fish Oil 1000 mg oral capsule)?1?capsule?1,000?Milligram?By Mouth?Daily Omeprazole (omeprazole 20 mg oral delayed release tablet)?1?tab(s)?20?Milligram?By Mouth?Daily Pregabalin (Lyrica 75 mg oral capsule)?1?capsule?75?Milligram?By Mouth?2 times a day Trazodone (traZODone 50 mg oral tablet)?0.5?tablet?By Mouth?Daily at bedtime Ubiquinone (Co-Q10 100 mg oral capsule)?2?capsule?200?Milligram?By Mouth?Daily ? MD to RN communication put in??to update patient's medication list Results Recent Labs BLOOD COUNT & DIFF WBC 8.1 k/mm3 ()?? 03/12/2022 20:34 RBC 4.64 m/mm3 (Low)?? 03/12/2022 20:34 Hgb 15.6 Gm/dL ()?? 03/12/2022 20:34 Hct 44.9 % ()?? 03/12/2022 20:34 MCV 96.8 femtoliters (High)?? 03/12/2022 20:34 MCH 33.6 pg ()?? 03/12/2022 20:34 MCHC 34.7 g/dL ()?? 03/12/2022 20:34 Platelet Count 196 k/mm3 ()?? 03/12/2022 20:34 RDW-SD 45.6 femtoliters ()?? 03/12/2022 20:34 MPV 9.2 femtoliters (Low)?? 03/12/2022 20:34 Nucleated RBC (Automated) 0.0 #/100 WBC'S ()?? 03/12/2022 20:34 Abs. NRBC 0.0 k/mm3 ()?? 03/12/2022 20:34 Abs. Neut 6.7 k/mm3 ()?? 03/12/2022 20:34 Abs. Lymph 0.5 k/mm3 (Low)?? 03/12/2022 20:34 Abs. [place] 0.7 k/mm3 ()?? 03/12/2022 20:34 Abs. Eo 0.0 k/mm3 ()?? 03/12/2022 20:34 Abs. Baso 0.0 k/mm3 ()?? 03/12/2022 20:34 Neut % 83.5 % (High)?? 03/12/2022 20:34 Lymph % 6.4 % (Low)?? 03/12/2022 20:34 [place] % 8.8 % ()?? 03/12/2022 20:34 Eos % 0.4 % ()?? 03/12/2022 20:34 Baso % 0.4 % ()?? 03/12/2022 20:34 Imm Gran 0.5 % ()?? 03/12/2022 20:34 Abs. Imm Gran 0.0 k/mm3 ()?? 03/12/2022 20:34 ?? CARDIAC Nt-Probnp 126 pg/mL ()?? 03/12/2022 20:34 High Sensitivity Troponin (HSTnT) 19 ng/L ()?? 03/12/2022 20:34 ?? CHEM GENERAL Sodium 135 mmol/L ()?? 03/12/2022 20:34 Potassium 4.9 mmol/L ()?? 03/12/2022 20:34 Chloride 96 mmol/L (Low)?? 03/12/2022 20:34 Bicarbonate Level 26 mmol/L ()?? 03/12/2022 20:34 Anion Gap 13 ()?? 03/12/2022 20:34 Glucose Level 132 mg/dL (High)?? 03/12/2022 20:34 BUN 12 mg/dL ()?? 03/12/2022 20:34 Creatinine-Blood 1.1 mg/dL ()?? 03/12/2022 20:34 Estimated GFR Creatinine 70 ML/MIN/1.73 M2 ()?? 03/12/2022 20:34 Calcium 9.7 mg/dL ()?? 03/12/2022 20:34 Magnesium 1.8 mg/dL ()?? 03/12/2022 20:34 Protein, Total 7.9 Gm/dL ()?? 03/12/2022 20:34 Albumin 4.6 Gm/dL ()?? 03/12/2022 20:34 AG Ratio 1.4 ()?? 03/12/2022 20:34 Alkaline Phosphatase 82 units/L ()?? 03/12/2022 20:34 Lipase 22 units/L ()?? 03/12/2022 20:34 AST (SGOT) 25 units/L ()?? 03/12/2022 20:34 ALT (SGPT) 19 units/L ()?? 03/12/2022 20:34 Bilirubin, Total 0.9 mg/dL ()?? 03/12/2022 20:34 Lactate 1.7 mmol/L ()?? 03/12/2022 20:34 ?? COAG INR 1.1 ()?? 03/12/2022 20:34 Protime (PT) 11.4 seconds ()?? 03/12/2022 20:34 APTT 26.2 seconds ()?? 03/12/2022 20:34 ?? ENDOCRINE/TUMOR MARKER TSH 1.80 uIU/mL ()?? 03/12/2022 20:34 ?? UA/URINALYSIS Appear/Color, Urine YELLOW ()?? 03/12/2022 21:03 Specific [place], Urine 1.023 ()?? 03/12/2022 21:03 pH, Urine 6.5 ()?? 03/12/2022 21:03 Albumin, Urine 1+ (Abnormal)?? 03/12/2022 21:03 Glucose, Urine NEGATIVE ()?? 03/12/2022 21:03 Ketones, Urine 1+ (Abnormal)?? 03/12/2022 21:03 Bilirubin, Urine NEGATIVE ()?? 03/12/2022 21:03 Hemoglobin, Urine NEGATIVE ()?? 03/12/2022 21:03 Nitrite, Urine NEGATIVE ()?? 03/12/2022 21:03 Leukocyte, Urine TRACE (Abnormal)?? 03/12/2022 21:03 Urobilinogen 2 mg/dL (Abnormal)?? 03/12/2022 21:03 WBC's, Urine 8 /HPF (High)?? 03/12/2022 21:03 RBC's, Urine <1 /HPF ()?? 03/12/2022 21:03 Squamous Epith 1 /HPF ()?? 03/12/2022 21:03 Mucus SLIGHT /LPF ()?? 03/12/2022 21:03 Hold Urine Culture Testing available 48 hours from time of collection. ()?? 03/12/2022 21:03 ?? VIROLOGY Influenza A PCR NEGATIVE ()?? 03/12/2022 20:30 Influenza B PCR NEGATIVE ()?? 03/12/2022 20:30 RSV PCR NEGATIVE ()?? 03/12/2022 20:30 COVID-19 PCR Specimen Source NASAL ()?? 03/12/2022 20:30 COVID-19 PCR Result POSITIVE (Abnormal)?? 03/12/2022 20:30 ? Abnormal Labs ?? BLOOD COUNT & DIFF ??Abs. Imm Gran ??0.0 k/mm3 () ??03/12/2022 20:34 ??Abs. Lymph ??0.5 k/mm3 (Low) ??03/12/2022 20:34 ??Abs. NRBC ??0.0 k/mm3 () ??03/12/2022 20:34 ??Imm Gran ??0.5 % () ??03/12/2022 20:34 ??Lymph % ??6.4 % (Low) ??03/12/2022 20:34 ??MCV ??96.8 femtoliters (High) ??03/12/2022 20:34 ??MPV ??9.2 femtoliters (Low) ??03/12/2022 20:34 ??Neut % ??83.5 % (High) ??03/12/2022 20:34 ??Nucleated RBC (Automated) ??0.0 #/100 WBC'S () ??03/12/2022 20:34 ??RBC ??4.64 m/mm3 (Low) ??03/12/2022 20:34 ??RDW-SD ??45.6 femtoliters () ??03/12/2022 20:34 ? CARDIAC ??High Sensitivity Troponin (HSTnT) ??19 ng/L () ??03/12/2022 20:34 ? CHEM GENERAL ??AG Ratio ??1.4 () ??03/12/2022 20:34 ??Chloride ??96 mmol/L (Low) ??03/12/2022 20:34 ??Estimated GFR Creatinine ??70 ML/MIN/1.73 M2 () ??03/12/2022 20:34 ??Glucose Level ??132 mg/dL (High) ??03/12/2022 20:34 ? UA/URINALYSIS ??Albumin, Urine ??1+ (Abnormal) ??03/12/2022 21:03 ??Appear/Color, Urine ??YELLOW () ??03/12/2022 21:03 ??Bilirubin, Urine ??NEGATIVE () ??03/12/2022 21:03 ??Glucose, Urine ??NEGATIVE () ??03/12/2022 21:03 ??Hemoglobin, Urine ??NEGATIVE () ??03/12/2022 21:03 ??Hold Urine Culture ??Testing available 48 hours from time of collection. () ??03/12/2022 21:03 ??Ketones, Urine ??1+ (Abnormal) ??03/12/2022 21:03 ??Leukocyte, Urine ??TRACE (Abnormal) ??03/12/2022 21:03 ??Mucus ??SLIGHT /LPF () ??03/12/2022 21:03 ??Nitrite, Urine ??NEGATIVE () ??03/12/2022 21:03 ??Urobilinogen ??2 mg/dL (Abnormal) ??03/12/2022 21:03 ??WBC's, Urine ??8 /HPF (High) ??03/12/2022 21:03 ? VIROLOGY ??COVID-19 PCR Specimen Source ??NASAL () ??03/12/2022 20:30 ??COVID-19 PCR Result ??POSITIVE (Abnormal) ??03/12/2022 20:30 ??Influenza A PCR ??NEGATIVE () ??03/12/2022 20:30 ??Influenza B PCR ??NEGATIVE () ??03/12/2022 20:30 ??RSV PCR ??NEGATIVE () ??03/12/2022 20:30 ? Note: Critical results are displayed in red. ? Blood Glucose Trend Glucose Level:??132 mg/dL??High (03/12/22 20:34:00) ? CBC, CBC w/Diff?? CBC?? Differential?? WBC: 8.1 k/mm3 (20:34) Abs. Neut: 6.7 k/mm3 (20:34) RBC:??4.64 m/mm3??Low (20:34) Abs. Lymph:??0.5 k/mm3??Low (20:34) Hct: 44.9 % (20:34) Abs. [place]: 0.7 k/mm3 (20:34) RDW-SD: 45.6 femtoliters (20:34) Abs. Eo: 0 k/mm3 (20:34) Nucleated RBC (Automated): 0 #/100 WBC'S (20:34) Abs. Baso: 0 k/mm3 (20:34) Abs. NRBC: 0 k/mm3 (20:34) Neut %:??83.5 %??High (20:34) ?? Lymph %:??6.4 %??Low (20:34) ?? [place] %: 8.8 % (20:34) ?? Eos %: 0.4 % (20:34) ?? Baso %: 0.4 % (20:34) ?? Imm Gran: 0.5 % (20:34) ?? Abs. Imm Gran: 0 k/mm3 (20:34) ? BMP, Mg, and Phos Anion Gap: 13 (20:34) Bicarbonate Level: 26 mmol/L (20:34) BUN: 12 mg/dL (20:34) Calcium: 9.7 mg/dL (20:34) Chloride:??96 mmol/L??Low (20:34) Creatinine-Blood: 1.1 mg/dL (20:34) Estimated GFR Creatinine: 70 ML/MIN/1.73 M2 (20:34) Glucose Level:??132 mg/dL??High (20:34) Magnesium: 1.8 mg/dL (20:34) Potassium: 4.9 mmol/L (20:34) Sodium: 135 mmol/L (20:34) ?? Coagulation Profile APTT: 26.2 seconds (20:34) INR: 1.1 (20:34) Protime (PT): 11.4 seconds (20:34) ?? LFT Albumin: 4.6 Gm/dL (20:34) Alkaline Phosphatase: 82 units/L (20:34) ALT (SGPT): 19 units/L (20:34) AST (SGOT): 25 units/L (20:34) Bilirubin, Total: 0.9 mg/dL (20:34) Protime (PT): 11.4 seconds (20:34) ?? Urinalysis Albumin, Urine: 1+ Abnormal (21:03) Appear/Color, Urine: YELLOW (21:03) Bilirubin, Urine: NEGATIVE (21:03) Glucose, Urine: NEGATIVE (21:03) Hemoglobin, Urine: NEGATIVE (21:03) Hold Urine Culture: Testing available 48 hours from time of collection. (21:03) Ketones, Urine: 1+ Abnormal (21:03) Leukocyte, Urine: TRACE Abnormal (21:03) Mucus: SLIGHT (21:03) Nitrite, Urine: NEGATIVE (21:03) pH, Urine: 6.5 (21:03) RBC's, Urine: <1 (21:03) Specific [place], Urine: 1.023 (21:03) Squamous Epith: 1 /HPF (21:03) Urobilinogen: 2 mg/dL Abnormal (21:03) WBC's, Urine:??8 /HPF??High (21:03) ?? Microbiology ?? COVID-19, RSV, and Flu A/B, Rapid PCR?? Completed?? Source: Nasal Body Site: Nose Collected Dt/Tm: 03/12/2022 20:20 Last Updated Dt/Tm: 03/12/2022 21:31 ? Cardiology Labs Nt-Probnp: 126 pg/mL (03/12/22 20:34:00) High Sensitivity Troponin (HSTnT): 19 ng/L (03/12/22 20:34:00) ?? Blood Gases?? No qualifying data available. ?? Uric/LDH?? No qualifying data available. ? EKG study * Event Display: ECG 12-Lead Authored Date: Please click on pdf link to open report * Event Display: ECG 12-Lead Authored Date: Ventricular Rate: 82 BPM Atrial Rate: 82 BPM P-R Interval: 128 ms QRS Duration: 90 ms Q-T Interval: 374 ms QTC Calculation(Bazett): 436 ms P Odon: 40 degrees R Odon: -10 degrees T Odon: 116 degrees Poor data quality, interpretation may be adversely affected Normal sinus rhythm ST and T wave abnormality, consider lateral ischemia Abnormal ECG When compared with ECG of 18-JUL-2021 14:56, Inverted T waves have replaced nonspecific T wave abnormality in Lateral leads Confirmed by TAWANNA LANDAVERDE BLANE ([id number]) on 03/15/2022 8:00:21 AM [place] * Martín Thornton RN: PERFORM, SIGN, VERIFY, SIGN, MODIFY Event Display: Progress Note Hospital Authored Date: [id number] Patient: MARTÍN LARRY Age: 77 years Sex: Male : 1945 Associated Diagnoses: None Author: Martín Thornton RN Findings Problem Related to Alteration in Respiratory Function (new) : Alteration in Respiratory Function/new 03/14/2022 3:00 EST Alteration in Resp Status Related to COVID - 19 Goals & Outcomes, Respiratory Pt will maintain/resume baseline physical assessment Interventions, Respiratory Assess for and report S&S of respiratory distress, Position for comfort & optimal oxygenation BH Goals/Interventions, Respiratory Yes Respiratory, Problem Start 03/14/2022 3:55 Reviewed Plan with, Respiratory Patient Patient Progression, Respiratory Patient progressing according to plan . Narrative/Incidental A+Ox4. VSS. On covid isolation precuations. No pain. Saftey precuations in place. Awaiting bed placement for rehab.. Discharge Information Rehabilitation Discharge : Rehab Discharge Index 03/13/2022 10:17 EST Comments on treatment indicated 77 y/o COVID+ M presented to the emergency room with complaints of generalized weakness and altered mental status. PT for balance, strengthening, bed mobility, transfers c RW, amb c RW. Rec rehab. Distance pt will ambulate 20' c RW Full chart review completed Yes Other findings Other findings Plan of care PT Gait training, Transfer training, Therapeutic exercise, Functional Activities, Balance training, Neuromuscular education * Martín Thornton RN: PERFORM Event Display: Progress Note Hospital Authored Date: called and said that they have CUSTOMER SERVICE TECHNICIAN care at home for the patient. * Jed Miller MD: MODIFY, PERFORM, MODIFY, MODIFY, MODIFY, MODIFY Event Display: Progress Note Hospital Authored Date: Patient: ??MARTÍN LARRY ? Age:??77 Years?Sex:??Male?:??1945?? Subjective I saw the patient at bedside this morning. He was sitting comfortably in bed eating breakfast. He had no complaints except for a dry cough, but no chest pain or shortness of breath. His last bowel movement was yesterday. Review of Systems Unremarkable except as mentioned above. Objective Vital Signs?? Temperature: 98.9 DegF (03/13/22 23:00:00) Temperature Route: Oral (03/13/22 23:00:00) Pulse Rate: 84 bpm (03/13/22 23:00:00) Respiratory Rate: 18 br/min (03/13/22 23:00:00) Systolic Blood Pressure: 122 mm Hg (03/13/22 23:00:00) Diastolic Blood Pressure: 56 mm Hg (03/13/22 23:00:00) Blood pressure sites: Arm, right (03/13/22 23:00:00) Mean Arterial Pressure: 73 mm Hg (03/13/22 15:48:00) Pulse Pressure: 71 mm Hg (03/13/22 15:48:00) Oxygen Saturation: 96 % (03/13/22 23:00:00) Mode of Delivery (Oxygen): Room air (03/13/22 23:00:00) Early Warning Score: 0 (03/14/22 02:25:46) ? Intake/Output? 03/12 22:14 03/14 07:00 03/13 07:00 03/12 07:00 03/11 07:00 ?? 03/14 06:50 03/14 06:50 03/14 06:59 03/13 06:59 03/12 06:59 Intake ?640 ?0 ?640 ?0 ?0 Output ? 1550 ?0 ? 1300 ?250 ?0 Net Total ? -910 ?0 ? -660 ? -250 ?0 ? Urine Count ?1 ?0 ?1 ?0 ?0 Diaper Count ?2 ?0 ?2 ?0 ?0 ? Physical Exam General:??No acute distress Respiratory:??Clear to auscultation bilaterally, no increased work of breathing Cardiovascular:??Normal rate, regular rhythm, no murmurs Abdomen:??No tenderness Neurologic:??Alert & Oriented Psychiatric:??Normal mood/affect Assessment/Plan Martín Larry??is a 77-year-old male with a medical history significant for coronary artery disease,hyperlipidemia, Parkinson's disease, urinary incontinence, and GERD, who presented with complaints of generalized weakness and altered mental status. ??Admitted for management of confusion, generalized weakness, and??unsteady gait. ??Pending??rehab bed placement??for discharge. ? Generalized weakness Confusion Patient reports improvement in confusion??and weakness, answering questions appropriately. Likely secondary to??COVID-19 infection TSH and ammonia within normal limits Evaluated by PT who recommended discharge to rehab. Plan: ?Continue to monitor??mental status ? COVID-19 infection without hypoxia Patient tested positive on 03/12 Procalcitonin 0.08, unnecessary for antibiotic initiation Patient does not meet inpatient criteria??for inpatient treatment of COVID-19 He only has a dry cough, but no chest pain or SOB. Plan: ?Continue??symptom??management - Continue precautions. ? Anemia Patient's hemoglobin dropped from 15.6 on 03/12 to 13.6 today. He has no signs on bleeding and there is no blood in his stool. Likely dilutional as he received IV fluids. Plan: - Continue to monitor ?? hronic, stable, resolved: Hyperlipidemia: Continue atorvastatin 40mg once daily Parkinson's disease: Continue??Sinemet 25-100 3 tablets 3 times a day Insomnia: Continue trazodone 25mg daily at bedtime GERD: Continue pantoprazole 20mg daily ? Quality metrics: CODE STATUS: full code DVT prophylaxis: Heparin subcu Diet: cardiac ? Patient has been??seen and discussed with Dr. Ha Adkins??MD [facility] ?? * Ha LANDAVERDE, Valerie P: PERFORM Event Display: Progress Note Hospital Authored Date: Attending Attestation:??I have seen and evaluated this patient on 03/14/22. ??I have discussed the case and its management with the resident ??Sandoval-Vicente and agree with the findings and plan as documented in the resident???s note except where modified. I discussed patient's care with daughter??Chula who is HCP - reviewed lab data, clinical course and anticipated discharge if continued clinical??stability in the next??24 hours.? She expressed that??they would opt for discharge home with home PT as??patient has adequate home services.? Valerie Bonner MD [facility] Hospital Medicine Pager: [phone] * Jami LEE, Madga Watkins: PERFORM, SIGN, VERIFY Event Display: Progress Note Hospital Authored Date: [id number] Patient: MARTÍN LARRY Age: 77 years Sex: Male : 1945 Associated Diagnoses: None Author: Jami RN, Magda Watkins Findings Problem Related to Alteration in Neurological : Alteration in Neurological Function/new 03/14/2022 3:00 EST Alteration in Neuro status Related to Other: AMS- weakness Goals & Outcomes, Neurological Pt will be hemodynamically stable, Pt will be Neurologically stable, Pt will become pain free with appropriate intervention, Pt will maintain intact skin integrity Interventions, Neurological Assess/monitor neurologic status, Assess/monitor VS per unit standards & prn, Monitor Fluid & Electrolytes, Serum Osmolarity, Monitor for headaches, nausea, vomiting, Monitor speech fluency, aphasia, word finding difficulty, Teach pt/caregiver on use of pain scale Goals/Interventions, Neurological Yes Neurological, Problem Start 03/14/2022 3:56 Reviewed plan with, Neurological Patient Patient Progression, Neurological Pt progressing according to plan . Alteration in Respiratory Function (new) : Alteration in Respiratory Function/new 03/14/2022 3:00 EST Alteration in Resp Status Related to COVID - 19 Goals & Outcomes, Respiratory Pt will maintain/resume baseline physical assessment Interventions, Respiratory Assess for and report S&S of respiratory distress, Position for comfort & optimal oxygenation Goals/Interventions, Respiratory Yes Respiratory, Problem Start 03/14/2022 3:55 Reviewed Plan with, Respiratory Patient Patient Progression, Respiratory Patient progressing according to plan . Nursing Data Activity Data : Activity Data 03/13/2022 23:00 EST Activity Status ADL Complete bedrest, Reposition every 2 hours Repositioning Assist . Cardiac Data. : Cardiac Data. 03/14/2022 1:05 EST Hgb 13.5 Gm/dL L Hct 38.3 % L 03/14/2022 0:00 EST Cardiovascular Assessment Status Unchanged from recorder's assessment 03/13/2022 22:00 EST Cardiovascular Assessment Status Unchanged from recorder's assessment 03/13/2022 20:10 EST Cardiovascular Symptoms Edema present Dorsalis Pedis Pulse, Left Normal Dorsalis Pedis Pulse, Right Normal Pedal, left 1+ trace Pedal, right 1+ trace Cardiovascular WNL except 03/13/2022 20:00 EST Cardiovascular Symptoms None Nail Bed Color, Fingers [place] Nail Bed Color, Toes [place] Skin Temperature Upper Extremities Warm Skin Temperature Lower Extremities Warm Dorsalis Pedis Pulse, Left Normal Dorsalis Pedis Pulse, Right Normal Homans' Sign Negative (Normal) Ankle, left None Ankle, right None poly area supervisor No Cardiovascular WNL except . Gastrointestinal Data. : Gastrointestinal Data. 03/13/2022 20:10 EST Gastrointestinal Symptoms Incontinence, stool Bowel Sounds LUQ Hyperactive Bowel Sounds RUQ Hyperactive Bowel Sounds LLQ Hyperactive Bowel Sounds RLQ Hyperactive Last Bowel Movement 03/13/2022 GI WNL except . Genitourinary Data. : Genitourinary Data. 03/13/2022 20:10 EST Genitourinary Symptoms Incontinence Urine Color Yellow Urine Description Clear WNL except 03/13/2022 20:00 EST Urinary catheter type External/Condom Catheter Urinary catheter intervention Patent, no intervention WNL except . Integumentary Data. : Integumentary Data. 03/13/2022 20:10 EST Sensory Perception No impairment Moisture Occasionally moist Activity Bedfast Activity Bedfast Mobility No limitations Mobility Slightly limited Nutrition Excellent Friction and Shear No apparent problem Mando Score 19 Nursing Care Plan initiated/updated Not applicable Integumentary WNL 03/13/2022 20:00 EST Skin Integrity Intact Sensory Perception No impairment Mobility Slightly limited Integumentary WNL except . Musculoskeletal Data. : Musculoskeletal Data. 03/13/2022 20:10 EST Musculoskeletal Symptoms Weakness Musculoskeletal Comment Patient did not want to get out of bed today and walk around. He stated he was too tired. Musculoskeletal WNL except 03/13/2022 20:00 EST Musculoskeletal Symptoms Weakness Musculoskeletal WNL except . Neurological Data. : Neurological Data. 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- baseline (Modified) Level of Consciousness Full Consciousness Orientated to person, place, time Person, Place, Time Hallucinations None Facial Symmetry Intact Characteristics of Speech Clear and normal Swallowing Difficulty None Pupil description, left Regular Pupil description, right Regular Pupil reaction, left Brisk Pupil reaction, right Brisk Strength LUE 5-Active movement against gravity & full resistance Strength RUE 5-Active movement against gravity & full resistance Strength LLE 5-Active movement against gravity & full resistance Strength RLE 5-Active movement against gravity & full resistance Tone LUE Normal Tone RUE Normal Tone LLE Normal Tone RLE Normal Sensation LUE Intact Sensation RUE Intact Sensation LLE Intact Sensation RLE Intact Movement LUE Spontaneous, To command Movement RUE Spontaneous, To command Movement LLE Spontaneous, To command Movement RLE Spontaneous, To command Gait No disturbance Response Eye Opening Spontaneously Motor Response-Adult Obeys commands Verbal Response-Adult Oriented and converses Hoyt Coma Score 15 1 - 10 Pain Scale Score 7 Pain Interventions PRN medication Neuro WNL except Eyes and Movements Conjugate gaze: Move in same direction at same speed Headache Mild Memory Intact Swallow - Neuro Normal . Patient Care Data. : Patient Care Data. 03/14/2022 1:05 EST Glucose Level 107 mg/dL H Magnesium 1.8 mg/dL 03/13/2022 23:43 EST Turn and Reposition Every two hours Sequential Compression Device Sequentials on bilaterally TEDS Not indicated/Not ordered ID band on Yes Allergy band in place/verified Yes Blood Pressure/Venipuncture All 4 limbs may be used Call Hunter in Reach-Ensure Ability to Use Yes Patient Instructed on Use of Call Hunter Yes Standard Safety Bed alert on, Bed in low position, Chair alarm, Non-slip footwear, Upper/Half-length side-rails up, Wheels locked Pt Ed-Learning: Person Taught Patient Pt Ed-Learning: Learning Readiness Yes, alert and oriented Fall Elimination Incontinent Plan: Fall Elimination Other: [place] cah placed Fall Agitation/Anxiety/Depression No impairment Fall Related Sign/Symptom/Condition None Fall Cognitive Limitations No impairment Fall Sensory and Physical Function Weak, Requires Staff Assistance with Transfer Plan: Fall Sensory and Physical Function Monitor patient's progress with physical activities, Collaborate with Physical Therapy for balance/gait training Fall High Risk for Injury Age>80 Total Falls Risk Score 11 Fall Risk Level High Risk Falls Prevention Plan for High Risk Fall risk decal outside of patient's room, Activate yellow iDome light, Fall outside sales professional patient's chart, Apply yellow high fall risk wrist band to wrist, Ensure patient has yellow non-skid slippers, Activate bed exit alarm system, Activate alternate alarm: bed (i.e. TABS), Provide patient/family falls prevention education, Place personal care items & call hunter within reach, Hourly rounds, Ensure safe & uncluttered environment 03/13/2022 23:00 EST VAP Precautions HOB 30-45 degrees unless contraindicated, doc. 3X/day Hygiene Assist, HS care, Mouth care, Slime care Activity Status ADL Complete bedrest, Reposition every 2 hours Repositioning Assist Bed Position Low 03/13/2022 20:10 EST Turn and Reposition Able to change own position Sequential Compression Device Not ordered TEDS Not indicated/Not ordered ID band on Yes Allergy band in place/verified Yes Blood Pressure/Venipuncture All 4 limbs may be used Call Hunter in Reach-Ensure Ability to Use Yes Patient Instructed on Use of Call Hunter Yes Standard Safety Bed alert on, Bed in low position, Non-slip footwear, Wheels locked Pt Ed-Learning: Person Taught Patient Pt Ed-Learning: Learning Readiness Yes, alert and oriented Pain system assessment Absence of pain Fall Elimination Incontinent Plan: Fall Elimination Monitor fluid intake & bladder & bowel activity Fall Agitation/Anxiety/Depression No impairment Fall Related Sign/Symptom/Condition None Fall Cognitive Limitations No impairment Fall Sensory and Physical Function Weak Plan: Fall Sensory and Physical Function Encourage safe activities to maintain strength & mobility, Perform strengthening exercises with the patient, Monitor patient's progress with physical activities Fall High Risk for Injury On Coumadin, IV Heparin, or Lovenox Total Falls Risk Score 6 Fall Risk Level High Risk Falls Prevention Plan for High Risk Apply yellow high fall risk wrist band to wrist, Ensure patienthas yellow non-skid slippers, Activate bed exit alarm system, Evaluate footwear & ensure patient has non-skid slippers, Bed in lowest locked position, Check that needs are met to minimize attempts to get up, Hourly rounds, Ensure safe & uncluttered environment . Respiratory/Pulmonary Data. : Respiratory/Pulmonary Data. 03/13/2022 23:43 EST Respiratory Treatment(s) Cough and deep breathe 03/13/2022 23:00 EST Mode of Delivery (Oxygen) Room air Head of Bed > 30 degrees 03/13/2022 20:10 EST Respiratory Assessment Comment Room air Cough No cough Left Upper Lobe Breath Sounds Clear Right Upper Lobe Breath Sounds Clear Right Middle Lobe Breath Sounds Clear Left Lower Lobe Breath Sounds Diminished Right Lower Lobe Breath Sounds Diminished Respiratory Treatment(s) Cough and deep breathe Respiratory WNL except 03/13/2022 20:00 EST Respiratory Symptoms None Respiratory effort Unlabored Chest expansion Symmetrical Cough No cough Respiratory pattern Regular Left Upper Lobe Breath Sounds Diminished Right Upper Lobe Breath Sounds Diminished Right Middle Lobe Breath Sounds Diminished Left Lower Lobe Breath Sounds Diminished Right Lower Lobe Breath Sounds Diminished Respiratory distress None Respiratory WNL except . Vital Signs : VITAL SIGNS SECTION 03/14/2022 2:25 EST Early Warning Score 0.00 03/14/2022 2:04 EST Early Warning Score 0.00 03/13/2022 23:49 EST Early Warning Score 0.00 03/13/2022 23:00 EST Temperature 98.9 DegF Temperature Route Oral Pulse Rate 84 bpm Respiratory Rate 18 br/min Systolic Blood Pressure 122 mm Hg Diastolic Blood Pressure 56 mm Hg Blood pressure sites Arm, right Oxygen Saturation 96 % Mode of Delivery (Oxygen) Room air 03/13/2022 19:53 EST Early Warning Score 0.00 03/13/2022 19:00 EST Temperature 99.0 DegF Temperature Route Oral Pulse Rate 86 bpm Respiratory Rate 18 br/min Systolic Blood Pressure 124 mm Hg Diastolic Blood Pressure 53 mm Hg L Blood pressure sites Arm, right Oxygen Saturation 97 % . Pain Data : PAIN SECTION 03/13/2022 21:33 EST Pain Intensity 7 . Psychosocial : Psychosocial Data. 03/12/2022 20:16 EST Affect/Behavior Calm Current Thoughts of Harming Others No . Evaluation Pt. alert and oriented x3-hard of hearing. WEIR= with moderate strength. Denies n/t to feet per pt. neuropathy at baseline. + Headache and dizziness with movement. Tylenol given with good effect. LS- diminished, denies sob and chest pain. Pt. remains on covid isolations. BS+ x4 abd soft nontender non/v. Voiding urinal with spillage. [place] cath now placed will cont. to monitor and report changes.. Note * Martín Thornton RN: PERFORM Event Display: Discharge/Transfer Note Hospital Authored Date: [id number] Nursing Discharge Note Entered On: 03/15/2022 13:33 EST Performed On: 03/15/2022 13:33 EST by Martín Thornton RN Nursing Discharge Note 2 Discharge Time : 03/15/2022 13:30 EST Discharge Level of Care at Discharge : Homehealth/VNA Discharge VNA/Hospice/Home Care(v001) : [facility] Patient Left Unit Via : Ambulance Patient Accompanied Off Unit with : Ambulance/Chair Van Personnel Handover Given to Transport Personnel : Yes DC Instructions Provided & Signed by Pt : Unable Patient Understands D/C Instructions : Yes Patient Instructions Discharge Signed : Yes Did Pt have Specialty Bed or Wound Vac : No Martín Thornton RN - 03/15/2022 13:33 EST * Bradley Martinez MD: MODIFY Bradley Martinez MD: MODIFY, MODIFY, MODIFY, MODIFY, MODIFY, MODIFY Event Display: Discharge/Transfer Note Hospital Authored Date: Patient: ??LARONMARTÍN ? Age:??77 Years?Sex:??Male?:??1945?? Patient Information Discharge Location: [facility] Primary Care Physician: Jose Galindo MD Admit Date/Time: 03/12/22 22:14 Discharge Disposition Discharge Disposition: Home with Home Health Discharge Diagnosis Primary diagnoses: COVID (U07.1) Delirium (R41.0) Weakness (R53.1) ?? Secondary diagnoses: Parkinsonian features (R25.9) Hyperlipidemia Insomnia GERD Anemia Coronary Artery Disease _ Discharge Medications Aspirin (aspirin 81 mg oral delayed release tablet)?81?Milligram?By Mouth?Daily Atorvastatin (atorvastatin 40 mg oral tablet)?1?tab(s)?40?Milligram?By Mouth?Daily Carbidopa-Levodopa (Sinemet 25 mg-100 mg oral tablet)?3?tab(s)?By Mouth?3 times a day?for 90?Days Cholecalciferol (Vitamin D3 5000 intl units oral capsule)?1?capsule?125?Microgram?ByMouth?Daily copper glycinate-zinc glycinate (copper (as bisglycinate)-zinc (as bisglycinate) 2 mg-25 mg oral capsule)?1?capsule?By Mouth?Daily Cyanocobalamin (Eligen B12 1000 mcg oral tablet)?1?tab(s)?By Mouth?Daily?on an emptystomach Duloxetine (Cymbalta 60 mg oral enteric coated capsule)?1?capsule?60?Milligram?By Mouth?2 times a day?for 90?Days Durable Medical Equipment (wheelchair)?See Instructions?Unsteady gait R26.81Parkinsons R25.9chronic pain G89.4Weight 89.4kgheight 176.8 cmLifetime needself propelstandard footrests Meclizine (meclizine 25 mg oral tablet)?1?tab(s)?25?Milligram?By Mouth?3 times a day?as needed?for dizziness [place]-3 Polyunsaturated Fatty Acids (Fish Oil 1000 mg oral capsule)?1?capsule?1,000?Milligram?By Mouth?Daily Omeprazole (omeprazole 20 mg oral delayed release tablet)?1?tab(s)?20?Milligram?By Mouth?Daily Pregabalin (Lyrica 75 mg oral capsule)?1?capsule?75?Milligram?By Mouth?2 times a day Trazodone (traZODone 50 mg oral tablet)?0.5?tablet?By Mouth?Daily at bedtime Ubiquinone (Co-Q10 100 mg oral capsule)?2?capsule?200?Milligram?By Mouth?Daily ? Medications Started None Medications Discontinued None Doses Changed None Allergies Allergies ?(Active and Proposed Allergies Only) shellfish? (Severity: Unknown severity, Onset: Unknown) Shrimp? (Severity: Unknown severity, Onset: Unknown) ? Future Appointments Sunday 2:30 PM EST ?? With: Tarik LANDAVERDE, Leland De La Cruz Where: [address] [facility] Sunday 3:10 PM EDT ?? With: Josie LANDAVERDE, Jose Vidal Where: [facility] [address] [place] [address]- Sunday 11:00 AM EDT ?? With: Reji LANDAVERDE, Armaan Ferris Where: [facility] [address] [facility] [address], [address] [place] [id number]- Hospital Course Martín Larry is a 77-year-old male with a medical history significant for coronary artery disease, hyperlipidemia, Parkinson's disease, urinary incontinence, and GERD, who presented with complaints of generalized weakness and altered mental status. Admitted for management of confusion, generalized w eakness, and unsteady gait likely in the setting of COVID infection. The patient remained stable during his hospital stay and he is currently asympatomatic without any concerns and ready to be discharged home. ?? Generalized weakness Confusion Patient reports improvement in confusion??and weakness, answering questions appropriately. Likely secondary to??COVID-19 infection TSH and ammonia within normal limits Evaluated by PT who recommended discharge to rehab. Recommendations: ?Continue home PT ? COVID-19 infection without hypoxia Patient tested positive on 03/12 Procalcitonin 0.08, unnecessary for antibiotic initiation Patient does not meet inpatient criteria??for inpatient treatment of COVID-19 He only has a dry cough, but no chest pain or SOB. Recommendations: ?? - Continue isolation for 10 days till 03/21/2022? Anemia Patient's hemoglobin dropped from 15.6 on 03/12 to 13.6 today. He has no signs on bleeding and there is no blood in his stool. Likely dilutional as he received IV fluids. Recommendations: - Repeat CBC in 1-2 weeks and f/u with PCP ?? Chronic, stable, resolved: Hyperlipidemia: Continue atorvastatin 40mg once daily Parkinson's disease: Continue??Sinemet 25-100 3 tablets 3 times a day Insomnia: Continue trazodone 25mg daily at bedtime GERD: Continue pantoprazole 20mg daily ? Objective Vital Signs?? Temperature: 98.8 DegF (03/15/22 08:24:00) Temperature Route: Oral (03/15/22 08:24:00) Pulse Rate: 72 bpm (03/15/22 08:24:00) Respiratory Rate: 16 br/min (03/15/22 08:24:00) Systolic Blood Pressure: 130 mm Hg (03/15/22 08:24:00) Diastolic Blood Pressure: 62 mm Hg (03/15/22 08:24:00) Blood pressure sites: Arm, left (03/15/22 08:24:00) Mean Arterial Pressure: 85 mm Hg (03/15/22 08:24:00) Pulse Pressure: 68 mm Hg (03/15/22 08:24:00) Oxygen Saturation:??91 %??Low (03/15/22 08:24:00) Mode of Delivery (Oxygen): Room air (03/15/22 08:24:00) Early Warning Score: 2 (03/15/22 08:25:18) ? . Physical Exam General:??No acute distress Respiratory:??Clear to auscultation bilaterally, no increased work of breathing Cardiovascular:??Normal rate, regular rhythm, no murmurs Abdomen:??No tenderness Neurologic:??Alert & Oriented Psychiatric:??Normal mood/affect Consultants None Patient Education Titles Coronavirus Disease 2019 (COVID-19): Caring for Yourself or Others?? Follow-Up Appointments Added Follow Up ?Time Frame ?Comments Jose Galindo MD?1 to 2 weeks Post Discharge Care Diet: Cardiac diet Activity: Ambulate with assistance ??3 times a day ??unless otherwise specified Code Status: ?? Full Resuscitation Home Health Face to Face *Denotes mandatory echevarria ?? *I certify that this patient is under my care and that I or an allowed non- physician working with me had a face to face encounter with the patient on this date:??03/15/2022 11:45 ?? *The encounter with the patient was in whole, or in part, for the following medical condition, which is the primary diagnosis(es) for home health care:??COVID (U07.1) Cough (R05.9) Delirium (R41.0) Parkinsonian features (R25.9) Weakness (R53.1) ? *Select the indications for the discipline/s that are being arranged for this patient. Nursing (select all that apply): [_] None [x] Medication management (reconciliation, teaching)?? [_] Chronic disease management?? [_] Wound care and treatment?? [_] Home safety evaluation [_] Administer SQ/IM/IV medications?? [_] Cath care?? [_] Drain care?? [_] Trach or GT care?? Other _ Occupation Therapy (select all that apply): [_] None [_] ADL Management [_] Fall prevention training [_] Energy conservation [_] Cognitive training Other _ Physical Therapy (select all that apply): [_] None [x] Functional mobility training [x] Home exercise program to strengthen [_] Increase ROM?? [x] Falls prevention training [_] Home maintenance program for chronic disease Other _ Speech Therapy (select all that apply): [_] None [_] Swallow evaluation and training [_] Speech and language training [_] Cognitive training to process, organize, and/or recall information Other _ ? *Homebound due to (select all that apply): [_] Inability to leave home without assistance/supervision [_] Inability to ambulate without assistance [_] Pain [_] Decreased strength and endurance [x] Unsteady gait [_] Severe SOB and fatigue [_] Impaired transfers [_] Inability to negotiate stairs [_] Limited weight bearing [_] Mental status change? *Physician Signature: _ LA ?? *By signing this, I certify that I have personally evaluated the patient and agree with the findings and recommendations as documented above. ?? Results Discharge Labs BLOOD COUNT & DIFF WBC 5.0 k/mm3 ()?? 03/14/2022 01:05 RBC 4.02 m/mm3 (Low)?? 03/14/2022 01:05 Hgb 13.5 Gm/dL (Low)?? 03/14/2022 01:05 Hct 38.3 % (Low)?? 03/14/2022 01:05 MCV 95.3 femtoliters (High)?? 03/14/2022 01:05 MCH 33.6 pg ()?? 03/14/2022 01:05 MCHC 35.2 g/dL ()?? 03/14/2022 01:05 Platelet Count 167 k/mm3 ()?? 03/14/2022 01:05 RDW-SD 43.6 femtoliters ()?? 03/14/2022 01:05 MPV 9.3 femtoliters (Low)?? 03/14/2022 01:05 Nucleated RBC (Automated) 0.0 #/100 WBC'S ()?? 03/14/2022 01:05 Abs. NRBC 0.0 k/mm3 ()?? 03/14/2022 01:05 Abs. Neut 4.0 k/mm3 ()?? 03/13/2022 08:52 Abs. Lymph 0.6 k/mm3 (Low)?? 03/13/2022 08:52 Abs. [place] 0.8 k/mm3 ()?? 03/13/2022 08:52 Abs. Eo 0.0 k/mm3 ()?? 03/13/2022 08:52 Abs. Baso 0.0 k/mm3 ()?? 03/13/2022 08:52 Neut % 73.7 % ()?? 03/13/2022 08:52 Lymph % 10.2 % (Low)?? 03/13/2022 08:52 [place] % 14.8 % (High)?? 03/13/2022 08:52 Eos % 0.5 % ()?? 03/13/2022 08:52 Baso % 0.4 % ()?? 03/13/2022 08:52 Imm Gran 0.4 % ()?? 03/13/2022 08:52 Abs. Imm Gran 0.0 k/mm3 ()?? 03/13/2022 08:52 ?? CARDIAC CK, Total 177 units/L ()?? 03/13/2022 08:52 Nt-Probnp 126 pg/mL ()?? 03/12/2022 20:34 High Sensitivity Troponin (HSTnT) 24 ng/L (High)?? 03/13/2022 08:58 ? CHEM GENERAL Sodium 136 mmol/L ()?? 03/14/2022 01:05 Potassium 3.6 mmol/L ()?? 03/14/2022 01:05 Chloride 100 mmol/L ()?? 03/14/2022 01:05 Bicarbonate Level 25 mmol/L ()?? 03/14/2022 01:05 Anion Gap 11 ()?? 03/14/2022 01:05 Glucose Level 107 mg/dL (High)?? 03/14/2022 01:05 Hemoglobin A1C (Monitoring) 5.5 % ()?? 03/14/2022 01:05 BUN 13 mg/dL ()?? 03/14/2022 01:05 Creatinine-Blood 0.9 mg/dL ()?? 03/14/2022 01:05 Estimated GFR Creatinine 84 ML/MIN/1.73 M2 ()?? 03/14/2022 01:05 Calcium 8.6 mg/dL ()?? 03/14/2022 01:05 Phosphorus 2.9 mg/dL ()?? 03/14/2022 01:05 Magnesium 1.8 mg/dL ()?? 03/14/2022 01:05 Protein, Total 7.1 Gm/dL ()?? 03/13/2022 08:52 Albumin 4.4 Gm/dL ()?? 03/13/2022 08:52 AG Ratio 1.6 ()?? 03/13/2022 08:52 Alkaline Phosphatase 73 units/L ()?? 03/13/2022 08:52 Lipase 22 units/L ()?? 03/12/2022 20:34 AST (SGOT) 28 units/L ()?? 03/13/2022 08:52 ALT (SGPT) 7 units/L ()?? 03/13/2022 08:52 Bilirubin, Total 0.6 mg/dL ()?? 03/13/2022 08:52 Vitamin B12 Level 359 pg/mL ()?? 03/13/2022 08:52 Lactate 1.7 mmol/L ()?? 03/12/2022 20:34 ? COAG INR 1.1 ()?? 03/12/2022 20:34 Protime (PT) 11.4 seconds ()?? 03/12/2022 20:34 APTT 26.2 seconds ()?? 03/12/2022 20:34 ? ENDOCRINE/TUMOR MARKER TSH 1.80 uIU/mL ()?? 03/12/2022 20:34 ? MISC. CHEMISTRY Ammonia, Venous 18 ??mole/L ()?? 03/13/2022 08:52 Procalcitonin 0.08 ng/mL ()?? 03/13/2022 08:52 Hold Gel Top SPECIMEN DISCARDED AFTER 1 WEEK ()?? 03/13/2022 08:52 ? UA/URINALYSIS Appear/Color, Urine YELLOW ()?? 03/12/2022 21:03 Specific [place], Urine 1.023 ()?? 03/12/2022 21:03 pH, Urine 6.5 ()?? 03/12/2022 21:03 Albumin, Urine 1+ (Abnormal)?? 03/12/2022 21:03 Glucose, Urine NEGATIVE ()?? 03/12/2022 21:03 Ketones, Urine 1+ (Abnormal)?? 03/12/2022 21:03 Bilirubin, Urine NEGATIVE ()?? 03/12/2022 21:03 Hemoglobin, Urine NEGATIVE ()?? 03/12/2022 21:03 Nitrite, Urine NEGATIVE ()?? 03/12/2022 21:03 Leukocyte, Urine TRACE (Abnormal)?? 03/12/2022 21:03 Urobilinogen 2 mg/dL (Abnormal)?? 03/12/2022 21:03 WBC's, Urine 8 /HPF (High)?? 03/12/2022 21:03 RBC's, Urine <1 /HPF ()?? 03/12/2022 21:03 Squamous Epith 1 /HPF ()?? 03/12/2022 21:03 Mucus SLIGHT /LPF ()?? 03/12/2022 21:03 Hold Urine Culture Testing available 48 hours from time of collection. ()?? 03/12/2022 21:03 ?? VIROLOGY Influenza A PCR NEGATIVE ()?? 03/12/2022 20:30 Influenza B PCR NEGATIVE ()?? 03/12/2022 20:30 RSV PCR NEGATIVE ()?? 03/12/2022 20:30 COVID-19 PCR Specimen Source NASAL ()?? 03/12/2022 20:30 COVID-19 PCR Result POSITIVE (Abnormal)?? 03/12/2022 20:30 ? Imaging(s) ?Chest 2 Views Frontal and Lat ?? 03/12/2022 21:18??by Talia LANDAVERDE, Choco S ? No acute abnormality. ? Patient has been??seen and discussed with Dr. Ha Adkins??MD [facility] ?? 30??minutes spent on discharge * Ha LANDAVERDE, Valerie P: PERFORM Event Display: Discharge/Transfer Note Hospital Authored Date: Attending Attestation:??I have seen and evaluated this patient on 03/15/22. ??I have discussed the case and its management with the resident Dr??Sandoval-Vicente and agree with the findings and plan as documented in the resident???s note except where modified. ?? Valerie Bonner MD [facility] Medicine Pager: [phone] * Avani Cartagena RN: MODIFY, SIGN, VERIFY, PERFORM, SIGN Event Display: Case Management Discharge Plan Authored Date: Patient: MARTÍN LARRY Age: 77 years Sex: Male : 1945 Associated Diagnoses: None Author: Avani Cartagena RN Discharge Plan Case Management Discharge Plan : Case Management Discharge Plan Data 03/15/2022 9:47 EST Discharge Level of Care at Discharge Homehealth/VNA Discharge VNA/Hospice/Home Care [facility] Discharge Transportation Arranged [facility] [phone] Discharge Arranged Transport Date/Time 03/15/2022 12:30 Mode of Transportation Arranged Ambulance Name of Agency #1 [facility] Agency [facility] #1 Intake Service Categories #1 Physical Therapy, Half-Way Service Comments #1 You will be discharged with [facility] for fci and physical therapy services in the home. If you do not hear from them within 24-48 hours of discharge pleasecall them at the number provided. * Martín Thornton RN: PERFORM Event Display: Patient Education/Instruction Authored Date: [id number] Inpatient Adult Discharge Instructions [address] [address] Name: MARTÍN LARON : 1945 Visit: 03/12/2022 22:14:00 Current Date: 03/15/2022 12:31 Account: [id number] Inpatient Adult Discharge Instructions We would like to thank you for allowing us to assist you with your healthcare needs. The following includes patient education materials and information regarding your injury/illness. Our entire staffstrives to provide an excellent experience for our patients and their families. PLEASE ENSURE YOU FOLLOW-UP PER THE INSTRUCTIONS BELOW! ?? YOUR OPINION IS IMPORTANT TO US! Please complete the survey you may receive by mail or email. Your feedback will be used to make improvements to the healthcare experiences of our patients and their families. Surveys are administered by [employer] ?? If further treatment with your primary care physician or another doctor is recommended, it is important for you to keep the appointment. Call your primary care physician or return to the Emergency Department immediately if your condition worsens, fails to improve, or new symptoms develop. If you need to find a doctor, you can call [facility] [employer] for a referral at [phone] or toll free at [phone] or log in to [email or web address].. ?? You can view and manage your care through the patient portal or by using a health care michelle of your choosing. [employer] is a website that allows you to securely view your medical information including your hospital discharge summary, office visit summaries, medications and follow-up visits. You can also request appointments, renew medications, and request access to your medical information using a health care michelle of your choosing, or just ask a question. You can enroll at [email or web address] or register during your next office visit. You have been discharged from [facility], Patient Care Unit: D6A. If you have any questions regarding these instructions after you leave, please call us and we will be happy to assist you. [facility] Your Care Team Attending Physician Ha LANDAVERDE, Valerie Mills Discharging Providers Angela LANDAVERDE, Jed Reason for Admission trouble walking more than usual Your Diagnosis Parkinsonian features COVID Delirium Weakness Cough Tests Performed Below is a partial list of the tests performed during your hospitalization. You may have had other tests and procedures not included in this list. Please discuss all test results with your provider. Ammonia Venous Basic Metabolic Panel CBC CK,TOTAL ONLY COMPLETE CBC WITH DIFF COMPREHENSIVE METABOLIC PANL COVID-19, RSV, and Flu A/B, Rapid PCR HEMOGLOBIN A1C High??Sensitivity??Troponin T HOLD GEL TUBE INR Lactate Level Lipase MAGNESIUM Mg Level Phosphorus Level ProBNP PROCALCITONIN, SERUM PTT Troponin T, High Sensitivity TSH with T4 Reflex (Adults Only) Urinalysis w/hold for Urine Culture VITAMIN B12 XR Chest 2 Views Frontal and Lat Primary Care Provider Josie LANDAVERDE, Jose Vidal Advance Directive Health Care Proxy on File Yes - Health Care Proxy Yes - MOLST No qualifying data available. Discharge Vitals Temperature: 98.8 DegF Weight: 87.5 kg Pulse Rate: 72 bpm ?? Respiratory Rate: 16 br/min ?? Systolic Blood Pressure: 130 mm Hg ?? Diastolic Blood Pressure: 62 mm Hg ?? Oxygen Saturation:??91 %??Low ?? Studies Pending All tests and labs ordered during this hospital stay have been completed unless listed below. Please discuss all pending results with your provider listed above in these instructions. ?? Add On Lab Order Blood Culture Blood Culture #2 CBC w/ Differential CPK Total Only Comprehensive Metabolic Panel Magnesium Level Phosphorus Level Procalcitonin Level Vitamin B12 Level (B12 Vitamin Level) What to do next Instructions From Your Doctor Discharge Orders Diet:??Cardiac diet Activity:??Ambulate with assistance 3 times a day unless otherwise specified Code Status:?? Full Resuscitation Scheduled Follow-Up Appointments Sunday 2:30 PM EST ?? With: Tarik LANDAVERDE, Leland De La Cruz Where: [address] [address] Sunday 3:10 PM EDT ?? With: Jose Galindo MD Where: [facility] [address] [place] [address]- Sunday 11:00 AM EDT ?? With: Armaan Mendoza MD Where: [facility] [address] [facility] 3rd Floor, [address] [place] [id number]- You Need to Schedule the Following Appointments Follow Up with??Jose Galindo MD When??Within 1 to 2 weeks Where: Discharge Medications MARTÍN LARRY :1945 Visit Date:03/12/2022 Medications: Please continue your medications until treatment is completed or stopped by your provider. Medications not listed below should be discontinued. Discuss any questions related to medications with your provider. What How Much When Why Instructions Next Dose Changed Aspirin (aspirin 81 mg oral delayed release tablet) 81 Milligram Oral Daily 0900 Changed Carbidopa-Levodopa (Sinemet 25 mg-100 mg oral tablet) 3 tab(s) Oral 3 times a day Parkinsonian features Duration: 90 Days 1500 Unchanged Atorvastatin (atorvastatin 40 mg oral tablet) 1 tab(s) Oral Daily Unchanged Cholecalciferol (Vitamin D3 5000 intl units oral capsule) 1 capsule Oral Daily Unchanged copper glycinate-zinc glycinate (copper (as bisglycinate)-zinc (as bisglycinate) 2 mg-25 mg oral capsule) 1 capsule Oral Daily Unchanged Cyanocobalamin (Eligen B12 1000 mcg oral tablet) 1 tab(s) Oral Daily on an empty stomach ?? Unchanged Duloxetine (Cymbalta 60 mg oral enteric coated capsule) 1 capsule Oral Twice a day Duration: 90 Days Unchanged Durable Medical Equipment (wheelchair) See instructions Unsteady gait R26.81 Parkinsons R25.9 chronic pain G89.4 Weight 89.4kg height 176.8 cm Lifetime need self propel standard footrests ?? Unchanged Meclizine (meclizine 25 mg oral tablet) 1 tab(s) Oral 3 times a day as needed for for dizziness Unchanged [place]-3 Polyunsaturated Fatty Acids (Fish Oil 1000 mg oral capsule) 1 capsule Oral Daily Unchanged Omeprazole (omeprazole 20 mg oral delayed release tablet) 1 tab(s) Oral Daily Unchanged Pregabalin (Lyrica 75 mg oral capsule) 1 capsule Oral Twice a day Neuropathy, peripheral Unchanged Trazodone (traZODone 50 mg oral tablet) 0.5 tab(s) Oral Daily at Bedtime Unchanged Ubiquinone (Co-Q10 100 mg oral capsule) 2 capsule Oral Daily Test Results Below is a partial list of the most recent Laboratory test results done prior to this discharge. You may have had other tests and procedures not included in this list. Please discuss all test resultswith your provider. Ammonia Venous (03/13/2022) ???Ammonia, Venous - 18 ??mole/L Basic Metabolic Panel (03/14/2022) ???Sodium - 136 mmol/L???Potassium - 3.6 mmol/L???Chloride - 100 mmol/L???Bicarbonate Level - 25 mmol/L???Anion Gap - 11???Glucose Level - 107 mg/dL???BUN - 13 mg/dL???Creatinine-Blood - 0.9 mg/dL???Estimated GFR Creatinine - 84 ML/MIN/1.73 M2???Calcium - 8.6 mg/dL CBC (03/14/2022) ???WBC - 5.0 k/mm3???RBC - 4.02 m/mm3???Hgb - 13.5 Gm/dL???Hct - 38.3 %???MCV - 95.3 femtoliters???MCH - 33.6 pg???MCHC - 35.2 g/dL???Platelet Count - 167 k/mm3???RDW-SD - 43.6 femtoliters???MPV - 9.3 femtoliters???Nucleated RBC (Automated) - 0.0 #/100 WBC'S???Abs. NRBC - 0.0 k/mm3 CK,TOTAL ONLY (03/13/2022) ???CK, Total - 177 units/L COMPLETE CBC WITH DIFF (03/13/2022) ???WBC - 5.5 k/mm3???RBC - 4.48 m/mm3???Hgb - 14.9 Gm/dL???Hct - 43.6 %???MCV - 97.3 femtoliters???MCH - 33.3 pg???MCHC - 34.2 g/dL???Platelet Count - 166 k/mm3???RDW-SD - 45.4 femtoliters???MPV - 8.6 femtoliters???Nucleated RBC (Automated) - 0.0 #/100 WBC'S???Abs. NRBC - 0.0 k/mm3???Abs. Neut - 4.0 k/mm3???Abs. Lymph - 0.6 k/mm3???Abs. [place] - 0.8 k/mm3???Abs. Eo - 0.0 k/mm3???Abs. Baso - 0.0 k/mm3???Neut % - 73.7 %???Lymph % - 10.2 %???[place] % - 14.8 %???Eos % - 0.5 %???Baso % - 0.4 %???Imm Gran - 0.4 %???Abs. Imm Gran - 0.0 k/mm3 COMPREHENSIVE METABOLIC PANL (03/13/2022) ???Sodium - 136 mmol/L???Potassium - 4.3 mmol/L???Chloride - 97 mmol/L???Bicarbonate Level - 20 mmol/L???Anion Gap - 19???Glucose Level - 116 mg/dL???BUN - 12 mg/dL???Creatinine-Blood - 0.9 mg/dL???Estimated GFR Creatinine - 84 ML/MIN/1.73 M2???Calcium - 9.2 mg/dL???Protein, Total - 7.1 Gm/dL???Albu min - 4.4 Gm/dL???AG Ratio - 1.6???Alkaline Phosphatase - 73 units/L???AST (SGOT) - 28 units/L???ALT (SGPT) - 7 units/L???Bilirubin, Total - 0.6 mg/dL COVID-19, RSV, and Flu A/B, Rapid PCR (03/12/2022) ???Influenza A PCR - NEGATIVE???Influenza B PCR - NEGATIVE???RSV PCR - NEGATIVE???COVID-19 PCR Specimen Source - NASAL???COVID-19 PCR Result - POSITIVE HEMOGLOBIN A1C (03/14/2022) ???Hemoglobin A1C (Monitoring) - 5.5 % High??Sensitivity??Troponin T (03/12/2022) ???High Sensitivity Troponin (HSTnT) - 19 ng/L HOLD GEL TUBE (03/13/2022) ???Hold Gel Top - SPECIMEN DISCARDED AFTER 1 WEEK INR (03/12/2022) ???INR - 1.1???Protime (PT) - 11.4 seconds Lactate Level (03/12/2022) ???Lactate - 1.7 mmol/L Lipase (03/12/2022) ???Lipase - 22 units/L MAGNESIUM (03/13/2022) ???Magnesium - 1.9 mg/dL Mg Level (03/14/2022) ???Magnesium - 1.8 mg/dL Phosphorus Level (03/14/2022) ???Phosphorus - 2.9 mg/dL ProBNP (03/12/2022) ???Nt-Probnp - 126 pg/mL PROCALCITONIN, SERUM (03/13/2022) ???Procalcitonin - 0.08 ng/mL PTT (03/12/2022) ???APTT - 26.2 seconds Troponin T, High Sensitivity (03/13/2022) ???High Sensitivity Troponin (HSTnT) - 24 ng/L TSH with T4 Reflex (Adults Only) (03/12/2022) ???TSH - 1.80 uIU/mL Urinalysis w/hold for Urine Culture (03/12/2022) ???Appear/Color, Urine - YELLOW???Specific [place], Urine - 1.023???pH, Urine - 6.5???Albumin, Urine - 1+???Glucose, Urine - NEGATIVE???Ketones, Urine - 1+???Bilirubin, Urine - NEGATIVE???Hemoglobin,Urine - NEGATIVE???Nitrite, Urine - NEGATIVE???Leukocyte, Urine - TRACE???Urobilinogen - 2 mg/dL???WBC's, Urine - 8 /HPF? ?RBC's, Urine - <1 /HPF? ?Squamous Epith - 1 /HPF? ?Mucus - SLIGHT? ?Hold Urine Culture - Testing available 48 hours from time of collection. 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 BPH associated with nocturia?? Carotid artery stenosis?? Chronic low back pain?? Chronic vertigo?? Claudication?? COVID-19?? Dyspnea on exertion?? Esophageal reflux?? Fatigue?? History of colonoscopy?? Hypercholesterolemia?? Localized, primary osteoarthritis of the ankle and/or foot?? Major depression in partial remission?? Neuropathy, peripheral?? Obstructive sleep apnea?? Parkinsons disease?? Skin lesion?? Toxic metabolic encephalopathy?? Unsteady gait?? Urge incontinence of urine?? Education Materials Below is the list of Educational Leaflet Providered with your Discharge Instructions. Coronavirus Disease 2019 (COVID-19): Caring for Yourself or Others?? Valuables and Belongings I fully understand and agree that [facility] accepts no responsibility for all my personal property including clothing, toilet articles, radios, jewelry, dentures, hearing aids, rings, money, or any other property that is in my possession or is brought to me after admission. I understand certain valuables may be placed in a hospital safe for a short period of time. I understand that the hospital is not liable for loss or damage due to accident, fire, or other natural occurrence while said property is in the safe. I accept full responsibility for any personal property that I keep with me, and will not hold the hospital responsible in case of loss or disappearance. I acknowledge that i have been encouraged to send valuables and belongings home. ?? No Valuables/Belongings: No valuables/belongings present Review of Valuable and Belonging List: With patient Date for Pt to Sign Valuables/Belongings: 03/12/22 23:45:00 ?? Other Discharge Information ? Case Management Discharge Plan?? Discharge Plan?? Discharge Agency Information?? Discharge Level of Care at Discharge: Homehealth/VNA Name of Agency #1: [facility] Discharge Transportation Arranged: [facility] [phone] Agency [facility] #1: Intake Mode of Transportation Arranged: Ambulance Service Categories #1: Physical Therapy, Half-Way Discharge Arranged Transport Date/Time: 03/15/22 12:30:00 Service Comments #1: You will be discharged with [facility] for fci and physical therapy services in the home. If you do not hear from them within 24-48 hours of discharge please call them at the number provided. Discharge VNA/Hospice/Home Care: [facility] ? Pulmonary Rehab Status?? Pulmonary Rehab Discharge Status?? Respiratory Rate: 16 br/min ? Common Emergency Awareness Tips IS IT A STROKE? Act FAST and Check for these signs: FACE Does the face look uneven? ARM Does one arm drift down? SPEECH Does their speech sound strange? TIME Call at any sign of stroke ?? Heart Attack Signs Chest discomfort: Most heart attacks involve discomfort in the center of the chest and lasts more than a few minutes, or goes away and comes back. It can feel like uncomfortable pressure, squeezing, fullness or pain. Discomfort in upper body: Symptoms can include pain or discomfort in one or both arms, back, neck, jaw or stomach. Shortness of breath: With or without discomfort. Other signs: Breaking out in a cold sweat, nausea, or lightheaded. Remember, MINUTES DO MATTER. If you experience any of these heart attack warning signs, call to get immediate medical attention! ?? Smoking can increase your chances of developing chronic health problems and can cause harmful effects to other family members in your house. If you smoke, you are strongly encouraged to quit. Please call [facility] [employer] at [phone] or [phone]) or log in to [email or web address] for referrals to smoking cessation programs. ?? The National Suicide Prevention Hotline is available 09/10 if you or someone you know needs to find a reason to keep living. By calling 3-283-447-Omnidrive (3519) you'll be connected to a skilled, trained counselor at a crisis center in your area. INPATIENT DISCHARGE INSTRUCTIONS SIGNATURE PAGE MARTÍN LARRY Location:[facility] Registration Date and Time:03/12/2022 22:14 EST Primary Care Physician: Josie LANDAVERDE, Jose Vidal, MARTÍN FERMIN, have received the above patient education materials/instructions and have verbalized understanding. If ambulance or transport services are being used I further acknowledge being given a choice of service. ?? If you need to contact me, please call me at this number: . Patient/Office Clin Asst Name: Patient/Office Clin Asst Signature: Relationship to Patient: Witness Name/Signature: Date: * Jed Miller MD: PERFORM Event Display: Patient Education Leaflets Authored Date: [id number] Coronavirus Disease 2019 (COVID-19): Caring for Yourself or Others ?? [id number] Coronavirus Disease 2019 (COVID-19): Caring for Yourself or Others If you or a household member test positive for COVID-19 or have symptoms like fever, cough, fatigue, loss of taste or smell, follow these guidelines for preventing spread of the virus and managing symptoms. This is regardless of your vaccination status. If you have symptoms or have been diagnosed with COVID-19 If you have symptoms of COVID-19 or you test positive (even without symptoms): ??? Stay home at least 5 days and isolate in your home. Separate from others as much as possible. You are most likely infectious during these first 5 days. Day 0 is the first day you tested or first had symptoms. Day 1 is the first full day after your symptoms started or following your positive test. See the CDC's website for current, detailed information about staying home. Follow your local area's instructions on testing and staying home. ??? Stay away from work, school, and public places. Limit physical contact with family members. Limit visitors. Don't kiss anyone or share eating or drinking utensils. Clean surfaces you touch with disinfectant. This is to help prevent the virus from spreading. ??? Wear a high quality, well-fitting mask if you must be around others at home or in public. Don't go places where you are unable to wear a mask. ??? Don't travel. ??? Tell the healthcare staff about recent travel. This includes local travel on public transport. Staff may need to find other people you have beenin contact with. ??? Take steps to improve airflow at home. For example, open windows to improve airflow, change filters in your air conditioning unit, and turn your thermostat to on instead of auto to improve airflow and filtration. For more tips, see the CDC website. ??? Don't share personal items such as eating or drinking utensils and linens or food. ??? If you need to cough or sneeze, doit into a tissue. Then throw the tissue into the trash. If you don't have tissues, cough or sneeze into the bend of your elbow. ??? Wash your hands often. ??? Follow all instructions from your healthcare provider. Call your healthcare provider???s office before going. They can prepare and give you instructions. This will help prevent the virus from spreading. ??? If you need to go to a hospital or clinic, expect that the healthcare staff will wear protective equipment such as masks, gowns, gloves, and eye protection. You may be advised to wait in or enter through a separate area. This is to prevent the possible virus from spreading. ??? Follow all instructions the healthcare staff gives you. ?? Self-care at home?? Protection You can protect yourself and others from getting COVID-19 or from getting very sick from it if you: ??? Vaccinate. Several vaccines and booster shots are available to prevent COVID-19 or reduce its severity. These vaccines reduce how severe the illness will be if you get the virus. No vaccine is ever 100% effective in preventing any illness, but the COVID-19 vaccines work well and are safe. Vaccines are available for people as young as 6 months and boosters are available for people age 5 and older.??Expert groups, including ACOG and CDC, advise or people to be vaccinated. Talk with your healthcare provider about which COVID-19 vaccine is best for you and your family. ??? Practice good handwashing. ??? Know your area's community transmission level and what to do if you've been exposed. Stay home if you have suspected or confirmed COVID-19. ??? Keep your distance when possible from a person who is sick or has tested positive for COVID-19. ??? Get tested if needed.??? Wear a well-fitted mask as advised. See the CDC's mask website. ??? Improve airflow indoors andmove indoor activities outside. ??? Call your healthcare provider for treatment if you have COVID-19 and are at high risk of getting very sick. Treatment Current treatment is mainly aimed at helping your body while it fights the virus. This is known as supportive care. If you have confirmed COVID-19, talk with your healthcare provider. You may qualifyfor certain medicines approved by the FDA to prevent severe COVID-19 infection. For severe COVID-19, you may need to stay in the hospital. Supportive care includes: ??? Getting rest. This helps your body fight the illness. ??? Staying hydrated. Drinking liquids isthe best way to prevent dehydration. Try to drink 6 to 8 glasses of liquids every day, or as advised by your provider. Also check with your provider about which fluids are best for you. Don't drink fluids that contain caffeine or alcohol. ??? Taking cszx-hia-xvjmnig (OTC) pain medicine. These are used to help ease pain and reduce fever. Follow your healthcare provider's instructions for which OTCmedicine to use. If you've been treated for suspected or confirmed COVID-19, follow all of your healthcare team's instructions. You may also get instructions on position changes to help your breathing, such as lying on your belly (prone positioning). If you were treated at a hospital and discharged, you may be senthome with a pulse oximeter. This is a small electronic device that you clip on your fingertip. It measures the amount of oxygen in your body. Follow your healthcare team's instructions on its use, how they will be in touch with you, and let you know when to call them. If you test positive for COVID-19 and are more likely to get very sick, treatments are available that can reduce your chances of a hospital stay and . For example, if you are at higher risk of inflammation caused by the COVID-19 virus, your provider may prescribe steroids or other anti-inflammatory medicines. The FDA has approved certain antivirals and monoclonal antibodies to treat COVID-19. Antivirals stop the SARS-CoV-2 virus from spreading in the body. Monoclonal antibodies help the immune system fight the virus. These treatments are for people who are more likely to get very sick from COVID-19.Talk with your healthcare provider to learn more. Follow your provider's specific instruc tions. ?? Home care for a sick person? Follow all instructions from healthcare staff. ??? Wash your hands often. ??? Wear protective clothing as advised. Wear a mask when caring for someone with COVID-19.??? Make sure the sick person wears a mask. If they can't wear a mask, don't stay in the same room with the person. If you must be in the same room, wear a face mask. When wearing a mask, make sure that it covers both the nose and mouth. ??? Keep track of the sick person???s symptoms. ??? Clean home surfaces often with disinfectant. This includes phones, kitchen counters, fridge door handle, bathroom surfaces, and others. ??? Don???t let anyone share household items with the sick person. This includes eating and drinking tools, towels, sheets, or blankets. ??? Clean fabrics and laundry thoroughly. ??? Keep other people and pets away from the sick person. ?? When you can stop isolation You can end isolation based on how serious your COVID-19 symptoms were. If you had a positive COVID-19 test but had no symptoms, you can end isolation after day 5. Day 0 was the first day you tested.?? If you had COVID-19 symptoms, you may end isolation after day 5 if: ? You are fever-free for 24 hours without using fever-reducing medicines such as acetaminophen, and ??? Your symptoms such as cough or trouble breathing are better ?? If you have moderate or severe COVID-19, your instructions on when to stop isolation are different.Moderate COVID-19 means you had shortness of breath or difficulty breathing. Severe COVID-19 means you were in the hospital. If you have a weak immune system and COVID-19, you also will be advised toisolate longer. Some conditions and treatments can cause a weak immune system. These include cancertreatment, bone marrow or organ transplants, and conditions such as HIV or other immune system disorders. If you have moderate or severe COVID-19 or if you have a weak immune system and COVID-19, youwill need to isolate through day 10. Day 0 is the first day you tested or had symptoms. If you had s evere COVID-19 or have a weak immune system, talk with your provider before you end isolation. See the CDC's isolation guidance. CDC mask guidance after isolation Follow the CDC's guidance on when to remove your mask after having COVID-19. After you end isolation when you are feeling better, wear your mask: ??? Through day 10, or ??? Sooner with testing. If you have 2 negative COVID-19 antigen tests taken48 hours apart, you may remove your mask sooner than day 10. For COVID-19 prevention, follow the CDC's guidance and your local community's instructions on face masks. ??? Follow the CDC's guidance and your local community's instructions on face masks. Everyoneages 2 years and older should correctly wear a well-fitting mask indoors in public in areas where the COVID-19 Community Level is high, even if you are fully vaccinated. ??? Wear a mask with the bestfit, protection, and comfort for you. ??? You may choose to wear a mask that offers greater protection in certain situations, such as when you are with people at higher risk for severe illness, or ifyou are at higher risk for severe illness. ??? See the CDC's mask guidance. ?? When to call your healthcare provider Call your healthcare provider right away if a sick person has any of these: ??? Trouble breathing ??? Pain or pressure in chest If a sick person has any of these, call 911: ??? Trouble breathing that gets worse ??? Pain or pressure in chest that gets worse ??? Blue tint to lips or face ??? Fast or irregular heartbeat ??? Confusion or trouble waking ??? Fainting or loss of consciousness ??? Coughing up blood ?? Date last modified: 10/28/2021 ?? Last Reviewed Date: 2021 ?? [id number] [employer]. All rights reserved. This information is not intended as a substitute for professional medical care. Always follow your healthcare professional's instructions. ?? * [facility] , CIS S: TRANSCRIBE Choco Melgar MD S: VERIFY Event Display: Result: Authored Date: [id number] Chest 2 Views Frontal and Lat Hx of Present Illness: trouble walking dizzy; Reason: Other:; Shortness of Breath, Fever; Clinical Question(s): Pneumonia COMPARISON: 03/09/2022 FINDINGS: LINES AND TUBES: None. LUNGS AND PLEURA: Mild increased density in the left lower lobe. Possible pneumonia. No pleural effusion. No pneumothorax. HEART, MEDIASTINUM AND AGATA: Heart is normal in size. Normal mediastinal and hilar contour. BONES AND SOFT TISSUES: No acute abnormality. IMPRESSION: No acute abnormality. WSN: [id number] Ordering Physician: nAni Lindsey Dictated By: Choco Melgar MD Dictated Date/Time: 03/12/22 9:24 pm Reviewed By: Choco Melgar MD Signed By: Choco Melgar MD Signed Date/Time: 03/12/22 9:24 pm Transcribed By: JONY Transcribed Date/Time: 03/12/22 9:23 pm Patient Care team information Care Team Personnel Name: Azael Stafford RN Position: [facility] RN Member Role: Primary Care Nurse Name: Martín Thornton RN Position: [facility] RN Member Role: Primary Care Nurse Name: Jose Galindo MD Position: [facility] Primary Care Physician Member Role: PCP Address: Address: [address] [place] [id number]- Name: Jenni Tran RN Position: [facility] RN Member Role: Primary Care Nurse Name: Mann MORRISON Attending Position: [facility] ED Medicine MD Name: Citlaly Pitts Position: [facility] Member Role: Behavioral Health Professional Name: Gail Mckeon Position: [facility] Name: Eunice Hensley RN Position: [facility] ED RN W/OE and Tasks Member Role: Patient Care Provider Care Team Related Persons Name: PORSHA LARRY Address: [address] [place] [address] Name: CHULA LARRY Address: home [address] [place] [address] Name: PORSHA SILVERIO Address: home [address] [place] [address]
--- OUTSIDE RECORDS SUMMARY | 2022-10-08 19:44 | XMS_ITS | Continuity of Care Document ---
Author Name Unknown Organization [facility] Address [address] [place] [address]- Care Team Providers Care Healthcare Management Name Role Phone Jose Galindo MD Primary Care Physician [phone] Encounter 07/26/21 - 08/18/21 [facility] [address] [place] [address]- Discharge Disposition: CLIENT NO LONGER REQUIRES SKILLED CARE Allergies, Adverse Reactions, Alerts Substance Reaction Severity [...] [facility], 176.8, cm, 05/10/22 10:04:00 EDT, Height, 82.1, kg, 07/19/21 17:49:00 [...] Refills, Maintenance, 07/26/21 10:31:00 EDT, CR Tablet, [facility], Partial fill upon patient request if the prescription is for a schedule II opioid drug., 176.8, cm, 07/26/21 10:04:00 EDT, H... Start Date: 07/26/21 Status: Ordered Sinemet 25 mg-100 mg oral tablet 3 tablet, By Mouth, 3 times a day, DOSE INCREASE, # 810 tablet, 2 Refills, Maintenance, 12/23/20 20:36:00 EDT, [facility], [...] urine(Confirmed) Active 150 to 69% on right. [id number] Social History Social History Type Response Smoking Status Never (less than 100 in lifetime) entered on: 10/11/18 Sex
--- OUTSIDE RECORDS SUMMARY | 2022-10-08 19:44 | XMS_ITS | Continuity of Care Document ---
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 Role Phone Josie LANDAVERDE, Jose Vidal Primary Care Physician [phone] [place] [facility] [place]/27/[place] - 03/09/[address] [address]- [facility] Attending Physician: Aidan Sun Admitting Physician: Adian Sun Referring Physician: AdmtrAidan Allergies, Adverse Reactions, Alerts Substance Reaction Severity Status Shrimp Active Immunizations Given and Recorded Vaccine Date Status Refusal Reason influenza virus vaccine, inactivated 01/14/19 Give n pneumococcal 13-valent vaccine 10/24/18 Given tetanus/diphtheria/pertussis, acel(Tdap) 10/24/18 Given Medications Advil 200 mg oral tablet 1 tablet = 200 mg, By Mouth, Daily, PRN Pain , Mild, 0 Refills, Maintenance, 10/05/18 13:40:23 EDT Start Date: 10/05/18 Status: Ordered aspirin 81 mg oral delayed release tablet 81 mg, 1, tablet, By Mouth, Daily, Refills 0, Maintenance, 12/13/18 14:06:14 EDT Start Date: 12/13/18 Status: Ordered atorvastatin 40 mg oral tablet 1 tablet = 40 mg, By Mouth, Daily, # 90 tablet, 3 Refills, Maintenance, 10/24/18 7:38:44 EDT, Tablet Start Date: 10/24/18 Status: Ordered meclizine 25 mg oral tablet 1 tablet = 25 mg, By Mouth, 3 times a day, PRN for dizziness, # 30 tablet, 0 Refills, Acute 03/21/19 11:50:00 EST, 02/20/19 7:00:00 EST, Tablet, 176.8, cm, 01/23/19 8:15:08 EST, Height, 89.4, kg, 01/17/19 14:16:48 EDT, Dry Weight Start Date: 02/20/19 Stop Date: 03/21/19 Status: Ordered omeprazole 20 mg oral delayed release tablet 1 tablet = 20 mg, By Mouth, Daily, before a meal, # 90 tablet, 3 Refills, Maintenance, 10/11/18 11:19:13 EDT, EC Tablet Start Date: 10/11/18 Stop Date: 10/06/19 Status: Ordered Problem List Condition Effective Dates Status Health Status Inform ant Carotid artery stenosis(Confirmed) 1 Active Chronic low back pain(Confirmed) Active Chronic vertigo(Confirmed) Active Dyspnea on exertion(Confirmed) Active Fatigue(Confirmed) Active Esophageal reflux(Confirmed) Active History of colonoscopy(Confirmed) 2 Active Obstructive sleep apnea(Confirmed) Active Neuropathy, peripheral(Confirmed) Active 150 to 69% on right. [id number] Social History Social History Type Response Smoking Status Never (less than 100 in lifetime) entered on: 10/11/18 Sex
--- OUTSIDE RECORDS SUMMARY | 2022-10-08 19:44 | XMS_ITS | Continuity of Care Document ---
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 Date(s): 03/17/22 - 03/24/22 [facility] Adult [address] [place] [address]- Encounter Diagnosis Urge incontinence of urine(Discharge Diagnosis) - 03/17/22 Attending Physician: Jose Galindo MD Allergies, Adverse [...] 1 Refills, Maintenance, 07/26/21 10:31:00 EDT, Capsule, [facility], Partial fill upon patient request if the prescription is for a schedule II opioid drug., 176.8, cm, 07/26/21 10:04:... Start Date: 07/26/21 Status: Ordered meclizine 25 mg oral tablet 1 tablet = 25 mg, By Mouth, 3 times a day, PRN for dizziness, # 60 tablet, 1 Refills, Maintenance, 07/26/21 10:32:00 EDT, Tablet, [facility] # [facility], Partial fill upon patient request if the prescription is for a schedule II opioid drug., 176.8, cm,... Start Date: 07/26/21 Status: Ordered omeprazole 20 mg oral delayed release tablet 1 tablet = 20 mg, By Mouth, Daily, # 90 tablet, 3 Refills, Maintenance, 07/26/21 10:31:00 EDT, CR Tablet, [facility] # [facility], Partial fill upon patient request if the prescription is for a schedule II opioid drug., 176.8, cm, 07/26/21 10:04:00 EDT, H... Start Date: 07/26/21 Status: Ordered Sinemet 25 mg-100 mg oral tablet 3 tablet, By Mouth, 3 times a day, for 90 days, # 810 tablet, 1 Refills, Hard Stop 04/09/22 7:09:00EST, 10/11/21 7:09:00 EDT, [facility] # [facility], Partial fill upon patient request if the prescription is for a schedule II opioid drug., 176.8, cm, ... Start Date: 10/11/21 Stop Date: 04/09/22 Status: Ordered traZODone 50 mg oral tablet 0.5, tablet, By Mouth, Daily at bedtime, # 15 tablet, Refills 11, Maintenance, 01/05/22 17:57:00 EDT, Route to Pharmacy Electronically, [facility], 176.8, cm, 11/14/21 [...] on right. 2Problem added by Discern Expert [id number] Diagnosis Diagnosis Type Effective Dates Health Status Clinical Service Informant Urge incontinence of urine Discharge Diagnosis 03/17/22 Vital Signs Most recent to oldest [Reference Range]: 1 Height 176.8 cm (03/17/22 1:41 PM) Weight 89 kg (03/17/22 1:41 PM) Body Mass Index [18.5-24.99 kg/m2] 28.47 kg/m2 *H* (03/17/22 1:41 PM) Weight Obtained Via Patient/family state d (03/17/22 1:41 PM) Social History Social History Type Response Smoking Status Never (less than 100 in lifetime) entered on: 7/26/19 Sex Patient Care team information Care Team Personnel Name: Azael Stafford RN Position: [facility] RN Member Role: Primary Care Nurse Name: Martín Thornton RN Position: [facility] RN Member Role: Primary Care Nurse Name: Jose Galindo MD Position: [facility] Primary Care Physician Member Role: PCP Address: Address: [address] [place] [address]- Name: Jenni Tran RN Position: [facility] RN Member Role: Primary Care Nurse Care Team Related Persons Name: LEIGH ANN LARRY Address: [address] [place] [address] Name: ALFRED LARRY Address: home [address] [place] [address] Name: LEIGH ANN SILVERIO Address: home [address] [place] [id number]
--- OUTSIDE RECORDS SUMMARY | 2022-10-08 19:44 | XMS_ITS | Continuity of Care Document ---
Author Name Unknown Organization [facility] Address [address] [place] [address]- Care Team Providers Care Account Manager Trainee Name Role Phone Jose Galindo MD Primary Care Physician Encounter 07/01/22 - 08/24/22 [facility] [address] [place] [address]- Discharge Disposition: CLIENT NO LONGER REQUIRES SKILLED CARE Allergies, Adverse Reactions, Alerts Substance Reaction Severity Status shellfish Active Shrimp Active Immunizations Given and Recorded Vaccine Date Status Refusal Reason [id number] 12y+ bivalent booster vax 06/06/22 Given influenza [...] Maintenance, 06/30/22 10:11:00 EDT,Route to Pharmacy Electronically, [facility], Partial fill upon patient request if the prescription is for a schedule II opioid drug., 18... Start Date: 06/30/22 Status: Ordered atorvastatin 80 mg oral tablet 1 tablet = 80 mg, By Mouth, Daily at bedtime, # 30 tablet, 2 Refills, Maintenance, 06/30/22 10:09:00 EDT, Tablet, [facility], Partial fill upon patient [...] Date: 07/26/21 Stop Date: 07/21/22 Status: Ordered digital b/p cuff to check b/p at home digital b/p cuff to check b/p at home, See Instructions, # 1 each, Refills 0, Tot. Refills 0, Maintenance, to check b/p at home daily per PCP instructions. dx Hypotention, 07/10/22 9:25:00 EDT, Supply Start Date: 07/10/22 Status: Ordered Eligen B12 1000 mcg oral tablet 1 tablet, By Mouth, Daily, on an empty stomach, # 90 tablet, 2 Refills, Maintenance, 03/07/22 12:18:00 EST, Tablet, [facility] # [facility], Partial fill [...] 08/08/22 11:11:00 EDT, Route to Pharmacy Electronically, [facility] #[id number], Partial fill upon patient request if the prescription is for a schedule II opioid drug... Start Date: 08/08/22 Status: Ordered Lyrica 150 mg oral capsule 1 capsule = 150 mg, By Mouth, 2 times a day, # 180 capsule, 0 Refills, Maintenance, 06/13/22 14:29:00 EDT, [facility] # [facility], Partial fill upon patient request if the prescription is for a scheduleII opioid drug., 176.8, cm, 06/12/22 11:10:00 EDT,... Start Date: 06/13/22 Stop Date: 09/11/22 Status: Ordered meclizine 25 mg oral tablet 1 tablet, By Mouth, 3 times a day, PRN NEEDED FOR DIZZINESS, # 60 tablet, 1 Refills, Maintenance, 07/26/22 13:26:00 EDT, [facility] # [facility], 180, cm, 07/10/22 12:52:00 EDT, Height, 93.4, kg, 06/29/22 12:39:00 EDT, Dry Weight Start Date: 07/26/22 Status: Ordered omeprazole 20 mg oral enteric coated capsule 1 capsule, By Mouth, Daily, # 90 capsule, 1 Refills, Maintenance, 08/14/22 7:59:00 EDT, [facility] # [facility], 180, cm, 07/26/22 15:35:00 EDT, Height, 93.4, kg, 06/29/22 12:39:00 EDT, Dry Weight Start Date: 08/14/22 Status: Ordered Plavix 75 mg oral tablet 75 mg, 1, tablet, By Mouth, Daily, # 30 tablet, Refills 2, Tot. Refills 2, Maintenance, 06/30/22 10:09:00 EDT, Route to Pharmacy Electronically, [facility], Partial fill upon patient request if the prescription is for a schedule II opioi... Start Date: 06/30/22 Status: Ordered Sinemet 25 mg-100 mg oral tablet 3 tablet, By Mouth, 3 times a day, for 90 days, # 810 tablet, 1 Refills, Hard Stop 10/06/22 7:09:00EDT, 04/09/22 7:09:00 EST, [facility] # [facility], Partial fill upon patient request if the prescription is for a schedule II opioid drug., 3 tablet By Mo... Start Date: 04/09/22 Stop Date: 10/06/22 Status: Ordered Toprol XL 50 mg oral tablet, extended release 50 mg, 1, tablet, By Mouth, Daily, # 30 tablet, Refills 5, Tot. Refills 5, Maintenance, 07/26/22 16:10:00 EDT, Route to Pharmacy Electronically, [facility] # [facility], Partial fill upon patient requestif the prescription is for a schedule II opioid jett... Start Date: 07/26/22 Status: Ordered traZODone 50 mg oral tablet 50 mg, 1, tablet, By Mouth, Daily at bedtime, increased dose, # 30 tablet, Refills 11, Tot. [id number], Maintenance, 06/13/22 14:08:00 EDT, Route to Pharmacy Electronically, [facility], 176.8, cm, [...] Confirmed Active 150 to 69% on right. [id number] 3Problem added by Discern Expert Social History Social History Type Response Smoking Status Never (less than 100 in lifetime) entered on: 10/11/18 Sex Patient Care team information Care Team Personnel Name: Azael Stafford RN Position: [facility] RN Member Role: Primary Care Nurse Name: Martín Thornton RN Position: [facility] RN Member Role: Primary Care Nurse Name: Froylan Cooley RN Position: [facility] RN Member Role: Primary Care Nurse Name: Jose Galindo MD Position: [facility] Physician - Primary Care Member Role: PCP Address: Address: [address] [place] [phone]- Name: Xiao Cervantes RN Position: [facility] RN Member Role: Primary Care Nurse Name: Jenni Tran RN Position: [facility] Onco RN Member Role: Primary Care Nurse Care Team Related Persons Name: LEIGH ANN LARRY Address: [address] [place] [address] Name: ALFRED LARRY Address: home [address] [place] [address] Name: LEIGH ANN SILVERIO Address: home [address] [place] [address]
--- OUTSIDE RECORDS SUMMARY | 2022-10-08 19:44 | XMS_ITS | Continuity of Care Document ---
Author Name Unknown Organization [facility] Kareem Quique lt Address [address] [place] [address]- Care Team Providers Care Repairer Screen Crusher Name Role Phone Jose Galindo MD Primary Care Physician Encounter [facility] Date(s): 07/01/20 - 07/08/20 [facility] Adult [address] [place] [address]- Encounter Diagnosis Unsteady gait(Discharge Diagnosis) - 07/01/20 Urinary incontinence(Discharge Diagnosis) - 07/01/20 Parkinsonian features(Discharge Diagnosis) - 07/01/20 Chronic vertigo(Discharge Diagnosis) - 07/01/20 Carotid artery stenosis(Discharge Diagnosis) - 07/01/20 Attending Physician: Nieves Acevedo NP Allergies, Adverse Reactions, Alerts Substance Reaction [...] 1 Refills, Maintenance, 05/29/20 8:45:00 EST, Tablet, [facility], 176.8, cm, 05/27/20 11:03:00 [...] Refills, Maintenance, 05/27/20 11:22:00 EST, EC Capsule, [facility] # [facility], Partial fill upon patient [...] tablet, 11 Refills, Maintenance, 02/11/20 16:02:00EST, Tablet, [facility] # [facility], Partial fill upon patient request, 176.8, cm, 09/23/19 11:05:00 EDT, Height, 89.4, kg, 01/17/19 14:16:00 EDT, Dry Weight Start Date: 02/11/20 Status: Ordered meclizine 25 mg oral tablet 1 tablet, By Mouth, 3 times a day, PRN NEEDED FOR DIZZINESS, # 30 Unknown, 0 Refills, Acute, 05/11/20 16:24:00 EST, [facility] # [facility], 176.8, cm, 03/29/20 13:02:00 [...] EST, Compound Start Date: 03/18/19 Status: Ordered Sinemet 25 mg-100 mg oral tablet See Instructions, 1/2 tab By Mouth 2 times a day 6 hrs apart for 1 week. Then 1 tab in AM and 1/2 tab 6 hrs apart for 1 week. Then 1 tab twice a day 6 hrs apart. take with snack or meal., # 60 tablet, 1 Refills, Maintenance, 07/01/20 19:36:00 EDT,... 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 [id number] Diagnosis Diagnosis Type Effective Dates Health Status Clinical Service Informant Unsteady gait Discharge Diagnosis 07/01/20 Chronic vertigo Discharge Diagnosis 07/01/20 Parkinsonian features Discharge Diagnosis 07/01/20 Urinary incontinence Discharge Diagnosis 07/01/20 Carotid artery stenosis Discharge Diagnosis 07/01/20 Vital Signs Most recent to oldest [Reference Range]: 1 Height 176.8 cm (07/01/20 3:14 PM) Weight 91.0 kg (07/01/20 3:14 PM) Oxygen Saturation [94-100 %] 97 % (07/01/20 3:14 PM) Pulse Rate [55-90 bpm] 86 bpm (07/01/20 3:14 PM) Body Mass Index [18.5-24.99] 29.11 *H* (07/01/20 3:14 PM) Blood Pressure [90-138/55-84 mm Hg] 135/ 62mm Hg (07/01/20 3:14 PM) Respiratory Rate [16-30 br/min] 18 br/mi n (07/01/20 3:14 PM) Temperature [96.8-100.4 DegF] 97.6 DegF (07/01/20 3:14 PM) Mode of Delivery (Oxygen) Room air (07/01/20 3:14 PM) Blood pressure sites Arm, left (07/01/20 3:14 PM) Temperature Route Oral (07/01/20 3:14 PM) Weight Obtained Via Standing scale (07/01/20 3:14 PM) Social History Social History Type Response Smoking Status Never (less than 100 in lifetime) entered on: 10/11/18 Sex
--- OUTSIDE RECORDS SUMMARY | 2022-10-08 19:44 | XMS_ITS | Continuity of Care Document ---
Author Name Unknown Organization [facility] Quique lt Address [address] [place] [address]- Care Team Providers Care Trolley Car Operator Name Role Phone Jose Galindo MD Primary Care Physician [facility]counter [facility] Date(s): 09/17/21 - 10/17/21 [facility] Adult [address] [place] [address]- Allergies, Adverse Reactions, Alerts Substance Reaction Severity [...] Tablet, [facility], Partial fill upon patient request if the prescription is for a schedule II opioid drug., 176.8, cm,... Start Date: 07/26/21 Status: Ordered omeprazole 20 mg oral delayed release tablet 1 tablet = 20 mg, By Mouth, Daily, # 90 tablet, 3 Refills, Maintenance, 07/26/21 10:31:00 EDT, CR Tablet, [facility], Partial fill upon patient request if the prescription is for a schedule II opioid drug., 176.8, cm, 07/26/21 10:04:00 EDT, H... Start Date: 07/26/21 Status: Ordered Sinemet 25 mg-100 mg oral tablet 3 tablet, By Mouth, 3 times a day, # 810 tablet, 1 Refills, Maintenance, 10/11/21 7:09:00 EDT, [facility] # [facility], Partial [...] urine(Confirmed) Active 150 to 69% on right. [id number] Social History Social History Type Response Smoking Status Never (less than 100 in lifetime) entered on: 10/11/18 Sex
--- OUTSIDE RECORDS SUMMARY | 2022-10-08 19:44 | XMS_ITS | Continuity of Care Document ---
Author Name Unknown Organization [facility] Kareem Quique lt Address [address] [place] [address]- Care Team Providers Care Needle Loom Setter Name Role Phone Jose Galindo MD Primary Care Physician [facility]counter [facility] Date(s): 07/21/20 - 08/20/20 [facility] Adult [address] [place] [address]- Allergies, Adverse Reactions, Alerts Substance Reaction Severity [...] 3 Refills, Maintenance, 08/11/20 19:12:00 EDT, ECCapsule, [facility] # [facility], Partial fill upon patient request if the prescription is for a schedule II opioid drug., 176.8, cm, 08/11/20 12:51:00 EDT... Start Date: 08/11/20 Status: Ordered gabapentin 600 mg oral tablet 1 tablet = 600 mg, By Mouth, 3 times a day, # 270 tablet, 3 Refills, Maintenance, 08/11/20 19:13:00EDT, Tablet, [facility] # [facility], Partial fill upon patient request, 176.8, cm, 08/11/20 12:51:00 EDT, Height, 89.4, kg, 01/17/19 14:16:00 EDT, Dry Weight Start Date: 08/11/20 Status: Ordered meclizine 25 mg oral tablet 1 tablet, By Mouth, 3 times a day, PRN NEEDED FOR DIZZINESS, # 90 tablet, 1 Refills, Maintenance, 08/11/20 19:14:00 EDT, [facility] # [facility], 176.8, cm, 08/11/20 12:51:00 EDT, Height, 89.4, kg, 01/17/19 14:16:00 EDT, Dry Weight Start Date: 08/11/20 Status: Ordered omeprazole 20 mg oral delayed release tablet 1 tablet = 20 mg, By Mouth, Daily, before a meal, # 90 tablet, 1 Refills, Maintenance, 08/11/20 19:13:00 EDT, EC Tablet, [facility], 176.8, cm, 08/11/20 12:51:00 [...] tablet, 4 Refills, Maintenance, 08/11/20 19:13:00 EDT, [facility] # [facility], Partial fill upon patient [...] lesion(Confirmed) Active 150 to 69% on right. [id number] Social History Social History Type Response Smoking Status Never (less than 100 in lifetime) entered on: 10/11/18 Sex
--- OUTSIDE RECORDS SUMMARY | 2022-10-08 19:44 | XMS_ITS | Continuity of Care Document ---
Author Name Unknown Organization [facility] ter Address [address] [place] [id number]- Care Team Providers Care Tactical Response Group Officer Name Role Phone Jose Galindo MD Primary Care Physician Encounter [facility] Date(s): 07/22/21 - 08/21/[address] [address]- Attending Physician: Not on Staff, Attending MD Admitting Physician: Not on Staff, Admitting MD Referring Physician: Not on Staff, Referring MD [...] 1 Refills, Maintenance, 07/26/21 10:32:00 EDT, Tablet, [facility] # [facility], Partial fill upon patient request if the prescription is for a schedule II opioid drug., 176.8, cm,... Start Date: 07/26/21 Status: Ordered omeprazole 20 mg oral delayed release tablet 1 tablet = 20 mg, By Mouth, Daily, # 90 tablet, 3 Refills, Maintenance, 07/26/21 10:31:00 EDT, CR Tablet, [facility] # [facility], Partial fill upon patient request if the prescription is for a schedule II opioid drug., 176.8, cm, 07/26/21 10:04:00 EDT, H... Start Date: 07/26/21 Status: Ordered Sinemet 25 mg-100 mg oral tablet 3 tablet, By Mouth, 3 times a day, DOSE INCREASE, # 810 tablet, 2 Refills, Maintenance, 12/23/20 20:36:00 EDT, [facility] # [facility], Partial fill upon patient [...] urine(Confirmed) Active 150 to 69% on right. [id number] Social History Social History Type Response Smoking Status Never (less than 100 in lifetime) entered on: 10/11/18 Sex
--- OUTSIDE RECORDS SUMMARY | 2022-10-08 19:44 | XMS_ITS | Continuity of Care Document ---
Author Name Unknown Organization [facility] ter Address [address] [place] [address]- Care Team Providers Care Manager Sales Name Role Phone Jose Galindo MD Primary Care Physician Encounter [facility] Date(s): 07/19/21 - 07/22/[address] [address]- Encounter Diagnosis Urinary tract infection(Final) - 07/18/21 Discharge Disposition: A-D/C Home Attending Physician: Meño Arora MD Admitting Physician: Floridalma Fay MD Referring Physician: Not on Staff, Referring [...] Daily, # 90 tablet, 3 Refills, Maintenance, 06/30/21 7:36:00 EDT, Tablet, [facility], 176.8, cm, 05/18/21 14:58:00 EST, Height Start Date: 06/30/21 Status: Ordered cephalexin monohydrate 500 mg oral capsule 1 capsule = 500 mg, By Mouth, 4 times a day, for 5 days, # 20 capsule, 0 Refills, Acute 07/27/21 11:17:00 EDT, 07/22/21 11:17:00 EDT, Capsule, [facility], Partial fill upon patient request if the prescription is for a schedule II opioid... Start Date: 07/22/21 Stop Date: 07/27/21 Status: Ordered Cymbalta 60 mg oral enteric coated capsule 1 capsule = 60 mg, By Mouth, 2 times a day, # 180 capsule, 3 Refills, Maintenance, 04/05/21 11:29:00 EST, EC Capsule, [facility], Partial fill upon patient request if the prescription is fora schedule II opioid drug., 176.8, cm, 04/05/21 11:... Start Date: 04/05/21 Stop Date: 03/31/22 Status: Ordered gabapentin 300 mg oral capsule 600 mg, Capsule, By Mouth, 07/22/21 9:00:00 EDT Start Date: 07/22/21 Stop Date: 07/22/21 Status: Completed Lyrica 75 mg oral capsule 1 capsule = 75 mg, By Mouth, 2 times a day, # 180 capsule, 1 Refills, Maintenance, 06/30/21 7:52:00EDT, Capsule, [facility], Partial fill upon patient request if the prescription is for a schedule II opioid drug., 176.8, cm, 05/18/21 14:58:0... Start Date: 06/30/21 Status: Ordered meclizine 25 mg oral tablet 1 tablet = 25 mg, By Mouth, 3 times a day, PRN for dizziness, # 30 tablet, 0 Refills, Maintenance, 07/22/21 11:18:00 EDT, Tablet, Partial fill upon patient request if the prescription is for a schedule II opioid drug. Start Date: 07/22/21 Status: Ordered omeprazole 20 mg oral delayed release tablet 1 tablet = 20 mg, By Mouth, Daily, # 90 tablet, 3 Refills, Maintenance, 04/13/21 11:32:00 EST, CR Tablet, [facility], Partial fill upon patient request if the prescription is for a schedule II opioid drug., 176.8, cm, 04/05/21 11:00:00 EST, H... Start Date: 04/13/21 Status: Ordered Sinemet 25 mg-100 mg oral tablet 3 tablet, By Mouth, 3 times a day, DOSE INCREASE, # 810 tablet, 2 Refills, Maintenance, 12/23/20 20:36:00 EDT, [facility] # [facility], Partial fill upon [...] urine(Confirmed) Active 150 to 69% on right. [id number] Results Orders for Microbiology Reports Name Date Blood Culture 07/18/21 Blood Culture #2 07/18/21 Urine Culture (Culture Urine) 07/18/21 Microbiology Reports TEST:Urine Culture STATUS:Auth (Verified) BODY SITE: SOURCE:URINE COLLECTED DATE/TIME:07/18/21 8:53 PM Urine Culture SPECIMEN DESCRIPTION : URINE STRAIGHT CATH. SPECIAL REQUESTS : NONE CULTURE : >100,000 COL/ML PROTEUS MIRABILIS This isolate was identified using Maldi-TOF system These AST results were performed on the [employer] ID and AST system REPORT STATUS : FINAL 07/21/2021 ORGANISM >100,000 COL/ML PROTEUS MIRABILIS This isolate was identified using Maldi-TOF system METHOD MIN. INHIB. CONC. (MCG/ML) AMPICILLIN SUSCEPTIBLE AMPICILLIN/SULBACTAM SUSCEPTIBLE AMOXICILLIN/CLAVULAN SUSCEPTIBLE CEFAZOLIN SUSCEPTIBLE CEFEPIME SUSCEPTIBLE CEFTRIAXONE SUSCEPTIBLE CIPROFLOXACIN SUSCEPTIBLE ERTAPENEM SUSCEPTIBLE GENTAMICIN SUSCEPTIBLE LEVOFLOXACIN SUSCEPTIBLE MEROPENEM SUSCEPTIBLE NITROFURANTOIN INTERMEDIATE PIPERACILLIN/TAZOBAC SUSCEPTIBLE TRIMETH/SULFAMETHOX SUSCEPTIBLE TETRACYCLINE RESISTANT TEST:Blood Culture, Second Order STATUS:Unauthenticated BODY SITE: SOURCE:Blood COLLECTED DATE/TIME:07/18/21 8:33 PM Blood Culture, Second Order SPECIMEN DESCRIPTION : BLOOD R HAND SPECIAL REQUESTS : NONE CULTURE : NO GROWTH 4 DAYS REPORT STATUS : PRELIMINARY REPORT TEST:Blood Culture STATUS:Unauthenticated BODY SITE: SOURCE:Blood COLLECTED DATE/TIME:07/18/21 8:08 PM Blood Culture SPECIMEN DESCRIPTION : BLOOD RIGHT HAND SPECIAL REQUESTS : NONE CULTURE : NO GROWTH 4 DAYS REPORT STATUS : PRELIMINARY REPORT Radiology Reports * Exam Date Time Procedure Performing Provider Status 07/18/21 1:46 PM Chest 2 Views Frontal and Lat Adonay Colin; Auth (Verified) Notes: (Chest 2 Views Frontal and Lat) Reason For Exam: Shortness of Breath, Fever;Other: RESULT: Chest 2 Views Frontal and Lat Chest 2 Views Frontal and Lat CLINICAL INDICATION: Reason: Other:; Shortness of Breath, Fever; Clinical Question(s): Pneumonia COMPARISON: Chest x-ray, 10/11/2018. FINDINGS: Patient is mildly rotated to the left. The cardiac silhouette is within normal limits. Surgical clip is seen over the lower mediastinum. Small hiatal hernia suggested. Hilar contours are normal. Probable chronic pleural scarring at the left lung base, better seen previously. No definite focal airspace disease. There is no pleural effusion, pneumothorax, or evidence of CHF. No acute osseous abnormality is noted. IMPRESSION: No acute cardiopulmonary process. WSN: [id number] Ordering Physician: Charli Mendes Dictated By: Raven Ramos MD Dictated Date/Time: 07/18/21 2:01 pm Reviewed By: Raven Ramos MD Signed By: Raven Ramos MD Signed Date/Time: 07/18/21 2:01 pm Transcribed By: JONY Transcribed Date/Time: 07/18/21 1:57 pm Vital Signs Most recent to oldest [Reference Range]: 1 2 3 Height 176.8 cm (07/22/21 6:48 AM) 176.8 cm (07/22/21 4:59 AM) 176.8 cm (07/21/21 4:13 PM) Weight 82.1 kg (07/19/21 5:17 PM) 82.1 kg (07/19/21 5:07 PM) Oxygen Saturation [94-100 %] 95 % (07/22/21 6:48 AM) 94 % (07/22/21 4:59 AM) 94 % (07/21/21 6:00 PM) Pulse Rate [55-90 bpm] 65 bpm (07/22/21 6:48 AM) 57 bpm (07/22/21 4:59 AM) 75 bpm (07/21/21 6:00 PM) Body Mass Index [18.5-24.99] 26.27 *H* (07/19/21 5:07 PM) Blood Pressure [90-138/55-84 mm Hg] 124/55mm Hg (07/22/21 6:48 AM) 115/56mm Hg (07/22/21 4:59 AM) 142/59mm Hg *H* (07/21/21 6:00 PM) Respiratory Rate [16-30 br/min] 15 br/min *L* (07/22/21 9:26 AM) 15 br/min *L* (07/22/21 8:26 AM) 18 br/min (07/22/21 6:48 AM) Temperature [96.8-100.4 DegF] 97.8 DegF (07/22/21 6:48 AM) 97.9 DegF (07/22/21 4:59 AM) 97.2 DegF (07/21/21 6:00 PM) Mode of Delivery (Oxygen) Room air (07/22/21 6:48 AM) Room air (07/22/21 4:59 AM) Room air (07/21/21 6:00 PM) Blood pressure sites Arm, right (07/22/21 6:48 AM) Arm, right (07/22/21 4:59 AM) Arm, right (07/21/21 6:00 PM) Temperature Route Oral (07/22/21 6:48 AM) Oral (07/22/21 4:59 AM) Oral (07/21/21 6:00 PM) Dry Weight 82.1 kg (07/19/21 5:07 PM) Weight Obtained Via Bed scale (07/19/21 5:17 PM) Social History Social History Type Response Smoking Status Never (less than 100 in lifetime) entered on: 10/11/18 Sex
--- OUTSIDE RECORDS SUMMARY | 2022-10-08 19:44 | XMS_ITS | Continuity of Care Document ---
Author Name Unknown Organization [facility] Quique lt Address [address] [place] [address]- Care Team Providers Care Look Out Tower Fire Watcher Name Role Phone Josie LANDAVERDE, Jose Vidal Primary Care Physician Encounter [facility] [place] Date(s): 06/22/20 - 06/29/20 [facility] Adult [address] [place] [address]- Encounter Diagnosis Status post carotid endarterectomy(Discharge Diagnosis) - 06/22/20 Carotid occlusion, right(Discharge Diagnosis) - 06/22/20 Carotid artery stenosis(Discharge Diagnosis) - 06/22/20 Chronic vertigo(Discharge Diagnosis) - 06/22/20 Anemia(Discharge Diagnosis) - 06/22/20 Dyspnea on exertion(Discharge Diagnosis) - 06/22/20 Unsteady gait(Discharge Diagnosis) - 06/22/20 Frequent falls(Discharge Diagnosis) - 06/22/20 Attending Physician: Nieves Acevedo NP Allergies, Adverse [...] Refills, Maintenance, 05/27/20 11:22:00 EST, EC Capsule, [facility], Partial fill upon patient [...] tablet, 11 Refills, Maintenance, 02/11/20 16:02:00EST, Tablet, [facility] # [facility], Partial fill upon patient request, 176.8, cm, 09/23/19 11:05:00 EDT, Height, 89.4, kg, 01/17/19 14:16:00 EDT, Dry Weight Start Date: 02/11/20 Status: Ordered meclizine 25 mg oral tablet 1 tablet, By Mouth, 3 times a day, PRN NEEDED FOR DIZZINESS, # 30 Unknown, 0 Refills, Acute, 05/11/20 16:24:00 EST, [facility], 176.8, cm, 03/29/20 13:02:00 [...] lesion(Confirmed) Active 150 to 69% on right. [id number] Diagnosis Diagnosis Type Effective Dates Health Status Clinical Service Informant Carotid artery stenosis Discharge Diagnosis 06/22/20 Carotid occlusion, right Discharge Diagnosis 06/22/20 Status post carotid endarterectomy Discharge Diagnosis 06/22/20 Chronic vertigo Discharge Diagnosis 06/22/20 Dyspnea on exertion Discharge Diagnosis 06/22/20 Anemia Discharge Diagnosis 06/22/20 Unsteady gait Discharge Diagnosis 06/22/20 Frequent falls Discharge Diagnosis 06/22/20 Procedures Procedure Date Related Diagnosis Body Site Status Carotid endarterectomy RIGHT 1 06/04/20 Completed 1CTA showed 85% occulsion [place] Social History Social History Type Response Smoking Status Never (less than 100 in lifetime) entered on: 10/11/18 Sex
--- OUTSIDE RECORDS SUMMARY | 2022-10-08 19:44 | XMS_ITS | Continuity of Care Document ---
Author Name Unknown Organization [facility] Quique lt Address [address] [place] [address]- Care Team Providers Care Gate Mortiser Operator Name Role Phone Jose Galindo MD Primary Care Physician [facility] Date(s): 03/01/21 - 03/08/21 [facility] Adult [address] [place] [address]- Attending Physician: Jose Galindo MD Allergies, Adverse Reactions, Alerts Substance Reaction Severity Status shellfish Active Shrimp Active Immunizations Given and Recorded Vaccine Date Status Refusal Reason zoster vaccine, inactivated 02/01/21 Recorded influenza virus vaccine, inactivated 01/11/21 Barry rded influenza virus vaccine, inactivated 03/30/20 Give n influenza virus vaccine, inactivated 01/14/19 Give n SARS-CoV-2 (COVID-19) mRNA-1273 vaccine 05/27/20 R ecorded SARS-CoV-2 (COVID-19) mRNA-1273 vaccine 04/30/20 R ecorded pneumococcal 23-valent vaccine 03/18/19 Given pneumococcal 23-valent [...] 12:51:00 EDT... Start Date: 08/11/20 Status: Ordered doxycycline hyclate 100 mg oral capsule 1 capsule = 100 mg, By Mouth, 2 times a day, for 10 days, # 20 capsule, 0 Refills, Acute 03/12/21 13:20:00 EST, 03/02/21 13:20:00 EST, Capsule, [facility], Partial fill upon patient request if the prescription is for a schedule II opioid drug... Start Date: 03/02/21 Stop Date: 03/12/21 Status: Ordered Lyrica 75 mg oral capsule 1 capsule = 75 mg, By Mouth, 2 times a day, # 180 capsule, 1 Refills, Maintenance, 01/04/21 17:14:00 EDT, Capsule, [facility], Partial fill upon patient request if the prescription is for a schedule II opioid drug., 176.8, cm, 11/19/20 13:14:... Start Date: 01/04/21 Status: Ordered physical therapy physical therapy, See [...] tablet, 2 Refills, Maintenance, 12/23/20 20:36:00 EDT, [facility], Partial fill upon [...] lesion(Confirmed) Active 150 to 69% on right. [id number] Vital Signs Most recent to oldest [Reference Range]: 1 Height 176.8 cm (03/01/21 2:28 PM) Social History Social History Type Response Smoking Status Never (less than 100 in lifetime) entered on: 10/11/18 Sex
--- OUTSIDE RECORDS SUMMARY | 2022-10-08 19:44 | XMS_ITS | Continuity of Care Document ---
Author Name Unknown Organization [facility]em Quique lt Address [address] [place] [address]- Care Team Providers Care Top Lift Nailer Name Role Phone Jose Galindo MD Primary Care Physician [facility] Date(s): 02/11/20 - 03/12/20 [facility] Adult [address] [place] [address]- Allergies, Adverse Reactions, Alerts Substance Reaction Severity [...] Dry Weight Start Date: 03/18/19 Status: Ordered gabapentin 600 mg oral tablet 1 tablet = 600 mg, By Mouth, 3 times a day, # 90 tablet, 11 Refills, Maintenance, 02/11/20 16:02:00EST, Tablet, [facility], Partial fill upon patient request, 176.8, cm, 09/23/19 11:05:00 EDT, Height, 89.4, kg, 01/17/19 14:16:00 EDT, Dry Weight Start Date: 02/11/20 Status: Ordered meclizine 25 mg oral tablet See Instructions, TAKE ONE TABLET BY MOUTH THREE TIMES A DAY NEEDED FOR DIZZINESS, # 30 Unknown,0 Refills, Acute, [facility], 176.8, cm, 09/23/19 11:05:00 EDT, Height, 89.4, kg, 01/17/1914:16:00 EDT, Dry Weight Start Date: 02/11/20 Status: Ordered omeprazole 20 mg oral delayed release tablet 1 tablet = 20 mg, By Mouth, Daily, before a meal, # 90 tablet, 0 Refills, Maintenance, 03/05/20 11:29:00 EST, EC Tablet, [facility], 176.8, cm, 09/23/19 11:05:00 [...] lesion(Confirmed) Active 150 to 69% on right. [id number] Social History Social History Type Response Smoking Status Never (less than 100 in lifetime) entered on: 10/11/18 Sex
--- OUTSIDE RECORDS SUMMARY | 2022-10-08 19:44 | XMS_ITS | Continuity of Care Document ---
Author Name Unknown Organization [facility] Address [address] [place] [address]- Care Team Providers Care Choir Accompanist Name Role Phone Josie LANDAVERDE, Jose Vidal Primary Care Physician Encounter 07/05/20 - 09/03/20 [facility] [address] [place] [address]- Discharge Disposition: GO[facility] Allergies, Adverse Reactions, Alerts Substance Reaction Severity [...] 3 Refills, Maintenance, 08/11/20 19:12:00 EDT, ECCapsule, [facility], Partial fill upon patient request if the prescription is for a schedule II opioid drug., 176.8, cm, 08/11/20 12:51:00 EDT... Start Date: 08/11/20 Status: Ordered gabapentin 600 mg oral tablet 1 tablet = 600 mg, By Mouth, 3 times a day, # 270 tablet, 3 Refills, Maintenance, 08/11/20 19:13:00EDT, Tablet, [facility], Partial fill upon patient request, 176.8, cm, 08/11/20 12:51:00 EDT, Height, 89.4, kg, 01/17/19 14:16:00 EDT, Dry Weight Start Date: 08/11/20 Status: Ordered meclizine 25 mg oral tablet 1 tablet, By Mouth, 3 times a day, PRN NEEDED FOR DIZZINESS, # 90 tablet, 1 Refills, Maintenance, 08/11/20 19:14:00 EDT, [facility], 176.8, cm, 08/11/20 12:51:00 EDT, Height, 89.4, kg, 01/17/19 14:16:00 EDT, Dry Weight Start Date: 08/11/20 Status: Ordered omeprazole 20 mg oral delayed release tablet 1 tablet = 20 mg, By Mouth, Daily, before a meal, # 90 tablet, 1 Refills, Maintenance, 08/11/20 19:13:00 EDT, EC Tablet, [facility], 176.8, cm, 08/11/20 12:51:00 [...] tablet, 4 Refills, Maintenance, 08/11/20 19:13:00 EDT, [facility], Partial fill [...] lesion(Confirmed) Active 150 to 69% on right. [id number] Social History Social History Type Response Smoking Status Never (less than 100 in lifetime) entered on: 10/11/18 Sex
--- OUTSIDE RECORDS SUMMARY | 2022-10-08 19:44 | XMS_ITS | Continuity of Care Document ---
Author Name Unknown Organization [facility] Address [address] [address]- Care Team Providers Care Manager Valuation Name Role Phone Jose Galindo MD Primary Care Physician [place] [facility] [place] 09/28/22 [facility] [address] [address] Encounter Diagnosis CAD in [place] artery(Discharge Diagnosis) - 08/29/22 Ischemic cardiomyopathy(Discharge Diagnosis) - 08/29/22 Attending Physician: Gaurav Garcia MD Admitting Physician: Gaurav Garcia MD Referring Physician: Jose Galindo MD Allergies, Adverse Reactions, Alerts Substance Reaction Severity Status shellfish Active Shrimp Active Immunizations Given and Recorded Vaccine Date Status Refusal Reason [id number] 12y+ bivalent booster vax 06/06/22 Given influenza [...] Maintenance, 06/30/22 10:11:00 EDT,Route to Pharmacy Electronically, [facility], Partial fill upon patient request if the prescription is for a schedule II opioid drug., 18... Start Date: 06/30/22 Status: Ordered atorvastatin 80 mg oral tablet 1 tablet = 80 mg, By Mouth, Daily at bedtime, # 30 tablet, 2 Refills, Maintenance, 06/30/22 10:09:00 EDT, Tablet, [facility], Partial fill upon patient request if [...] Refills, Maintenance, 07/26/21 10:31:00 EDT, EC Capsule, [facility], Partial [...] 2 Refills, Maintenance, 03/07/22 12:18:00 EST, Tablet, [facility] # [facility], Partial fill upon patient [...] 08/08/22 11:11:00 EDT, Route to Pharmacy Electronically, [id number], Partial fill upon patient request if the prescription is for a schedule II opioid drug... Start Date: 08/08/22 Status: Ordered meclizine 25 mg oral tablet 1 tablet, By Mouth, 3 times a day, PRN NEEDED FOR DIZZINESS, # 60 tablet, 1 Refills, Maintenance, 07/26/22 13:26:00 EDT, [facility] # [facility], 180, cm, 07/10/22 12:52:00 EDT, Height, 93.4, kg, 06/29/22 12:39:00 EDT, Dry Weight Start Date: 07/26/22 Status: Ordered omeprazole 20 mg oral enteric coated capsule 1 capsule, By Mouth, Daily, # 90 capsule, 1 Refills, Maintenance, 08/14/22 7:59:00 EDT, [facility] # [facility], 180, cm, 07/26/22 15:35:00 EDT, Height, 93.4, kg, 06/29/22 12:39:00 EDT, Dry Weight Start Date: 08/14/22 Status: Ordered Plavix 75 mg oral tablet 75 mg, 1, tablet, By Mouth, Daily, # 30 tablet, Refills 2, Tot. Refills 2, Maintenance, 06/30/22 10:09:00 EDT, Route to Pharmacy Electronically, [facility], Partial fill upon patient request if the prescription is for a schedule II opioi... Start Date: 06/30/22 Status: Ordered pregabalin 150 mg oral capsule 1 capsule, By Mouth, 2 times a day, # 180 capsule, 1 Refills, Maintenance, 09/20/22 15:59:00 EDT, [facility] # [facility], 180, cm, 07/26/22 15:35:00 EDT, Height, 93.4, kg, 06/29/22 12:39:00 EDT, Dry Weight Start Date: 09/20/22 Status: Ordered Sinemet 25 mg-100 mg oral tablet 3 tablet, By Mouth, 3 times a day, for 90 days, # 810 tablet, 3 Refills, Hard Stop 10/01/23 7:09:00EDT, 10/06/22 7:09:00 EDT, [facility] # 50, Partial fill upon patient request if the prescription is for a schedule II opioid drug., 3 tablet By Mo... Start Date: 10/06/22 Stop Date: 10/01/23 Status: Ordered Sinemet 25 mg-100 mg oral tablet 3 tablet, By Mouth, 3 times a day, for 90 days, # 810 tablet, 1 Refills, Hard Stop 10/06/22 7:09:00EDT, 04/09/22 7:09:00 EST, [facility] # 50, Partial fill upon patient request if the prescription is for a schedule II opioid drug., 3 tablet By Mo... Start Date: 04/09/22 Stop Date: 10/06/22 Status: Ordered Toprol XL 50 mg oral tablet, extended release 50 mg, 1, tablet, By Mouth, Daily, # 30 tablet, Refills 5, Tot. Refills 5, Maintenance, 07/26/22 16:10:00 EDT, Route to Pharmacy Electronically, [facility] # [facility], Partial fill upon patient requestif the prescription is for a schedule II opioid jett... Start Date: 07/26/22 Status: Ordered traZODone 50 mg oral tablet 50 mg, 1, tablet, By Mouth, Daily at bedtime, increased dose, # 30 tablet, Refills 5, Tot. Refills 5, Maintenance, 09/25/22 13:57:00 EDT, Route to Pharmacy Electronically, [facility] #[id number], 180, cm, 07/26/22 15:35:00 EDT, Height, [...] Confirmed Active 150 to 69% on right. [id number] 3Problem added by Discern Expert Diagnosis Diagnosis Type Effective Dates Health Status Clinical Service Informant CAD in [place] artery Discharge Diagnosis 08/29/22 Ischemic cardiomyopathy Discharge Diagnosis 08/29/22 Social History Social History Type Response Smoking Status Never (less than 100 in lifetime) entered on: 10/11/18 Sex Patient Care team information Care Team Personnel Name: Azael Stafford RN Position: [facility] RN Member Role: Primary Care Nurse Name: Martín Thornton RN Position: [facility] RN Member Role: Primary Care Nurse Name: Froylan Cooley RN Position: S RN Member Role: Primary Care Nurse Name: Jose Galindo MD Position: [facility] Physician - Primary Care Member Role: PCP Address: Address: [address] [place] [address]- Name: Xiao Cervantes RN Position: [facility] RN Member Role: Primary Care Nurse Name: Jenni Tran RN Position: [facility] Onco RN Member Role: Primary Care Nurse Care Team Related Persons Name: LEIGH ANN LARRY Address: home [address] [place] [address] Name: ALFRED LARRY Address: home [id number] [place] [id number] Name: LEIGH ANN SILVERIO Address: home [address] [place] [address]
--- OUTSIDE RECORDS SUMMARY | 2022-10-08 19:44 | XMS_ITS | Continuity of Care Document ---
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 Role Phone Jose Galindo MD Primary Care Physician [place] [facility] [place]22 [facility] [address] [place], [address], [address] [place] [address]- Attending Physician: Armaan Mendoza MD Admitting Physician: Armaan Mendoza MD Allergies, Adverse Reactions, Alerts Substance Reaction Severity Status shellfish Active Shrimp Active Immunizations Given and Recorded Vaccine Date Status Refusal Reason [id number] 12y+ bivalent booster vax 06/06/22 Given influenza [...] Maintenance, 06/30/22 10:11:00 EDT,Route to Pharmacy Electronically, [facility], Partial fill upon [...] 2 Refills, Maintenance, 03/07/22 12:18:00 EST, Tablet, [facility] # [facility], Partial fill upon [...] 08/08/22 11:11:00 EDT, [id number] Partial fill upon patient request if the prescription is for a schedule II opioid drug... Start Date: 08/08/22 Status: Ordered meclizine 25 mg oral tablet 1 tablet, By Mouth, 3 times a day, PRN NEEDED FOR DIZZINESS, # 60 tablet, 1 Refills, Maintenance, 07/26/22 13:26:00 EDT, [facility] # [facility], 180, cm, 07/10/22 12:52:00 EDT, Height, 93.4, kg, 06/29/22 12:39:00 EDT, Dry Weight Start Date: 07/26/22 Status: Ordered omeprazole 20 mg oral enteric coated capsule 1 capsule, By Mouth, Daily, # 90 capsule, 1 Refills, Maintenance, 08/14/22 7:59:00 EDT, [facility] # [facility], 180, cm, 07/26/22 15:35:00 EDT, Height, 93.4, kg, 06/29/22 12:39:00 EDT, Dry Weight Start Date: 08/14/22 Status: Ordered Plavix 75 mg oral tablet 75 mg, 1, tablet, By Mouth, Daily, # 30 tablet, Refills 2, Tot. Refills 2, Maintenance, 06/30/22 10:09:00 EDT, Route to Pharmacy Electronically, [facility] 3, Partial fill upon patient request if the prescription is for a schedule II opioi... Start Date: 06/30/22 Status: Ordered pregabalin 150 mg oral capsule 1 capsule, By Mouth, 2 times a day, # 180 capsule, 1 Refills, Maintenance, 09/20/22 15:59:00 EDT, [facility] # [facility], 180, cm, 07/26/22 15:35:00 EDT, Height, 93.4, kg, 06/29/22 12:39:00 EDT, Dry Weight Start Date: 09/20/22 Status: Ordered Sinemet 25 mg-100 mg oral tablet 3 tablet, By Mouth, 3 times a day, for 90 days, # 810 tablet, 3 Refills, Hard Stop 10/01/23 7:09:00EDT, 10/06/22 7:09:00 EDT, [facility] # 50, Partial fill upon patient request if the prescription is for a schedule II opioid drug., 3 tablet By Mo... Start Date: 10/06/22 Stop Date: 10/01/23 Status: Ordered Toprol XL 50 mg oral tablet, extended release 50 mg, 1, tablet, By Mouth, Daily, # 30 tablet, Refills 5, Tot. Refills 5, Maintenance, 07/26/22 16:10:00 EDT, Route to Pharmacy Electronically, [facility] # [facility], Partial fill upon patient requestif the prescription is for a schedule II opioid jett... Start Date: 07/26/22 Status: Ordered traZODone 50 mg oral tablet 50 mg, 1, tablet, By Mouth, Daily at bedtime, increased dose, # 30 tablet, Refills 5, Tot. Refills 5, Maintenance, 09/25/22 13:57:00 EDT, Route to Pharmacy Electronically, [facility] #[id number], 180, cm, 07/26/22 15:35:00 EDT, Height, [...] Confirmed Active 150 to 69% on right. [id number] 3Problem added by Discern Expert Social History Social History Type Response Smoking Status Never (less than 100 in lifetime) entered on: 10/11/18 Sex Patient Care team information Care Team Personnel Name: Azael Stafford RN Position: [facility] RN Member Role: Primary Care Nurse Name: Martín Thornton RN Position: [facility] RN Member Role: Primary Care Nurse Name: Froylan Cooley RN Position: [facility] RN Member Role: Primary Care Nurse Name: Jose Galindo MD Position: [facility] Physician - Primary Care Member Role: PCP Address: Address: [address] [place] [address]- Name: Xiao Cervantes RN Position: [facility] RN Member Role: Primary Care Nurse Name: Jenni Tran RN Position: [facility] Onco RN Member Role: Primary Care Nurse Care Team Related Persons Name: LEIGH ANN LARRY Address: home [address] [place] [id number] Name: ALFRED LARRY Address: home [address] [place] [address] Name: LEIGH ANN SILVERIO Address: home [address] [place] [address]
--- OUTSIDE RECORDS SUMMARY | 2022-10-08 19:44 | XMS_ITS | Continuity of Care Document ---
Author Name Unknown Organization [facility] Address [address] [place] [address]- Care Team Providers Care Horse Rider Name Role Phone Jose Galindo MD Primary Care Physician [facility]counter [facility] Date(s): 08/04/20 - 09/03/20 [facility] Adult [address] [place] [address]- Allergies, Adverse Reactions, Alerts Substance Reaction Severity [...] 3 Refills, Maintenance, 08/11/20 19:12:00 EDT, ECCapsule, [facility] # [facility], Partial fill upon patient request if the prescription is for a schedule II opioid drug., 176.8, cm, 08/11/20 12:51:00 EDT... Start Date: 08/11/20 Status: Ordered gabapentin 600 mg oral tablet 1 tablet = 600 mg, By Mouth, 3 times a day, # 270 tablet, 3 Refills, Maintenance, 08/11/20 19:13:00EDT, Tablet, [facility] # [facility], Partial fill upon patient request, 176.8, cm, 08/11/20 12:51:00 EDT, Height, 89.4, kg, 01/17/19 14:16:00 EDT, Dry Weight Start Date: 08/11/20 Status: Ordered meclizine 25 mg oral tablet 1 tablet, By Mouth, 3 times a day, PRN NEEDED FOR DIZZINESS, # 90 tablet, 1 Refills, Maintenance, 08/11/20 19:14:00 EDT, [facility] # [facility], 176.8, cm, 08/11/20 12:51:00 EDT, Height, 89.4, kg, 01/17/19 14:16:00 EDT, Dry Weight Start Date: 08/11/20 Status: Ordered omeprazole 20 mg oral delayed release tablet 1 tablet = 20 mg, By Mouth, Daily, before a meal, # 90 tablet, 1 Refills, Maintenance, 08/11/20 19:13:00 EDT, EC Tablet, [facility] # [facility], 176.8, cm, 08/11/20 12:51:00 [...] tablet, 4 Refills, Maintenance, 08/11/20 19:13:00 EDT, [facility] # [facility], Partial fill [...] lesion(Confirmed) Active 150 to 69% on right. [id number] Social History Social History Type Response Smoking Status Never (less than 100 in lifetime) entered on: 10/11/18 Sex
--- OUTSIDE RECORDS SUMMARY | 2022-10-08 19:44 | XMS_ITS | Continuity of Care Document ---
Author Name Unknown Organization [facility] Address [address] [place] [address]- Care Team Providers Care Cant Hooker Name Role Phone Jose Galindo MD Primary Care Physician [phone] Encounter [facility] Date(s): 06/07/22 - 07/07/22 [facility] Adult [address] [place] [address]- Allergies, Adverse Reactions, Alerts Substance Reaction Severity Status shellfish Active Shrimp Active Immunizations Given and Recorded Vaccine Date Status Refusal Reason [id number] 12y+ bivalent booster vax 06/06/22 Given influenza [...] Maintenance, 06/30/22 10:11:00 EDT,Route to Pharmacy Electronically, [facility], Partial fill upon patient request if the prescription is for a schedule II opioid drug., 18... Start Date: 06/30/22 Status: Ordered atorvastatin 80 mg oral tablet 1 tablet = 80 mg, By Mouth, Daily at bedtime, # 30 tablet, 2 Refills, Maintenance, 06/30/22 10:09:00 EDT, Tablet, [facility], Partial fill upon patient [...] 06/30/22 10:10:00 EDT, Route to Pharmacy Electronically, [facility] 3, Partial fill upon patient request if the prescription is for a schedule II opioi... Start Date: 06/30/22 Status: Ordered Lyrica 150 mg oral capsule 1 capsule = 150 mg, By Mouth, 2 times a day, # 180 capsule, 0 Refills, Maintenance, 06/13/22 14:29:00 EDT, [facility] # [facility], Partial fill upon patient request if the prescription is for a scheduleII opioid drug., 176.8, cm, 06/12/22 11:10:00 EDT,... Start Date: 06/13/22 Stop Date: 09/11/22 Status: Ordered meclizine 25 mg oral tablet 1 tablet = 25 mg, By Mouth, 3 times a day, PRN for dizziness, # 60 tablet, 1 Refills, Maintenance, 07/26/21 10:32:00 EDT, Tablet, [facility] # 50, Partial fill upon patient request if the prescription is for a schedule II opioid drug., 176.8, cm,... Start Date: 07/26/21 Status: Ordered metoprolol 25 mg oral tablet, extended release 25 mg, 1, tablet, By Mouth, Daily, # 30 tablet, Refills 2, Tot. Refills 2, Maintenance, 06/30/22 10:10:00 EDT, Route to Pharmacy Electronically, [facility], Partial fill upon patient request if the prescription is for a schedule II opioi... Start Date: 06/30/22 Status: Ordered omeprazole 20 mg oral delayed release tablet 1 tablet = 20 mg, By Mouth, Daily, # 90 tablet, 3 Refills, Maintenance, 07/26/21 10:31:00 EDT, CR Tablet, [facility], Partial fill upon patient request if the prescription is for a schedule II opioid drug., 176.8, cm, 07/26/21 10:04:00 EDT, H... Start Date: 07/26/21 Status: Ordered Plavix 75 mg oral tablet 75 mg, 1, tablet, By Mouth, Daily, # 30 tablet, Refills 2, Tot. Refills 2, Maintenance, 06/30/22 10:09:00 EDT, Route to Pharmacy Electronically, [facility] 3, Partial fill upon patient request if the prescription is for a schedule II opioi... Start Date: 06/30/22 Status: Ordered Sinemet 25 mg-100 mg oral tablet 3 tablet, By Mouth, 3 times a day, for 90 days, # 810 tablet, 1 Refills, Hard Stop 10/06/22 7:09:00EDT, 04/09/22 7:09:00 EST, [facility] # 50, Partial fill upon patient request if the prescription is for a schedule II opioid drug., 3 tablet By Mo... Start Date: 04/09/22 Stop Date: 10/06/22 Status: Ordered traZODone 50 mg oral tablet 50 mg, 1, tablet, By Mouth, Daily at bedtime, increased dose, # 30 tablet, Refills 11, Tot. [id number], Maintenance, 06/13/22 14:08:00 EDT, Route to Pharmacy Electronically, [facility] # [facility], 176.8, cm, 06/12/22 [...] on right. 2Problem added by Discern Expert [id number] Social History Social History Type Response Smoking Status Never (less than 100 in lifetime) entered on: 10/11/18 Sex Patient Care team information Care Team Personnel Name: Azael Stafford RN Position: [facility] RN Member Role: Primary Care Nurse Name: Martín Thornton RN Position: [facility] RN Member Role: Primary Care Nurse Name: Froylan Cooley RN Position: [facility] RN Member Role: Primary Care Nurse Name: Jose Galindo MD Position: [facility] Primary Care Physician Member Role: PCP Address: Address: [address] [place] [address]- Name: Xiao Cervantes RN Position: [facility] RN Member Role: Primary Care Nurse Name: Jenni Tran RN Position: [facility] Onco RN Member Role: Primary Care Nurse Care Team Related Persons Name: LEIGH ANN LARRY Address: home [address] [place] [address] Name: ALFRED LARRY Address: home [address] [place] [address] Name: LEIGH ANN SILVERIO Address: home [address] [place] [address]
--- OUTSIDE RECORDS SUMMARY | 2022-10-08 19:44 | XMS_ITS | Continuity of Care Document ---
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 # [facility], Partial fill upon patient request if the prescription is for a schedule II opioid drug., 176.8, cm, 08/11/20 12:51:00 EDT... Start Date: 08/11/20 Status: Ordered gabapentin 600 mg oral tablet 1 tablet = 600 mg, By Mouth, 3 times a day, # 270 tablet, 3 Refills, Maintenance, 08/11/20 19:13:00EDT, Tablet, [facility] # [facility], Partial fill upon patient request, 176.8, cm, 08/11/20 12:51:00 EDT, Height, 89.4, kg, 01/17/19 14:16:00 EDT, Dry Weight Start Date: 08/11/20 Status: Ordered meclizine 25 mg oral tablet 1 tablet, By Mouth, 3 times a day, PRN NEEDED FOR DIZZINESS, # 90 tablet, 1 Refills, Maintenance, 08/11/20 19:14:00 EDT, [facility] # 50, 176.8, cm, 08/11/20 12:51:00 EDT, Height, 89.4, kg, 01/17/19 14:16:00 EDT, Dry Weight Start Date: 08/11/20 Status: Ordered omeprazole 20 mg oral delayed release tablet 1 tablet = 20 mg, By Mouth, Daily, before a meal, # 90 tablet, 1 Refills, Maintenance, 08/11/20 19:13:00 EDT, EC Tablet, [facility] # [facility], 176.8, cm, 08/11/20 [...] lesion(Confirmed) Active 150 to 69% on right. [id number] Diagnosis Diagnosis Type Effective Dates Health Status Clinical Service Informant Neuropathy, peripheral Discharge Diagnosis 08/11/20 Obstructive sleep apnea Discharge Diagnosis 08/11/20 Hypercholesterolemia Discharge Diagnosis 08/11/20 Vital Signs Most recent to oldest [Reference Range]: 1 Height 176.8 cm (08/11/20 12:51 PM) Weight 93.7 kg (08/11/20 12:51 PM) Oxygen Saturation [94-100 %] 97 % (08/11/20 12:51 PM) Pulse Rate [55-90 bpm] 97 bpm *H* (08/11/20 12:51 PM) Body Mass Index [18.5-24.99] 29.98 *H* (08/11/20 12:51 PM) Blood Pressure [90-138/55-84 mm Hg] 104/ 62mm Hg (08/11/20 12:51 PM) Mode of Delivery (Oxygen) Room air (08/11/20 12:51 PM) Blood pressure sites Arm, left (08/11/20 12:51 PM) Weight Obtained Via Standing scale (08/11/20 12:51 PM) Social History Social History Type Response Smoking Status Never (less than 100 in lifetime) entered on: 10/11/18 Sex
--- OUTSIDE RECORDS SUMMARY | 2022-10-08 19:44 | XMS_ITS | Continuity of Care Document ---
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 Role Phone Jose Galindo MD Primary Care Physician [facility] Date[facility]s): 02/11/20 - 03/12/20 [facility] Adult [address] [place] [address]- Allergies, Adverse Reactions, Alerts Substance Reaction Severity [...] tablet, 11 Refills, Maintenance, 02/11/20 16:02:00EST, Tablet, [facility] # [facility], Partial fill upon patient request, 176.8, cm, 09/23/19 11:05:00 EDT, Height, 89.4, kg, 01/17/19 14:16:00 EDT, Dry Weight Start Date: 02/11/20 Status: Ordered meclizine 25 mg oral tablet See Instructions, TAKE ONE TABLET BY MOUTH THREE TIMES A DAY NEEDED FOR DIZZINESS, # 30 Unknown,0 Refills, Acute, [facility] # [facility], 176.8, cm, 09/23/19 11:05:00 EDT, Height, 89.4, kg, 01/17/1914:16:00 EDT, Dry Weight Start Date: 02/11/20 Status: Ordered omeprazole 20 mg oral delayed release tablet 1 tablet = 20 mg, By Mouth, Daily, before a meal, # 90 tablet, 0 Refills, Maintenance, 03/05/20 11:29:00 EST, EC Tablet, [facility] # [facility], 176.8, cm, 09/23/19 11:05:00 [...] lesion(Confirmed) Active 150 to 69% on right. [id number] Social History Social History Type Response Smoking Status Never (less than 100 in lifetime) entered on: 10/11/18 Sex
--- OUTSIDE RECORDS SUMMARY | 2022-10-08 19:45 | XMS_ITS | Continuity of Care Document ---
Author Name Unknown Organization [facility] Address [address] [place] [address]- Care Team Providers Care Shearer Helper Name Role Phone Jose Galindo MD Primary Care Physician [phone] Encounter [facility] Date(s): 08/12/20 - 09/11/20 [facility] Adult [address] [place] [address]- Allergies, Adverse Reactions, Alerts Substance Reaction Severity [...] tablet, 3 Refills, Maintenance, 08/11/20 19:13:00EDT, Tablet, [facility] # [facility], Partial fill upon patient request, 176.8, cm, 08/11/20 12:51:00 EDT, Height, 89.4, kg, 01/17/19 14:16:00 EDT, Dry Weight Start Date: 08/11/20 Status: Ordered meclizine 25 mg oral tablet 1 tablet, By Mouth, 3 times a day, PRN NEEDED FOR DIZZINESS, # 90 tablet, 1 Refills, Maintenance, 08/11/20 19:14:00 EDT, [facility] # [facility], 176.8, cm, 08/11/20 12:51:00 EDT, Height, 89.4, kg, 01/17/19 14:16:00 EDT, Dry Weight Start Date: 08/11/20 Status: Ordered omeprazole 20 mg oral delayed release tablet 1 tablet = 20 mg, By Mouth, Daily, before a meal, # 90 tablet, 1 Refills, Maintenance, 08/11/20 19:13:00 EDT, EC Tablet, [facility] # [facility], 176.8, cm, 08/11/20 12:51:00 [...] tablet, 4 Refills, Maintenance, 08/11/20 19:13:00 EDT, [facility] # [facility], Partial fill upon [...] lesion(Confirmed) Active 150 to 69% on right. [id number] Social History Social History Type Response Smoking Status Never (less than 100 in lifetime) entered on: 10/11/18 Sex
--- OUTSIDE RECORDS SUMMARY | 2022-10-08 19:45 | XMS_ITS | Continuity of Care Document ---
Author Name Unknown Organization [facility] Address [address] [facility], [address] d Floor, [address] [place] [address]- Care Team Providers Care Correctional Captain Name Role Phone Jose Galindo MD Primary Care Physician [phone] [place] [facility] [place] 02/23/22 - 03/25/22 [facility] [address], 3[address] Floor, [address] [place] [address]- Attending Physician: Armaan Mendoza MD Admitting Physician: Armaan Mendoza MD Referring Physician: Jose Galindo MD Allergies, [...] 1 Refills, Maintenance, 07/26/21 10:31:00 EDT, Capsule, [facility], Partial fill upon patient request if the prescription is for a schedule II opioid drug., 176.8, cm, 07/26/21 10:04:... Start Date: 07/26/21 Status: Ordered meclizine 25 mg oral tablet 1 tablet = 25 mg, By Mouth, 3 times a day, PRN for dizziness, # 60 tablet, 1 Refills, Maintenance, 07/26/21 10:32:00 EDT, Tablet, [facility] # [facility], Partial fill upon patient request if the prescription is for a schedule II opioid drug., 176.8, cm,... Start Date: 07/26/21 Status: Ordered omeprazole 20 mg oral delayed release tablet 1 tablet = 20 mg, By Mouth, Daily, # 90 tablet, 3 Refills, Maintenance, 07/26/21 10:31:00 EDT, CR Tablet, [email or web address] # [facility], Partial fill upon patient request if the prescription is for a schedule II opioid drug., 176.8, cm, 07/26/21 10:04:00 EDT, H... Start Date: 07/26/21 Status: Ordered Sinemet 25 mg-100 mg oral tablet 3 tablet, By Mouth, 3 times a day, for 90 days, # 810 tablet, 1 Refills, Hard Stop 04/09/22 7:09:00EST, 10/11/21 7:09:00 EDT, [facility] # [facility], Partial fill upon patient request if the prescription is for a schedule II opioid drug., 176.8, cm, ... Start Date: 10/11/21 Stop Date: 04/09/22 Status: Ordered traZODone 50 mg oral tablet 0.5, tablet, By Mouth, Daily at bedtime, # 15 tablet, Refills 11, Maintenance, 01/05/22 17:57:00 EDT, Route to Pharmacy Electronically, [facility], 176.8, cm, [...] on right. 2Problem added by Discern Expert [id number] Social History Social History Type Response Smoking Status Never (less than 100 in lifetime) entered on: 10/11/18 Sex Patient Care team information Care Team Personnel Name: Azael Stafford RN Position: [facility] RN Member Role: Primary Care Nurse Name: Martín Thornton RN Position: [facility] RN Member Role: Primary Care Nurse Name: Jose Galindo MD Position: [facility] Primary Care Physician Member Role: PCP Address: Address: [address] [place] [address]- Name: Jenni Tran RN Position: [facility] RN Member Role: Primary Care Nurse Care Team Related Persons Name: LEIGH ANN LARRY Address: home [address] [place] [address] Name: ALFRED LARRY Address: home [address] [place] [address] Name: LEIGH ANN SILVERIO Address: home [address] [place] [address]
--- OUTSIDE RECORDS SUMMARY | 2022-10-08 19:45 | XMS_ITS | Continuity of Care Document ---
Author Name Unknown Organization [facility] Kareem Quique lt Address [address] [place] [address]- Care Team Providers Care Medical Doctor Md Name Role Phone Jose Galindo MD Primary Care Physician [facility] Date[facility]s): 07/01/20 - 07/31/20 [facility] Adult [address] [place] [address]- Attending Physician: Admtr, Ar8 Admitting Physician: Admtr, [...] Daily, # 90 tablet, 1 Refills, Maintenance, 07/30/20 10:11:00 EDT, Tablet, [facility], 176.8, cm, 07/01/20 15:14:00 EDT, Height, 89.4, kg, 01/17/19 14:16:00 EDT, Dry Weight Start Date: 07/30/20 Status: Ordered CeleBREX 200 mg oral capsule [...] Refills, Maintenance, 05/27/20 11:22:00 EST, EC Capsule, [facility] # [facility], Partial fill upon patient [...] tablet, 11 Refills, Maintenance, 02/11/20 16:02:00EST, Tablet, [facility] # 50, Partial fill upon patient request, 176.8, cm, 09/23/19 11:05:00 EDT, Height, 89.4, kg, 01/17/19 14:16:00 EDT, Dry Weight Start Date: 02/11/20 Status: Ordered meclizine 25 mg oral tablet 1 tablet, By Mouth, 3 times a day, PRN NEEDED FOR DIZZINESS, # 90 tablet, 1 Refills, Maintenance, 07/30/20 11:18:00 EDT, [facility], 176.8, cm, 07/01/20 15:14:00 EDT, Height, 89.4, kg, 01/17/19 14:16:00 EDT, Dry Weight Start Date: 07/30/20 Status: Ordered omeprazole 20 mg oral delayed release tablet 1 tablet = 20 mg, By Mouth, Daily, before a meal, # 90 tablet, 1 Refills, Maintenance, 07/30/20 10:11:00 EDT, EC Tablet, [facility], 176.8, cm, 07/01/20 15:14:00 EDT, Height, 89.4, kg, 01/17/19 14:16:00 EDT, Dry Weight Start Date: 07/30/20 Stop Date: 01/26/21 Status: Ordered physical therapy physical therapy, See [...] 3 times a day, # 270 tablet, 1 Refills, Maintenance, 07/30/20 12:19:00 EDT, [facility], Partial fill upon patient request if the prescription is for a schedule II opioid drug., 1 tablet By Mouth 3 times a day... Start Date: 07/30/20 Stop Date: 01/26/21 Status: Ordered Problem List Condition Effective Dates [...] lesion(Confirmed) Active 150 to 69% on right. [id number] Social History Social History Type Response Smoking Status Never (less than 100 in lifetime) entered on: 10/11/18 Sex
--- OUTSIDE RECORDS SUMMARY | 2022-10-08 19:45 | XMS_ITS | Continuity of Care Document ---
Author Name Unknown Organization [facility] Kareem Quique lt Address [address] [place] [address]- Care Team Providers Care Exhibitions Curator Name Role Phone Jose Galindo MD Primary Care Physician [facility] Date[facility]): 08/09/20 - 09/26/20 [facility] Adult [address] [place] [address]- Attending Physician: Not on Staff, Attending MD Allergies, Adverse Reactions, Alerts Substance Reaction [...] 3 Refills, Maintenance, 08/11/20 19:12:00 EDT, ECCapsule, [facility] # [facility], Partial fill upon patient request if the prescription is for a schedule II opioid drug., 176.8, cm, 08/11/20 12:51:00 EDT... Start Date: 08/11/20 Status: Ordered gabapentin 600 mg oral tablet 1 tablet = 600 mg, By Mouth, 3 times a day, # 270 tablet, 3 Refills, Maintenance, 08/11/20 19:13:00EDT, Tablet, [facility] # 50, Partial fill upon patient request, 176.8, cm, 08/11/20 12:51:00 EDT, Height, 89.4, kg, 01/17/19 14:16:00 EDT, Dry Weight Start Date: 08/11/20 Status: Ordered meclizine 25 mg oral tablet 1 tablet, By Mouth, 3 times a day, PRN NEEDED FOR DIZZINESS, # 90 tablet, 1 Refills, Maintenance, 08/11/20 19:14:00 EDT, [facility] # 50, 176.8, cm, 08/11/20 12:51:00 EDT, Height, 89.4, kg, 01/17/19 14:16:00 EDT, Dry Weight Start Date: 08/11/20 Status: Ordered omeprazole 20 mg oral delayed release tablet 1 tablet = 20 mg, By Mouth, Daily, before a meal, # 90 tablet, 1 Refills, Maintenance, 08/11/20 19:13:00 EDT, EC Tablet, [facility] # 50, 176.8, cm, 08/11/20 [...] tablet, 2 Refills, Maintenance, 09/17/20 12:52:00 EDT, [facility] # [facility], Partial fill upon patient [...] lesion(Confirmed) Active 150 to 69% on right. [id number] Social History Social History Type Response Smoking Status Never (less than 100 in lifetime) entered on: 10/11/18 Sex
--- OUTSIDE RECORDS SUMMARY | 2022-10-08 19:45 | XMS_ITS | Continuity of Care Document ---
Author Name Unknown Organization [facility] Address [address] [place] [address]- Care Team Providers Care Direct Of Real Estate Name Role Phone Jose Galindo MD Primary Care Physician [facility]counter [facility] Date(s): 09/29/22 - 10/01/[address] [address]- Encounter Diagnosis Weakness(Final) - 09/30/22 Parkinson disease(Final) - 09/30/22 Discharge Disposition: A-D/C Home Attending Physician: Elinor Sandoval DO Admitting Physician: Elinor Sandoval DO Referring Physician: Not on Staff, Referring MD Allergies, Adverse Reactions, Alerts Substance Reaction Severity Status shellfish Active Shrimp Active Immunizations Given and Recorded Vaccine Date Status Refusal Reason [id number] 12y+ bivalent booster vax 06/06/22 Given influenza [...] Maintenance, 06/30/22 10:11:00 EDT,Route to Pharmacy Electronically, [facility], Partial fill upon patient request if the prescription is for a schedule II opioid drug., 18... Start Date: 06/30/22 Status: Ordered atorvastatin 80 mg oral tablet 1 tablet = 80 mg, By Mouth, Daily at bedtime, # 30 tablet, 2 Refills, Maintenance, 06/30/22 10:09:00 EDT, Tablet, [facility], Partial fill upon patient [...] 2 Refills, Maintenance, 03/07/22 12:18:00 EST, Tablet, [facility] # [facility], Partial fill [...] 08/08/22 11:11:00 EDT, Route to Pharmacy Electronically, [facility] #[id number], Partial fill upon patient request if the prescription is for a schedule II opioid drug... Start Date: 08/08/22 Status: Ordered meclizine 25 mg oral tablet 1 tablet, By Mouth, 3 times a day, PRN NEEDED FOR DIZZINESS, # 60 tablet, 1 Refills, Maintenance, 07/26/22 13:26:00 EDT, [facility] # 50, 180, cm, 07/10/22 12:52:00 EDT, Height, 93.4, kg, 06/29/22 12:39:00 EDT, Dry Weight Start Date: 07/26/22 Status: Ordered omeprazole 20 mg oral enteric coated capsule 1 capsule, By Mouth, Daily, # 90 capsule, 1 Refills, Maintenance, 08/14/22 7:59:00 EDT, [facility] # [facility], 180, cm, 07/26/22 15:35:00 EDT, Height, 93.4, kg, 06/29/22 12:39:00 EDT, Dry Weight Start Date: 08/14/22 Status: Ordered Plavix 75 mg oral tablet 75 mg, 1, tablet, By Mouth, Daily, # 30 tablet, Refills 2, Tot. Refills 2, Maintenance, 06/30/22 10:09:00 EDT, Route to Pharmacy Electronically, [facility], Partial fill upon patient request if the prescription is for a schedule II opioi... Start Date: 06/30/22 Status: Ordered pregabalin 150 mg oral capsule 1 capsule, By Mouth, 2 times a day, # 180 capsule, 1 Refills, Maintenance, 09/20/22 15:59:00 EDT, [facility] # [facility], 180, cm, 07/26/22 15:35:00 EDT, Height, 93.4, kg, 06/29/22 12:39:00 EDT, Dry Weight Start Date: 09/20/22 Status: Ordered Sinemet 25 mg-100 mg oral tablet 3 tablet, By Mouth, 3 times a day, for 90 days, # 810 tablet, 3 Refills, Hard Stop 10/01/23 7:09:00EDT, 10/06/22 7:09:00 EDT, [facility] # 50, Partial fill upon patient request if the prescription is for a schedule II opioid drug., 3 tablet By Mo... Start Date: 10/06/22 Stop Date: 10/01/23 Status: Ordered Sinemet 25 mg-100 mg oral tablet 3 tablet, By Mouth, 3 times a day, for 90 days, # 810 tablet, 1 Refills, Hard Stop 10/06/22 7:09:00EDT, 04/09/22 7:09:00 EST, [facility] # 50, Partial fill upon patient request if the prescription is for a schedule II opioid drug., 3 tablet By Mo... Start Date: 04/09/22 Stop Date: 10/06/22 Status: Ordered Toprol XL 50 mg oral tablet, extended release 50 mg, 1, tablet, By Mouth, Daily, # 30 tablet, Refills 5, Tot. Refills 5, Maintenance, 07/26/22 16:10:00 EDT, Route to Pharmacy Electronically, [facility] # 50, Partial fill upon patient requestif the prescription is for a schedule II opioid jett... Start Date: 07/26/22 Status: Ordered traZODone 50 mg oral tablet 50 mg, 1, tablet, By Mouth, Daily at bedtime, increased dose, # 30 tablet, Refills 5, Tot. Refills 5, Maintenance, 09/25/22 13:57:00 EDT, Route to Pharmacy Electronically, [facility] #[id number], 180, cm, 07/26/22 15:35:00 EDT, Height, [...] Confirmed Active 150 to 69% on right. [id number] 3Problem added by Discern Expert Results Radiology Reports * Exam Date Time Procedure Performing Provider Status 09/29/22 4:25 PM Chest 2 Views Frontal and Lat Nathalie Nicholas; Auth (Verified) Notes: (Chest 2 Views Frontal and Lat) Reason For Exam: Chest Pain;Other: RESULT: Chest 2 Views Frontal and Lat Chest 2 Views Frontal and Lat Hx of Present Illness: Dark urine, fatigue, family stressors - see PIT note; Reason: Chest Pain; Clinical Question(s): CHF COMPARISON: Multiple priors, most recent chest x-ray 06/28/2022. FINDINGS: LINES AND TUBES: None. LUNGS AND PLEURA: Clear lungs. Mildly prominent pulmonary vascularity. Mild blunting of the left costophrenic angle could represent small mild pleural effusion. No pneumothorax. HEART, MEDIASTINUM AND AGATA: Heart is normal in size. Unchanged mediastinal and hilar contour. BONES AND SOFT TISSUES: No acute abnormality. Old healed left sided rib fractures. IMPRESSION: Mild pulmonary vascular congestion without evidence of overt pulmonary edema. Mild blunting of the left costophrenic angle could represent small left pleural effusion. I have personally reviewed the images and I agree with this report. WSN: [id number] Ordering Physician: Alayna Oropeza MD Dictated By: Patrica Busch MD Dictated Date/Time: 09/29/22 4:30 pm Reviewed By: Ulisses Bird MD, V Signed By: Ulisses Bird MD, V Signed Date/Time: 09/29/22 4:35 pm Transcribed By: JONY Transcribed Date/Time: 09/29/22 4:29 pm Vital Signs Most recent to oldest [Reference Range]: 1 2 3 Height 180 cm (09/30/22 7:09 PM) 180 cm (09/30/22 3:26 PM) 180 cm (09/29/22 4:05 PM) Weight 92 kg (09/30/22 7:09 PM) 92 kg (09/29/22 4:05 PM) 92 kg (09/29/22 2:00 PM) Oxygen Saturation [94-100 %] 100 % (09/30/22 9:46 PM) 98 % (09/30/22 7:09 PM) 95 % (09/30/22 3:07 PM) Pulse Rate [55-90 bpm] 70 bpm (09/30/22 9:46 PM) 61 bpm (09/30/22 7:09 PM) 61 bpm (09/30/22 3:07 PM) Body Mass Index [18.5-24.99 kg/m2] 28.4 kg/m2 *H* (09/30/22 7:09 PM) 28.4 kg/m2 *H* (09/29/22 4:05 PM) 28.4 kg/m2 *H* (09/29/22 2:00 PM) Blood Pressure [90-138/55-84 mm Hg] 148/78mm Hg *H* (09/30/22 9:46 PM) 123/62mm Hg (09/30/22 7:09 PM) 120/70mm Hg (09/30/22 2:49 PM) Respiratory Rate [16-30 br/min] 18 br/min (09/30/22 9:46 PM) 18 br/min (09/30/22 7:09 PM) 15 br/min *L* (09/30/22 3:07 PM) Temperature [96.8-100.4 DegF] 97.7 DegF (09/30/22 7:09 PM) 97.6 DegF (09/30/22 2:49 PM) 97.5 DegF (09/30/22 9:18 AM) Mode of Delivery (Oxygen) Room air (09/30/22 9:46 PM) Room air (09/30/22 7:09 PM) Room air (09/30/22 3:07 PM) Blood pressure sites Arm, left (09/30/22 7:09 PM) Arm, left (09/30/22 2:49 PM) Arm, left (09/30/22 9:18 AM) Temperature Route Oral (09/30/22 7:09 PM) Oral (09/30/22 2:49 PM) Oral (09/30/22 9:18 AM) Dry Weight 92 kg (09/30/22 7:09 PM) 92 kg (09/29/22 4:05 PM) 92 kg (09/29/22 2:00 PM) Weight Obtained Via Patient/family state d (09/30/22 7:09 PM) Patient/family stated (09/29/22 11:29 AM) Dry Weight Obtained Via Patient/family s tated (09/30/22 7:09 PM) Patient/family stated (09/29/22 11:29 AM) Social History Social History Type Response Smoking Status Never (less than 100 in lifetime) entered on: 10/11/18 Sex EKG study * Event Display: EKG Authored Date: [id number] Note * Luis E LANDAVERDE, Nicola Cox: PERFORM Event Display: Patient Education Leaflets Authored Date: [id number] Weakness with Uncertain Cause ?? [id number] Weakness with Uncertain Cause Based on your exam today, the exact cause of your weakness is not clear. But your weakness does notseem to be a sign of a serious illness at this time. Keep an eye on your symptoms and get medical advice as directed below. Home care ??? Rest at home today. Don't overexert yourself. ??? Take any medicine as prescribed. ??? For the??next few days, drink extra fluids unless your healthcare provider wants you to restrict fluids for other reasons. Don't skip meals. ??? Unless otherwise directed, continue to take any prescription medicines. ??? Contact your healthcare provider if you have any questions or concerns. ?? Follow-up care Follow up with your healthcare provider, or as advised. ?? When to get medical advice Call your healthcare provider right away??if any of the following occur: ??? Symptoms get worse ???Symptoms don't start getting better within 2 days ??? Fever of 100.4?? F (38?? C) or higher, or as directed by your healthcare provider ?? Call 911 Call 911 if any of the following occur: ??? Chest, arm, neck, jaw, or upper back pain ??? Trouble breathing ??? Numbness or weakness of the face, one arm, or one leg ??? Slurred speech, confusion, or??trouble speaking, walking, or seeing ??? Blood in vomit or stool (black or red color) ??? Severe headache ??? Loss of consciousness, such as fainting ?? Last Reviewed Date: 2022 ?? [id number] The [employer]. All rights reserved. This information is not intended as a substitute for professional medical care. Always follow your healthcare professional's instructions. ?? Patient Care team information Care Team Personnel Name: Azael Stafford RN Position: [facility] RN Member Role: Primary Care Nurse Name: Martín Thornton RN Position: [facility] RN Member Role: Primary Care Nurse Name: Froylan Cooley RN Position: [facility] RN Member Role: Primary Care Nurse Name: Jose Galindo MD Position: [facility] Physician - Primary Care Member Role: PCP Address: Address: [address] [place] [address]- Name: Xiao Cervantes RN Position: [facility] RN Member Role: Primary Care Nurse Name: Jenni Tran RN Position: [facility] Onco RN Member Role: Primary Care Nurse [facility] Attending Position: [facility] ED Attendings Patient Name: Refugio Trinh Position: [facility] ED TA [facility] Member Role: Cattle Dealer Name: Aliyah Herrera RN Position: [facility] ED RN W/OE and Tasks Member Role: Patient Care Provider Name: Elinor Sandoval DO Position: [facility] ED Medicine MD Member Role: Admitting Physician Address: Address: [address] [place] [address]- Care Team Related Persons Name: LEIGH ANN LARRY Address: home [address] [place] [address] Name: ALFRED LARRY Address: home [address] [facility] [place] [address] Name: LEIGH ANN SILVERIO Address: home [address] [place] [id number]
--- OUTSIDE RECORDS SUMMARY | 2022-10-08 19:45 | XMS_ITS | Continuity of Care Document ---
Author Name Unknown Organization [facility] Kareem Quique lt Address [address] [place] [address]- Care Team Providers Care Patternmaker Wood Name Role Phone Jose Galindo MD Primary Care Physician [phone] [place] [facility] [place](s[place] 10/11/20 - 10/18/20 [facility] Adult [address] [place] [address]- Encounter Diagnosis BPH associated with nocturia(Discharge Diagnosis) - 10/11/20 Parkinsonian features(Discharge Diagnosis) - 10/11/20 Neuropathy, peripheral(Discharge Diagnosis) - 10/11/20 Hypercholesterolemia(Discharge Diagnosis) - 10/11/20 Esophageal reflux(Discharge Diagnosis) - 10/11/20 Attending Physician: Jose Galindo MD Allergies, Adverse [...] 3 Refills, Maintenance, 08/11/20 19:13:00 EDT, Tablet, [facility], 176.8, cm, 08/11/20 12:51:00 [...] tablet, 3 Refills, Maintenance, 08/11/20 19:13:00EDT, Tablet, [facility] # [facility], Partial fill upon patient request, 176.8, cm, 08/11/20 12:51:00 EDT, Height, 89.4, kg, 01/17/19 14:16:00 EDT, Dry Weight Start Date: 08/11/20 Status: Ordered omeprazole 20 mg oral delayed release tablet 1 tablet = 20 mg, By Mouth, Daily, before a meal, # 90 tablet, 1 Refills, Maintenance, 08/11/20 19:13:00 EDT, EC Tablet, [facility] # [facility], 176.8, cm, 08/11/20 12:51:00 [...] tablet, 2 Refills, Maintenance, 09/17/20 12:52:00 EDT, [facility], Partial fill [...] lesion(Confirmed) Active 150 to 69% on right. [id number] Diagnosis Diagnosis Type Effective Dates Health Status Clinical Service Informant BPH associated with nocturia Discharge Diagnosis 10/11/20 Parkinsonian features Discharge Diagnosis 10/11/20 Neuropathy, peripheral Discharge Diagnosis 10/11/20 Hypercholesterolemia Discharge Diagnosis 10/11/20 Esophageal reflux Discharge Diagnosis 10/11/20 Vital Signs Most recent to oldest [Reference Range]: 1 Height 176.8 cm (10/11/20 11:52 AM) Weight 89.7 kg (10/11/20 11:52 AM) Oxygen Saturation [94-100 %] 96 % (10/11/20 11:52 AM) Pulse Rate [55-90 bpm] 94 bpm *H* (10/11/20 11:52 AM) Body Mass Index [18.5-24.99] 28.7 *H* (10/11/20 11:52 AM) Blood Pressure [90-138/55-84 mm Hg] 124/ 72mm Hg (10/11/20 11:52 AM) Respiratory Rate [16-30 br/min] 16 br/mi n (10/11/20 11:52 AM) Mode of Delivery (Oxygen) Room air (10/11/20 11:52 AM) Blood pressure sites Arm, left (10/11/20 11:52 AM) Weight Obtained Via Standing scale (10/11/20 11:52 AM) Social History Social History Type Response Smoking Status Never (less than 100 in lifetime) entered on: 10/11/18 Sex
--- OUTSIDE RECORDS SUMMARY | 2022-10-08 19:45 | XMS_ITS | Continuity of Care Document ---
Author Name Unknown Organization [facility] Address [address], [address], [address] [place] [address]- Care Team Providers Care Bandoleer Packer Name Role Phone Jose Galindo MD Primary Care Physician [facility]counter [facility] Date(s): 06/02/22 - 07/02/22 [facility] [address], [address], [address] [place] [address]- Allergies, Adverse Reactions, Alerts Substance Reaction Severity Status shellfish Active Shrimp Active Immunizations Given and Recorded Vaccine Date Status Refusal Reason [id number] 12y+ bivalent booster vax 06/06/22 Given influenza [...] Maintenance, 06/30/22 10:11:00 EDT,Route to Pharmacy Electronically, [facility], Partial fill upon patient request if the prescription is for a schedule II opioid drug., 18... Start Date: 06/30/22 Status: Ordered atorvastatin 80 mg oral tablet 1 tablet = 80 mg, By Mouth, Daily at bedtime, # 30 tablet, 2 Refills, Maintenance, 06/30/22 10:09:00 EDT, Tablet, [facility] 3, Partial fill upon patient [...] 06/30/22 10:10:00 EDT, Route to Pharmacy Electronically, [facility] 3, Partial fill upon patient request if the prescription is for a schedule II opioi... Start Date: 06/30/22 Status: Ordered Lyrica 150 mg oral capsule 1 capsule = 150 mg, By Mouth, 2 times a day, # 180 capsule, 0 Refills, Maintenance, 06/13/22 14:29:00 EDT, [facility] # [...] 1 Refills, Maintenance, 07/26/21 10:32:00 EDT, Tablet, [facility] # 50, Partial fill upon patient request if the prescription is for a schedule II opioid drug., 176.8, cm,... Start Date: 07/26/21 Status: Ordered metoprolol 25 mg oral tablet, extended release 25 mg, 1, tablet, By Mouth, Daily, # 30 tablet, Refills 2, Tot. Refills 2, Maintenance, 06/30/22 10:10:00 EDT, Route to Pharmacy Electronically, [facility] 3, Partial fill upon patient request if the prescription is for a schedule II opioi... Start Date: 06/30/22 Status: Ordered omeprazole 20 mg oral delayed release tablet 1 tablet = 20 mg, By Mouth, Daily, # 90 tablet, 3 Refills, Maintenance, 07/26/21 10:31:00 EDT, CR Tablet, [facility] # 50, Partial fill upon patient request if the prescription is for a schedule II opioid drug., 176.8, cm, 07/26/21 10:04:00 EDT, H... Start Date: 07/26/21 Status: Ordered Plavix 75 mg oral tablet 75 mg, 1, tablet, By Mouth, Daily, # 30 tablet, Refills 2, Tot. Refills 2, Maintenance, 06/30/22 10:09:00 EDT, Route to Pharmacy Electronically, [facility] 3, Partial fill upon patient [...] dose, # 30 tablet, Refills 11, Tot. [id number], Maintenance, 06/13/22 14:08:00 EDT, Route to Pharmacy Electronically, [facility] # 50, 176.8, cm, 06/12/22 11:10:00 [...] on right. 2Problem added by Discern Expert [id number] Social History Social History Type Response Smoking Status Never (less than 100 in lifetime) entered on: 10/11/18 Sex Patient Care team information Care Team Personnel Name: Azael Stafford RN Position: [facility] RN Member Role: Primary Care Nurse Name: Martín Thornton RN Position: [facility] RN Member Role: Primary Care Nurse Name: Froylan Cooley RN Position: [facility] RN Member Role: Primary Care Nurse Name: Jose Galindo MD Position: [facility] Primary Care Physician Member Role: PCP Address: Address: [address] [place] [address]- Name: Xiao Cervantes RN Position: [facility] RN Member Role: Primary Care Nurse Name: Jenni Tran RN Position: [facility] Onco RN Member Role: Primary Care Nurse Care Team Related Persons Name: LEIGH ANN LARRY Address: home [address] [place] [address] Name: ALFRED LARRY Address: home [address] [place] [address] Name: LEIGH ANN SILVERIO Address: home [address] [place] [address]
--- OUTSIDE RECORDS SUMMARY | 2022-10-08 19:45 | XMS_ITS | Continuity of Care Document ---
Author Name Unknown Organization [facility] lt Address [address] [place] [address]- Care Team Providers Care Industrial Chemistry Teacher Name Role Phone Jose Galindo MD Primary Care Physician [phone] [place] [facility] [place]04[place]20 - 12/18/20 [facility] Adult [address] [place] [address]- Attending Physician: Sumanth GUERRERO, Angélica Healy Referring Physician: Jose Galindo MD Allergies, Adverse [...] day, # 60 capsule, 0 Refills, Maintenance, 12/10/20 7:54:00 EDT, Capsule, [facility], Partial fill upon patient request if the prescription is for a schedule II opioid drug., 176.8, cm, 11/19/20 13:14:00... Start Date: 12/10/20 Status: Ordered omeprazole 20 mg oral delayed [...] 2 Refills, Maintenance, 09/17/20 12:52:00 EDT, [facility] # [facility], Partial fill upon patient [...] lesion(Confirmed) Active 150 to 69% on right. [id number] Social History Social History Type Response Smoking Status Never (less than 100 in lifetime) entered on: 10/11/18 Sex
--- OUTSIDE RECORDS SUMMARY | 2022-10-08 19:45 | XMS_ITS | Continuity of Care Document ---
Author Name Unknown Organization [facility] Serna Quique lt Address [address] [place] [address]- Care Team Providers Care Aerial Photograph Interpreter Name Role Phone Jose Galindo MD Primary Care Physician [facility] Date[facility]s): 11/23/20 - 12/23/20 [facility] Adult [address] [place] [address]- Allergies, Adverse Reactions, Alerts Substance Reaction Severity [...] Refills, Maintenance, 08/11/20 19:13:00 EDT, EC Tablet, [facility], 176.8, cm, 08/11/20 [...] 2 Refills, Maintenance, 12/23/20 20:36:00 EDT, [facility] # [facility], Partial [...] lesion(Confirmed) Active 150 to 69% on right. [id number] Social History Social History Type Response Smoking Status Never (less than 100 in lifetime) entered on: 10/11/18 Sex
--- OUTSIDE RECORDS SUMMARY | 2022-10-08 19:45 | XMS_ITS | Continuity of Care Document ---
Author Name Unknown Organization [facility] Address [address] [place] [address]- Care Team Providers Care Digital Content Producer Name Role Phone Jose Galindo MD Primary Care Physician [phone] [facility] [place] Date(s): 04/22/19 - 05/23/[address] [address]- [facility] Discharge Disposition: A-D/C Home Attending Physician: Jose Galindo MD Admitting Physician: Jose Galindo MD Referring Physician: Jose Galindo MD Allergies, [...] peripheral(Confirmed) Active 150 to 69% on right. 11025 Social History Social History Type Response Smoking Status Never (less than 100 in lifetime) entered on: 10/11/18 Sex
--- OUTSIDE RECORDS SUMMARY | 2022-10-08 19:45 | XMS_ITS | Continuity of Care Document ---
Author Name Unknown Organization [facility] James Serna Quique lt Address [address] [place] [address]- Care Team Providers Care Composite Assembler Name Role Phone Jose Galindo MD Primary Care Physician [phone] [place] [facility] [place](s): 03/18/19 - 03/25/19 [facility] Adult [address] [place] [address] Encounter Diagnosis Chronic low back pain(Discharge Diagnosis) - 03/18/19 Carotid artery stenosis(Discharge Diagnosis) - 03/18/19 Chronic vertigo(Discharge Diagnosis) - 03/18/19 Esophageal reflux(Discharge Diagnosis) - 03/18/19 Attending Physician: Jose Galindo MD Allergies, Adverse [...] [facility], 176.8, cm, 12/31/19 10:53:00 EST, Height, 89.4, kg, 01/17/19 14:16:00 [...] peripheral(Confirmed) Active 150 to 69% on right. [id number] Diagnosis Diagnosis Type Effective Dates Health Status Clinical Service Informant Chronic low back pain Discharge Diagnosis 03/18/19 Carotid artery stenosis Discharge Diagnosis 03/18/19 Chronic vertigo Discharge Diagnosis 03/18/19 Esophageal reflux Discharge Diagnosis 03/18/19 Vital Signs Most recent to oldest [Reference Range]: 1 Height 176.8 cm (03/18/19 10:53 AM) Weight 85.9 kg (03/18/19 10:53 AM) Oxygen Saturation [94-100 %] 98 % (03/18/19 10:53 AM) Pulse Rate [55-90 bpm] 88 bpm (03/18/19 10:53 AM) Body Mass Index [18.5-24.99] 27.48 *H* (03/18/19 10:53 AM) Blood Pressure [90-138/55-84 mm Hg] 128/ 82mm Hg (03/18/19 10:53 AM) Mode of Delivery (Oxygen) Room air (03/18/19 10:53 AM) Blood pressure sites Arm, left (03/18/19 10:53 AM) Weight Obtained Via Standing scale (03/18/19 10:53 AM) Social History Social History Type Response Smoking Status Never (less than 100 in lifetime) entered on: 10/11/18 Sex
--- OUTSIDE RECORDS SUMMARY | 2022-10-08 19:45 | XMS_ITS | Continuity of Care Document ---
Author Name Unknown Organization [facility] Address [address] [address]- Care Team Providers Care Locator Name Role Phone Jose Galindo MD Primary Care Physician [phone] [place] [facility] [place] 08/29/22 - 09/28/22 [facility] [address] [address]- Attending Physician: AdmAidan gooden Admitting Physician: Admtr, Aidan Referring Physician: Admtr, Ar8 Allergies, Adverse Reactions, Alerts Substance Reaction Severity Status shellfish Active Shrimp Active Immunizations Given and Recorded Vaccine Date Status Refusal Reason [id number] 12y+ bivalent booster vax 06/06/22 Given influenza [...] Maintenance, 06/30/22 10:11:00 EDT,Route to Pharmacy Electronically, [facility], Partial fill upon patient request if the prescription is for a schedule II opioid drug., 18... Start Date: 06/30/22 Status: Ordered atorvastatin 80 mg oral tablet 1 tablet = 80 mg, By Mouth, Daily at bedtime, # 30 tablet, 2 Refills, Maintenance, 06/30/22 10:09:00 EDT, Tablet, [facility], Partial fill upon patient [...] 2 Refills, Maintenance, 03/07/22 12:18:00 EST, Tablet, [facility] # 50, Partial fill [...] 08/08/22 11:11:00 EDT, [id number] Partial fill upon patient request if the prescription is for a schedule II opioid drug... Start Date: 08/08/22 Status: Ordered meclizine 25 mg oral tablet 1 tablet, By Mouth, 3 times a day, PRN NEEDED FOR DIZZINESS, # 60 tablet, 1 Refills, Maintenance, 07/26/22 13:26:00 EDT, [facility] # 50, 180, cm, 07/10/22 12:52:00 EDT, Height, 93.4, kg, 06/29/22 12:39:00 EDT, Dry Weight Start Date: 07/26/22 Status: Ordered omeprazole 20 mg oral enteric coated capsule 1 capsule, By Mouth, Daily, # 90 capsule, 1 Refills, Maintenance, 08/14/22 7:59:00 EDT, [facility] # [facility], 180, cm, 07/26/22 15:35:00 EDT, Height, 93.4, kg, 06/29/22 12:39:00 EDT, Dry Weight Start Date: 08/14/22 Status: Ordered Plavix 75 mg oral tablet 75 mg, 1, tablet, By Mouth, Daily, # 30 tablet, Refills 2, Tot. Refills 2, Maintenance, 06/30/22 10:09:00 EDT, [facility] fill upon patient request if the prescription is for a schedule II opioi... Start Date: 06/30/22 Status: Ordered pregabalin 150 mg oral capsule 1 capsule, By Mouth, 2 times a day, # 180 capsule, 1 Refills, Maintenance, 09/20/22 15:59:00 EDT, [facility] # [facility], 180, cm, 07/26/22 15:35:00 EDT, Height, 93.4, kg, 06/29/22 12:39:00 EDT, Dry Weight Start Date: 09/20/22 Status: Ordered Sinemet 25 mg-100 mg oral tablet 3 tablet, By Mouth, 3 times a day, for 90 days, # 810 tablet, 3 Refills, Hard Stop 10/01/23 7:09:00EDT, 10/06/22 7:09:00 EDT, [facility] # 50, Partial fill upon patient request if the prescription is for a schedule II opioid drug., 3 tablet By Mo... Start Date: 10/06/22 Stop Date: 10/01/23 Status: Ordered Sinemet 25 mg-100 mg oral tablet 3 tablet, By Mouth, 3 times a day, for 90 days, # 810 tablet, 1 Refills, Hard Stop 10/06/22 7:09:00EDT, 04/09/22 7:09:00 EST, [facility] # 50, Partial fill upon patient request if the prescription is for a schedule II opioid drug., 3 tablet By Mo... Start Date: 04/09/22 Stop Date: 10/06/22 Status: Ordered Toprol XL 50 mg oral tablet, extended release 50 mg, 1, tablet, By Mouth, Daily, # 30 tablet, Refills 5, Tot. Refills 5, Maintenance, 07/26/22 16:10:00 EDT, Route to Pharmacy Electronically, [facility] # 50, Partial fill upon patient requestif the prescription is for a schedule II opioid jett... Start Date: 07/26/22 Status: Ordered traZODone 50 mg oral tablet 50 mg, 1, tablet, By Mouth, Daily at bedtime, increased dose, # 30 tablet, Refills 5, Tot. Refills 5, Maintenance, 09/25/22 13:57:00 EDT, Route to Pharmacy Electronically, [id number], 180, cm, 07/26/22 15:35:00 EDT, [...] Confirmed Active 150 to 69% on right. [id number] 3Problem added by Discern Expert Social History Social History Type Response Smoking Status Never (less than 100 in lifetime) entered on: 10/11/18 Sex Patient Care team information Care Team Personnel Name: Azael Stafford RN Position: [facility] RN Member Role: Primary Care Nurse Name: Martín Thornton RN Position: [facility] RN Member Role: Primary Care Nurse Name: Froylan Cooley RN Position: [facility] RN Member Role: Primary Care Nurse Name: Jose Galindo MD Position: [facility] Physician - Primary Care Member Role: PCP Address: Address: [address] [place] [address]- [place] Name: Xiao Cervantes RN Position: S RN Member Role: Primary Care Nurse Name: Jenni Tran RN Position: [facility] RN Member Role: Primary Care Nurse Care Team Related Persons Name: LEIGH ANN LARRY Address: home [address] [place] [address] Name: ALFRED LARRY Address: home [address] [place] [address] Name: LEIGH ANN SILVERIO Address: home [address] [place] [address]
--- OUTSIDE RECORDS SUMMARY | 2022-10-08 19:45 | XMS_ITS | Continuity of Care Document ---
Author Name Unknown Organization [facility] Address Unknown Care Team Providers Care Mold Making Plastics Sheets Supervisor Name Role Phone Jose Galindo MD Primary Care Physician Encounter [facility] Date(s): 02/09/21 - 06/09/21 [facility] Attending Physician: Janet Patrick MD Admitting Physician: Janet Patrick MD Allergies, Adverse Reactions, Alerts Substance Reaction [...] 04/05/21 Stop Date: 03/31/22 Status: Ordered gabapentin 600 mg oral tablet [...] Refills, Maintenance, 04/13/21 11:32:00 EST, CR Tablet, [facility], Partial [...] tablet, 2 Refills, Maintenance, 12/23/20 20:36:00 EDT, [facility] # [facility], Partial [...] urine(Confirmed) Active 150 to 69% on right. [id number] Social History Social History Type Response Smoking Status Never (less than 100 in lifetime) entered on: 10/11/18 Sex
--- OUTSIDE RECORDS SUMMARY | 2022-10-08 19:45 | XMS_ITS | Continuity of Care Document ---
Author Name Unknown Organization [facility] Quique lt Address [address] [place] [address]- Care Team Providers Care Manager Image Name Role Phone Jose Galindo MD Primary Care Physician [phone] [facility] Date[facility]s): 07/29/20 - 08/28/20 [facility] Adult [address] [place] [address]- Allergies, Adverse Reactions, Alerts Substance Reaction Severity [...] 3 Refills, Maintenance, 08/11/20 19:12:00 EDT, ECCapsule, [facility] # [facility], Partial fill upon patient request if the prescription is for a schedule II opioid drug., 176.8, cm, 08/11/20 12:51:00 EDT... Start Date: 08/11/20 Status: Ordered gabapentin 600 mg oral tablet 1 tablet = 600 mg, By Mouth, 3 times a day, # 270 tablet, 3 Refills, Maintenance, 08/11/20 19:13:00EDT, Tablet, [facility] # [facility], Partial fill upon patient request, 176.8, cm, 08/11/20 12:51:00 EDT, Height, 89.4, kg, 01/17/19 14:16:00 EDT, Dry Weight Start Date: 08/11/20 Status: Ordered meclizine 25 mg oral tablet 1 tablet, By Mouth, 3 times a day, PRN NEEDED FOR DIZZINESS, # 90 tablet, 1 Refills, Maintenance, 08/11/20 19:14:00 EDT, [facility] # 50, 176.8, cm, 08/11/20 12:51:00 EDT, Height, 89.4, kg, 01/17/19 14:16:00 EDT, Dry Weight Start Date: 08/11/20 Status: Ordered omeprazole 20 mg oral delayed release tablet 1 tablet = 20 mg, By Mouth, Daily, before a meal, # 90 tablet, 1 Refills, Maintenance, 08/11/20 19:13:00 EDT, EC Tablet, [facility] # [facility], 176.8, cm, 08/11/20 12:51:00 [...] tablet, 4 Refills, Maintenance, 08/11/20 19:13:00 EDT, [facility] # [facility], Partial fill upon patient [...] lesion(Confirmed) Active 150 to 69% on right. [id number] Social History Social History Type Response Smoking Status Never (less than 100 in lifetime) entered on: 10/11/18 Sex
--- OUTSIDE RECORDS SUMMARY | 2022-10-08 19:45 | XMS_ITS | Continuity of Care Document ---
Author Name Unknown Organization [facility] Quique lt Address [address] [place] [address]- Care Team Providers Care Agricultural Commodities Inspector Name Role Phone Jose Galindo MD Primary Care Physician [facility] Date(s): 03/17/22 - 04/16/22 [facility] Adult [address] [place] [address]- Attending Physician: Admtr, Ar8 Admitting Physician: Admtr, [...] 1 Refills, Maintenance, 07/26/21 10:31:00 EDT, Capsule, [facility] # 50, Partial fill upon patient request if the prescription is for a schedule II opioid drug., 176.8, cm, 07/26/21 10:04:... Start Date: 07/26/21 Status: Ordered meclizine 25 mg oral tablet 1 tablet = 25 mg, By Mouth, 3 times a day, PRN for dizziness, # 60 tablet, 1 Refills, Maintenance, 07/26/21 10:32:00 EDT, Tablet, [facility] # 50, Partial fill upon patient request if the prescription is for a schedule II opioid drug., 176.8, cm,... Start Date: 07/26/21 Status: Ordered omeprazole 20 mg oral delayed release tablet 1 tablet = 20 mg, By Mouth, Daily, # 90 tablet, 3 Refills, Maintenance, 07/26/21 10:31:00 EDT, CR Tablet, [facility] # 50, Partial fill upon patient request if the prescription is for a schedule II opioid drug., 176.8, cm, 07/26/21 10:04:00 EDT, H... Start Date: 07/26/21 Status: Ordered Sinemet 25 mg-100 mg oral tablet 3 tablet, By Mouth, 3 times a day, for 90 days, # 810 tablet, 1 Refills, Hard Stop 10/06/22 7:09:00EDT, 04/09/22 7:09:00 EST, [facility] # 50, Partial fill upon patient request if the prescription is for a schedule II opioid drug., 3 tablet By Mo... Start Date: 04/09/22 Stop Date: 10/06/22 Status: Ordered traZODone 50 mg oral tablet 0.5, tablet, By Mouth, Daily at bedtime, # 15 tablet, Refills 11, Maintenance, 01/05/22 17:57:00 EDT, Route to Pharmacy Electronically, [facility] # [facility], 176.8, cm, 11/14/21 15:02:00 [...] on right. 2Problem added by Discern Expert [id number] Social History Social History Type Response Smoking Status Never (less than 100 in lifetime) entered on: 10/11/18 Sex Note * Event Display: X-Ray Chest, Non- BH Authored Date: * Event Display: Laboratory Result Scanned Authored Date: XR Chest Views * Event Display: X-Ray Chest Authored Date: * Event Display: X-Ray Chest Authored Date: Patient Care team information Care Team Personnel Name: Azael Stafford RN Position: [facility] RN Member Role: Primary Care Nurse Name: Martín Thornton RN Position: [facility] RN Member Role: Primary Care Nurse Name: Josie LANDAVERDE, Jose Vidal Position: [facility] Primary Care Physician Member Role: PCP Address: Address: [address] [place] [address]- Name: Chelsea LEE, Jenni Position: [facility] RN Member Role: Primary Care Nurse Care Team Related Persons Name: LEIGH ANN LARRY Address: [address] [place] [address] Name: ALFRED LARRY Address: [address] [address] [place] [address] Name: LEIGH ANN SILVERIO Address: home [address] [place] [address]
--- OUTSIDE RECORDS SUMMARY | 2022-10-08 19:45 | XMS_ITS | Continuity of Care Document ---
Author Name Unknown Organization [facility] Address [address] [place] [address]- Care Team Providers Care Lactation Specialist Name Role Phone Jose Galindo MD Primary Care Physician Encounter [facility] Date(s): 08/15/22 - 09/23/[address] [address] Attending Physician: Jason Davis Admitting Physician: Jason Davis Referring Physician: Jason Davis Allergies, Adverse Reactions, Alerts Substance Reaction Severity Status shellfish Active Shrimp Active Immunizations Given and Recorded Vaccine Date Status Refusal Reason [id number] 12y+ bivalent booster vax 06/06/22 Given influenza [...] Maintenance, 06/30/22 10:11:00 EDT,Route to Pharmacy Electronically, [facility], Partial fill upon patient request if the prescription is for a schedule II opioid drug., 18... Start Date: 06/30/22 Status: Ordered atorvastatin 80 mg oral tablet 1 tablet = 80 mg, By Mouth, Daily at bedtime, # 30 tablet, 2 Refills, Maintenance, 06/30/22 10:09:00 EDT, Tablet, [facility], Partial fill upon patient request [...] Refills, Maintenance, 07/26/21 10:31:00 EDT, EC Capsule, [facility], Partial [...] 08/08/22 11:11:00 EDT, [id number] Partial fill upon patient request if [...] 06/30/22 10:09:00 EDT, Route to Pharmacy Electronically, [facility] 3, Partial fill upon patient request [...] dose, # 30 tablet, Refills 11, Tot. [id number], Maintenance, 06/13/22 14:08:00 EDT, Route to Pharmacy Electronically, [facility], 176.8, cm, 06/12/22 11:10:00 [...] Confirmed Active 150 to 69% on right. [id number] 3Problem added by Discern Expert Social History Social History Type Response Smoking Status Never (less than 100 in lifetime) entered on: 10/11/18 Sex Patient Care team information Care Team Personnel Name: Azael Stafford RN Position: [facility] RN Member Role: Primary Care Nurse Name: Martín Thornton RN Position: [facility] RN Member Role: Primary Care Nurse Name: Froylan Cooley RN Position: [facility] RN Member Role: Primary Care Nurse Name: Jose Galindo MD Position: [facility] Physician - Primary Care Member Role: PCP Address: Address: [address] [place] [address], [place] [address]- [place] Name: Xiao Cervantes RN Position: S RN Member Role: Primary Care Nurse Name: Jenni Tran RN Position: [facility] Onco RN Member Role: Primary Care Nurse Care Team Related Persons Name: LEIGH ANN LARRY Address: home [address] [place] [address] Name: ALFRED LARRY Address: home [id number] [place] [address] Name: LEIGH ANN SILVERIO Address: home [address] [place] [address]
--- OUTSIDE RECORDS SUMMARY | 2022-10-08 19:45 | XMS_ITS | Continuity of Care Document ---
Author Name Unknown Organization [facility] Address [address] [place] [address]- Care Team Providers Care Product Support Representative Name Role Phone Jose Galindo MD Primary Care Physician Encounter [facility] [place] Date(s): 10/26/21 - 11/25/21 [facility] [address] [place] [address]- Attending Physician: Admtr, [id number] Admitting Physician: Admtr, Ar8 Referring Physician: Admtr, [...] 1 Refills, Maintenance, 07/26/21 10:32:00 EDT, Tablet, [facility] # [facility], Partial fill upon patient request if the prescription is for a schedule II opioid drug., 176.8, cm,... Start Date: 07/26/21 Status: Ordered omeprazole 20 mg oral delayed release tablet 1 tablet = 20 mg, By Mouth, Daily, # 90 tablet, 3 Refills, Maintenance, 07/26/21 10:31:00 EDT, CR Tablet, [facility], Partial fill upon patient request if the prescription is for a schedule II opioid drug., 176.8, cm, 07/26/21 10:04:00 EDT, H... Start Date: 07/26/21 Status: Ordered Sinemet 25 mg-100 mg oral tablet 3 tablet, By Mouth, 3 times a day, # 810 tablet, 1 Refills, Maintenance, 10/11/21 7:09:00 EDT, [facility] # [facility], Partial fill upon patient [...] urine(Confirmed) Active 150 to 69% on right. [id number] Social History Social History Type Response Smoking Status Never (less than 100 in lifetime) entered on: 10/11/18 Sex Care Team Personnel Name: Jsoie LANDAVERDE, Jose Vidal Address: [address] [place] [id number]
--- OUTSIDE RECORDS SUMMARY | 2022-10-08 19:45 | XMS_ITS | Continuity of Care Document ---
Author Name Unknown Organization [facility] Quique lt Address [address] [place] [address]- Care Team Providers Care Human Resource Analyst Name Role Phone Josie LANDAVERDE, Jose Vidal Primary Care Physician Encounter [facility] [place] Date(s): 11/04/20 - 11/11/20 [facility] Adult [address] [place] [address]- Encounter Diagnosis Neuropathy, peripheral(Discharge Diagnosis) - 11/04/20 Chronic low back pain(Discharge Diagnosis) - 11/04/20 Attending Physician: Sumanth MEDICAL APPLIANCE MAKER, Angélica Healy Allergies, Adverse Reactions, Alerts Substance Reaction Severity [...] lesion(Confirmed) Active 150 to 69% on right. [id number] Diagnosis Diagnosis Type Effective Dates Health Status Clinical Service Informant Neuropathy, peripheral Discharge Diagnosis 11/04/20 Chronic low back pain Discharge Diagnosis 11/04/20 Vital Signs Most recent to oldest [Reference Range]: 1 Height 176.8 cm (11/04/20 1:50 PM) Weight 90.0 kg (11/04/20 1:50 PM) Oxygen Saturation [94-100 %] 96 % (11/04/20 1:50 PM) Pulse Rate [55-90 bpm] 87 bpm (11/04/20 1:50 PM) Body Mass Index [18.5-24.99] 28.79 *H* (11/04/20 1:50 PM) Blood Pressure [90-138/55-84 mm Hg] 136/ 82mm Hg (11/04/20 1:50 PM) Temperature [96.8-100.4 DegF] 97.9 DegF (11/04/20 1:50 PM) Blood pressure sites Arm, left (11/04/20 1:50 PM) Temperature Route Oral (11/04/20 1:50 PM) Weight Obtained Via Standing scale (11/04/20 1:50 PM) Social History Social History Type Response Smoking Status Never (less than 100 in lifetime) entered on: 10/11/18 Sex
--- OUTSIDE RECORDS SUMMARY | 2022-10-08 19:45 | XMS_ITS | Continuity of Care Document ---
Author Name Unknown Organization [facility] Kareem Quique lt Address [address] [place] [address]- Care Team Providers Care Ticket Printer And Tagger Name Role Phone Jose Galindo MD Primary Care Physician Encounter [facility] Date(s): 11/03/19 - 12/03/19 [facility] Adult [address] [place] [address]- [facility] Allergies, Adverse Reactions, Alerts Substance Reaction Severity [...] Weight Start Date: 03/18/19 Status: Ordered gabapentin 300 mg oral capsule 300 mg, 1, capsule, By Mouth, 3 times a day, # 270 capsule, Refills 3, Tot. Refills 3, Maintenance,09/23/19 11:28:00 EDT, Route to Pharmacy Electronically, [facility], 176.8, cm, 09/23/19 11:05:00 EDT, Height, 89.4, kg, 01/17/19 14:16:00 EDT... Start Date: 09/23/19 Stop Date: 09/17/20 Status: Ordered omeprazole 20 mg oral delayed release tablet 1 tablet = 20 mg, By Mouth, Daily, before a meal, # 90 tablet, 0 Refills, Maintenance, 11/18/19 10:40:00 EDT, EC Tablet, [facility] # [facility], 176.8, cm, 09/23/19 11:05:00 EDT, Height, 89.4, kg, 01/17/19 14:16:00 EDT, Dry Weight Start Date: 11/18/19 Stop Date: 02/16/20 Status: Ordered physical therapy physical therapy, See [...] lesion(Confirmed) Active 150 to 69% on right. [id number] Social History Social History Type Response Smoking Status Never (less than 100 in lifetime) entered on: 10/11/18 Sex
--- OUTSIDE RECORDS SUMMARY | 2022-10-08 19:45 | XMS_ITS | Continuity of Care Document ---
Author Name Unknown Organization [facility] James Serna Quique lt Address [address] [place] [address]- Care Team Providers Care Printed Circuit Boards Plasma Etcher Name Role Phone Jose Galindo MD Primary Care Physician [phone] Encounter [facility] Date(s): 09/10/20 - 10/17/20 [facility] Adult [address] [place] [address]- Attending Physician: Jose Galindo MD Allergies, Adverse [...] 3 Refills, Maintenance, 08/11/20 19:12:00 EDT, ECCapsule, [facility] # [facility], Partial fill upon patient request if the prescription is for a schedule II opioid drug., 176.8, cm, 08/11/20 12:51:00 EDT... Start Date: 08/11/20 Status: Ordered gabapentin 600 mg oral tablet 1 tablet = 600 mg, By Mouth, 3 times a day, # 270 tablet, 3 Refills, Maintenance, 08/11/20 19:13:00EDT, Tablet, [facility] # [facility], Partial fill upon patient request, 176.8, cm, 08/11/20 12:51:00 EDT, Height, 89.4, kg, 01/17/19 14:16:00 EDT, Dry Weight Start Date: 08/11/20 Status: Ordered omeprazole 20 mg oral delayed release tablet 1 tablet = 20 mg, By Mouth, Daily, before a meal, # 90 tablet, 1 Refills, Maintenance, 08/11/20 19:13:00 EDT, EC Tablet, [facility], 176.8, cm, 08/11/20 [...] lesion(Confirmed) Active 150 to 69% on right. [id number] Social History Social History Type Response Smoking Status Never (less than 100 in lifetime) entered on: 10/11/18 Sex
--- OUTSIDE RECORDS SUMMARY | 2022-10-08 19:45 | XMS_ITS | Continuity of Care Document ---
Author Name Unknown Organization [facility] Address [address] [place] [address]- Care Team Providers Care Combination Window Installer Name Role Phone Jose Galindo MD Primary Care Physician Encounter [facility] [place] Date(s): 05/02/22 - 06/01/22 [facility] [address] [address] Attending Physician: Aidan Sun Admitting Physician: AdmtrAidan Referring Physician: Admtr, Ar8 Allergies, Adverse Reactions, [...] Maintenance, 07/26/21 10:31:00 EDT, Capsule, [facility] # [facility], Partial fill upon patient request if the prescription is for a schedule II opioid drug., 176.8, cm, 07/26/21 10:04:... Start Date: 07/26/21 Status: Ordered meclizine 25 mg oral tablet 1 tablet = 25 mg, By Mouth, 3 times a day, PRN for dizziness, # 60 tablet, 1 Refills, Maintenance, 07/26/21 10:32:00 EDT, Tablet, [facility] # [facility], Partial fill upon patient request if the prescription is for a schedule II opioid drug., 176.8, cm,... Start Date: 07/26/21 Status: Ordered omeprazole 20 mg oral delayed release tablet 1 tablet = 20 mg, By Mouth, Daily, # 90 tablet, 3 Refills, Maintenance, 07/26/21 10:31:00 EDT, CR Tablet, [facility] [...] 10/06/22 7:09:00EDT, 04/09/22 7:09:00 EST, [facility], [facility] 176.8, cm, 11/14/21 [...] on right. 2Problem added by Discern Expert [id number] Social History Social History Type Response Smoking Status Never (less than 100 in lifetime) entered on: 10/11/18 Sex Patient Care team information Care Team Personnel Name: Azael Stafford RN Position: [facility] RN Member Role: Primary Care Nurse Name: Martín Thornton RN Position: [facility] RN Member Role: Primary Care Nurse Name: Froylan Cooley RN Position: [facility] RN Member Role: Primary Care Nurse Name: Jose Galindo MD Position: [facility] Primary Care Physician Member Role: PCP Address: Address: [address] [place] [id number] Name: Jenni Tran RN Position: [facility] Onco RN Member Role: Primary Care Nurse Care Team Related Persons Name: LEIGH ANN LARRY Address: home [address] [place] [address] Name: ALFRED LARRY Address: home [address] [place] [address] Name: LEIGH ANN SILVERIO Address: home [address] [place] [address]
--- OUTSIDE RECORDS SUMMARY | 2022-10-08 19:45 | XMS_ITS | Continuity of Care Document ---
Author Name Unknown Organization [facility] Kareem Quique lt Address [address] [place] [address]- Care Team Providers Care Pet Care Associate Name Role Phone Jose Galindo MD Primary Care Physician [phone] [facility] [place] Date(s): 09/24/19 - 10/24/19 [facility] Adult [address] [place] [address]- [facility] Allergies, Adverse Reactions, Alerts Substance Reaction Severity [...] Maintenance,09/23/19 11:28:00 EDT, Route to Pharmacy Electronically, [facility] [...] lesion(Confirmed) Active 150 to 69% on right. [id number] Social History Social History Type Response Smoking Status Never (less than 100 in lifetime) entered on: 10/11/18 Sex
--- OUTSIDE RECORDS SUMMARY | 2022-10-08 19:45 | XMS_ITS | Continuity of Care Document ---
Author Name Unknown Organization [facility] Address [address] [place] [address]- Care Team Providers Care Supervisor Extrusion Name Role Phone Jose Galindo MD Primary Care Physician [phone] Encounter [facility] Date(s): 08/29/22 - 10/04/[address] [address] Attending Physician: Jason Davis Admitting Physician: Jason Davis Referring Physician: Jason Davis Allergies, Adverse Reactions, Alerts Substance Reaction Severity Status shellfish Active Shrimp Active Immunizations Given and Recorded Vaccine Date Status Refusal Reason [id number] 12y+ bivalent booster vax 06/06/22 Given influenza [...] Maintenance, 06/30/22 10:11:00 EDT,Route to Pharmacy Electronically, [facility], Partial fill upon patient request if the prescription is for a schedule II opioid drug., 18... Start Date: 06/30/22 Status: Ordered atorvastatin 80 mg oral tablet 1 tablet = 80 mg, By Mouth, Daily at bedtime, # 30 tablet, 2 Refills, Maintenance, 06/30/22 10:09:00 EDT, Tablet, [facility], Partial fill upon patient request [...] 2 Refills, Maintenance, 03/07/22 12:18:00 EST, Tablet, [facility] # [facility], Partial fill [...] 08/08/22 11:11:00 EDT, Route to Pharmacy Electronically, [facility]acy #[id number], Partial fill upon patient request if the prescription is for a schedule II opioid drug... Start Date: 08/08/22 Status: Ordered meclizine 25 mg oral tablet 1 tablet, By Mouth, 3 times a day, PRN NEEDED FOR DIZZINESS, # 60 tablet, 1 Refills, Maintenance, 07/26/22 13:26:00 EDT, [facility], 180, cm, 07/10/22 12:52:00 EDT, Height, 93.4, kg, 06/29/22 12:39:00 EDT, Dry Weight Start Date: 07/26/22 Status: Ordered omeprazole 20 mg oral enteric coated capsule 1 capsule, By Mouth, Daily, # 90 capsule, 1 Refills, Maintenance, 08/14/22 7:59:00 EDT, [facility], 180, cm, 07/26/22 15:35:00 EDT, Height, 93.4, kg, 06/29/22 12:39:00 EDT, Dry Weight Start Date: 08/14/22 Status: Ordered Plavix 75 mg oral tablet 75 mg, 1, tablet, By Mouth, Daily, # 30 tablet, Refills 2, Tot. Refills 2, Maintenance, 06/30/22 10:09:00 EDT, Route to Pharmacy Electronically, [facility], Partial fill upon patient request if the prescription is for a schedule II opioi... Start Date: 06/30/22 Status: Ordered pregabalin 150 mg oral capsule 1 capsule, By Mouth, 2 times a day, # 180 capsule, 1 Refills, Maintenance, 09/20/22 15:59:00 EDT, [facility], 180, cm, 07/26/22 15:35:00 EDT, Height, 93.4, kg, 06/29/22 12:39:00 EDT, Dry Weight Start Date: 09/20/22 Status: Ordered Sinemet 25 mg-100 mg oral tablet 3 tablet, By Mouth, 3 times a day, for 90 days, # 810 tablet, 3 Refills, Hard Stop 10/01/23 7:09:00EDT, 10/06/22 7:09:00 EDT, [facility] # [facility], Partial fill upon patient request if the prescription is for a schedule II opioid drug., 3 tablet By Mo... Start Date: 10/06/22 Stop Date: 10/01/23 Status: Ordered Sinemet 25 mg-100 mg oral tablet 3 tablet, By Mouth, 3 times a day, for 90 days, # 810 tablet, 1 Refills, Hard Stop 10/06/22 7:09:00EDT, 04/09/22 7:09:00 EST, [facility], Partial fill upon patient request if the prescription is for a schedule II opioid drug., 3 tablet By Mo... Start Date: 04/09/22 Stop Date: 10/06/22 Status: Ordered Toprol XL 50 mg oral tablet, extended release 50 mg, 1, tablet, By Mouth, Daily, # 30 tablet, Refills 5, Tot. Refills 5, Maintenance, 07/26/22 16:10:00 EDT, Route to Pharmacy Electronically, [facility], Partial fill upon patient requestif the prescription is for a schedule II opioid jett... Start Date: 07/26/22 Status: Ordered traZODone 50 mg oral tablet 50 mg, 1, tablet, By Mouth, Daily at bedtime, increased dose, # 30 tablet, Refills 5, Tot. Refills 5, Maintenance, 09/25/22 13:57:00 EDT, Route to Pharmacy Electronically, [facility] #[id number], 180, cm, 07/26/22 15:35:00 EDT, [...] Confirmed Active 150 to 69% on right. [id number] 3Problem added by Discern Expert Social History Social History Type Response Smoking Status Never (less than 100 in lifetime) entered on: 10/11/18 Sex Note * Minal Bullock: PERFORM Event Display: Cardiac Rehab Note Authored Date: [id number] Pt was scheduled for an orientation for the Cardiac Rehabilitation program today at 1:30 pm. Pt didnot show up for appointment. Patient also no showed for his appointment on 08/24/22. Patient Care team information Care Team Personnel Name: Azael Stafford RN Position: [facility] RN Member Role: Primary Care Nurse Name: Martín Thornton RN Position: [facility] RN Member Role: Primary Care Nurse Name: Froylan Cooley RN Position: [facility] RN Member Role: Primary Care Nurse Name: Josie LANDAVERDE, Jose Vidal Position: [facility] Physician - Primary Care Member Role: PCP Address: Address: [address] [place] [id number]- Name: Billy LEE, Xiao Position: [facility] RN Member Role: Primary Care Nurse Name: Jenni Tran RN Position: [facility] Onco RN Member Role: Primary Care Nurse Care Team Related Persons Name: LEIGH ANN LARRY Address: [address] [place] [address] Name: ALFRED LARRY Address: home [address] [facility] [place] [address] Name: LEIGH ANN SILVERIO Address: home [address] [place] [address]
--- OUTSIDE RECORDS SUMMARY | 2022-10-08 19:45 | XMS_ITS | Continuity of Care Document ---
Author Name Unknown Organization [facility] Address [address] [place] [address]- Care Team Providers Care Water Resources Business Segment Leader Name Role Phone Jose Galindo MD Primary Care Physician Encounter [facility] [place] Date(s): 02/03/22 - 03/05/[address] [address]- Allergies, Adverse Reactions, Alerts Substance Reaction Severity [...] 1 Refills, Maintenance, 07/26/21 10:32:00 EDT, Tablet, [facility], Partial fill upon patient request if the prescription is for a schedule II opioid drug., 176.8, cm,... Start Date: 07/26/21 Status: Ordered omeprazole 20 mg oral delayed release tablet 1 tablet = 20 mg, By Mouth, Daily, # 90 tablet, 3 Refills, Maintenance, 07/26/21 10:31:00 EDT, CR Tablet, [facility] # [facility], Partial fill upon patient request if the prescription is for a schedule II opioid drug., 176.8, cm, 07/26/21 10:04:00 EDT, H... Start Date: 07/26/21 Status: Ordered Sinemet 25 mg-100 mg oral tablet 3 tablet, By Mouth, 3 times a day, # 810 tablet, 1 Refills, Maintenance, 10/11/21 7:09:00 EDT, [facility] # [facility], Partial fill upon patient request if the prescription is for a schedule II opioid drug., 3 tablet By Mouth 3 times a day,x90 days, 176.... 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 [id number] Social History Social History Type Response Smoking Status Never (less than 100 in lifetime) entered on: 10/11/18 Sex Patient Care team information Care Team Personnel Name: Josie LANDAVERDE, Jose Vidal Position: [facility] Primary Care Physician Member Role: PCP Address: Address: [address] [place] [address]- Name: Jenni Tran RN Position: [facility] RN Member Role: Primary Care Nurse Care Team Related Persons Name: LEIGH ANN LARRY Address: home [address] [place] [address] Name: ALFRED LARRY Address: home [address] [place] [address] Name: LEIGH ANN SILVERIO Address: home [address] [place] [address]
--- OUTSIDE RECORDS SUMMARY | 2022-10-08 19:45 | XMS_ITS | Continuity of Care Document ---
Author Name Unknown Organization [facility] Kareem Quique lt Address [address] [place] [address]- Care Team Providers Care Netting Inspector Name Role Phone Jose Galindo MD Primary Care Physician Encounter [facility] Date(s): 09/23/19 - 09/30/19 [facility] Adult [address] [place] [address]- [facility] Encounter Diagnosis Carotid artery stenosis(Discharge Diagnosis) - 09/23/19 Esophageal reflux(Discharge Diagnosis) - 09/23/19 Hypercholesterolemia(Discharge Diagnosis) - 09/23/19 Neuropathy, peripheral(Discharge Diagnosis) - 09/23/19 Chronic low back pain(Discharge Diagnosis) - 09/23/19 Obstructive sleep apnea(Discharge Diagnosis) - 09/23/19 Attending Physician: Jose Galindo MD Allergies, Adverse [...] Maintenance,09/23/19 11:28:00 EDT, Route to Pharmacy Electronically, [facility], 176.8, cm, 09/23/19 11:05:00 [...] lesion(Confirmed) Active 150 to 69% on right. [id number] Diagnosis Diagnosis Type Effective Dates Health Status Clinical Service Informant Carotid artery stenosis Discharge Diagnosis 09/23/19 Esophageal reflux Discharge Diagnosis 09/23/19 Hypercholesterolemia Discharge Diagnosis 09/23/19 Neuropathy, peripheral Discharge Diagnosis 09/23/19 Chronic low back pain Discharge Diagnosis 09/23/19 Obstructive sleep apnea Discharge Diagnosis 09/23/19 Vital Signs Most recent to oldest [Reference Range]: 1 Height 176.8 cm (09/23/19 11:05 AM) Weight 89.0 kg (09/23/19 11:05 AM) Oxygen Saturation [94-100 %] 98 % (09/23/19 11:05 AM) Pulse Rate [55-90 bpm] 81 bpm (09/23/19 11:05 AM) Body Mass Index [18.5-24.99] 28.47 *H* (09/23/19 11:05 AM) Blood Pressure [90-138/55-84 mm Hg] 122/ 84mm Hg (09/23/19 11:05 AM) Mode of Delivery (Oxygen) Room air (09/23/19 11:05 AM) Blood pressure sites Arm, left (09/23/19 11:05 AM) Weight Obtained Via Standing scale (09/23/19 11:05 AM) Social History Social History Type Response Smoking Status Never (less than 100 in lifetime) entered on: 10/11/18 Sex
--- OUTSIDE RECORDS SUMMARY | 2022-10-08 19:45 | XMS_ITS | Continuity of Care Document ---
Author Name Unknown Organization [facility] Address Unknown Care Team Providers Care Paint Crew Supervisor Name Role Phone Jose Galindo MD Primary Care Physician [phone] Encounter [facility] Date(s): 12/22/20 - 01/21/21 [facility] Allergies, Adverse Reactions, Alerts Substance [...] Maintenance, 08/11/20 19:12:00 EDT, ECCapsule, [facility], Partial fill upon patient request if the prescription is for a schedule II opioid drug., 176.8, cm, 08/11/20 12:51:00 EDT... Start Date: 08/11/20 Status: Ordered Lyrica 75 mg oral capsule 1 capsule = 75 mg, By Mouth, 2 times a day, # 180 capsule, 1 Refills, Maintenance, 01/04/21 17:14:00 EDT, Capsule, [facility], Partial fill upon patient request if the prescription is for a schedule II opioid drug., 176.8, cm, 11/19/20 13:14:... Start Date: 01/04/21 Status: Ordered omeprazole 20 mg oral delayed release tablet 1 tablet = 20 mg, By Mouth, Daily, for 90 days, before a meal, # 90 tablet, 1 Refills, Hard Stop 02/07/21 19:13:00 EST, 08/11/20 19:13:00 EDT, EC Tablet, [facility], 176.8, cm, 08/11/20 12:51:00 EDT, Height, 89.4, kg, 01/17/19 14:16:00 EDT, D... Start Date: 08/11/20 Stop Date: 02/07/21 Status: [...] tablet, 2 Refills, Maintenance, 12/23/20 20:36:00 EDT, [facility], Partial fill upon [...] lesion(Confirmed) Active 150 to 69% on right. [id number] Social History Social History Type Response Smoking Status Never (less than 100 in lifetime) entered on: 10/11/18 Sex
--- OUTSIDE RECORDS SUMMARY | 2022-10-08 19:45 | XMS_ITS | Continuity of Care Document ---
Author Name Unknown Organization [facility] Address [address] [place] [id number]- Care Team Providers Care Sign Poster Name Role Phone Jose Galindo MD Primary Care Physician Encounter [facility] [place] Date(s): 03/11/22 - 04/16/[address] [address]- Attending Physician: Armaan Mendoza MD Admitting Physician: Armaan Mendoza MD Referring Physician: Armaan Mendoza MD Allergies, Adverse Reactions, [...] 1 Refills, Maintenance, 07/26/21 10:31:00 EDT, Capsule, [facility] # [facility], Partial fill upon patient request if the prescription is for a schedule II opioid drug., 176.8, cm, 07/26/21 10:04:... Start Date: 07/26/21 Status: Ordered meclizine 25 mg oral tablet 1 tablet = 25 mg, By Mouth, 3 times a day, PRN for dizziness, # 60 tablet, 1 Refills, Maintenance, 07/26/21 10:32:00 EDT, Tablet, [facility] # [facility], Partial fill upon patient request if the prescription is for a schedule II opioid drug., 176.8, cm,... Start Date: 07/26/21 Status: Ordered omeprazole 20 mg oral delayed release tablet 1 tablet = 20 mg, By Mouth, Daily, # 90 tablet, 3 Refills, Maintenance, 07/26/21 10:31:00 EDT, CR Tablet, [facility], Partial fill upon patient request if the prescription is for a schedule II opioid drug., 176.8, cm, 07/26/21 10:04:00 EDT, H... Start Date: 07/26/21 Status: Ordered Sinemet 25 mg-100 mg oral tablet 3 tablet, By Mouth, 3 times a day, for 90 days, # 810 tablet, 1 Refills, Hard Stop 10/06/22 7:09:00EDT, 04/09/22 7:09:00 EST, [facility], Partial fill upon patient request if the prescription is for a schedule II opioid drug., 3 tablet By Mo... Start Date: 04/09/22 Stop Date: 10/06/22 Status: Ordered traZODone 50 mg oral tablet 0.5, tablet, By Mouth, Daily at bedtime, # 15 tablet, Refills 11, Maintenance, 01/05/22 17:57:00 EDT, Route to Pharmacy Electronically, [facility], 176.8, cm, 11/14/21 [...] on right. 2Problem added by Discern Expert [id number] Social History Social History Type Response Smoking Status Never (less than 100 in lifetime) entered on: 10/11/18 Sex Patient Care team information Care Team Personnel Name: Nydai LEE, Azael Position: [facility] RN Member Role: Primary Care Nurse Name: Martín Thornton RN Position: [facility] RN Member Role: Primary Care Nurse Name: Jose Galindo MD Position: [facility] Primary Care Physician Member Role: PCP Address: Address: [address] [place] [address]- Name: Jenni Tran RN Position: [facility] RN Member Role: Primary Care Nurse Care Team Related Persons Name: LEIGH ANN LARRY Address: home [address] [place] [address] Name: ALFRED LARRY Address: home [address] [place] [address] Name: LEIGH ANN SILVERIO Address: [address] [address]
--- OUTSIDE RECORDS SUMMARY | 2022-10-08 19:45 | XMS_ITS | Continuity of Care Document ---
Author Name Unknown Organization [facility] Address [address] [place] [address]- Care Team Providers Care Adobe Ball Mixer Name Role Phone Jose Galindo MD Primary Care Physician [facility]counter [facility] Date(s): 05/31/22 - 06/30/[address] [id number] Allergies, Adverse Reactions, Alerts Substance Reaction Severity Status shellfish Active Shrimp Active Immunizations Given and Recorded Vaccine Date Status Refusal Reason [id number] 12y+ bivalent booster vax 06/06/22 Given influenza [...] Maintenance, 06/30/22 10:11:00 EDT,Route to Pharmacy Electronically, [facility], Partial fill upon patient request if the prescription is for a schedule II opioid drug., 18... Start Date: 06/30/22 Status: Ordered atorvastatin 80 mg oral tablet 1 tablet = 80 mg, By Mouth, Daily at bedtime, # 30 tablet, 2 Refills, Maintenance, 06/30/22 10:09:00 EDT, Tablet, [facility], Partial fill upon patient [...] 06/30/22 10:10:00 EDT, Route to Pharmacy Electronically, [facility], Partial fill upon patient request [...] 06/30/22 10:10:00 EDT, Route to Pharmacy Electronically, [facility], Partial fill upon patient request if the prescription is for a schedule II opioi... Start Date: 06/30/22 Status: Ordered omeprazole 20 mg oral delayed release tablet 1 tablet = 20 mg, By Mouth, Daily, # 90 tablet, 3 Refills, Maintenance, 07/26/21 10:31:00 EDT, CR Tablet, [facility], Partial fill upon patient request if the prescription is for a schedule II opioid drug., 176.8, cm, 05/10/22 10:04:00 EDT, H... Start Date: 07/26/21 Status: Ordered Plavix 75 mg oral tablet 75 mg, 1, tablet, By Mouth, Daily, # 30 tablet, Refills 2, Tot. Refills 2, Maintenance, 06/30/22 10:09:00 EDT, Route to Pharmacy Electronically, [facility], Partial fill upon patient [...] dose, # 30 tablet, Refills 11, Tot. [id number], Maintenance, 06/13/22 14:08:00 EDT, Route to Pharmacy [...] on right. 2Problem added by Discern Expert [id number] Social History Social History Type Response Smoking Status Never (less than 100 in lifetime) entered on: 10/11/18 Sex Patient Care team information Care Team Personnel Name: Azael Stafford RN Position: [facility] RN Member Role: Primary Care Nurse Name: Martín Thornton RN Position: [facility] RN Member Role: Primary Care Nurse Name: Froylan Cooley RN Position: [facility] RN Member Role: Primary Care Nurse Name: Jose Galindo MD Position: [facility] Primary Care Physician Member Role: PCP Address: Address: [address] [place] [address]- Name: Xiao Cervantes RN Position: [facility] RN Member Role: Primary Care Nurse Name: Jenni Tran RN Position: [facility] Onco RN Member Role: Primary Care Nurse Care Team Related Persons Name: LEIGH ANN LARRY Address: home [address] [place] [address] Name: ALFRED LARRY Address: home [address] [place] [address] Name: LEIGH ANN SILVERIO Address: home [address] [place] [address]
--- OUTSIDE RECORDS SUMMARY | 2022-10-08 19:46 | XMS_ITS | Continuity of Care Document ---
Author Name Unknown Organization [facility] Address [address] [facility], [address] Floor, [address] [place] [address]- Care Team Providers Care Fur Dry Cleaner Name Role Phone Josie LANDAVERDE, Jose Vidal Primary Care Physician [place] [facility] [place]/11[place]21 - 11/10/21 [facility] [address], [address], [address] [place] [address]- [place] Allergies, Adverse Reactions, Alerts Substance Reaction Severity [...] urine(Confirmed) Active 150 to 69% on right. [id number] Social History Social History Type Response Smoking Status Never (less than 100 in lifetime) entered on: 10/11/18 Sex Care Team Personnel Name: Josie LANDAVERDE, Jose Vidal Address: [address] [place] [id number] [[email or web address]]
--- OUTSIDE RECORDS SUMMARY | 2022-10-08 19:46 | XMS_ITS | Continuity of Care Document ---
Author Name Unknown Organization [facility] Address [address] [place] [address]- Care Team Providers Care Ax Survey Worker Name Role Phone Jose Galindo MD Primary Care Physician [facility] Date(s): 05/18/21 - 05/25/21 [facility] Adult [address] [place] [address]- Attending Physician: Jose Galindo MD Allergies, Adverse [...] 1 Refills, Maintenance, 01/04/21 17:14:00 EDT, Capsule, [facility], Partial fill [...] tablet, 2 Refills, Maintenance, 12/23/20 20:36:00 EDT, [facility] # [facility], Partial fill upon patient [...] urine(Confirmed) Active 150 to 69% on right. [id number] Vital Signs Most recent to oldest [Reference Range]: 1 Height 176.8 cm (05/18/21 2:58 PM) Weight 91.0 kg (05/18/21 2:58 PM) Oxygen Saturation [94-100 %] 96 % (05/18/21 2:58 PM) Pulse Rate [55-90 bpm] 94 bpm *H* (05/18/21 2:58 PM) Body Mass Index [18.5-24.99] 29.11 *H* (05/18/21 2:58 PM) Blood Pressure [90-138/55-84 mm Hg] 114/ 66mm Hg (05/18/21 2:58 PM) Mode of Delivery (Oxygen) Room air (05/18/21 2:58 PM) Blood pressure sites Arm, left (05/18/21 2:58 PM) Weight Obtained Via Standing scale (05/18/21 2:58 PM) Social History Social History Type Response Smoking Status Never (less than 100 in lifetime) entered on: 10/11/18 Sex
--- OUTSIDE RECORDS SUMMARY | 2022-10-08 19:46 | XMS_ITS | Continuity of Care Document ---
Author Name Unknown Organization [facility] Address [address] [place] [address]- Care Team Providers Care Pattern Filer Name Role Phone Jose Galindo MD Primary Care Physician Encounter [facility] [place] [place] Date(s): 12/04/20 - 04/03/21 [facility] Adult [address] [place] [address]- Attending Physician: Jose Galindo MD Allergies, Adverse Reactions, Alerts Substance Reaction Severity Status shellfish Active Shrimp Active Immunizations Given and Recorded Vaccine Date Status Refusal Reason SARS-CoV-2 (COVID-19) mRNA-1273 vaccine 03/17/21 R ecorded SARS-CoV-2 (COVID-19) mRNA-1273 vaccine 05/27/20 R ecorded SARS-CoV-2 (COVID-19) mRNA-1273 vaccine 04/30/20 R ecorded zoster vaccine, inactivated 02/01/21 Recorded influenza virus [...] 3 Refills, Maintenance, 08/11/20 19:12:00 EDT, ECCapsule, [facility], Partial fill [...] lesion(Confirmed) Active 150 to 69% on right. [id number] Social History Social History Type Response Smoking Status Never (less than 100 in lifetime) entered on: 10/11/18 Sex
--- OUTSIDE RECORDS SUMMARY | 2022-10-08 19:46 | XMS_ITS | Continuity of Care Document ---
Author Name Unknown Organization [facility] Address [address] [facility], [address] Floor, [address] [place] [address]- Care Team Providers Care Swim Coach Name Role Phone Jose Galindo MD Primary Care Physician [facility]counter [facility] Date(s): 07/29/20 - 08/28/20 [facility] [address], [address], [address] [place] [id number] Allergies, Adverse Reactions, Alerts Substance Reaction [...] 3 Refills, Maintenance, 08/11/20 19:12:00 EDT, ECCapsule, [facility] # [facility], Partial fill upon patient request if the prescription is for a schedule II opioid drug., 176.8, cm, 08/11/20 12:51:00 EDT... Start Date: 08/11/20 Status: Ordered gabapentin 600 mg oral tablet 1 tablet = 600 mg, By Mouth, 3 times a day, # 270 tablet, 3 Refills, Maintenance, 08/11/20 19:13:00EDT, Tablet, [facility] # [facility], Partial fill upon patient request, 176.8, cm, 08/11/20 12:51:00 EDT, Height, 89.4, kg, 01/17/19 14:16:00 EDT, Dry Weight Start Date: 08/11/20 Status: Ordered meclizine 25 mg oral tablet 1 tablet, By Mouth, 3 times a day, PRN NEEDED FOR DIZZINESS, # 90 tablet, 1 Refills, Maintenance, 08/11/20 19:14:00 EDT, [facility] # [facility], 176.8, cm, 08/11/20 12:51:00 EDT, Height, 89.4, kg, 01/17/19 14:16:00 EDT, Dry Weight Start Date: 08/11/20 Status: Ordered omeprazole 20 mg oral delayed release tablet 1 tablet = 20 mg, By Mouth, Daily, before a meal, # 90 tablet, 1 Refills, Maintenance, 08/11/20 19:13:00 EDT, EC Tablet, [facility], 176.8, cm, 08/11/20 [...] tablet, 4 Refills, Maintenance, 08/11/20 19:13:00 EDT, [facility] # [facility], Partial fill upon patient [...] lesion(Confirmed) Active 150 to 69% on right. [id number] Social History Social History Type Response Smoking Status Never (less than 100 in lifetime) entered on: 10/11/18 Sex
--- OUTSIDE RECORDS SUMMARY | 2022-10-08 19:46 | XMS_ITS | Continuity of Care Document ---
Author Name Unknown Organization [facility] Address [address] [place] [address]- Care Team Providers Care Sales Broker Name Role Phone Jose Galindo MD Primary Care Physician [phone] [facility]counter [facility] Date(s): 01/05/22 - 02/04/22 [facility] Adult [address] [place] [address]- Allergies, Adverse Reactions, Alerts Substance Reaction Severity [...] Maintenance, 07/26/21 10:32:00 EDT, Tablet, [facility] # [facility], Partial fill upon patient request if the prescription is for a schedule II opioid drug., 176.8, cm,... Start Date: 07/26/21 Status: Ordered omeprazole 20 mg oral delayed release tablet 1 tablet = 20 mg, By Mouth, Daily, # 90 tablet, 3 Refills, Maintenance, 07/26/21 10:31:00 EDT, CR Tablet, [facility] # 50, Partial fill upon patient request if the prescription is for a schedule II opioid drug., 176.8, cm, 07/26/21 10:04:00 EDT, H... Start Date: 07/26/21 Status: Ordered Sinemet 25 mg-100 mg oral tablet 3 tablet, By Mouth, 3 times a day, # 810 tablet, 1 Refills, Maintenance, 10/11/21 7:09:00 EDT, [facility] # [facility], Partial fill upon [...] EDT, Route to Pharmacy Electronically, [facility], 176.8, cm, 11/14/21 [...] Confirmed Active 150 to 69% on right. 324[address] Social History Social History Type Response Smoking Status Never (less than 100 in lifetime) entered on: 10/11/18 Sex Patient Care team information Care Team Personnel Name: Jose Galindo MD Position: [facility] Primary Care Physician Member Role: PCP Address: Address: [address] [place] [address]- Name: Jenni Tran RN Position: [facility] RN Member Role: Primary Care Nurse Care Team Related Persons Name: LEIGH ANN LARRY Address: home [address] [place] [id number] Name: ALFRED LARRY Address: home [address] [place] [address] Name: LEIGH ANN SILVERIO Address: [address] [address]
--- OUTSIDE RECORDS SUMMARY | 2022-10-08 19:46 | XMS_ITS | Continuity of Care Document ---
Author Name Unknown Organization [facility] Address [address] [place] [address]- Care Team Providers Care Smoke Jumper Supervisor Name Role Phone Jose Galindo MD Primary Care Physician [phone] Encounter [facility] Date(s): 07/19/21 - 08/18/21 [facility] Adult [address] [place] [address]- Referring Physician: Rhianna Johnston Allergies, Adverse Reactions, Alerts Substance Reaction Severity [...] Maintenance, 07/26/21 10:32:00 EDT, Tablet, [facility], Partial fill upon patient request if the prescription is for a schedule II opioid drug., 176.8, cm,... Start Date: 07/26/21 Status: Ordered omeprazole 20 mg oral delayed release tablet 1 tablet = 20 mg, By Mouth, Daily, # 90 tablet, 3 Refills, Maintenance, 07/26/21 10:31:00 EDT, CR Tablet, [facility] # [facility], Partial fill upon patient request if the prescription is for a schedule II opioid drug., 176.8, cm, 07/26/21 10:04:00 EDT, H... Start Date: 07/26/21 Status: Ordered Sinemet 25 mg-100 mg oral tablet 3 tablet, By Mouth, 3 times a day, DOSE INCREASE, # 810 tablet, 2 Refills, Maintenance, 12/23/20 20:36:00 EDT, [facility] [...] urine(Confirmed) Active 150 to 69% on right. [id number] Social History Social History Type Response Smoking Status Never (less than 100 in lifetime) entered on: 10/11/18 Sex
--- OUTSIDE RECORDS SUMMARY | 2022-10-08 19:46 | XMS_ITS | Continuity of Care Document ---
Author Name Unknown Organization [facility] Address [address] [place] [address]- Care Team Providers Care Air Brake Operator Name Role Phone Jose Galindo MD Primary Care Physician [phone] Encounter [facility] [place] Date(s): 06/06/22 - 06/13/22 [facility] Adult [address] [place] [address]- Attending Physician: Jose Galindo MD Allergies, Adverse Reactions, Alerts Substance Reaction Severity Status shellfish Active Shrimp Active Immunizations Given and Recorded Vaccine Date Status Refusal Reason [id number] 12y+ bivalent booster vax 06/06/22 Given influenza [...] drug. Start Date: 07/27/21 Status: Ordered Lyrica 150 mg oral capsule 1 capsule = 150 mg, By Mouth, 2 times a day, # 180 capsule, 0 Refills, Maintenance, 06/13/22 14:29:00 EDT, [facility], Partial fill upon patient request if the prescription is for a scheduleII opioid drug., 176.8, cm, 06/12/22 11:10:00 EDT,... Start Date: 06/13/22 Stop Date: 09/11/22 Status: Ordered meclizine 25 mg oral tablet 1 tablet = 25 mg, By Mouth, 3 times a day, PRN for dizziness, # 60 tablet, 1 Refills, Maintenance, 07/26/21 10:32:00 EDT, Tablet, [facility], Partial fill upon patient request if the prescription is for a schedule II opioid drug., 176.8, cm,... Start Date: 07/26/21 Status: Ordered omeprazole 20 mg oral delayed release tablet 1 tablet = 20 mg, By Mouth, Daily, # 90 tablet, 3 Refills, Maintenance, 07/26/21 10:31:00 EDT, CR Tablet, [facility], Partial fill upon patient request if the prescription is for a schedule II opioid drug., 176.8, cm, 07/26/21 10:04:00 EDT, H... Start Date: 07/26/21 Status: Ordered Sinemet 25 mg-100 mg oral tablet 3 tablet, By Mouth, 3 times a day, for 90 days, # 810 tablet, 1 Refills, Hard Stop 10/06/22 7:09:00EDT, 04/09/22 7:09:00 EST, [facility], Partial fill upon patient request if the prescription is for a schedule II opioid drug., 3 tablet By Mo... Start Date: 04/09/22 Stop Date: 10/06/22 Status: Ordered traZODone 50 mg oral tablet 50 mg, 1, tablet, By Mouth, Daily at bedtime, increased dose, # 30 tablet, Refills 11, Tot. [id number], Maintenance, 06/13/22 14:08:00 EDT, Route to Pharmacy [...] on right. 2Problem added by Discern Expert [id number] Vital Signs Most recent to oldest [Reference Range]: 1 Height 176.8 cm (06/06/22 3:22 PM) Oxygen Saturation [94-100 %] 96 % (06/06/22 3:22 PM) Pulse Rate [55-90 bpm] 80 bpm (06/06/22 3:22 PM) Blood Pressure [90-138/55-84 mm Hg] 91/4 0mm Hg (06/06/22 3:22 PM) Mode of Delivery (Oxygen) Room air (06/06/22 3:22 PM) Blood pressure sites Arm, left (06/06/22 3:22 PM) Social History Social History Type Response Smoking Status Never (less than 100 in lifetime) entered on: 10/11/18 Sex Patient Care team information Care Team Personnel Name: Azael Stafford RN Position: [facility] RN Member Role: Primary Care Nurse Name: Martín Thornton RN Position: [facility] RN Member Role: Primary Care Nurse Name: Yasir LEE, Froylan Position: [facility] RN Member Role: Primary Care Nurse Name: Josie LANDAVERDE, Jose Vidal Position: [facility] Primary Care Physician Member Role: PCP Address: Address: [address] [place] [address] Name: Jenni Tran RN Position: [facility] Onco RN Member Role: Primary Care Nurse Care Team Related Persons Name: LEIGH ANN LARRY Address: home [address] [place] [address] Name: ALFRED LARRY Address: home [address] [place] [address] Name: LEIGH ANN SILVERIO Address: home [address] [place] [address]
--- OUTSIDE RECORDS SUMMARY | 2022-10-08 19:46 | XMS_ITS | Continuity of Care Document ---
Author Name Unknown Organization [facility] Address [address] [place] [address]- Care Team Providers Care Director Consumer Name Role Phone Jose Galindo MD Primary Care Physician [phone] [facility] Date(s): 01/03/22 - 02/11/22 [facility] Adult [address] [place] [address]- Attending Physician: Not on Staff, Attending MD [...] 1 Refills, Maintenance, 07/26/21 10:32:00 EDT, Tablet, [facility], Partial fill upon patient request if the prescription is for a schedule II opioid drug., 176.8, cm,... Start Date: 07/26/21 Status: Ordered omeprazole 20 mg oral delayed release tablet 1 tablet = 20 mg, By Mouth, Daily, # 90 tablet, 3 Refills, Maintenance, 07/26/21 10:31:00 EDT, CR Tablet, [facility] # [facility], Partial fill upon patient request if the prescription is for a schedule II opioid drug., 176.8, cm, 07/26/21 10:04:00 EDT, H... Start Date: 07/26/21 Status: Ordered Sinemet 25 mg-100 mg oral tablet 3 tablet, By Mouth, 3 times a day, # 810 tablet, 1 Refills, Maintenance, 10/11/21 7:09:00 EDT, [facility] # [facility], Partial fill upon patient request if the prescription is for a schedule II opioid drug., 3 tablet By Mouth 3 times a day,x90 days, 176.... Start Date: 10/11/21 Stop Date: 04/09/22 Status: Ordered traZODone 50 mg oral tablet 0.5, tablet, By Mouth, Daily at bedtime, # 15 tablet, Refills 11, Maintenance, 01/05/22 17:57:00 EDT, Route to Pharmacy Electronically, [facility], 176.8, cm, 11/14/21 [...] Confirmed Active 150 to 69% on right. [id number] Social History Social History Type Response Smoking Status Never (less than 100 in lifetime) entered on: 10/11/18 Sex Patient Care team information Care Team Personnel Name: Josie LANDAVERDE, Jose Vidal Position: [facility] Primary Care Physician Member Role: PCP Address: Address: [address] [place] [address]- Name: Jenni Tran RN Position: [facility] RN Member Role: Primary Care Nurse Care Team Related Persons Name: LEIGH ANN LARRY Address: home [address] [place] [address] Name: ALFRED LARRY Address: home [address] [place] [address] Name: LEIGH ANN SILVERIO Address: [address] [place] [address]
--- OUTSIDE RECORDS SUMMARY | 2022-10-08 19:46 | XMS_ITS | Continuity of Care Document ---
Author Name Unknown Organization [facility] Address Unknown Care Team Providers Care Rn Medicare Name Role Phone Josie LANDAVERDE, Jose Vidal Primary Care Physician [phone] Encounter [facility] [place] Date(s): 10/04/21 - 11/03/21 [facility] Attending Physician: Aidan Sun Admitting Physician: Aidan Sun Referring Physician: Aidna Sun Allergies, Adverse Reactions, Alerts Substance Reaction Severity [...] Refills, Maintenance, 07/26/21 10:31:00 EDT, EC Capsule, [facility], Partial fill upon [...] 1 Refills, Maintenance, 07/26/21 10:31:00 EDT, Capsule, [facility], Partial fill upon patient request if the prescription is for a schedule II opioid drug., 176.8, cm, 07/26/21 10:04:... Start Date: 07/26/21 Status: Ordered meclizine 25 mg oral tablet 1 tablet = 25 mg, By Mouth, 3 times a day, PRN for dizziness, # 60 tablet, 1 Refills, Maintenance, 07/26/21 10:32:00 EDT, Tablet, [facility] # [facility], Partial fill upon patient request if the prescription is for a schedule II opioid drug., 176.8, cm,... Start Date: 07/26/21 Status: Ordered omeprazole 20 mg oral delayed release tablet 1 tablet = 20 mg, By Mouth, Daily, # 90 tablet, 3 Refills, Maintenance, 07/26/21 10:31:00 EDT, CR Tablet, [facility], [...] tablet, 0 Refills, Maintenance, 10/26/21 17:43:00 EDT, [facility] # [facility], P... Start Date: 10/26/21 Status: Ordered Sinemet 25 mg-100 mg oral tablet 3 tablet, By Mouth, 3 times a day, # 810 tablet, 1 Refills, Maintenance, 10/11/21 7:09:00 EDT, [facility] # [facility], Partial [...] urine(Confirmed) Active 150 to 69% on right. [id number] Social History Social History Type Response Smoking Status Never (less than 100 in lifetime) entered on: 10/11/18 Sex
--- OUTSIDE RECORDS SUMMARY | 2022-10-08 19:46 | XMS_ITS | Continuity of Care Document ---
Author Name Unknown Organization [facility] Address [address] [place] [address]- Care Team Providers Care Senior Sql Server Dba Name Role Phone Jose Galindo MD Primary Care Physician En[place] [facility] Date(s): 07/09/20 - 08/08/[address] [address]- Allergies, Adverse Reactions, Alerts Substance Reaction Severity [...] 1 Refills, Maintenance, 07/30/20 10:11:00 EDT, Tablet, [facility], 176.8, cm, 07/01/20 15:14:00 EDT, Height, [...] Daily, # 90 capsule, 3 Refills, Maintenance, 08/05/20 6:51:00 EDT, EC Capsule, [facility], Partial fill upon patient request if the prescription isfor a schedule II opioid drug., 176.8, cm, 07/01/20... Start Date: 08/05/20 Status: Ordered Flomax 0.4 mg oral capsule 0.4 mg, 1, capsule, By Mouth, Daily, Refills 0, Maintenance, 03/29/20 13:07:00 EST, Partial fill upon patient request if the prescription is for a schedule II opioid drug. Start Date: 03/29/20 Status: Ordered gabapentin 600 mg oral tablet 1 tablet = 600 mg, By Mouth, 3 times a day, # 270 tablet, 3 Refills, Maintenance, 08/05/20 6:51:00 EDT, Tablet, [facility], Partial fill upon patient request, 176.8, cm, 07/01/20 15:14:00 EDT, Height, 89.4, kg, 01/17/19 14:16:00... Start Date: 08/05/20 Status: Ordered meclizine 25 mg oral tablet 1 tablet, By Mouth, 3 times a day, PRN NEEDED FOR DIZZINESS, # 90 tablet, 1 Refills, Maintenance, 07/30/20 11:18:00 EDT, [facility], 176.8, cm, 07/01/20 15:14:00 EDT, Height, 89.4, kg, 01/17/19 14:16:00 EDT, Dry Weight Start Date: 07/30/20 Status: Ordered omeprazole 20 mg oral delayed release tablet 1 tablet = 20 mg, By Mouth, Daily, before a meal, # 90 tablet, 1 Refills, Maintenance, 07/30/20 10:11:00 EDT, EC Tablet, [facility], 176.8, cm, 07/01/20 15:14:00 EDT, Height, [...] tablet, 1 Refills, Maintenance, 07/30/20 12:19:00 EDT, [facility], Partial fill upon patient request if [...] lesion(Confirmed) Active 150 to 69% on right. [id number] Social History Social History Type Response Smoking Status Never (less than 100 in lifetime) entered on: 10/11/18 Sex
--- OUTSIDE RECORDS SUMMARY | 2022-10-08 19:46 | XMS_ITS | Continuity of Care Document ---
Author Name Unknown Organization [facility] Address [address] [place] [address]- Care Team Providers Care Chainstitch Elastic Attacher Name Role Phone Josie LANDAVERDE, Jose Vidal Primary Care Physician [facility]counter [facility] Date(s): 02/19/19 - 03/01/[address] [address]- [facility] Attending Physician: Aidan Sun Admitting Physician: AdmAidan gooden Referring Physician: AdmtrAidan Allergies, Adverse Reactions, Alerts [...] peripheral(Confirmed) Active 150 to 69% on right. [id number] Social History Social History Type Response Smoking Status Never (less than 100 in lifetime) entered on: 10/11/18 Sex
--- OUTSIDE RECORDS SUMMARY | 2022-10-08 19:46 | XMS_ITS | Continuity of Care Document ---
Author Name Unknown Organization [facility] Address [address] [place] [address]- Care Team Providers Care Churn Drill Operator Name Role Phone Jose Galindo MD Primary Care Physician [place] [facility] [place] 04/05/21 - 04/12/21 [facility] [address] [place] [address]- Encounter Diagnosis Chronic low back pain(Discharge Diagnosis) - 04/05/21 Attending Physician: Jose Galindo MD Allergies, Adverse [...] Refills, Maintenance, 04/05/21 11:29:00 EST, EC Capsule, [facility], Partial fill upon patient request if the prescription is fora schedule II opioid drug., 176.8, cm, 04/05/21 11:... Start Date: 04/05/21 Stop Date: 03/31/22 Status: Ordered Lyrica 75 mg oral capsule 1 capsule = 75 mg, By Mouth, 2 times a day, # 180 capsule, 1 Refills, Maintenance, 01/04/21 17:14:00 EDT, Capsule, [facility], Partial fill upon [...] urine(Confirmed) Active 150 to 69% on right. 45214 Diagnosis Diagnosis Type Effective Dates Health Status Cl inical Service Informant Chronic low back pain Discharge Diagnosis 04/05/21 Vital Signs Most recent to oldest [Reference Range]: 1 Height 176.8 cm (04/05/21 11:00 AM) Weight 75.0 kg (04/05/21 11:00 AM) Body Mass Index [18.5-24.99] 23.99 (04/05/21 11:00 AM) Social History Social History Type Response Smoking Status Never (less than 100 in lifetime) entered on: 10/11/18 Sex
--- OUTSIDE RECORDS SUMMARY | 2022-10-08 19:46 | XMS_ITS | Continuity of Care Document ---
Author Name Unknown Organization [facility] Address [address] [place] [address]- Care Team Providers Care Bath Design Sales Consultant Name Role Phone Jose Galindo MD Primary Care Physician [facility]counter [facility] Date(s): 03/09/22 - 03/16/22 [facility] Adult [address] [place] [address]- Attending Physician: Not on Staff, Attending MD [...] 1 Refills, Maintenance, 07/26/21 10:31:00 EDT, Capsule, [facility], [...] Hard Stop 04/09/22 7:09:00EST, 10/11/21 7:09:00 EDT, [facility], Partial fill upon patient request if the prescription is for a schedule II opioid drug., 176.8, cm, 05... Start Date: 10/11/21 Stop Date: 04/09/22 Status: [...] on right. 2Problem added by Discern Expert [id number] Vital Signs Most recent to oldest [Reference Range]: 1 Height 176.8 cm (03/09/22 12:40 PM) Weight 89.0 kg (03/09/22 12:40 PM) Oxygen Saturation [94-100 %] 96 % (03/09/22 12:40 PM) Pulse Rate [55-90 bpm] 70 bpm (03/09/22 12:40 PM) Body Mass Index [18.5-24.99 kg/m2] 28.47 kg/m2 *H* (03/09/22 12:40 PM) Blood Pressure [90-138/55-84 mm Hg] 130/ 78mm Hg (03/09/22 12:40 PM) Respiratory Rate [16-30 br/min] 16 br/mi n (03/09/22 12:40 PM) Temperature [96.8-100.4 DegF] 97.8 DegF (03/09/22 12:40 PM) Mode of Delivery (Oxygen) Room air (03/09/22 12:40 PM) Blood pressure sites Arm, left (03/09/22 12:40 PM) Temperature Route Oral (03/09/22 12:40 PM) Weight Obtained Via Standing scale (03/09/22 12:40 PM) Social History Social History Type Response Smoking Status Never (less than 100 in lifetime) entered on: 10/11/18 Sex Patient Care team information Care Team Personnel Name: Nydia LEE, Azael Position: [facility] RN Member Role: Primary Care Nurse Name: Martín Thornton RN Position: [facility] RN Member Role: Primary Care Nurse Name: Jose Galindo MD Position: [facility] Primary Care Physician Member Role: PCP Address: Address: [address] [place] [id number] Name: Jenni Tran RN Position: [facility] RN Member Role: Primary Care Nurse Care Team Related Persons Name: LEIGH ANN LARRY Address: home [address] [place] [address] Name: ALFRED LARRY Address: home [address] [place] [address] Name: LEIGH ANN SILVERIO Address: home [address] [place] [address]
--- OUTSIDE RECORDS SUMMARY | 2022-10-08 19:46 | XMS_ITS | Continuity of Care Document ---
Author Name Unknown Organization [facility] Address [address] [place] [address]- Care Team Providers Care Superintendent General Name Role Phone Jose Galindo MD Primary Care Physician [phone] Encounter [facility] Date(s): 06/25/20 - 07/25/[address] [address] Attending Physician: Not on Staff, Attending MD [...] Refills, Maintenance, 05/27/20 11:22:00 EST, EC Capsule, [facility], Partial fill upon patient [...] tablet, 11 Refills, Maintenance, 02/11/20 16:02:00EST, Tablet, [facility], Partial fill upon patient request, 176.8, cm, 09/23/19 11:05:00 EDT, Height, 89.4, kg, 01/17/19 14:16:00 EDT, Dry Weight Start Date: 02/11/20 Status: Ordered meclizine 25 mg oral tablet 1 tablet, By Mouth, 3 times a day, PRN NEEDED FOR DIZZINESS, # 30 Unknown, 0 Refills, Acute, 07/22/20 7:12:00 EDT, [facility], 176.8, cm, 07/01/20 15:14:00 EDT, Height, 89.4, kg, 01/17/1914:16:00 EDT, Dry Weight Start Date: 07/22/20 Status: Ordered omeprazole 20 mg oral delayed [...] lesion(Confirmed) Active 150 to 69% on right. [id number] Social History Social History Type Response Smoking Status Never (less than 100 in lifetime) entered on: 10/11/18 Sex
--- OUTSIDE RECORDS SUMMARY | 2022-10-08 19:46 | XMS_ITS | Continuity of Care Document ---
Author Name Unknown Organization [facility] Address [address] [place] [address]- Care Team Providers Care Optimization Analyst Name Role Phone Jose Galindo MD Primary Care Physician Encounter [facility] Date(s): 02/21/19 - 03/29/[address] [address] Attending Physician: Jose Galindo MD Admitting Physician: [...] peripheral(Confirmed) Active 150 to 69% on right. [id number] Social History Social History Type Response Smoking Status Never (less than 100 in lifetime) entered on: 10/11/18 Sex
--- OUTSIDE RECORDS SUMMARY | 2022-10-08 19:46 | XMS_ITS | Continuity of Care Document ---
Author Name Unknown Organization [facility] Address [address] [place] [address]- Care Team Providers Care Surgical Territory Manager Name Role Phone Jose Galindo MD Primary Care Physician [facility]counter [facility] Date(s): 07/10/22 - 07/17/22 [facility] Adult [address] [place] [address]- Attending Physician: Not on Staff, Attending MD Allergies, Adverse Reactions, Alerts Substance Reaction Severity Status shellfish Active Shrimp Active Immunizations Given and Recorded Vaccine Date Status Refusal Reason [id number] 12y+ bivalent booster vax 06/06/22 Given influenza [...] 06/30/22 10:11:00 EDT,Route to Pharmacy Electronically, [facility], Partial fill upon patient request if the prescription is for a schedule II opioid drug., 18... Start Date: 06/30/22 Status: Ordered atorvastatin 80 mg oral tablet 1 tablet = 80 mg, By Mouth, Daily at bedtime, # 30 tablet, 2 Refills, Maintenance, 06/30/22 10:09:00 EDT, Tablet, [facility], Partial fill upon patient request [...] 2 Refills, Maintenance, 03/07/22 12:18:00 EST, Tablet, [facility], Partial fill upon [...] 06/30/22 10:10:00 EDT, Route to Pharmacy Electronically, [facility], Partial fill upon patient request if the prescription is for a schedule II opioi... Start Date: 06/30/22 Status: Ordered Lyrica 150 mg oral capsule 1 capsule = 150 mg, By Mouth, 2 times a day, # 180 capsule, 0 Refills, Maintenance, 06/13/22 14:29:00 EDT, [facility], Partial fill upon patient request if the prescription is for a scheduleII opioid drug., 176.8, cm, 06/12/22 11:10:00 EDT,... Start Date: 06/13/22 Stop Date: 09/11/22 Status: Ordered meclizine 25 mg oral tablet 1 tablet = 25 mg, By Mouth, 3 times a day, PRN for dizziness, # 60 tablet, 1 Refills, Maintenance, 07/26/21 10:32:00 EDT, Tablet, [facility], Partial fill upon patient request if the prescription is for a schedule II opioid drug., 176.8, cm,... Start Date: 07/26/21 Status: Ordered metoprolol 25 mg oral tablet, extended release 25 mg, 1, tablet, By Mouth, Daily, # 30 tablet, Refills 2, Tot. Refills 2, Maintenance, 06/30/22 10:10:00 EDT, Route to Pharmacy Electronically, [facility], Partial fill upon patient request [...] 06/30/22 10:09:00 EDT, Route to Pharmacy Electronically, [facility], Partial fill upon patient request if the prescription is for a schedule II opioi... Start Date: 06/30/22 Status: Ordered Sinemet 25 mg-100 mg oral tablet 3 tablet, By Mouth, 3 times a day, for 90 days, # 810 tablet, 1 Refills, Hard Stop 10/06/22 7:09:00EDT, 04/09/22 7:09:00 EST, [facility], Partial fill upon patient request if the prescription is for a schedule II opioid drug., 3 tablet By Mo... Start Date: 04/09/22 Stop Date: 10/06/22 Status: Ordered traZODone 50 mg oral tablet 50 mg, 1, tablet, By Mouth, Daily at bedtime, increased dose, # 30 tablet, Refills 11, Tot. [id number], Maintenance, 06/13/22 14:08:00 EDT, Route to Pharmacy Electronically, [facility], 176.8, cm, 06/12/22 11:10:00 [...] Confirmed Active 150 to 69% on right. [id number] 3Problem added by Discern Expert Vital Signs Most recent to oldest [Reference Range]: 1 Height 180 cm (07/10/22 12:52 PM) Weight 93.6 kg (07/10/22 12:52 PM) Oxygen Saturation [94-100 %] 98 % (07/10/22 12:52 PM) Pulse Rate [55-90 bpm] 66 bpm (07/10/22 12:52 PM) Body Mass Index [18.5-24.99 kg/m2] 28.89 kg/m2 *H* (07/10/22 12:52 PM) Blood Pressure [90-138/55-84 mm Hg] 110/ 62mm Hg (07/10/22 12:52 PM) Respiratory Rate [16-30 br/min] 16 br/mi n (07/10/22 12:52 PM) Temperature [96.8-100.4 DegF] 97.1 DegF (07/10/22 12:52 PM) Mode of Delivery (Oxygen) Room air (07/10/22 12:52 PM) Blood pressure sites Arm, right (07/10/22 12:52 PM) Temperature Route Oral (07/10/22 12:52 PM) Weight Obtained Via Patient/family state d (07/10/22 12:52 PM) Social History Social History Type Response Smoking Status Never (less than 100 in lifetime) entered on: 10/11/18 Sex Patient Care team information Care Team Personnel Name: Azael Stafford RN Position: [facility] RN Member Role: Primary Care Nurse Name: Martín Thornton RN Position: [facility] RN Member Role: Primary Care Nurse Name: Froylan Cooley RN Position: [facility] RN Member Role: Primary Care Nurse Name: Jose Galindo MD Position: [facility] Primary Care Physician Member Role: PCP Address: Address: [address] [place] [address]- Name: Xiao Cervantes RN Position: [facility] RN Member Role: Primary Care Nurse Name: Jenni Tran RN Position: [facility] Onco RN Member Role: Primary Care Nurse Care Team Related Persons Name: LEIGH ANN LARRY Address: home [address] [place] [address] Name: ALFRED LARRY Address: home [address] [place] [address] Name: LEIGH ANN SILVERIO Address: home [address] [place] [address]
--- OUTSIDE RECORDS SUMMARY | 2022-10-08 19:46 | XMS_ITS | Continuity of Care Document ---
Author Name Unknown Organization [facility] Address [address] [place] [address]- Care Team Providers Care Industrial Hygiene Engineer Name Role Phone Jose Galindo MD Primary Care Physician Encounter [facility] Date(s): 10/26/21 - 11/02/21 [facility] [address] [place] [address]- Encounter Diagnosis COVID-19(Discharge Diagnosis) - 10/26/21 Attending Physician: Not on Staff, Attending MD Referring Physician: Not on Staff, Referring [...] Refills, Maintenance, 07/26/21 10:32:00 EDT, Tablet, [facility], Partial fill upon patient request if the prescription is for a schedule II opioid drug., 176.8, cm,... Start Date: 07/26/21 Status: Ordered omeprazole 20 mg oral delayed release tablet 1 tablet = 20 mg, By Mouth, Daily, # 90 tablet, 3 Refills, Maintenance, 07/26/21 10:31:00 EDT, CR Tablet, [facility], Partial fill [...] tablet, 0 Refills, Maintenance, 10/26/21 17:43:00 EDT, [facility], P... Start Date: 10/26/21 Status: Ordered Sinemet 25 mg-100 mg oral tablet 3 tablet, By Mouth, 3 times a day, # 810 tablet, 1 Refills, Maintenance, 10/11/21 7:09:00 EDT, [facility], Partial fill [...] urine(Confirmed) Active 150 to 69% on right. [id number] Diagnosis Diagnosis Type Effective Dates Health Status Clini corey Service Informant COVID-19 Discharge Diagnosis 10/26/21 Social History Social History Type Response Smoking Status Never (less than 100 in lifetime) entered on: 10/11/18 Sex
--- OUTSIDE RECORDS SUMMARY | 2022-10-08 19:46 | XMS_ITS | Continuity of Care Document ---
Author Name Unknown Organization [facility] Address [address] [place] [address]- Care Team Providers Care Labor Relations Specialist Name Role Phone Jose Galindo MD Primary Care Physician [phone] [place] [facility] Date(s): 03/04/19 - 04/09/[address] [address] [place] Attending Physician: Jose Galindo MD Admitting Physician: [...] peripheral(Confirmed) Active 150 to 69% on right. [address] Social History Social History Type Response Smoking Status Never (less than 100 in lifetime) entered on: 10/11/18 Sex
--- OUTSIDE RECORDS SUMMARY | 2022-10-08 19:46 | XMS_ITS | Continuity of Care Document ---
Author Name Unknown Organization [facility] Address [address] [place] [address]- Care Team Providers Care Insole Rounder Name Role Phone Josie LANDAVERDE, Jose Vidal Primary Care Physician En[facility] [place] [place] Date(s): 11/19/20 - 11/26/20 [facility] Adult [address] [place] [address]- Encounter Diagnosis Chronic low back pain(Discharge Diagnosis) - 11/19/20 Neuropathy, peripheral(Discharge Diagnosis) - 11/19/20 Carotid artery stenosis(Discharge Diagnosis) - 11/19/20 Chronic vertigo(Discharge Diagnosis) - 11/19/20 Attending Physician: Sumanth MANAGER OF HOUSEKEEPING, Angélica Healy Allergies, Adverse Reactions, Alerts Substance [...] 3 Refills, Maintenance, 08/11/20 19:12:00 EDT, [facility]aps[facility], [facility], Partial fill upon patient request if the prescription is for a schedule II opioid drug., 176.8, cm, 08/11/20 12:51:00 EDT... Start Date: 08/11/20 Status: Ordered Lyrica 75 mg oral capsule 1 capsule = 75 mg, By Mouth, 2 times a day, # 60 capsule, 0 Refills, Maintenance, 11/04/20 14:21:00EDT, Capsule, [facility], Partial fill upon patient request if the prescription is for a schedule II opioid drug., 176.8, cm, 11/04/20 13:50:0... Start Date: 11/04/20 Status: Ordered omeprazole 20 mg oral delayed release tablet 1 tablet = 20 mg, By Mouth, Daily, before a meal, # 90 tablet, 1 Refills, Maintenance, 08/11/20 19:13:00 EDT, EC Tablet, [facility], 176.8, cm, 08/11/20 [...] lesion(Confirmed) Active 150 to 69% on right. [id number] Diagnosis Diagnosis Type Effective Dates Health Status Clinical Service Informant Chronic low back pain Discharge Diagnosis 11/19/20 Neuropathy, peripheral Discharge Diagnosis 11/19/20 Chronic vertigo Discharge Diagnosis 11/19/20 Carotid artery stenosis Discharge Diagnosis 11/19/20 Vital Signs Most recent to oldest [Reference Range]: 1 Height 176.8 cm (11/19/20 1:14 PM) Weight 89.9 kg (11/19/20 1:14 PM) Oxygen Saturation [94-100 %] 97 % (11/19/20 1:14 PM) Pulse Rate [55-90 bpm] 94 bpm *H* (11/19/20 1:14 PM) Body Mass Index [18.5-24.99] 28.76 *H* (11/19/20 1:14 PM) Blood Pressure [90-138/55-84 mm Hg] 130/ 72mm Hg (11/19/20 1:14 PM) Respiratory Rate [16-30 br/min] 18 br/mi n (11/19/20 1:14 PM) Temperature [96.8-100.4 DegF] 97.7 DegF (11/19/20 1:14 PM) Mode of Delivery (Oxygen) Room air (11/19/20 1:14 PM) Blood pressure sites Arm, right (11/19/20 1:14 PM) Temperature Route Oral (11/19/20 1:14 PM) Weight Obtained Via Standing scale (11/19/20 1:14 PM) Social History Social History Type Response Smoking Status Never (less than 100 in lifetime) entered on: 10/11/18 Sex
--- OUTSIDE RECORDS SUMMARY | 2022-10-08 19:46 | XMS_ITS | Continuity of Care Document ---
Author Name Unknown Organization [facility] Address [address] [place] [address]- Care Team Providers Care Orthopedic Dentist Name Role Phone Josie LANDAVERDE, Jose Vidal Primary Care Physician [facility] Date(s): 01/21/19 - 03/03/[address] [address] Dis[facility] Disposition: A-D/C Home Attending Physician: Vamshi Faith MD Admitting Physician: Vamshi Faith MD Referring Physician: Vamshi Faith MD Allergies, Adverse Reactions, Alerts Substance Reaction [...] peripheral(Confirmed) Active 150 to 69% on right. 23839 Social History Social History Type Response Smoking Status Never (less than 100 in lifetime) entered on: 10/11/18 Sex
--- OUTSIDE RECORDS SUMMARY | 2022-10-08 19:46 | XMS_ITS | Continuity of Care Document ---
Author Name Unknown Organization [facility] Address [address] [place] [address]- Care Team Providers Care Recording Studio Set Up Worker Name Role Phone Jose Galindo MD Primary Care Physician [facility]counter [facility] Date(s): 01/19/22 - 02/18/22 [facility] [place] [address] [place] [address]- Allergies, Adverse Reactions, Alerts Substance Reaction Severity [...] tablet, 1 Refills, Maintenance, 10/11/21 7:09:00 EDT, [facility] [...] 01/05/22 17:57:00 EDT, Route to Pharmacy Electronically, [facility], 176.8, cm, 11/14/21 15:02:00 [...] Confirmed Active 150 to 69% on right. [id number] Social History Social History Type Response Smoking Status Never (less than 100 in lifetime) entered on: 10/11/18 Sex Patient Care team information Care Team Personnel Name: Jose Galindo MD Position: [facility] Primary Care Physician Member Role: PCP Address: Address: [address] [place] [address]- Name: Jenni Tran RN Position: [facility] RN Member Role: Primary Care Nurse Care Team Related Persons Name: LEIGH ANN LARRY Address: home [address] [place] [address] Name: ALFRED LARRY Address: home [address] [place] [address] Name: LEIGH ANN SILVERIO Address: home [address] [place] [address]
--- OUTSIDE RECORDS SUMMARY | 2022-10-08 19:46 | XMS_ITS | Continuity of Care Document ---
Author Name Unknown Organization [facility] ter Address [address] [place] [id number]- Care Team Providers Care Geochemical Manager Name Role Phone Jose Galindo MD Primary Care Physician [facility] Date[facility]): 07/[facility]22 - 08/05/[address] [id number] Allergies, Adverse Reactions, Alerts Substance Reaction Severity Status shellfish Active Shrimp Active Immunizations Given and Recorded Vaccine Date Status Refusal Reason [id number] 12y+ bivalent booster vax 06/06/22 Given influenza [...] Maintenance, 06/30/22 10:11:00 EDT,Route to Pharmacy Electronically, [facility], Partial fill upon patient request if the prescription is for a schedule II opioid drug., 18... Start Date: 06/30/22 Status: Ordered atorvastatin 80 mg oral tablet 1 tablet = 80 mg, By Mouth, Daily at bedtime, # 30 tablet, 2 Refills, Maintenance, 06/30/22 10:09:00 EDT, Tablet, [facility], Partial fill upon patient [...] Refills, Maintenance, 07/26/21 10:31:00 EDT, EC Capsule, [facility] # [...] 2 Refills, Maintenance, 03/07/22 12:18:00 EST, Tablet, [facility] # [facility], Partial fill upon [...] 06/30/22 10:10:00 EDT, Route to Pharmacy Electronically, [facility], Partial fill upon patient request if the prescription is for a schedule II opioi... Start Date: 06/30/22 Status: Ordered Lyrica 150 mg oral capsule 1 capsule = 150 mg, By Mouth, 2 times a day, # 180 capsule, 0 Refills, Maintenance, 06/13/22 14:29:00 EDT, [facility] # [facility], Partial fill upon patient request if the prescription is for a scheduleII opioid drug., 176.8, cm, 06/12/22 11:10:00 EDT,... Start Date: 06/13/22 Stop Date: 09/11/22 Status: Ordered meclizine 25 mg oral tablet 1 tablet, By Mouth, 3 times a day, PRN NEEDED FOR DIZZINESS, # 60 tablet, 1 Refills, Maintenance, 07/26/22 13:26:00 EDT, [facility], 180, cm, 07/10/22 12:52:00 EDT, Height, 93.4, kg, 06/29/22 12:39:00 EDT, Dry Weight Start Date: 07/26/22 Status: Ordered omeprazole 20 mg oral delayed release tablet 1 tablet = 20 mg, By Mouth, Daily, # 90 tablet, 3 Refills, Maintenance, 07/26/21 10:31:00 EDT, CR Tablet, [facility] # [facility], Partial fill upon patient request if the prescription is for a schedule II opioid drug., 176.8, cm, 07/26/21 10:04:00 EDT, H... Start Date: 07/26/21 Status: Ordered Plavix 75 mg oral tablet 75 mg, 1, tablet, By Mouth, Daily, # 30 tablet, Refills 2, Tot. Refills 2, Maintenance, 06/30/22 10:09:00 EDT, Route to Pharmacy Electronically, [facility], Partial fill upon patient request if the prescription is for a schedule II opioi... Start Date: 06/30/22 Status: Ordered Sinemet 25 mg-100 mg oral tablet 3 tablet, By Mouth, 3 times a day, for 90 days, # 810 tablet, 1 Refills, Hard Stop 10/06/22 7:09:00EDT, 04/09/22 7:09:00 EST, [facility] # [facility], [...] 07/26/22 16:10:00 EDT, Route to Pharmacy Electronically, [facility] # [facility], Partial fill upon patient requestif the prescription is for a schedule II opioid jett... Start Date: 07/26/22 Status: Ordered traZODone 50 mg oral tablet 50 mg, 1, tablet, By Mouth, Daily at bedtime, increased dose, # 30 tablet, Refills 11, Tot. [id number], Maintenance, 06/13/22 14:08:00 EDT, Route to Pharmacy Electronically, [facility] # [facility], 176.8, cm, 06/12/22 [...] Confirmed Active 150 to 69% on right. [id number] 3Problem added by Discern Expert Social History Social History Type Response Smoking Status Never (less than 100 in lifetime) entered on: 10/11/18 Sex Patient Care team information Care Team Personnel Name: Azael Stafford RN Position: [facility] RN Member Role: Primary Care Nurse Name: Martín Thornton RN Position: [facility] RN Member Role: Primary Care Nurse Name: Froylan Cooley RN Position: [facility] RN Member Role: Primary Care Nurse Name: Jose Galindo MD Position: [facility] Primary Care Physician Member Role: PCP Address: Address: [address] [place] [id number]- Name: Xiao Cervantes RN Position: [facility] RN Member Role: Primary Care Nurse Name: Jenni Tran RN Position: [facility] Onco RN Member Role: Primary Care Nurse Care Team Related Persons Name: LEIGH ANN LARRY Address: [address] [place] [address] Name: ALFRED LARRY Address: home [address] [place] [address] Name: LEIGH ANN SILVERIO Address: home [address] [place] [address]
--- OUTSIDE RECORDS SUMMARY | 2022-10-08 19:46 | XMS_ITS | Continuity of Care Document ---
Author Name Unknown Organization [facility] Kareem Quique lt Address [address] [place] [address]- Care Team Providers Care Director Of Accounts Payable Name Role Phone Jose Galindo MD Primary Care Physician [phone] [facility] - 09[facility]08[facility]20 [facility] [address] [place] [address]- Allergies, Adverse Reactions, Alerts Substance Reaction Severity [...] Maintenance, 08/11/20 19:12:00 EDT, ECCapsule, [facility] # [facility], Partial fill upon patient request if the prescription is for a schedule II opioid drug., 176.8, cm, 08/11/20 12:51:00 EDT... Start Date: 08/11/20 Status: Ordered gabapentin 600 mg oral tablet 1 tablet = 600 mg, By Mouth, 3 times a day, # 270 tablet, 3 Refills, Maintenance, 08/11/20 19:13:00EDT, Tablet, [facility] # [facility], Partial fill upon patient request, 176.8, cm, 08/11/20 12:51:00 EDT, Height, 89.4, kg, 01/17/19 14:16:00 EDT, Dry Weight Start Date: 08/11/20 Status: Ordered meclizine 25 mg oral tablet 1 tablet, By Mouth, 3 times a day, PRN NEEDED FOR DIZZINESS, # 90 tablet, 1 Refills, Maintenance, 08/11/20 19:14:00 EDT, [facility] # [facility], 176.8, cm, 08/11/20 12:51:00 EDT, Height, 89.4, kg, 01/17/19 14:16:00 EDT, Dry Weight Start Date: 08/11/20 Status: Ordered omeprazole 20 mg oral delayed release tablet 1 tablet = 20 mg, By Mouth, Daily, before a meal, # 90 tablet, 1 Refills, Maintenance, 08/11/20 19:13:00 EDT, EC Tablet, [facility] # [facility], 176.8, cm, 08/11/20 12:51:00 [...] tablet, 4 Refills, Maintenance, 08/11/20 19:13:00 EDT, [facility] # [facility], Partial [...] lesion(Confirmed) Active 150 to 69% on right. [id number] Social History Social History Type Response Smoking Status Never (less than 100 in lifetime) entered on: 10/11/18 Sex
--- OUTSIDE RECORDS SUMMARY | 2022-10-08 19:46 | XMS_ITS | Continuity of Care Document ---
Author Name Unknown Organization [facility] Kareem Quique lt Address [address] [place] [address]- Care Team Providers Care Car Ferry Captain Name Role Phone Jose Galindo MD Primary Care Physician [phone] [facility] 05/[facility]20 - 09/08/20 [facility] [place] [address] [place] [address]- Attending Physician: Jose Galindo MD Allergies, Adverse [...] 3 Refills, Maintenance, 08/11/20 19:12:00 EDT, ECCapsule, [facility] # [facility], Partial fill upon patient request if the prescription is for a schedule II opioid drug., 176.8, cm, 08/11/20 12:51:00 EDT... Start Date: 08/11/20 Status: Ordered gabapentin 600 mg oral tablet 1 tablet = 600 mg, By Mouth, 3 times a day, # 270 tablet, 3 Refills, Maintenance, 08/11/20 19:13:00EDT, Tablet, [facility] # [facility], Partial fill upon patient request, 176.8, cm, 08/11/20 12:51:00 EDT, Height, 89.4, kg, 01/17/19 14:16:00 EDT, Dry Weight Start Date: 08/11/20 Status: Ordered meclizine 25 mg oral tablet 1 tablet, By Mouth, 3 times a day, PRN NEEDED FOR DIZZINESS, # 90 tablet, 1 Refills, Maintenance, 08/11/20 19:14:00 EDT, [facility] # [facility], 176.8, cm, 08/11/20 12:51:00 EDT, Height, 89.4, kg, 01/17/19 14:16:00 EDT, Dry Weight Start Date: 08/11/20 Status: Ordered omeprazole 20 mg oral delayed release tablet 1 tablet = 20 mg, By Mouth, Daily, before a meal, # 90 tablet, 1 Refills, Maintenance, 08/11/20 19:13:00 EDT, EC Tablet, [facility] # [facility], 176.8, cm, 08/11/20 [...] tablet, 4 Refills, Maintenance, 08/11/20 19:13:00 EDT, [facility] # [facility], Partial fill upon [...] lesion(Confirmed) Active 150 to 69% on right. [id number] Social History Social History Type Response Smoking Status Never (less than 100 in lifetime) entered on: 10/11/18 Sex
--- OUTSIDE RECORDS SUMMARY | 2022-10-08 19:46 | XMS_ITS | Continuity of Care Document ---
Author Name Unknown Organization [facility] Address [address] [address]- Care Team Providers Care Clinical Biochemical Geneticist Name Role Phone Jose Galindo MD Primary Care Physician [place] [facility] [place]22 - 08/02/22 [facility] [address] [address] Encounter Diagnosis CAD (coronary artery disease)(Discharge Diagnosis) - 07/18/22 Ischemic cardiomyopathy(Discharge Diagnosis) - 07/18/22 Attending Physician: Jason Davis Admitting Physician: Jason Davis Referring Physician: Tiana Sunshine DO Allergies, Adverse Reactions, Alerts Substance Reaction Severity Status shellfish Active Shrimp Active Immunizations Given and Recorded Vaccine Date Status Refusal Reason [id number] 12y+ bivalent booster vax 06/06/22 Given influenza [...] pneumococcal 13-valent vaccine 10/24/18 Given tetanus/diphtheria/pertussis, acel(Tdap) 8/8/19 Given Medications aspirin 81 mg oral delayed [...] 06/30/22 10:09:00 EDT, Tablet, [facility], Partial fill upon patient request if [...] 2 Refills, Maintenance, 03/07/22 12:18:00 EST, Tablet, [facility] # [facility], Partial [...] Route to Pharmacy Electronically, [facility], Partial fill upon patient request if the prescription is for a schedule II opioi... Start Date: 06/30/22 Status: Ordered Lyrica 150 mg oral capsule 1 capsule = 150 mg, By Mouth, 2 times a day, # 180 capsule, 0 Refills, Maintenance, 06/13/22 14:29:00 EDT, [facility] # [facility], Partial fill upon patient request if the prescription is for a scheduleII opioid drug., 176.8, cm, 06/12/22 11:10:00 EDT,... Start Date: 06/13/22 Stop Date: 09/11/22 Status: Ordered meclizine 25 mg oral tablet 1 tablet, By Mouth, 3 times a day, PRN NEEDED FOR DIZZINESS, # 60 tablet, 1 Refills, Maintenance, 07/26/22 13:26:00 EDT, [facility], 180, cm, 07/10/22 12:52:00 EDT, Height, 93.4, kg, 06/29/22 12:39:00 EDT, Dry Weight Start Date: 07/26/22 Status: Ordered omeprazole 20 mg oral delayed release tablet 1 tablet = 20 mg, By Mouth, Daily, # 90 tablet, 3 Refills, Maintenance, 07/26/21 10:31:00 EDT, CR Tablet, [facility] # [facility], Partial fill upon patient request if the prescription is for a schedule II opioid drug., 176.8, cm, 07/26/21 10:04:00 EDT, H... Start Date: 07/26/21 Status: Ordered Plavix 75 mg oral tablet 75 mg, 1, tablet, By Mouth, Daily, # 30 tablet, Refills 2, Tot. Refills 2, Maintenance, 06/30/22 10:09:00 EDT, Route to Pharmacy Electronically, [facility], Partial fill upon patient request if the prescription is for a schedule II opioi... Start Date: 06/30/22 Status: Ordered Sinemet 25 mg-100 mg oral tablet 3 tablet, By Mouth, 3 times a day, for 90 days, # 810 tablet, 1 Refills, Hard Stop 10/06/22 7:09:00EDT, 04/09/22 7:09:00 EST, [facility] # [facility], Partial [...] dose, # 30 tablet, Refills 11, Tot. [id number], Maintenance, 06/13/22 14:08:00 EDT, Route to Pharmacy Electronically, [facility], 176.8, cm, [...] Confirmed Active 150 to 69% on right. [id number] 3Problem added by Discern Expert Diagnosis Diagnosis Type Effective Dates Health Status Clinical Service Informant CAD (coronary artery disease) Discharge Diagnosis 07/18/22 Ischemic cardiomyopathy Discharge Diagnosis 07/18/22 Vital Signs Most recent to oldest [Reference Range]: 1 Height 180 cm (07/26/22 3:35 PM) Weight 93 kg (07/26/22 3:35 PM) Oxygen Saturation [94-100 %] 100 % (07/26/22 3:35 PM) Pulse Rate [55-90 bpm] 74 bpm (07/26/22 3:35 PM) Body Mass Index [18.5-24.99 kg/m2] 28.7 kg/m2 *H* (07/26/22 3:35 PM) Blood Pressure [90-138/55-84 mm Hg] 118/ 56mm Hg (07/26/22 3:35 PM) Blood pressure sites Arm, left (07/26/22 3:35 PM) Weight Obtained Via Standing scale (07/26/22 3:35 PM) Social History Social History Type Response Smoking Status Never (less than 100 in lifetime) entered on: 10/11/18 Sex Cardiology Outpatient Note * Jason Davis: PERFORM Event Display: Cardiology Note Office Authored Date: [id number] Patient: ??MARTÍN LARRY ? Age:??77 Years?Sex:??Male?:??1945?? Patient Hx Cardiology Shared Clinical Summary 1.?? CAD/STEMI status post PCI with AVINASH to LAD. 60% stenosis in LCx, 40% stenosis in mid-RCA, 30% stenosis in proximal RCA. 2.?? Ischemic cardiomyopathy 3.?? Hyperlipidemia 4.?? Carotid artery stenosis 5.?? Sleep apnea 6.?? Parkinson's 7.?? BPH 8.?? Peripheral neuropathy 9.?? Reflux 10.?? Pulmonary fibrosis.?? Follows Dr. Matias. History of Present Illness/Interval History Mr. Larry is a 77 year old gentleman who is presenting to the cardiology clinic for inpatient follow up for an admission [place] [facility] [place]28[place] 06[place]30/22.?? He is accompanied by his grandson and his??daughter who is??joining us over the phone. ??He initially presented with chest pain and was found to have ST- elevations with elevated troponins. Cardiac catheterization showed complete thrombotic occlusion of the mid LAD status post PCI with AVINASH. ?? Since discharge,??he reports feeling very tired, fatigued, and weak.?? This is not usual for himand??he denies having these types of symptoms prior to his cardiac event.?? He has no recollection??of the events preceding his cardiac event??and??his treatment in the hospital.?? He has short term memory loss.?? He denies any recurrent chest pain. ??He does have chronic shortness of breath?that is attributed to his diagnosis of pulmonary fibrosis.?? He tends to have some wheezing with exertion. ??His shortness of breath??is reported to be??at baseline.?? He reports occasional lightheadedness and dizziness that is somewhat worse than??prior??to his hospitalization.?? He also reports??occas ional episodes of waking up??in the night??feeling short of breath??that are suggestive of paroxysmal??nocturnal dyspnea.?He tends to sleep propped up. He denies lower extremity edema. Review of Systems See HPI Physical Exam Vitals & Measurements CO:??74?? BP:??118/56?? SpO2:??100%?? HT:??180??cm?? WT:??93??kg?? BMI:??28.7?? Weight lb/oz: 205 lb 0 oz Constitutional: Alert, in no distress. HEENT: Sclerae anicteric, mucous membranes moist Respiratory: Clear to auscultation. No wheezing, rales or rhonchi. Cardiovascular: Regular rate and rhythm, S1 S2. No murmurs, rubs, gallops. Skin: No rashes or lesions. No petechiae or purpura.?? Extremities: Warm, no edema. No cyanosis or clubbing. Psychiatric: Normal mood and affect?? Assessment/Plan 1.??CAD (coronary artery disease) -Recent admission for anterior STEMI status post PCI with AVINASH to LAD.?? Residual moderate disease elsewhere as outlined above. TTE showing reduced LVEF as below. -No angina.?? Chronic exertional dyspnea attributed to his pulmonary conditions. -His situation with cardiac rehab is complicated.?? Unsure if referral was ever sent.?? He would like to go to [facility] for cardiac rehab.?? However, he has no family in the area that would be able to assist him with rides.?? There will have to be close communication about his cardiac rehab schedule so the family can try to arrange rides for him as necessary.?Will send referral to [facility]. -DAPT with ASA + Plavix for 1 year from PCI date. Stop date 06/30/23. -Increasing metoprolol succinate to 50mg daily as below. Continue atorvastatin 80mg daily and losartan 25mg daily. 2.??Ischemic cardiomyopathy -TTE 06/29/22 - poor visualization of LV, but LVEF appears reduced with septum and anterior wall appearing akinetic. -Appears euvolemic on exam today. -Will increase metoprolol succinate to 50mg daily today.?? Continue losartan 25mg daily. -I had an extensive discussion about the importance of watching his weight and sodium restriction.?? I provided education and counseling about heart failure. Orders: Metoprolol, 50 mg, 1, tablet, By Mouth, Daily, # 30 tablet, Refills 5, Tot. Refills 5, Maintenance,07/26/22 16:10:00 EDT, Route to Pharmacy Electronically, [facility] # [facility], Partial fill upon patient request if the prescription is for a schedule II opioid jett... ?? Most of our visit was spent with extensive discussion about his hospitalization and education abouthis new diagnoses. Coordinating care with his family??would be paramount in caring for this patientas his immediate family lives in other states across the [place].?? He and his daughter, Linda Larry,would like appointments and future visits to be arranged through Linda. ?? Follow up in 4-6 weeks for further titration of his medications if plausible and to establish care with a rand maker. 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 Neuropathy, peripheral Obstructive sleep apnea Parkinsons disease Skin lesion STEMI (ST elevation myocardial infarction) Toxic metabolic encephalopathy Unsteady gait Urge incontinence of urine Historical COVID-19 virus infection Procedure/Surgical History Carotid endarterectomy RIGHT: 06/04/20 Colonoscopy: 03/29/12 Appendectomy; History of lumbar spine surgery Home Medications aspirin 81 mg oral delayed release tablet, 81 mg, By Mouth, Daily, 2 refills atorvastatin 80 mg oral tablet, 80 mg= 1 tablet, By Mouth, Daily at bedtime, 2 refills Co-Q10 100 mg oral capsule, 200 mg= 2 capsule, By Mouth, Daily copper (as bisglycinate)-zinc (as bisglycinate) 2 mg-25 mg oral capsule, 1 capsule, By Mouth, Daily Cymbalta 60 mg oral enteric coated capsule, 60 mg= 1 capsule, By Mouth, 2 times a day, 3 refills digital b/p cuff to check b/p at home, See Instructions, to check b/p at home daily per PCP instructions. dx Hypotention Eligen B12 1000 mcg oral tablet, 1 tablet, By Mouth, Daily, 2 refills, on an empty stomach Fish Oil 1000 mg oral capsule, 1000 mg= 1 capsule, By Mouth, Daily losartan 25 mg oral tablet, 25 mg= 1 tablet, By Mouth, Daily, 2 refills Lyrica 150 mg oral capsule, 150 mg= 1 capsule, By Mouth, 2 times a day meclizine 25 mg oral tablet, 1 tablet, By Mouth, 3 times a day, PRN omeprazole 20 mg oral delayed release tablet, 20 mg= 1 tablet, By Mouth, Daily, 3 refills Plavix 75 mg oral tablet, 75 mg= 1 tablet, By Mouth, Daily, 2 refills Sinemet 25 mg-100 mg oral tablet, 3 tablet, By Mouth, 3 times a day, 1 refills Toprol XL 50 mg oral tablet, extended release, 50 mg= 1 tablet, By Mouth, Daily, 5 refills traZODone 50 mg oral tablet, 50 mg= 1 tablet, By Mouth, Daily at bedtime, 11 refills, increased dose Vitamin D3 5000 intl units oral capsule, 125 mcg= 1 capsule, By Mouth, Daily wheelchair, See Instructions, Unsteady gait R26.81 Parkinsons R25.9 chronic pain G89.4 Weight 89.4kg height 176.8 cm Lifetime need self propel standard footrests Lab Results Cardiology Labs WBC: 7.8 k/mm3 (06/30/22) RBC:??4.02 m/mm3??Low (06/30/22) Hgb:??13.5 Gm/dL??Low (06/30/22) Hct:??39.3 %??Low (06/30/22) MCV:??97.8 femtoliters??High (06/30/22) MCH: 33.6 pg (06/30/22) MCHC: 34.4 g/dL (06/30/22) Platelet Count: 166 k/mm3 (06/30/22) RDW-SD: 46.4 femtoliters (06/30/22) Nucleated RBC (Automated): 0 #/100 WBC'S (06/30/22) Abs. Neut: 4.7 k/mm3 (06/28/22) Abs. Lymph: 1.8 k/mm3 (06/28/22) Abs. [place]: 0.6 k/mm3 (06/28/22) Abs. Eo: 0.4 k/mm3 (06/28/22) Abs. Baso: 0 k/mm3 (06/28/22) Neut %: 61.6 % (06/28/22) [place] %: 8.2 % (06/28/22) Eos %: 5.3 % (06/28/22) Baso %: 0.4 % (06/28/22) Imm Gran: 0.3 % (06/28/22) Abs. Imm Gran: 0 k/mm3 (06/28/22) INR: 1.1 (06/28/22) Protime (PT): 11.4 seconds (06/28/22) APTT:??65.4 seconds??High (06/28/22) Sodium: 137 mmol/L (06/30/22) Potassium: 4.3 mmol/L (06/30/22) Chloride: 99 mmol/L (06/30/22) Bicarbonate Level: 28 mmol/L (06/30/22) Glucose Level:??139 mg/dL??High (06/30/22) Hemoglobin A1C (Monitoring):??6.1 %??High (06/28/22) BUN: 20 mg/dL (06/30/22) Creatinine-Blood: 1.1 mg/dL (06/30/22) Calcium: 9 mg/dL (06/30/22) Protein, Total:??8.3 Gm/dL??High (06/28/22) Albumin: 4.4 Gm/dL (06/28/22) Alkaline Phosphatase: 95 units/L (06/28/22) AST (SGOT): HEMOLYZED (06/28/22) ALT (SGPT): 26 units/L (06/28/22) Bilirubin, Total: 0.7 mg/dL (06/28/22) CK, Total: 177 units/L (03/13/22) Nt-Probnp: 126 pg/mL (03/12/22) Cholesterol: 116 mg/dL (06/29/22) Triglycerides:??213 mg/dL??High (06/29/22) HDL Cholesterol:??36 mg/dL??Low (06/29/22) LDL Cholesterol: 37 mg/dL (06/29/22) Non HDL Cholesterol: 80 mg/dL (06/29/22) Direct Low Density Lipoprotein: 56 mg/dL (06/06/22) TSH: 1.82 uIU/mL (06/28/22) Free T4: 1.02 ng/dL (06/28/22) Diagnostic Impression ECG ECG 12-Lead ?? 17:06:44 Please click on pdf link to open report ?? Signed By: Matilde Luz MD S ?? ECG 12-Lead ?? 17:06:44 Ventricular Rate: 71 BPM Atrial Rate: 71 BPM P-R Interval: 140 ms QRS Duration: 98 ms Q-T Interval: 430 ms QTC Calculation(Bazett): 467 ms P John Day: 44 degrees R John Day: -34 degrees T John Day: 125 degrees Critical Test Result: STEMI Normal sinus rhythm Left axis deviation Anteroseptal infarct , possibly acute T wave abnormality, consider lateral ischemia ACUTE [place] / STEMI Abnormal ECG When compared with ECG of 28-JUN-2022 16:02, Serial changes of evolving Anterolateral myocardial infarction Confirmed by MATILDE LUZ MD ([id number]) on 07/03/2022 7:04:49 AM ?? [place]: MATILDE LUZ MD ?? Signed By: Matilde Luz MD S Echo Echocardiogram - Complete ?? 06:57:17 Summary The left ventricle is poorly visualized. The left ventricular size is normal. Left ventricular wall thickness is normal. Despite use of echocontrast there is suboptimal endocardial definition. Contrast images are severely off axis/foreshortened. Function appears reduced. The septum and anterior wall appear akinetic in limited views. Further assessment is limited by image quality. Unable to assess diastolic function . Trileaflet aortic valve. Focal calcification of the right coronary cusp. There is no aortic stenosis. There is trace aortic regurgitation. The right ventricle is grossly normal in size and function. There is no significant pericardial effusion. ?? Comparison Comparison is made to the study report of October 30, 2018. Function is reduced and wall motion abnormalities are present. ?? Signature ?? Signed By: Audrey LANDAVERDE, Mara Ferris VL Studies VL Carotid Duplex Scan Bilat ?? 15:19:38 Summary ?? Right Side: 50-69% stenosis in the Internal Carotid Artery. Antegrade flow in the Vertebral Artery. Multiphasic flow is seen in the Subclavian Artery. ?? Left Side: 1-49% stenosis in the Internal Carotid Artery. Antegrade flow in the Vertebral Artery. Multiphasic flow is seen in the Subclavian Artery. ?? Signature ?? Signed By: Angel Bazan MD Cardiac Cath Procedure Cardiac Cath Procedure ?? 14:21:00 Conclusions ?? Diagnostic Summary Complete thrombotic occlusion of the mid LAD Normal LV end-diastolic pressure No significant gradient between the left ventricle and aorta upon pullback ?? Diagnostic Recommendations We will proceed with PCI of the LAD as culprit for STEMI ?? Interventional Summary Successful PCI of the proximal LAD with a drug-eluting stent Right radial artery hemostatic with a compressive device ?? Interventional Recommendations 1. Continue low-dose of aspirin definitely 2. Continue dual antiplatelet therapy for at least 12 months following PCI 3. Continue GDMT for prevention of coronary disease 4. Transthoracic echocardiogram ?? ACC Diagnostic Recommendations: PCI without planned CABG. ?? Complications:None. ?? Signatures ?? Signed By: Vu Ellis MD Patient Care team information Care Team Personnel Name: Azael Stafford RN Position: [facility] RN Member Role: Primary Care Nurse Name: Martín Thornton RN Position: [facility] RN Member Role: Primary Care Nurse Name: Froylan Cooley RN Position: [facility] RN Member Role: Primary Care Nurse Name: Jose Galindo MD Position: [facility] Primary Care Physician Member Role: PCP Address: Address: [address] [place] [address]- Name: Xiao Cervantes RN Position: [facility] RN Member Role: Primary Care Nurse Name: Jenni Tran RN Position: [facility] Onco RN Member Role: Primary Care Nurse Care Team Related Persons Name: LEIGH ANN LARRY Address: [address] [address] Name: ALFRED LARRY Address: home [id number] [place] [address] Name: LEIGH ANN SILVERIO Address: home [address] [place] [address]
--- OUTSIDE RECORDS SUMMARY | 2022-10-08 19:46 | XMS_ITS | Continuity of Care Document ---
Author Name Unknown Organization [facility] Address [address] [place] [address]- Care Team Providers Care Plc Technician Name Role Phone Jose Galindo MD Primary Care Physician Encounter [facility] Date(s): 01/31/22 - 03/26/22 [facility] Adult [address] [place] [address]- Attending Physician: Not on Staff, Attending MD [...] Refills, Maintenance, 07/26/21 10:31:00 EDT, EC Capsule, [facility], Partial [...] 1 Refills, Maintenance, 07/26/21 10:31:00 EDT, Capsule, [facility] # [facility], Partial fill upon patient request if the prescription is for a schedule II opioid drug., 176.8, cm, 07/26/21 10:04:... Start Date: 07/26/21 Status: Ordered meclizine 25 mg oral tablet 1 tablet = 25 mg, By Mouth, 3 times a day, PRN for dizziness, # 60 tablet, 1 Refills, Maintenance, 07/26/21 10:32:00 EDT, Tablet, [facility] # [facility], Partial fill upon patient request if the prescription is for a schedule II opioid drug., 176.8, cm,... Start Date: 07/26/21 Status: Ordered omeprazole 20 mg oral delayed release tablet 1 tablet = 20 mg, By Mouth, Daily, # 90 tablet, 3 Refills, Maintenance, 07/26/21 10:31:00 EDT, CR Tablet, [facility] # [facility], Partial fill upon patient request if the prescription is for a schedule II opioid drug., 176.8, cm, 07/26/21 10:04:00 EDT, H... Start Date: 07/26/21 Status: Ordered Sinemet 25 mg-100 mg oral tablet 3 tablet, By Mouth, 3 times a day, for 90 days, # 810 tablet, 1 Refills, Hard Stop 04/09/22 7:09:00EST, 10/11/21 7:09:00 EDT, [facility] # [facility], Partial fill upon patient request if the prescription is for a schedule II opioid drug., 176.8, cm, 05/... Start Date: 10/11/21 Stop Date: 04/09/22 Status: Ordered traZODone 50 mg oral tablet 0.5, tablet, By Mouth, Daily at bedtime, # 15 tablet, Refills 11, Maintenance, 01/05/22 17:57:00 EDT, Route to Pharmacy Electronically, [facility], 176.8, cm, [...] on right. 2Problem added by Discern Expert [id number] Social History Social History Type Response Smoking Status Never (less than 100 in lifetime) entered on: 10/11/18 Sex Patient Care team information Care Team Personnel Name: Azael Stafford RN Position: [facility] RN Member Role: Primary Care Nurse Name: Martín Thornton RN Position: [facility] RN Member Role: Primary Care Nurse Name: Jose Galindo MD Position: [facility] Primary Care Physician Member Role: PCP Address: Address: [address] [place] [address]- Name: Jenni Tran RN Position: [facility] RN Member Role: Primary Care Nurse Care Team Related Persons Name: LEIGH ANN LARRY Address: home [address] [place] [address] Name: ALFRED LARRY Address: home [id number] [place] [address] Name: LEIGH ANN SILVERIO Address: home [address] [place] [address]
--- OUTSIDE RECORDS SUMMARY | 2022-10-08 19:46 | XMS_ITS | Continuity of Care Document ---
Author Name Unknown Organization [facility] Address [address] [place] [address]- Care Team Providers Care Obstetrical Anesthesiologist Name Role Phone Josie LANDAVERDE, Jose Vidal Primary Care Physician [phone] Encounter [facility] Date(s): 03/30/20 - 04/29/20 [facility] Adult [address] [place] [address]- Allergies, Adverse Reactions, Alerts Substance Reaction Severity [...] Refills, Maintenance, 03/29/20 13:51:00 EST, CR Capsule, [facility], Partial [...] tablet, 11 Refills, Maintenance, 02/11/20 16:02:00EST, Tablet, [facility] # [facility], Partial fill upon patient request, 176.8, cm, 09/23/19 11:05:00 EDT, Height, 89.4, kg, 01/17/19 14:16:00 EDT, Dry Weight Start Date: 02/11/20 Status: Ordered meclizine 25 mg oral tablet See Instructions, TAKE ONE TABLET BY MOUTH THREE TIMES A DAY NEEDED FOR DIZZINESS, # 30 Unknown,0 Refills, Acute, [facility], 176.8, cm, 09/23/19 11:05:00 EDT, Height, 89.4, kg, 01/17/1914:16:00 EDT, Dry Weight Start Date: 02/11/20 Status: Ordered omeprazole 20 mg oral delayed release tablet 1 tablet = 20 mg, By Mouth, Daily, before a meal, # 90 tablet, 0 Refills, Maintenance, 03/05/20 11:29:00 EST, EC Tablet, [facility], 176.8, cm, [...] lesion(Confirmed) Active 150 to 69% on right. [id number] Social History Social History Type Response Smoking Status Never (less than 100 in lifetime) entered on: 10/11/18 Sex
--- OUTSIDE RECORDS SUMMARY | 2022-10-08 19:46 | XMS_ITS | Continuity of Care Document ---
Author Name Unknown Organization [facility] Address [address] [place] [address]- Care Team Providers Care Sales Officer Name Role Phone Jose Galindo MD Primary Care Physician [phone] Encounter [facility] Date(s): 05/06/21 - 05/13/21 [facility] Adult [address] [place] [address]- Attending Physician: Jose Galindo MD Allergies, Adverse [...] Refills, Maintenance, 04/05/21 11:29:00 EST, EC Capsule, [facility], Partial fill upon [...] 1 Refills, Maintenance, 01/04/21 17:14:00 EDT, Capsule, [facility], Partial fill upon patient request if the prescription is for a schedule II opioid drug., 176.8, cm, 11/19/20 13:14:... Start Date: 01/04/21 Status: Ordered omeprazole 20 mg oral delayed release tablet 1 tablet = 20 mg, By Mouth, Daily, # 90 tablet, 3 Refills, Maintenance, 04/13/21 11:32:00 EST, CR Tablet, [facility] # [facility], Partial fill upon [...] tablet, 2 Refills, Maintenance, 12/23/20 20:36:00 EDT, [facility], Partial fill upon patient [...] urine(Confirmed) Active 150 to 69% on right. [id number] Vital Signs Most recent to oldest [Reference Range]: 1 Height 176.8 cm (05/06/21 8:48 AM) Social History Social History Type Response Smoking Status Never (less than 100 in lifetime) entered on: 10/11/18 Sex
--- OUTSIDE RECORDS SUMMARY | 2022-10-08 19:46 | XMS_ITS | Continuity of Care Document ---
Author Name Unknown Organization [facility] ter Address [address] [place] [id number] Care Team Providers Care Horticultural Manager Name Role Phone Jose Galindo MD Primary Care Physician Encounter [facility] Date(s): 07/15/20 - 08/14/[address] [id number] Allergies, Adverse Reactions, Alerts Substance Reaction Severity [...] Maintenance, 08/11/20 19:12:00 EDT, ECCapsule, [facility] # [facility], Partial fill upon patient request if the prescription is for a schedule II opioid drug., 176.8, cm, 08/11/20 12:51:00 EDT... Start Date: 08/11/20 Status: Ordered gabapentin 600 mg oral tablet 1 tablet = 600 mg, By Mouth, 3 times a day, # 270 tablet, 3 Refills, Maintenance, 08/11/20 19:13:00EDT, Tablet, [facility] # [facility], Partial fill upon patient request, 176.8, cm, 08/11/20 12:51:00 EDT, Height, 89.4, kg, 01/17/19 14:16:00 EDT, Dry Weight Start Date: 08/11/20 Status: Ordered meclizine 25 mg oral tablet 1 tablet, By Mouth, 3 times a day, PRN NEEDED FOR DIZZINESS, # 90 tablet, 1 Refills, Maintenance, 08/11/20 19:14:00 EDT, [facility] # [facility], 176.8, cm, 08/11/20 12:51:00 EDT, Height, 89.4, kg, 01/17/19 14:16:00 EDT, Dry Weight Start Date: 08/11/20 Status: Ordered omeprazole 20 mg oral delayed release tablet 1 tablet = 20 mg, By Mouth, Daily, before a meal, # 90 tablet, 1 Refills, Maintenance, 08/11/20 19:13:00 EDT, EC Tablet, [facility] # [facility], 176.8, cm, 08/11/20 12:51:00 [...] tablet, 4 Refills, Maintenance, 08/11/20 19:13:00 EDT, [facility] # [facility], Partial fill [...] lesion(Confirmed) Active 150 to 69% on right. [address] Social History Social History Type Response Smoking Status Never (less than 100 in lifetime) entered on: 10/11/18 Sex
--- OUTSIDE RECORDS SUMMARY | 2022-10-08 19:47 | XMS_ITS | Continuity of Care Document ---
Author Name Unknown Organization [facility] ter Address [address] [place] [id number] Care Team Providers Care [employer] Name Role Phone Jose Galindo MD Primary Care Physician [phone] Encounter [facility] [place] Date(s): 06/28/22 - 06/30/[address] [address] Discharge Disposition: A-D/C Home Attending Physician: Matilde Luz MD Admitting Physician: Matilde Luz MD Referring Physician: Not on Staff, Referring MD Allergies, Adverse Reactions, Alerts Substance Reaction Severity Status shellfish Active Shrimp Active Immunizations Given and Recorded Vaccine Date Status Refusal Reason [id number] 12y+ bivalent booster vax 06/06/22 Given influenza [...] Maintenance, 06/30/22 10:11:00 EDT,Route to Pharmacy Electronically, [facility], Partial fill upon patient request if the prescription is for a schedule II opioid drug., 18... Start Date: 06/30/22 Status: Ordered atorvastatin 80 mg oral tablet 1 tablet = 80 mg, By Mouth, Daily at bedtime, # 30 tablet, 2 Refills, Maintenance, 06/30/22 10:09:00 EDT, Tablet, [facility], Partial fill upon patient request if [...] 06/30/22 10:10:00 EDT, Route to Pharmacy Electronically, [facility], Partial fill upon patient request if the prescription is for a schedule II opioi... Start Date: 06/30/22 Status: Ordered losartan 25 mg oral tablet 25 mg, Tablet, By Mouth, Hold for: SBP<90, 06/30/22 9:00:00 EDT Start Date: 06/30/22 Stop Date: 06/30/22 Status: Completed Lyrica 150 mg oral capsule 1 capsule = 150 mg, By Mouth, 2 times a day, # 180 capsule, 0 Refills, Maintenance, 06/13/22 14:29:00 EDT, [facility] # [...] 1 Refills, Maintenance, 07/26/21 10:32:00 EDT, Tablet, [facility] # [facility], Partial fill upon patient request if the prescription is for a schedule II opioid drug., 176.8, cm,... Start Date: 07/26/21 Status: Ordered metoprolol 25 mg oral tablet, extended release 25 mg, 1, tablet, By Mouth, Daily, # 30 tablet, Refills 2, Tot. Refills 2, Maintenance, 06/30/22 10:10:00 EDT, Route to Pharmacy Electronically, [facility], Partial fill upon patient request if the prescription is for a schedule II opioi... Start Date: 06/30/22 Status: Ordered metoprolol 25 mg oral tablet, extended release 25 mg, XL Tablet, By Mouth, Hold for: HR<50 SBP<50, 06/30/22 9:00:00 EDT Start Date: 06/30/22 Stop Date: 06/30/22 Status: Completed omeprazole 20 mg oral delayed release tablet [...] 06/30/22 10:09:00 EDT, [facility], Partial fill upon patient request if the prescription is for a schedule II opioi... Start Date: 06/30/22 Status: Ordered Sinemet 25 mg-100 mg oral tablet 3 tablet, By Mouth, 3 times a day, for 90 days, # 810 tablet, 1 Refills, Hard Stop 10/06/22 7:09:00EDT, 04/09/22 7:09:00 EST, [facility] # [facility], Partial fill upon patient request if the prescription is for a schedule II opioid drug., 3 tablet By Mo... Start Date: 04/09/22 Stop Date: 10/06/22 Status: Ordered traZODone 50 mg oral tablet 50 mg, 1, tablet, By Mouth, Daily at bedtime, increased dose, # 30 tablet, Refills 11, Tot. [id number], Maintenance, 06/13/22 14:08:00 EDT, Route to Pharmacy Electronically, [facility], 176.8, [...] on right. 2Problem added by Discern Expert 10321 Results Radiology Reports * Exam Date Time Procedure Performing Provider Status 06/28/22 5:46 PM Chest Portable Bereket Mahajan; Auth (V erified) Notes: (Chest Portable) Reason For Exam: CHF RESULT: Chest Portable Chest Portable Reason: CHF COMPARISON: March 12, 2022 FINDINGS: LINES AND TUBES: None. LUNGS AND PLEURA: Allowing for rotation, there is prominence of the central pulmonary vasculature and left lower lobeairspace opacity. Probable left pleural effusion. No pneumothorax. HEART, MEDIASTINUM AND AGATA: Heart is mildly enlarged. The left upper mediastinum is somewhat distorted by rotation but there does appear to be some left hilar fullness. BONES AND SOFT TISSUES: No acute abnormality. IMPRESSION: Central vascular congestion. Somewhat limited by rotation with probable left pleural effusion and ill-defined left-sided airspace opacities. WSN: [id number] Ordering Physician: Alphonso Mensah Dictated By: Charli Jaquez MD Dictated Date/Time: 06/28/22 6:48 pm Reviewed By: Charli Jaquez MD Signed By: Charli Jaquez MD Signed Date/Time: 06/28/22 6:48 pm Transcribed By: JONY Transcribed Date/Time: 06/28/22 6:45 pm Vital Signs Most recent to oldest [Reference Range]: 1 2 3 Height 180 cm (06/30/22 1:29 PM) 180 cm (06/30/22 7:52 AM) 180 cm (06/30/22 2:03 AM) Weight 93.6 kg (06/30/22 2:52 AM) 93.4 kg (06/29/22 12:39 PM) 91.4 kg (06/29/22 5:07 AM) Oxygen Saturation [94-100 %] 96 % (06/30/22 1:29 PM) 96 % (06/30/22 7:52 AM) 94 % (06/30/22 2:03 AM) Pulse Rate [55-90 bpm] 75 bpm (06/30/22 1:29 PM) 63 bpm (06/30/22 10:10 AM) 63 bpm (06/30/22 7:52 AM) Body Mass Index [18.5-24.99 kg/m2] 28.83 kg/m2 *H* (06/29/22 12:39 PM) Blood Pressure [90-138/55-84 mm Hg] 114/52mm Hg (06/30/22 1:29 PM) 103/57mm Hg (06/30/22 10:10 AM) 103/57mm Hg (06/30/22 10:10 AM) Respiratory Rate [16-30 br/min] 18 br/min (06/30/22 1:29 PM) 18 br/min (06/30/22 7:52 AM) 20 br/min (06/30/22 2:03 AM) Temperature [96.8-100.4 DegF] 97.6 DegF (06/30/22 1:29 PM) 97.8 DegF (06/30/22 7:52 AM) 97.1 DegF (06/30/22 2:03 AM) Mode of Delivery (Oxygen) Room air (06/30/22 1:29 PM) Room air (06/30/22 7:52 AM) Nasal CPAP (06/30/22 2:03 AM) Blood pressure sites Arm, left (06/30/22 1:29 PM) Arm, right (06/30/22 7:52 AM) Arm, left (06/30/22 2:03 AM) Temperature Route Oral (06/30/22 1:29 PM) Oral (06/30/22 7:52 AM) Temporal (06/30/22 2:03 AM) Dry Weight 93.4 kg (06/29/22 12:39 PM) Weight Obtained Via Bed scale (06/30/22 2:52 AM) Bed scale (06/29/22 5:07 AM) Social History Social History Type Response Smoking Status Never (less than 100 in lifetime) entered on: 10/11/18 Sex Note * Event Display: Provider Clarification Note Please click on pdf link to open report * Adrianna Christian RN: PERFORM Event Display: Discharge/Transfer Note Hospital Authored Date: [id number] Nursing Discharge Note Entered On: 06/30/2022 15:48 EDT Performed On: 06/30/2022 15:48 EDT by Adrianna Christian RN Nursing Discharge Note 2 Discharge Time : 06/30/2022 15:30 EDT Discharge Level of Care at Discharge : Homehealth/VNA Discharge VNA/Hospice/Home Care(v001) : [facility] [phone] Patient Left Unit Via : Wheelchair Patient Accompanied Off Unit with : Responsible adult DC Instructions Provided & Signed by Pt : Yes Patient Understands D/C Instructions : Yes Patient Instructions Discharge Signed : Yes Did Pt have Specialty Bed or Wound Vac : No Adrianna Christian RN - 06/30/2022 15:48 EDT * Tiana Sunshine DO: MODIFY, MODIFY, MODIFY, MODIFY, MODIFY, MODIFY, MODIFY, MODIFY, MODIFY, MODIFY, MODIFY, MODIFY, MODIFY, MODIFY, MODIFY, MODIFY, PERFORM, MODIFY Event Display: Discharge/Transfer Note Hospital Authored Date: [id number] Patient: ??MARTÍN LARRY ? Age:??77 Years?Sex:??Male?:??1945?? Patient Information Discharge Location: 7 Primary Care Physician: Jose Galindo MD Admit Date/Time: 06/28/22 15:42 Discharge Date: 07/03/22 Discharge Disposition Discharge Disposition: Home: No Services Discharge Diagnosis CAD (coronary artery disease) s/p AVINASH to LAD (I25.10) Carotid artery disease (I77.9) Parkinsonian features (R25.9) Prediabetes (R73.03) STEMI (ST elevation myocardial infarction) (I21.3) _ Discharge Medications Aspirin (aspirin 81 mg oral delayed release tablet)?81?Milligram?By Mouth?Daily Atorvastatin (atorvastatin 80 mg oral tablet)?1?tab(s)?80?Milligram?By Mouth?Daily at bedtime Carbidopa-Levodopa (Sinemet 25 mg-100 mg oral tablet)?3?tab(s)?By Mouth?3 times a day?for 90?Days Cholecalciferol (Vitamin D3 5000 intl units oral capsule)?1?capsule?125?Microgram?ByMouth?Daily Clopidogrel (Plavix 75 mg oral tablet)?75?Milligram?1?tablet?By Mouth?Daily copper glycinate-zinc glycinate (copper (as bisglycinate)-zinc (as bisglycinate) 2 mg-25 mg oral capsule)?1?capsule?By Mouth?Daily Cyanocobalamin (Eligen B12 1000 mcg oral tablet)?1?tab(s)?By Mouth?Daily?on an emptystomach Duloxetine (Cymbalta 60 mg oral enteric coated capsule)?1?capsule?60?Milligram?By Mouth?2 times a day?for 90?Days Durable Medical Equipment (wheelchair)?See Instructions?Unsteady gait R26.81Parkinsons R25.9chronic pain G89.4Weight 89.4kgheight 176.8 cmLifetime needself propelstandard footrests Losartan (losartan 25 mg oral tablet)?25?Milligram?1?tablet?By Mouth?Daily Meclizine (meclizine 25 mg oral tablet)?1?tab(s)?25?Milligram?By Mouth?3 times a day?as needed?for dizziness Metoprolol (metoprolol 25 mg oral tablet, extended release)?25?Milligram?1?tablet?ByMouth?Daily Purvis-3 Polyunsaturated Fatty Acids (Fish Oil 1000 mg oral capsule)?1?capsule?1,000?Milligram?By Mouth?Daily Omeprazole (omeprazole 20 mg oral delayed release tablet)?1?tab(s)?20?Milligram?By Mouth?Daily Pregabalin (Lyrica 150 mg oral capsule)?1?capsule?150?Milligram?By Mouth?2 times a day?for 90?Days Trazodone (traZODone 50 mg oral tablet)?50?Milligram?1?tablet?By Mouth?Daily at bedtime?increased dose Ubiquinone (Co-Q10 100 mg oral capsule)?2?capsule?200?Milligram?By Mouth?Daily ? Quality Measures Chest Pain, AMI Quality Measures:?ACEI or ARB for LVSD:??ARB has been prescribed ?Beta-Sabina Prescribed at Discharge:??Beta-Sabina Prescribed ?Aspirin Prescribed at Discharge:??Aspirin Prescribed ?Statin Prescribed at Discharge:??Statin Prescribed ?? Medications Started Clopidogrel (Plavix 75 mg oral tablet)?75?Milligram?1?tablet?By Mouth?Daily Losartan (losartan 25 mg oral tablet)?25?Milligram?1?tablet?By Mouth?Daily Metoprolol (metoprolol 25 mg oral tablet, extended release)?25?Milligram?1?tablet?ByMouth?Daily Medications Discontinued None Doses Changed INCREASED home dose of Atorvastatin from 40mg nightly to 80mg nightly PCP Follow-Up/Heads-Up [ ] Presented with anterior STEMI s/p PCI with AVINASH to LAD- see details below. [ ] Has a F/U apt scheduled with [facility] as below. [ ] Started on Brilinta but switched to Plavix upon discharge as Brilinta is not covered by insurance- consider submitting prior auth. Future Appointments Sunday. 2022 2:00 PM EDT ?? With: Jason Davis Where: [facility] [address] [place] [address]- Aug. 2022 1:00 PM EDT ?? With: Armaan Mendoza MD Where: [facility] [address] [facility] 3rd Floor, [address] [place] [id number]- Hospital Course 77-year-old man past medical history of COVID-19 in 2021, BPH, carotid artery stenosis, low back pain, reflux, hypercholesterolemia, peripheral neuropathy, sleep apnea, Parkinson's admitted to [facility] after anterior STEMI with PCI to LAD. ?? #Anterior STEMI s/p PCI with AVINASH to LAD #Familial CAD #Hx pf??carotid artery disease #Hyperlipidemia Presented with CP, found to have ST-elevations with elevated HS-T of 58 (never repeated). Loaded with ASA 324mg, Brilinta 180mg PO, and Heparin. S/p PCI with AVINASH to LAD on 06/29. Continued to endorse CP after cath, resolved with Nitro ggt. Currently CP free. Off all drips as of 06/29, including Nitro and Heparin. ?? A1c 6.1, LDL 37. Continuing home??ASA 81mg PO QD, started Brilinta 90mg PO BID. Started Metoprolol 25mg XL and Losartan 25mg PO QD on 06/29. Increased home Atorvastatin from 40mg PO to 80mg PO nightly. ?? ECHO completed 06/29- poor visualization of LV but LVEF appears reduced compared to prior ECHO from 10/2018;??septum and anterior wall also appear akinetic in limited views.? RECOMMENDATIONS: -Continue Aspirin 81mg PO QD -Start Plavix 75mg PO QD tomorrow AM (06/30); consider submitting prior-auth for Brilinta -Continue Metoprolol 25mg XL and Losartan 25mg PO QD -Continue Atorvastatin 80mg PO QD -Cardiac rehab -[facility] IPFU apt scheduled as above ? #Prediabetes A1c 06/28 6.1. ?? RECOMMENDATIONS: -F/U with PCP -Encouraged??healthy eating and exercise to promote weight loss ? STABLE/CHRONIC MEDICAL CONDITIONS: #MASSIEL on CPAP: Continue at night and naps per home settings #Parkinson's Disease: Continue home Sinemet #Vitamin D &??B12 deficiency:??Continue home supplements #Depression/insomnia/peripheral neuropathy:??Continue home Duloxetine 60mg PO BID,??Trazodone 50mg PO QD, Pregabalin 150mg PO BID #GERD:??Continue Omeprazole 20mg PO QD Objective Vital Signs?? Temperature: 97.1 DegF (06/30/22 02:03:00) Temperature Route: Temporal (06/30/22 02:03:00) Pulse Rate: 67 bpm (06/30/22 02:03:00) Heart Rate Monitored: 85 bpm (06/29/22 10:00:00) Respiratory Rate: 20 br/min (06/30/22 02:03:00) Vented: No (06/29/22 10:00:00) Systolic Blood Pressure: 98 mm Hg (06/30/22 02:03:00) Diastolic Blood Pressure:??53 mm Hg??Low (06/30/22 02:03:00) Blood pressure sites: Arm, left (06/30/22 02:03:00) Mean Arterial Pressure: 68 mm Hg (06/30/22 02:03:00) Pulse Pressure: 45 mm Hg (06/30/22 02:03:00) Oxygen Saturation: 94 % (06/30/22 02:03:00) Mode of Delivery (Oxygen): Nasal CPAP (06/30/22 02:03:00) FiO2: 21 % (06/30/22 00:01:00) Early Warning Score: 5 (06/30/22 06:12:36) . Physical Exam Constitutional: Pleasant and cooperative, not in acute distress. Head: Normocephalic. Eyes: Extraocular muscles intact. Ear, Nose and Throat: Oropharynx clear, mucous membranes moist. Ears and nose without masses, lesions or deformities. Trachea midline. Neck: Supple, Full range of motion. Respiratory: Non-labored breathing, breathing comfortably on room air. Cardiovascular:??Normal rate, regular rhythm.??No murmurs, rubs or gallops. Gastrointestinal: Abdomen soft, non-tender, non-distended. Genitourinary: No suprapubic tenderness. Neurologic: Alert and oriented x3. Speech clear, comprehension intact. No gross focal neurological deficits. Skin: No acute or concerning rashes or lesions. No petechiae or purpura.?? Musculoskeletal: No gross deformities. Normal range of motion, moving all 4 extremities spontaneously. Psychiatric: Normal mood and affect without obvious signs of anxiety or depression. Consultants N/A Pending Results N/A Patient Education Titles Heart Attack: Back at Home?? Heart Attack: Leaving the Hospital?? Eating Heart-Healthy Foods?? Discharge Instructions for Heart Attack?? Getting Started with Cardiac Rehab: Exercise?? Follow-Up Appointments Added Follow Up ?Time Frame ?Comments Jose Galindo MD?1 week: call to discuss follow up visit Call for Cardiac Rehab appointment at [facility] --[phone] Patient Instructions You had a heart attack and had a stent placed to help open the blocked artery to allow blood to flow to the heart. ?? You were started on the following medications: ??- Clopidogrel (also known as Plavix) 75mg daily ??- Metoprolol 25mg XL daily ??- Losartan 25mg daily Please continue to also take your daily Aspirin. You already received these medications this morning prior to discharge so should start these medications at home tomorrow morning. ?? We also increased your home Atorvastatin from 40mg to 80mg nightly. Please continue to take 80mg athome starting tonight. ?? You are scheduled to see [facility] outpatient on July 18??at their??[place] office. Please call for a??Cardiac Rehab appointment at [facility]: [phone] We also ask for you to follow-up with your primary care doctor for an inpatient follow-up visit??within a week of discharge; you will likely need to call Dr. Galindo's office to schedule this appointment. ?? If you experience recurrent chest pain with or without shortness of breath, excessive sweating, palpitations, jaw and/or arm pain, and/or dizziness, please call your primary care doctor KIM or go [facility] Emergency Department for further evaluation. ?? We are glad you are feeling better and wish you the best! Post Discharge Care Diet: Cardiac Diet Activity: OOB as tolerated Wound Care: N/A Code Status:??FULL, MOLST on file Condition: Good Prognosis: Good Home Health Face to Face *Denotes mandatory echevarria ?? *I certify that this patient is under my care and that I or an allowed non- physician working with me had a face to face encounter with the patient on this date:??06/30/2022 12:36 ?? *The encounter with the patient was in whole, or in part, for the following medical condition, which is the primary diagnosis(es) for home health care:??Tachycardia (R00.0) ? *Select the indications for the discipline/s that are being arranged for this patient. Nursing (select all that apply): [_] None [_] Medication management (reconciliation, teaching)?? [_] Chronic disease management?? [_] Wound care and treatment?? [_] Home safety evaluation [_] Administer SQ/IM/IV medications?? [_] Cath care?? [_] Drain care?? [_] Trach or GT care?? Other _ Occupation Therapy (select all that apply): [_] None [X] ADL Management [X] Fall prevention training [_] Energy conservation [_] Cognitive training Other _ Physical Therapy (select all that apply): [_] None [X] Functional mobility training [X] Home exercise program to strengthen [X] Increase ROM?? [X] Falls prevention training [_] Home maintenance program [...] Inability to ambulate without assistance [_] Pain [X] Decreased strength and endurance [_] Unsteady gait [_] Severe SOB and fatigue [_] Impaired transfers [_] Inability to negotiate stairs [_] Limited weight bearing [_] Mental status change? *Physician Signature:??Tiana Sunshine, DO ?? *By signing this, I certify that I have personally evaluated the patient and agree with the findings and recommendations as documented above. Results Discharge Labs BLOOD BANK Blood Type O Positive ()?? 06/28/2022 14:03 Antibody Screen Negative ()?? 06/28/2022 14:03 ?? BLOOD COUNT & DIFF WBC 7.8 k/mm3 ()?? 06/30/2022 04:57 RBC 4.02 m/mm3 (Low)?? 06/30/2022 04:57 Hgb 13.5 Gm/dL (Low)?? 06/30/2022 04:57 Hct 39.3 % (Low)?? 06/30/2022 04:57 MCV 97.8 femtoliters (High)?? 06/30/2022 04:57 MCH 33.6 pg ()?? 06/30/2022 04:57 MCHC 34.4 g/dL ()?? 06/30/2022 04:57 Platelet Count 166 k/mm3 ()?? 06/30/2022 04:57 RDW-SD 46.4 femtoliters ()?? 06/30/2022 04:57 MPV 9.6 femtoliters ()?? 06/30/2022 04:57 Nucleated RBC (Automated) 0.0 #/100 WBC'S ()?? 06/30/2022 04:57 Abs. NRBC 0.0 k/mm3 ()?? 06/30/2022 04:57 Abs. Neut 4.7 k/mm3 ()?? 06/28/2022 14:18 Abs. Lymph 1.8 k/mm3 ()?? 06/28/2022 14:18 Abs. [place] 0.6 k/mm3 ()?? 06/28/2022 14:18 Abs. Eo 0.4 k/mm3 ()?? 06/28/2022 14:18 Abs. Baso 0.0 k/mm3 ()?? 06/28/2022 14:18 Neut % 61.6 % ()?? 06/28/2022 14:18 Lymph % 24.2 % ()?? 06/28/2022 14:18 [place] % 8.2 % ()?? 06/28/2022 14:18 Eos % 5.3 % ()?? 06/28/2022 14:18 Baso % 0.4 % ()?? 06/28/2022 14:18 Imm Gran 0.3 % ()?? 06/28/2022 14:18 Abs. Imm Gran 0.0 k/mm3 ()?? 06/28/2022 14:18 ?? CARDIAC High Sensitivity Troponin (HSTnT) 58 ng/L (Critical)?? 06/28/2022 14:18 ? CHEM GENERAL Sodium 137 mmol/L ()?? 06/30/2022 04:57 Potassium 4.3 mmol/L ()?? 06/30/2022 04:57 Chloride 99 mmol/L ()?? 06/30/2022 04:57 Bicarbonate Level 28 mmol/L ()?? 06/30/2022 04:57 Anion Gap 10 ()?? 06/30/2022 04:57 Glucose Level 139 mg/dL (High)?? 06/30/2022 04:57 Hemoglobin A1C (Monitoring) 6.1 % (High)?? 06/28/2022 17:56 BUN 20 mg/dL ()?? 06/30/2022 04:57 Creatinine-Blood 1.1 mg/dL ()?? 06/30/2022 04:57 Estimated GFR Creatinine 67 ML/MIN/1.73 M2 ()?? 06/30/2022 04:57 Calcium 9.0 mg/dL ()?? 06/30/2022 04:57 Calcium, Ionized pH Corrected 1.24 mmol/L ()?? 06/29/2022 02:22 Phosphorus 3.5 mg/dL ()?? 06/29/2022 02:22 Magnesium 2.0 mg/dL ()?? 06/30/2022 04:57 Protein, Total 8.3 Gm/dL (High)?? 06/28/2022 17:56 Albumin 4.4 Gm/dL ()?? 06/28/2022 17:56 AG Ratio 1.1 ()?? 06/28/2022 17:56 Alkaline Phosphatase 95 units/L ()?? 06/28/2022 17:56 AST (SGOT) HEMOLYZED units/L ()?? 06/28/2022 17:56 ALT (SGPT) 26 units/L ()?? 06/28/2022 17:56 Bilirubin, Total 0.7 mg/dL ()?? 06/28/2022 17:56 Bilirubin, Direct HEMOLYZED mg/dL ()?? 06/28/2022 17:56 Bilirubin, Indirect Unable to calculate mg/dL ()?? 06/28/2022 17:56 Lactate 2.2 mmol/L ()?? 06/29/2022 02:12 ?? COAG INR 1.1 ()?? 06/28/2022 17:56 Protime (PT) 11.4 seconds ()?? 06/28/2022 17:56 APTT 65.4 seconds (High)?? 06/28/2022 17:56 ? ENDOCRINE/TUMOR MARKER TSH 1.82 uIU/mL ()?? 06/28/2022 17:56 Free T4 1.02 ng/dL ()?? 06/28/2022 17:56 ?? LIPID STUDIES Cholesterol 116 mg/dL ()?? 06/29/2022 02:22 Triglycerides 213 mg/dL (High)?? 06/29/2022 02:22 HDL Cholesterol 36 mg/dL (Low)?? 06/29/2022 02:22 LDL Cholesterol 37 mg/dL ()?? 06/29/2022 02:22 Non HDL Cholesterol 80 mg/dL ()?? 06/29/2022 02:22 ? MISC. CHEMISTRY Hold Gel Top SPECIMEN DISCARDED AFTER 1 WEEK ()?? 06/30/2022 04:57 ? UA/URINALYSIS Appear/Color, Urine LIGHT YELLOW ()?? 06/29/2022 02:30 Specific [place], Urine 1.047 (High)?? 06/29/2022 02:30 pH, Urine 7.0 ()?? 06/29/2022 02:30 Albumin, Urine TRACE (Abnormal)?? 06/29/2022 02:30 Glucose, Urine NEGATIVE ()?? 06/29/2022 02:30 Ketones, Urine NEGATIVE ()?? 06/29/2022 02:30 Bilirubin, Urine NEGATIVE ()?? 06/29/2022 02:30 Hemoglobin, Urine NEGATIVE ()?? 06/29/2022 02:30 Nitrite, Urine NEGATIVE ()?? 06/29/2022 02:30 Leukocyte, Urine NEGATIVE ()?? 06/29/2022 02:30 Urobilinogen NORMAL mg/dL ()?? 06/29/2022 02:30 WBC's, Urine 1 /HPF ()?? 06/29/2022 02:30 RBC's, Urine 2 /HPF ()?? 06/29/2022 02:30 Squamous Epith <1 /HPF ()?? 06/29/2022 02:30 ?? VIROLOGY COVID-19 by RT-PCR NEGATIVE ()?? 06/28/2022 21:30 ? 30??minutes spent on discharge. ? Patient reviewed with supervising??attending Dr. Luz. ?? Tiana Sunshine, DO Internal Medicine, PGY-1 Pager# [phone] * Sukh LANDAVERDE, Guerar S: PERFORM Event Display: Discharge/Transfer Note Hospital Authored Date: Patient seen and discussed with CCU team agree with above plan management. * Anahi LEE, Adrianna: PERFORM Event Display: Patient Education/Instruction Authored Date: Inpatient Adult Discharge Instructions [address] [address] Name: MARTÍN LARRY : 1945 Visit: 06/28/2022 15:42:00 Current Date: 06/30/2022 14:00 Account: [id number] Inpatient Adult Discharge Instructions We would like [...] and their families. Surveys are administered by [employer] ?? If further treatment with your primary care physician or another doctor is recommended, it is important for you to keep the appointment. Call your primary care physician or return to the Emergency Department immediately if your condition worsens, fails to improve, or new symptoms develop. If you need to find a doctor, you can call [facility] for a referral at [phone] or toll free at [phone] or log in to [email or web address].. ?? You can view and manage your care through the patient portal or by using a health care michelle of your choosing. [employer] is a website that allows you to securely view your medical information including your hospital discharge summary, office visit summaries, medications and follow-up visits. You can also request appointments, renew medications, and request access to your medical information using a health care michelle of your choosing, or just ask a question. You can enroll at [email or web address] or register during your next office visit. You have been discharged from [facility], Patient Care Unit: M7. If you have any questions regarding these instructions after you leave, please call us and we will be happy to assist you. [facility] Your Care Team Attending Physician Sukh LANDAVERDE, Matilde Ingram Consulting Providers Josh LANDAVERDE, Braulio Gil Discharging Providers Tiana Sunshine DO Reason for Your Visit STEMI Your Diagnosis CAD (coronary artery disease) s/p AVINASH to LAD Carotid artery disease Parkinsonian features Prediabetes STEMI (ST elevation myocardial infarction) Tests Performed Below is a partial list of the tests performed during your hospitalization. You may have had other tests and procedures not included in this list. Please discuss all test results with your provider. Basic Metabolic Panel Bilirubin Fractionated BUN Cardiac Lipid Panel CBC CBC w/ Differential Complete Urinalysis Comprehensive Metabolic Panel COVID-19 (Novel Coronavirus), Rapid PCR Creatinine HEMOGLOBIN A1C High??Sensitivity??Troponin T HOLD GEL TUBE HOLD RED TUBE?-- Results Pending -- Ionized Calcium Lactate Level Lytes Magnesium Level Phosphorus Level PT (INR) PTT T4 Free TSH Type and Screen Portable Chest ? You will be contacted within 72 hours with your results. Primary Care Provider Josie LANDAVERDE, Jose Vidal Advance Directive . Discharge Vitals Temperature: 97.6 DegF Height: 180 cm Pulse Rate: 75 bpm Weight: 93.6 kg Respiratory Rate: 18 br/min Body Mass Index:??28.83 kg/m2??High Systolic Blood Pressure: 114 mm Hg Body surface area: 2.16 Diastolic Blood Pressure:??52 mm Hg??Low ?? Oxygen Saturation: 96 % ?? Studies Pending All tests and labs ordered during this hospital stay have been completed unless listed below. Please discuss all pending results with your provider listed above in these instructions. ?? Add On Lab Order Hold Red Top Tube (HOLD RED TUBE) What to do next Instructions From Your Doctor You had a heart attack and had a stent placed to help open the blocked artery to allow blood to flow to the heart. ?? You were started on the following medications: ??- Clopidogrel (also known as Plavix) 75mg daily ??- Metoprolol 25mg XL daily ??- Losartan 25mg daily Please continue to also take your daily Aspirin. You already received these medications this morning prior to discharge so should start these medications at home tomorrow morning. ?? We also increased your home Atorvastatin from 40mg to 80mg nightly. Please continue to take 80mg athome starting tonight. ?? You are scheduled to see [facility] Cardiology outpatient on July 18??at their??[place] office. Please call for a??Cardiac Rehab appointment at [facility]: [phone] We also ask for you to follow-up with your primary care doctor for an inpatient follow-up visit??within a week of discharge; you will likely need to call Dr. Galindo's office to schedule this appointment. ?? If you experience recurrent chest pain with or without shortness of breath, excessive sweating, palpitations, jaw and/or arm pain, and/or dizziness, please call your primary care doctor KIM or go [facility] Emergency Department for further evaluation. ?? We are glad you are feeling better and wish you the best! Discharge Orders Instructions from your Care Team Please refer to??cardiac, No??Conc Sweets??nutrition literature provided by Kennedi Elise and call [phone] with any questions. Scheduled Follow-Up Appointments Sunday. 2022 2:00 PM EDT ?? With: Jason Davis Where: [facility] Office [address] [place] [address]- 2022 1:00 PM EDT ?? With: Armaan Mendoza MD Where: [facility] Neurology [address] [facility] 3[address] Floor, [address] [place] [address]- You Need to Schedule the Following Appointments Follow Up with??Jose Galindo MD When??Within 1 week: call to discuss follow up visit Where: ?? Follow Up with??Call for Cardiac Rehab appointment at [facility] --[phone] When?? Where: Discharge Medications MARTÍN LARRY :1945 Visit Date:06/28/2022 Medications: Please continue your medications until treatment is completed or stopped by your provider. Medications not listed below should be discontinued. Discuss any questions related to medications with your provider. What How Much When Why Instructions Next Dose New Clopidogrel (Plavix 75 mg oral tablet) 1 tab(s) Oral Daily Refills: 2 Pickup at [facility] tomorrow 07/01 New Losartan (losartan 25 mg oral tablet) 1 tab(s) Oral Daily Refills: 2 Pickup at [facility] tomorrow 07/01 New Metoprolol (metoprolol 25 mg oral tablet, extended release) 1 tab(s) Oral Daily Refills: 2 Pickup at [place] [address] tomorrow 07/01 Changed Atorvastatin (atorvastatin 80 mg oral tablet) 1 tab(s) Oral Daily at Bedtime Pickup at [place] [address] 06/30 Unchanged Aspirin (aspirin 81 mg oral delayed release tablet) 81 Milligram Oral Daily Pickup at [place] [address] tomorrow 07/01 Unchanged Carbidopa-Levodopa (Sinemet 25 mg-100 mg oral tablet) 3 tab(s) Oral 3 times a day Parkinsonian features Duration: 90 Days Unchanged Cholecalciferol (Vitamin D3 5000 intl units oral capsule) 1 capsule Oral Daily tomorrow 07/01 Unchanged copper glycinate-zinc glycinate (copper (as bisglycinate)-zinc (as bisglycinate) 2 mg-25 mg oral capsule) 1 capsule Oral Daily tomorrow 07/01 Unchanged Cyanocobalamin (Eligen B12 1000 mcg oral tablet) 1 tab(s) Oral Daily on an empty stomach ?? tomorrow 07/01 Unchanged Duloxetine (Cymbalta 60 mg oral enteric coated capsule) 1 capsule Oral Twice a day Duration: 90 Days 06/30 Unchanged Durable Medical Equipment (wheelchair) See instructions Unsteady gait R26.81 Parkinsons R25.9 chronic pain G89.4 Weight 89.4kg height 176.8 cm Lifetime need self propel standard footrests ?? as ordered Unchanged Meclizine (meclizine 25 mg oral tablet) 1 tab(s) Oral 3 times a day as needed for for dizziness as needed as directed Unchanged Purvis-3 Polyunsaturated Fatty Acids (Fish Oil 1000 mg oral capsule) 1 capsule Oral Daily tomorrow 07/01 Unchanged Omeprazole (omeprazole 20 mg oral delayed release tablet) 1 tab(s) Oral Daily tomorrow 07/01 Unchanged Pregabalin (Lyrica 150 mg oral capsule) 1 capsule Oral Twice a day Duration: 90 Days Unchanged Trazodone (traZODone 50 mg oral tablet) 1 tab(s) Oral Daily at Bedtime increased dose ?? tonight 06/30 Unchanged Ubiquinone (Co-Q10 100 mg oral capsule) 2 capsule Oral Daily tomorrow 07/01 Pharmacy Information [facility]: [address] [place], [place] [id number] [phone] Test Results Below is a partial list of the most recent Laboratory test results done prior to this discharge. You may have had other tests and procedures not included in this list. Please discuss all test resultswith your provider. Basic Metabolic Panel (06/30/2022) ???Sodium - 137 mmol/L???Potassium - 4.3 mmol/L???Chloride - 99 mmol/L???Bicarbonate Level - 28 mmol/L???Anion Gap - 10???Glucose Level - 139 mg/dL???BUN - 20 mg/dL???Creatinine-Blood - 1.1 mg/dL???Estimated GFR Creatinine - 67 ML/MIN/1.73 M2???Calcium - 9.0 mg/dL Bilirubin Fractionated (06/28/2022) ???Bilirubin, Direct - HEMOLYZED???Bilirubin, Indirect - Unable to calculate BUN (06/29/2022) ???BUN - 11 mg/dL Cardiac Lipid Panel (06/29/2022) ???Cholesterol - 116 mg/dL???Triglycerides - 213 mg/dL???HDL Cholesterol - 36 mg/dL???LDL Cholesterol - 37 mg/dL???Non HDL Cholesterol - 80 mg/dL CBC (06/30/2022) ???WBC - 7.8 k/mm3???RBC - 4.02 m/mm3???Hgb - 13.5 Gm/dL???Hct - 39.3 %???MCV - 97.8 femtoliters???MCH - 33.6 pg???MCHC - 34.4 g/dL???Platelet Count - 166 k/mm3???RDW-SD - 46.4 femtoliters???MPV - 9.6 femtoliters???Nucleated RBC (Automated) - 0.0 #/100 WBC'S???Abs. NRBC - 0.0 k/mm3 CBC w/ Differential (06/28/2022) ???WBC - 7.6 k/mm3???RBC - 4.68 m/mm3???Hgb - 15.5 Gm/dL???Hct - 45.3 %???MCV - 96.8 femtoliters???MCH - 33.1 pg???MCHC - 34.2 g/dL???Platelet Count - 170 k/mm3???RDW-SD - 45.5 femtoliters???MPV - 10.8 femtoliters???Nucleated RBC (Automated) - 0.0 #/100 WBC'S???Abs. NRBC - 0.0 k/mm3???Abs. Neut - 4.7 k/mm3???Abs. Lymph - 1.8 k/mm3???Abs. [place] - 0.6 k/mm3???Abs. Eo - 0.4 k/mm3???Abs. Baso - 0.0 k/mm3???Neut % - 61.6 %???Lymph % - 24.2 %???[place] % - 8.2 %???Eos % - 5.3 %???Baso % - 0.4 %???Imm Gran - 0.3 %???Abs. Imm Gran - 0.0 k/mm3 Complete Urinalysis (06/29/2022) ???Appear/Color, Urine - LIGHT YELLOW???Specific [place], Urine - 1.047???pH, Urine - 7.0???Albumin, Urine - TRACE???Glucose, Urine - NEGATIVE???Ketones, Urine - NEGATIVE???Bilirubin, Urine - NEGATIVE???Hemoglobin, Urine - NEGATIVE???Nitrite, Urine - NEGATIVE???Leukocyte, Urine - NEGATIVE???Urobilin ogen - NORMAL? ?WBC's, Urine - 1 /HPF? ?RBC's, Urine - 2 /HPF? ?Squamous Epith - <1 /HPF Comprehensive Metabolic Panel (06/28/2022) ???Sodium - 138 mmol/L???Potassium - HEMOLYZED???Chloride - 98 mmol/L???Bicarbonate Level - 29 mmol/L???Anion Gap - 11???Glucose Level - 153 mg/dL???BUN - 11 mg/dL???Creatinine-Blood - 0.9 mg/dL???Estimated GFR Creatinine - 87 ML/MIN/1.73 M2???Calcium - 9.8 mg/dL???Protein, Total - 8.3 Gm/dL???Album in - 4.4 Gm/dL???AG Ratio - 1.1???Alkaline Phosphatase - 95 units/L???AST (SGOT) - HEMOLYZED???ALT (SGPT) - 26 units/L???Bilirubin, Total - 0.7 mg/dL COVID-19 (Novel Coronavirus), Rapid PCR (06/28/2022) ???COVID-19 by RT-PCR - NEGATIVE Creatinine (06/29/2022) ???Creatinine-Blood - 0.9 mg/dL???Estimated GFR Creatinine - 88 ML/MIN/1.73 M2 HEMOGLOBIN A1C (06/28/2022) ???Hemoglobin A1C (Monitoring) - 6.1 % High??Sensitivity??Troponin T (06/28/2022) ???High Sensitivity Troponin (HSTnT) - 58 ng/L HOLD GEL TUBE (06/30/2022) ???Hold Gel Top - SPECIMEN DISCARDED AFTER 1 WEEK Ionized Calcium (06/29/2022) ???Calcium, Ionized pH Corrected - 1.24 mmol/L Lactate Level (06/29/2022) ???Lactate - 2.2 mmol/L Lytes (06/29/2022) ???Sodium - 138 mmol/L???Potassium - 4.5 mmol/L???Chloride - 100 mmol/L???Bicarbonate Level - 29 mmol/L???Anion Gap - 9 Magnesium Level (06/30/2022) ???Magnesium - 2.0 mg/dL Phosphorus Level (06/29/2022) ???Phosphorus - 3.5 mg/dL PT (INR) (06/28/2022) ???INR - 1.1???Protime (PT) - 11.4 seconds PTT (06/28/2022) ???APTT - 65.4 seconds T4 Free (06/28/2022) ???Free T4 - 1.02 ng/dL TSH (06/28/2022) ???TSH - 1.82 uIU/mL Type and Screen (06/28/2022) ???Blood Type - O Positive???Antibody Screen - Negative Allergies (NKA means No Known Allergies) Shrimp shellfish Problems Active Problems??(22) [facility]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 BPH associated with nocturia?? Carotid artery stenosis?? Chronic low back pain?? Chronic vertigo?? Claudication?? COVID-19?? COVID-19 virus infection?? Dyspnea on exertion?? Esophageal reflux?? Fatigue?? History of colonoscopy?? Hypercholesterolemia?? Localized, primary osteoarthritis of the ankle and/or foot?? Major depression in partial remission?? Neuropathy, peripheral?? Obstructive sleep apnea?? Parkinsons disease?? Skin lesion?? Toxic metabolic encephalopathy?? Unsteady gait?? Urge incontinence of urine?? Education Materials Below is the list of Educational Leaflet Providered with your Discharge Instructions. Eating Heart-Healthy Foods?? Eating Heart-Healthy Foods?? Heart Attack: Back at Home?? Heart Attack: Leaving the Hospital?? Eating Heart-Healthy Foods?? Discharge Instructions for Heart Attack?? Getting Started with Cardiac Rehab: Exercise?? Valuables and Belongings I fully understand and agree that [facility] accepts no responsibility for all my personal [...] to send valuables and belongings home. ?? Review of Valuable and Belonging List: With patient Date for Pt to Sign Valuables/Belongings: 06/30/22 12:51:00 ?? Other Discharge Information ? Case Management Discharge Plan?? Discharge Plan?? Discharge Agency Information?? 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 Service Categories #1: Occupational Therapy, Physical Therapy, Assisted ?? Service Comments #1: Referral place to [facility]. VNA will call to schedule a home visit; if you dont hear from them please call them directly. ?? Pulmonary Rehab Status?? Pulmonary Rehab Discharge Status?? CPAP/BiPAP Mask Type: Pillows CPAP/BiPAP Mask Size: Medium Respiratory Rate: 18 br/min ? Cardiac Rehab Assessment?? Cardiac Rehab Inpatient Assessment?? Comments-Education: post IL/PCI recovery process Comments-Smoking Cessation: na Comments-Exercise Activity: inc as tolerated Comments-Nutrition: low chol Comments-Lipids: diet, statins Patient attending Phase II: Yes Phase II Site of Care: [address] [address] [phone] Common Emergency Awareness Tips IS IT A [...] are strongly encouraged to quit. Please call [facility] at [phone] or [phone] ([phone]) or log in to [email or web address] for referrals to smoking cessation programs. ?? 988 Suicide & Crisis Lifeline is available 09/10 if you or someone you know needs to find a reason to keep living. By calling 988 you'll be connected to a skilled, trained counselor at a crisis center in your area. INPATIENT DISCHARGE INSTRUCTIONS SIGNATURE PAGE MARTÍN LARRY Location:[facility] Registration Date and Time:06/28/2022 15:42 EDT Primary Care Physician: Jose Galindo MD, I MARTÍN LARRY, have received the above patient education materials/instructions and have verbalized understanding. If ambulance or transport services are being used I further acknowledge being given a choice of service. ?? If you need to contact me, please call me at this number: . 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 [address] Eating Heart-Healthy Foods Eating has a big impact on your heart health. In fact, eating healthier can improve several of yourheart risks at once. For instance, it helps you manage weight, cholesterol, and blood pressure. Here are ideas to help you make heart- healthy changes without giving up all??the foods and flavors you love. Getting started ??? Talk with your healthcare provider about eating plans, such as the DASH or Mediterranean diet. You may also be referred to a dietitian. Ask a partner, family member, or friend to join you for mutual support. ??? Change a few things at a time. Give yourself time to get used to a few eating changes before adding more. ??? Work to create a tasty, healthy eating plan that you can stick to for the rest of your life. ?? Goals for healthy eating Below are some tips to improve your eating habits: ??? Limit saturated fats and trans fats. Saturated fats raise your levels of cholesterol, so keep these fats to a minimum. They are found in foods such as fatty meats, whole milk, cheese, and palm and coconut oils. Avoid trans fats because they lower good cholesterol as well as raise bad cholesterol. Trans fats are most often found in processed foods, such as pastries, cookies, pies, muffins, fried foods, stick margarines, and shortening. ??? Reduce how much sodium (salt) you have. Eating too much salt may increase your blood pressure. Limit your sodium intake to 2,300 milligrams (mg) per day??(the amount in 1 teaspoon of salt), or less if your healthcare provider recommends it. Dining out less often and eating fewer processed foods are two great ways to decrease the amount of salt you consume. At home, flavor your foods with other spices and herbs instead of salt. ??? Managing calories. A calorie is a unit of energy. Your body wyatt calories for fuel, but if you eat more calories than your body wyatt, the extras are stored as fat. Your healthcare provider or dietitian can help you create a diet plan to manage your calories. This will likely include eating healthier foods and getting regular exercise. To help you track your progress, keep a food diary to record what you eat and how often you exercise. ?? Choose the right foods Aim to make these foods jose of your diet. If you have diabetes, you may have different recommendations than what is listed here: ??? Fruits and vegetables provide plenty of nutrients without a lot of calories. At meals, fill half your plate with these foods. Choose between fresh, frozen, canned, or dried fruits and vegetables without added sauces, salt, or sugars. Split the other half of your plate between whole grains and lean protein. ??? Whole grains are high in fiber and rich in vitamins and nutrients. Good choices include whole-wheat bread, pasta, oats, and brown rice. Make at least half of your grains whole grains.??? Lean proteins give you nutrition with less fat. Good choices include fish, skinless chicken andturkey, and beans. Draining the fat from cooked ground meat is another way to reduce the amount of fat you eat. ??? Low-fat and nonfat dairy provide nutrients without a lot of fat. Try low-fat or nonfat milk, cheese, or yogurt. ??? Healthy fats can be good for you in small amounts. These are unsaturated fats, such as olive oil, avocado, nuts, and fish. Try to have at least 2 servings per week of fatty fish, such as salmon, sardines, mackerel, rainbow trout, and albacore tuna. These contain omega-3 fatty acids, which are good for your heart. Flaxseed and walnuts are other sources of heart-healthy fats. ?? More on heart-healthy eating Read food labels Healthy eating starts at the grocery store. Be sure to pay attention to food labels on packaged foods. Look for products that are high in fiber and protein and low in saturated fat, added sugars, andsodium. Avoid products that contain trans fat. And pay close attention to serving size. For instance, if you plan to eat 2 servings, double all the numbers on the label. Prepare food right A billings part of healthy cooking is cutting down on added fat, sugar, and salt. Look on the Internet for lower-fat, lower-sodium recipes without a lot of added sugars. Also try these tips: ??? Remove fat from meat and skin from poultry before cooking. ??? Skim fat from the surface of soups and sauces.??? Broil, roast, boil, bake, steam, grill, or microwave food without added fats. ??? Choose ingredients that spice up your food without adding calories, fat, sugar, or sodium. Try these items: horseradish, hot sauce, lemon zest and juice, garlic, onion, mustard, nonfat salad dressings, and vinegar. Small amounts of olive oil-based vinaigrettes are OK, too. For salt-free herbs and spices, try basil, cilantro, cinnamon, cumin, paprika, pepper, and aurelia. ?? Last Reviewed Date: 2022 ?? [employer]. All rights reserved. This information is not intended as a substitute for professional medical care. Always follow your healthcare professional's instructions. ?? * Yusuf Peck RN: PERFORM Event Display: Patient Education Leaflets Authored Date: [id number] Eating Heart-Healthy Foods ?? 419[address] Eating Heart-Healthy Foods Eating has a big impact on your heart health. In fact, eating healthier can improve several of yourheart risks at once. For instance, it helps you manage weight, cholesterol, and blood pressure. Here are ideas to help you make heart- healthy changes without giving up all??the foods and flavors you love. Getting started ??? Talk with your healthcare provider about eating plans, such as the DASH or Mediterranean diet. You may also be referred to a dietitian. Ask a partner, family member, or friend to join you for mutual support. ??? Change a few things at a time. Give yourself time to get used to a few eating changes before adding more. ??? Work to create a tasty, healthy eating plan that you can stick to for the rest of your life. ?? Goals for healthy eating Below are some tips to improve your eating habits: ??? Limit saturated fats and trans fats. Saturated fats raise your levels of cholesterol, so keep these fats to a minimum. They are found in foods such as fatty meats, whole milk, cheese, and palm and coconut oils. Avoid trans fats because they lower good cholesterol as well as raise bad cholesterol. Trans fats are most often found in processed foods, such as pastries, cookies, pies, muffins, fried foods, stick margarines, and shortening. ??? Reduce how much sodium (salt) you have. Eating too much salt may increase your blood pressure. Limit your sodium intake to 2,300 milligrams (mg) per day??(the amount in 1 teaspoon of salt), or less if your healthcare provider recommends it. Dining out less often and eating fewer processed foods are two great ways to decrease the amount of salt you consume. At home, flavor your foods with other spices and herbs instead of salt. ??? Managing calories. A calorie is a unit of energy. Your body wyatt calories for fuel, but if you eat more calories than your body wyatt, the extras are stored as fat. Your healthcare provider or dietitian can help you create a diet plan to manage your calories. This will likely include eating healthier foods and getting regular exercise. To help you track your progress, keep a food diary to record what you eat and how often you exercise. ?? Choose the right foods Aim to make these foods jose of your diet. If you have diabetes, you may have different recommendations than what is listed here: ??? Fruits and vegetables provide plenty of nutrients without a lot of calories. At meals, fill half your plate with these foods. Choose between fresh, frozen, canned, or dried fruits and vegetables without added sauces, salt, or sugars. Split the other half of your plate between whole grains and lean protein. ??? Whole grains are high in fiber and rich in vitamins and nutrients. Good choices include whole-wheat bread, pasta, oats, and brown rice. Make at least half of your grains whole grains.??? Lean proteins give you nutrition with less fat. Good choices include fish, skinless chicken andturkey, and beans. Draining the fat from cooked ground meat is another way to reduce the amount of fat you eat. ??? Low-fat and nonfat dairy provide nutrients without a lot of fat. Try low-fat or nonfat milk, cheese, or yogurt. ??? Healthy fats can be good for you in small amounts. These are unsaturated fats, such as olive oil, avocado, nuts, and fish. Try to have at least 2 servings per week of fatty fish, such as salmon, sardines, mackerel, rainbow trout, and albacore tuna. These contain omega-3 fatty acids, which are good for your heart. Flaxseed and walnuts are other sources of heart-healthy fats. ?? More on heart-healthy eating Read food labels Healthy eating starts at the grocery store. Be sure to pay attention to food labels on packaged foods. Look for products that are high in fiber and protein and low in saturated fat, added sugars, andsodium. Avoid products that contain trans fat. And pay close attention to serving size. For instance, if you plan to eat 2 servings, double all the numbers on the label. Prepare food right A billings part of healthy cooking is cutting down on added fat, sugar, and salt. Look on the Internet for lower-fat, lower-sodium recipes without a lot of added sugars. Also try these tips: ??? Remove fat from meat and skin from poultry before cooking. ??? Skim fat from the surface of soups and sauces.??? Broil, roast, boil, bake, steam, grill, or microwave food without added fats. ??? Choose ingredients that spice up your food without adding calories, fat, sugar, or sodium. Try these items: horseradish, hot sauce, lemon zest and juice, garlic, onion, mustard, nonfat salad dressings, and vinegar. Small amounts of olive oil-based vinaigrettes are OK, too. For salt-free herbs and spices, try basil, cilantro, cinnamon, cumin, paprika, pepper, and aurelia. ?? Last Reviewed Date: 2022 ?? 4106-5013 The [employer]. All rights reserved. This information is not intended as a substitute for professional medical care. Always follow your healthcare professional's instructions. ?? * Tiana Sunshine DO: PERFORM Event Display: Patient Education Leaflets Authored Date: [id number] Heart Attack: Back at Home ?? [address] Heart Attack: Back at Home Once you???re home, your goal for the first week or so is to take it easy. Then slowly go back to regular activities. It may take about 4 to 8 weeks to get back to your normal routine. To ease the transition, let yourself rely on family and friends for support. And be easy on yourself. Let friends and family support you Don???t try to do it all alone. Ask family or friends for help. They may be glad to do something toshow their concern. For instance: ??? Let others help with chores. This includes washing dishes, making meals, or buying groceries. ??? Ask a family member or friend to join you in relaxing activities. You could play games or watch a movie. ??? Invite a family member or friend to your appointments. ?? Be easy on yourself As you begin your recovery, don???t push yourself too hard. Remember, you???re healing physically and emotionally. Keep these tips in mind: ??? Take your medicines as prescribed by your healthcare provider. ??? Don't do any activities that may cause chest pain or shortness of breath. ??? Avoid exertion, excitement, and exposure to cold after a heavy meal. ??? If you???re feeling low, don???t beatyourself up. Take your recovery one day at a time. And don???t give in to these feelings by stayingin bed. Get up and get dressed each morning. ??? Do activities that are easy but get you slowly back into the routine. ??? Talk with someone every day. ?? For family and friends Help your loved one ease into recovery: ??? Offer to drive your loved one to medical appointments. ??? Help your loved one remember to take medicines. ??? Encourage your loved one to slowly be more independent. ??? Spend time relaxing together. You don???t have to just sit around. Try going for a walk. ??? Spend time talking about things other than health. ?? Last Reviewed Date: 2021 ?? [id number] The [employer]. All rights reserved. This information is not intended as a substitute for professional medical care. Always follow your healthcare professional's instructions. ?? * Event Display: Hemodynamic Procedure Report Authored Date: * Event Display: Cardiac Rhythm Strips Authored Date: Admission evaluation note * Alphonso Mensah DO: MODIFY, MODIFY, PERFORM, MODIFY, MODIFY, MODIFY Event Display: Admission Note Authored Date: [id number] Patient: ??MARTÍN LARRY ? Age:??77 Years?Sex:??Male?:??1945?? Chief Complaint/Reason for Consultation STEMI History of Present Illness 77-year-old man past medical history of COVID-19 in 2021, BPH, carotid artery stenosis, low back pain, reflux, hypercholesterolemia, peripheral neuropathy, sleep apnea, Parkinson's, who presents emergency department today for code STEMI patient states that last 3 days he has had some intermittent dizziness did not think too much of it as he has had vertigo in the past. ??Today presented with chest pain on EMS arrival found to have acute ST elevations in lead I aVL in the anterior leadsas well. ??Gave 324 of aspirin in the scene. ??Patient has no radiation to his back no shortness ofbreath patient states 9 out of 10 chest pain arrival then decreased to about 5 out of 10 without any other acute interventions besides aspirin.? Labs showed no leukocytosis or anemia with initial troponin of 58, ??Other labs pending. He was taken to laboratory mechanic helper where he received IVUS guided PCI to LAD 1xDES and brillinta load. LVEDP reportedly normal pending formal angiogram report. She arrived to [facility] chest pain-free without any complaints vitally stable with resolved ST elevations in anterolateral leads and remaining??T wave inversions in 1 aVL V4 V5 V6. Review of Systems A full review of systems was completed and is otherwise negative except as mentioned in history of present illness. Objective ?? Intake/Output? No Data Available ? Physical Exam Vital Signs (24 hrs) Last Charted?? Minimum?? Maximum?? Temp?? I have read the above and understand it.?? 06/28/2022 14:13?? I have read the above and understand it.?? 06/28/2022 14:13 ?? I have read the above and understand it.?? 06/28/2022 14:13? General Appearance: The patient is resting comfortably in bed in NAD ?? HEENT: ??EOMI. PERRLA. No scleral icterus. MM moist. ?? Cardiovascular: RRR S1 and S2 heard with no M/R/G. No JVD. Grossly euvolemic. ?? Respiratory: Bibasilar rales without wheeze or tachypnea. ?? GI: Nondistended. Normal bowel sounds present throughout abdomen. Soft. ??Nontender.?No rebound tenderness or other findings suggestive of an acute abdomen.??No organomegaly. ?? MSK:?No cyanosis or clubbing ?? Neuro:??No slurred speech. ??Patient seen moving their upper and lower extremities independently. Non focal ? Assessment/Plan ?? 77-year-old man past medical history of COVID-19 in 2021, BPH, carotid artery stenosis, low back pain, reflux, hypercholesterolemia, peripheral neuropathy, sleep apnea, Parkinson's admitted to [facility] after anterior STEMI with PCI to LAD. ? STEMI s/p PCI LAD Hx carotid artery disease, HLD, familial CAD ? Plan ?? Start nitro drip??per current chest pain Follow-up interventional cardiology Continue DAPT Lipids A1c TSH AM EKG and EKGs prn chest pain.? Increase home statin to 80 Echo ordered Beta sabina as tolerated and GDMT per echo results Replace electrolytes prn to goals K > 4.0, Mg > 2.0.? If continued chest pain or dynamic ekg changes, low threshold for interventional cardiology involvement and transfer to labeler for intervention ? Other chronic conditions MASSIEL on CPAP: continue at night and naps per home settings Parkinson's: On home Sinemet Vitamin D, B12 deficiency:??On supplement Depression/insomnia:??On duloxetine, trazodone GERD: on PPI Neuropathy: on pregabalin ? Quality Measures Code status: FULL has MOLST Proxy: Daughter Chula ?? and grandson Marcel DVTppx: heparin Diet: Cardiac ? Discussed with attending physician Dr. Luz, ?? Alphonso Mensah, DO Internal Medicine PGY 2 ?? This note was prepared with the [employer] dictation device, please excuse any unintentional errors in spelling, grammar or syntax. Histories Allergies Allergies ?(Active and Proposed Allergies Only) shellfish? (Severity: Unknown severity, Onset: Unknown) Shrimp? (Severity: Unknown severity, Onset: Unknown) ? Past Medical History/Problem List Active Problems??(21) BPH associated with nocturia Carotid artery stenosis Chronic low back pain Chronic vertigo Claudication COVID-19 COVID-19 virus infection Dyspnea on exertion Esophageal reflux Fatigue History [...] times per month. Employment/School Details:??Status: Retired. ??Other: [employer].. Exercise Details:??Self assessment: Poor condition. Home/Environment Details:??Living situation: Home/Independent. ??Lives with: Spouse. Nutrition/Health Details:??Diet: Regular. Substance Abuse Details:??Use: Never. Details:??Use: Never. Tobacco Details:??Use: Never (less than 100 in lifetime). Details:??Use: Never (less than 100 in lifetime). ? Family History Mother (): CAD - Coronary artery disease; Hyperlipidemia; Hypertension Sister (): Alzheimer's disease ? Medications Home Medications Aspirin (aspirin 81 mg oral delayed release tablet)?81?Milligram?By Mouth?Daily Atorvastatin (atorvastatin 40 mg oral tablet)?1?tab(s)?40?Milligram?By Mouth?Daily Carbidopa-Levodopa (Sinemet 25 mg-100 mg oral tablet)?3?tab(s)?By Mouth?3 times a day?for 90?Days Cholecalciferol (Vitamin D3 5000 intl units oral capsule)?1?capsule?125?Microgram?ByMouth?Daily copper glycinate-zinc glycinate (copper (as bisglycinate)-zinc (as bisglycinate) 2 mg-25 mg oral capsule)?1?capsule?By Mouth?Daily Cyanocobalamin (Eligen B12 1000 mcg oral tablet)?1?tab(s)?By Mouth?Daily?on an [facility] Duloxetine (Cymbalta 60 mg oral enteric coated capsule)?1?capsule?60?Milligram?By Mouth?2 times a day?for 90?Days Durable Medical Equipment (wheelchair)?See Instructions?Unsteady gait R26.81Parkinsons R25.9chronic pain G89.4Weight 89.4kgheight 176.8 cmLifetime needself propelstandard footrests Meclizine (meclizine 25 mg oral tablet)?1?tab(s)?25?Milligram?By Mouth?3 times a day?as needed?for dizziness Purvis-3 Polyunsaturated Fatty Acids (Fish Oil 1000 mg oral capsule)?1?capsule?1,000?Milligram?By Mouth?Daily Omeprazole (omeprazole 20 mg oral delayed release tablet)?1?tab(s)?20?Milligram?By Mouth?Daily Pregabalin (Lyrica 150 mg oral capsule)?1?capsule?150?Milligram?By Mouth?2 times a day?for 90?Days Trazodone (traZODone 50 mg oral tablet)?50?Milligram?1?tablet?By Mouth?Daily at bedtime?increased dose Ubiquinone (Co-Q10 100 mg oral capsule)?2?capsule?200?Milligram?By Mouth?Daily ? Results Recent Labs BLOOD COUNT & DIFF WBC 7.6 k/mm3 ()?? 06/28/2022 14:18 RBC 4.68 m/mm3 (Low)?? 06/28/2022 14:18 Hgb 15.5 Gm/dL ()?? 06/28/2022 14:18 Hct 45.3 % ()?? 06/28/2022 14:18 MCV 96.8 femtoliters (High)?? 06/28/2022 14:18 MCH 33.1 pg ()?? 06/28/2022 14:18 MCHC 34.2 g/dL ()?? 06/28/2022 14:18 Platelet Count 170 k/mm3 ()?? 06/28/2022 14:18 RDW-SD 45.5 femtoliters ()?? 06/28/2022 14:18 MPV 10.8 femtoliters ()?? 06/28/2022 14:18 Nucleated RBC (Automated) 0.0 #/100 WBC'S ()?? 06/28/2022 14:18 Abs. NRBC 0.0 k/mm3 ()?? 06/28/2022 14:18 Abs. Neut 4.7 k/mm3 ()?? 06/28/2022 14:18 Abs. Lymph 1.8 k/mm3 ()?? 06/28/2022 14:18 Abs. [place] 0.6 k/mm3 ()?? 06/28/2022 14:18 Abs. Eo 0.4 k/mm3 ()?? 06/28/2022 14:18 Abs. Baso 0.0 k/mm3 ()?? 06/28/2022 14:18 Neut % 61.6 % ()?? 06/28/2022 14:18 Lymph % 24.2 % ()?? 06/28/2022 14:18 [place] % 8.2 % ()?? 06/28/2022 14:18 Eos % 5.3 % ()?? 06/28/2022 14:18 Baso % 0.4 % ()?? 06/28/2022 14:18 Imm Gran 0.3 % ()?? 06/28/2022 14:18 Abs. Imm Gran 0.0 k/mm3 ()?? 06/28/2022 14:18 ?? CARDIAC High Sensitivity Troponin (HSTnT) 58 ng/L (Critical)?? 06/28/2022 14:18 ?? COAG APTT 147.0 seconds (Critical)?? 06/28/2022 14:18 ? * Sukh LANDAVERDE, Amir S: PERFORM Event Display: Admission Note Authored Date: Patient seen and discussed with the CCU team agree with above plan management. EKG study * Event Display: EKG Authored Date: * Event Display: ECG 12-Lead Authored Date: Please click on pdf link to open report * Event Display: ECG 12-Lead Authored Date: Ventricular Rate: 76 BPM Atrial Rate: 76 BPM P-R Interval: 140 ms QRS Duration: 100 ms Q-T Interval: 400 ms QTC Calculation(Bazett): 450 ms P Beverly: 38 degrees R Beverly: -30 degrees T Beverly: -6 degrees Critical Test Result: STEMI Normal sinus rhythm Left axis deviation Minimal voltage criteria for LVH, may be normal variant ( R in aVL ) Anteroseptal infarct , possibly acute Lateral injury pattern ACUTE [place] / STEMI Abnormal ECG When compared with ECG of 12-MAR-2022 20:30, ST elevation now present in Anterolateral leads Confirmed by BLANE STACY MD ([id number]) on 06/29/2022 6:06:36 PM [place]: BLANE STACY MD Heart * Event Display: Echocardiogram - Complete Authored Date: [id number] Transthoracic Echocardiography Report (TTE) Patient Demographics Patient Name MARTÍN LARRY Date of Study 06/29/2022 Corporate Gender Male Facility Race Ethnicity Date of 1945 Height: 71 inches Age 77 year(s) Weight: 202 pounds Accession Number [id number] BSA: 2.12 m2 Room Number M311 BMI: 28.17 kg/m2 Referring Physician Makenna Werner DO Interpreting Mara Ventura MD Physician Transportation Dispatch Manager Genna Jarrell [facility] Indications Heart failure. Clinical History Carotid artery stenosis COVID 19 Parkinson's disease MASSIEL Hypercholesterolemia. Obesity. PVD R endarterectomy Study Data Type of Study TTE procedure:Echo Complete-(Doppler, Colorflow) with Contrast. Procedure Information:Definity was administered by RN . Study Date06/29/2022 Start Time: 06:57 AM Study Location: [facility] [place] Echo Study Status: ICU/CCU Patient Status: Routine Technical Quality: Technically difficult due to body habitus. Blood Pressure:125/76 mmHg EKG: Sinus with ectopy HR: 84 bpm Contrast Medium: Definity. Amount - 2 ml Allergies - Shellfish. 2D Measurements LV Diastolic Dimension: 3.73 cm LV Septum Diastolic: 0.89 cm AO Root Dimension: 2.7 cm LV PW Diastolic: 0.92 cm LA ESV (BP):32.4 ml LA ESV Index: 15 ml/m2 LVOT Stroke Volume: 32.97 ml LVOT: 2 cm Stroke Volume Index15.55 ml/m2 Ascending Aorta:2.8 cm Cardiac Index:1.31 l/min/m2 Doppler Measurements AV Peak Velocity: 128 cm/s MV Peak E-Wave: 49.7 cm/s AV Peak Gradient: 6.55 mmHg MV Peak A-Wave: 73.9 cm/s MV E/A Ratio: 0.67 LVOT Peak Velocity: 68 cm/s MV P1/2t: 70 msec LVOT VTI10.5 cm MV Deceleration Time: 238 msec TR Velocity:214 cm/s MV Area (PHT): 3.14 cm2 TR Gradient:18.32 mmHg PV Peak Velocity: 104 cm/s E' Septal Velocity: 4.46 cm/s PV Peak Gradient: 4.33 mmHg E' Lateral Velocity: 4.57 cm/s E/Med E':11.1435 E/Lat E':10.64241 Cardiac Anatomy Left Ventricle/Interventricular Septum The left ventricle is poorly visualized. The left ventricular size is normal. Left ventricular wall thickness is normal. Despite use of echocontrast there is suboptimal endocardial definition. Contrast images are severely off axis/foreshortened. Function appears reduced. The septum and anterior wall appear akinetic in limited views. Further assessment is limited by image quality. Unable to assess diastolic function . Left Atrium/Interatrial Septum The left atrium is normal in size. Aortic Valve Trileaflet aortic valve. Focal calcification of the right coronary cusp. There is no aortic stenosis. There is trace aortic regurgitation. Mitral Valve The mitral valve is poorly visualized. The mitral valve appears mildly thickened. There is trace mitral regurgitation. Aorta The ascending aorta and aortic root are normal in size. Right Ventricle The right ventricle is grossly normal in size and function. Right Atrium The right atrium is normal in size. Pulmonic Valve The pulmonic valve is poorly visualized. There is trace pulmonic regurgitation. Tricuspid Valve The tricuspid valve is poorly visualized. Pumonary Artery An accurate pulmonary artery pressure could not be obtained. Venous Structures The inferior vena cava is poorly visualized. The inferior vena cava appears grossly normal. Pericardium/Extracardiac There is no significant pericardial effusion. Summary The left ventricle is poorly visualized. [...] function. There is no significant pericardial effusion. Comparison Comparison is made to the study report of October 30, 2018. Function is reduced and wall motion abnormalities are present. Signature * Event Display: Echocardiogram - Complete Authored Date: [id number] Hospital Progress note * Yusuf Peck RN: PERFORM, SIGN, VERIFY Event Display: Progress Note Hospital Authored Date: [id number] Patient: MARTÍN LARRY Age: 77 years Sex: Male : 1945 Associated Diagnoses: None Author: Yusuf Peck RN Findings Problem Related to Alteration in Cardiac Function (new) : Alteration in Cardiac Function/new 06/29/2022 10:00 EDT Alteration in Cardiac Status Related to Cardiac Procedure, Other: STEMI Goals & Outcomes, Cardiac Status Pt will resume/maintain adequate cardiac output, Pt will resume/maintain adequate hemodynamic status, Pt will resume/maintain adequate respiratory function, Pt will resume/maintain intact neuro function, Pt will maintain adequate GI/ function appropriate for pt, Pt will maintain adequate nutrition status, Pt/caregiver will state understanding of diagnosis, Pt/caregiver will state strategies to reduce risk factors, Pt will maintain adequate tissue oxygenation/ventilation, Pt/caregiver will state understanding of procedure, Pt will state pain at procedure site to be tolerable Cardiac Interventions Implemented Assess/monitor cardiac status, Assess/monitor neuro status, Assess/monitor respiratory status, Assess for tolerance of IV infusions; verify rate & dose, Call/Report variances in ECG to provider, Document & Monitor O2 Sats; Administer O2 as ordered, Ensure adequate caloric intake, If no bowel movement in 3 days activate bowel regime, Monitor & document daily weight, Monitor anticoagulation values, Monitor ECG w/administration of antiarrhythmics (CO 13.420), Obtain 12 Lead ECG and CXR as ordered, Prep pt for treatments & procedures, Teach/encourage deep breath & cough exercises, Teach/encourage use of incentive spirometer, Team conversation regarding appropriate level of care, Turn & reposition Q2 hours per activity restrictions, Useadjunctive therapies per Standards of Practice Goals/Interventions, Cardiac Yes Cardiac, Problem Start 06/28/2022 16:48 Reviewed Plan with, Cardiac Status Patient Patient Progression, Cardiac Status Patient progressing according to plan . Knowledge Deficit : Knowledge Deficit/new 06/29/2022 15:00 EDT Knowledge Deficit related to: Disease process Goals & Outcomes, Knowledge Deficit Pt/caregiver is able to verbalize reason for hospitalization, Pt/caregiver will state understanding of plan/goals of care, Pt/caregiver will state understanding of treatments Interventions, Knowledge Deficit Provide education using the teach back method, Provide written materials related to plan of care Goals/Interventions,Knowledge deficit Yes Knowledge Deficit, Problem Start 06/29/2022 15:12 Reviewed Plan with, Knowledge Deficit Patient Patient Progression, Knowledge Deficit Plan Initiation Knowledge Deficit, Problem Resolved 06/29/2022 15:12 Comment: Knowledge Deficit Lifestyle changes r/t disease process . Alteration in Musculoskeletal : Alteration in Musculoskeletal Func/new 06/29/2022 15:00 EDT Alteration in Musculoskeletal Related to Mobility Goals & Outcomes, Musculoskeletal Pt will demonstrate ability to participate in ADL's, Pt will report acceptable level of comfort/pain relief Interventions, Musculoskeletal Assist with repositioning, Encourage deep breathing & coughing exercises Goals/Interventions, Musculoskeletal Yes Musculoskeletal, Problem Start 06/29/2022 15:16 Reviewed Plan with, Musculoskeletal Patient Patient Progression, Musculoskeletal Plan Initiation . Narrative/Incidental Martín is able to perform certain ADLs on his own but he has left arm weakness. . Discharge Information Cardiac Rehab Discharge : Cardiac Rehab 06/29/2022 13:12 EDT Patient attending Phase II Yes Where will pt be attending [place] [id number] [facility] [id number] [phone] (Modified) * Amy Gibbons RN: PERFORM, SIGN, VERIFY Event Display: Progress Note Hospital Authored Date: Patient: MARTÍN LARRY Age: 77 years Sex: Male : 1945 Associated Diagnoses: None Author: Amy Gibbons RN Findings Problem Related to Alteration in Cardiac Function (new) : Alteration in Cardiac Function/new 06/29/2022 10:00 EDT Alteration in Cardiac Status Related to Cardiac Procedure, Other: STEMI Goals & Outcomes, Cardiac Status Pt will resume/maintain adequate cardiac output, Pt will resume/maintain adequate hemodynamic status, Pt will resume/maintain adequate respiratory function, Pt will resume/maintain intact neuro function, Pt will maintain adequate GI/ function appropriate for pt, Pt will maintain adequate nutrition status, Pt/caregiver will state understanding of diagnosis, Pt/caregiver will state strategies to reduce risk factors, Pt will maintain adequate tissue oxygenation/ventilation, Pt/caregiver will state understanding of procedure, Pt will state pain at procedure site to be tolerable Cardiac Interventions Implemented Assess/monitor cardiac status, Assess/monitor neuro status, Assess/monitor respiratory status, Assess for tolerance of IV infusions; verify rate & dose, Call/Report variances in ECG to provider, Document & Monitor O2 Sats; Administer O2 as ordered, Ensure adequate caloric intake, If no bowel movement in 3 days activate bowel regime, Monitor & document daily weight, Monitor anticoagulation values, Monitor ECG w/administration of antiarrhythmics (CO 13.420), Obtain 12 Lead ECG and CXR as ordered, Prep pt for treatments & procedures, Teach/encourage deep breath & cough exercises, Teach/encourage use of incentive spirometer, Team conversation regarding appropriate level of care, Turn & reposition Q2 hours per activity restrictions, Useadjunctive therapies per Standards of Practice Goals/Interventions, Cardiac Yes Cardiac, Problem Start 06/28/2022 16:48 Reviewed Plan with, Cardiac Status Patient Patient Progression, Cardiac Status Patient progressing according to plan . Nursing Data Biophysical Data. Narrative/Incidental P- As stated in plan of care I- As stated in plan of care E- Assumed care of patient at 0730. Denies CP/SOB. up and OOB 2x assist to chair. Mixed incontinence of urine. AOx4. Pulses intact, R radial arter site +cms. Patient transported to with all belongings. VSS. See CIS/Flowsheets for detailed assessment. . * Tiana Sunshine DO A: MODIFY, MODIFY, MODIFY, MODIFY, MODIFY, MODIFY, MODIFY, MODIFY, MODIFY, MODIFY, MODIFY, MODIFY, MODIFY, MODIFY, MODIFY, MODIFY, PERFORM, MODIFY, MODIFY, MODIFY, MODIFY, MODIFY,MODIFY, MODIFY, MODIFY, MODIFY, MODIFY, MODIFY, MODIFY, MODIFY, MODIFY, MODIFY Event Display: Progress Note Hospital Authored Date: Patient: ??MARTÍN LARRY ? Age:??77 Years?Sex:??Male?:??1945?? Subjective Overnight events: CP resolved, Nitro ggt stopped ?? Feeling well this morning with no complaints. Denies any chest pain, shortness of breath, palpitations, dizziness, diaphoresis. No headache, abdominal pain, or nausea. Has a good appetite. ?? Review of Systems Pertinent negative and positives included in subjective above.?? Objective Vital Signs?? Temperature: 98.6 DegF (06/29/22 08:00:00) Temperature Route: Oral (06/29/22 08:00:00) Pulse Rate: 73 bpm (06/28/22 16:00:00) Heart Rate Monitored: 82 bpm (06/29/22 09:00:00) Respiratory Rate: 16 br/min (06/29/22 09:00:00) Vented: No (06/29/22 09:00:00) Systolic Blood Pressure:??140 mm Hg??High (06/29/22 09:00:00) Diastolic Blood Pressure: 73 mm Hg (06/29/22 09:00:00) Blood pressure sites: Arm, left (06/29/22 09:00:00) Mean Arterial Pressure: 106 mm Hg (06/28/22 18:00:00) Pulse Pressure: 67 mm Hg (06/29/22 09:00:00) Oxygen Saturation:??92 %??Low (06/29/22 09:00:00) Mode of Delivery (Oxygen): Room air (06/29/22 09:00:00) Early Warning Score: 0 (06/28/22 14:56:09) ?? Physical Exam Constitutional: Pleasant and cooperative, not in acute distress. Head: Normocephalic. Eyes: Extraocular muscles intact. Ear, Nose and Throat: Oropharynx clear, mucous membranes moist. Ears and nose without masses, lesions or deformities. Trachea midline. Neck: Supple, Full range of motion. Respiratory: Non-labored breathing, breathing comfortably on room air. Cardiovascular:??Normal rate, regular rhythm.??No murmurs, rubs or gallops. Gastrointestinal: Abdomen soft, non-tender, non-distended. Genitourinary: No suprapubic tenderness. Neurologic: Alert and oriented x3. Speech clear, comprehension intact. No gross focal neurological deficits. Skin: No acute or concerning rashes or lesions. No petechiae or purpura.?? Musculoskeletal: No gross deformities. Normal range of motion, moving all 4 extremities spontaneously. Psychiatric: Normal mood and affect without obvious signs of anxiety or depression. _ Inpatient Medications Medications (15) Active SCHEDULED: (13) Aspirin 81 mg EC Tablet (Aspirin Tablet) ??81 mg, By Mouth, Daily Atorvastatin 80 mg Tablet (Atorvastatin Tablet) ??80 mg, By Mouth, Daily at bedtime Carbidopa 25 mg / Levodopa 100 mg Tablet (Sinemet 25 mg-100 mg oral tablet) ??3 tablet, By Mouth, 3times a day Duloxetine 60 mg Capsule (DULoxetine Capsule) ??60 mg, By Mouth, 2 times a day Enoxaparin 40 mg Inj (Enoxaparin Inj) ??40 mg 0.4 mL, Subcutaneous Injection, Daily Losartan 25 mg Tablet (losartan 25 mg oral tablet) ??25 mg, By Mouth, Daily Metoprolol 25 mg XL Tablet (metoprolol 25 mg oral tablet, extended release) ??25 mg, By Mouth, Daily Pantoprazole 20 mg EC Tablet (pantoprazole 20 mg oral delayed release tablet) ??20 mg, By Mouth, Daily Pregabalin 150 mg Capsule (Lyrica 150 mg oral capsule) ??150 mg, By Mouth, 2 times a day Ticagrelor 90 mg Tablet (Ticagrelor Tablet) ??90 mg 1 tablet, By Mouth, 2 times a day Trazodone 50 mg Tablet (traZODone 50 mg oral tablet) ??50 mg, By Mouth, Daily at bedtime Vitamin B-12 ??1000 mcg Tablet (cyanocobalamin 1000 mcg oral tablet) ??1,000 mcg, By Mouth, Daily Vitamin D 1000 IU Tablet (cholecalciferol 1000 intl units oral tablet) ??125 mcg, By Mouth, Daily CONTINUOUS: (0) PRN: (2) Acetaminophen 325 mg Tablet (Tylenol 325 mg oral tablet) ??650 mg, By Mouth, Every 6 hours Nitroglycerin 0.4 mg Sublingual Tablet (Nitroglycerin 0.4mg Sublingual Tablet) ??0.4 mg, Sublingual, Every 5 minutes Results Recent Labs BLOOD BANK Blood Type O Positive ()?? 06/28/2022 14:03 Antibody Screen Negative ()?? 06/28/2022 14:03 ?? BLOOD COUNT & DIFF WBC 10.8 k/mm3 ()?? 06/29/2022 02:22 RBC 4.63 m/mm3 (Low)?? 06/29/2022 02:22 Hgb 15.5 Gm/dL ()?? 06/29/2022 02:22 Hct 44.4 % ()?? 06/29/2022 02:22 MCV 95.9 femtoliters (High)?? 06/29/2022 02:22 MCH 33.5 pg ()?? 06/29/2022 02:22 MCHC 34.9 g/dL ()?? 06/29/2022 02:22 Platelet Count 189 k/mm3 ()?? 06/29/2022 02:22 RDW-SD 45.1 femtoliters ()?? 06/29/2022 02:22 MPV 9.2 femtoliters (Low)?? 06/29/2022 02:22 Nucleated RBC (Automated) 0.0 #/100 WBC'S ()?? 06/29/2022 02:22 Abs. NRBC 0.0 k/mm3 ()?? 06/29/2022 02:22 Abs. Neut 4.7 k/mm3 ()?? 06/28/2022 14:18 Abs. Lymph 1.8 k/mm3 ()?? 06/28/2022 14:18 Abs. [place] 0.6 k/mm3 ()?? 06/28/2022 14:18 Abs. Eo 0.4 k/mm3 ()?? 06/28/2022 14:18 Abs. Baso 0.0 k/mm3 ()?? 06/28/2022 14:18 Neut % 61.6 % ()?? 06/28/2022 14:18 Lymph % 24.2 % ()?? 06/28/2022 14:18 [place] % 8.2 % ()?? 06/28/2022 14:18 Eos % 5.3 % ()?? 06/28/2022 14:18 Baso % 0.4 % ()?? 06/28/2022 14:18 Imm Gran 0.3 % ()?? 06/28/2022 14:18 Abs. Imm Gran 0.0 k/mm3 ()?? 06/28/2022 14:18 ?? CARDIAC High Sensitivity Troponin (HSTnT) 58 ng/L (Critical)?? 06/28/2022 14:18 ?? CHEM GENERAL Sodium 138 mmol/L ()?? 06/29/2022 02:22 Potassium 4.5 mmol/L ()?? 06/29/2022 02:22 Chloride 100 mmol/L ()?? 06/29/2022 02:22 Bicarbonate Level 29 mmol/L ()?? 06/29/2022 02:22 Anion Gap 9 ()?? 06/29/2022 02:22 Glucose Level 153 mg/dL (High)?? 06/28/2022 17:56 Hemoglobin A1C (Monitoring) 6.1 % (High)?? 06/28/2022 17:56 BUN 11 mg/dL ()?? 06/29/2022 02:22 Creatinine-Blood 0.9 mg/dL ()?? 06/29/2022 02:22 Estimated GFR Creatinine 88 ML/MIN/1.73 M2 ()?? 06/29/2022 02:22 Calcium 9.8 mg/dL ()?? 06/28/2022 17:56 Calcium, Ionized pH Corrected 1.24 mmol/L ()?? 06/29/2022 02:22 Phosphorus 3.5 mg/dL ()?? 06/29/2022 02:22 Magnesium 2.1 mg/dL ()?? 06/29/2022 02:22 Protein, Total 8.3 Gm/dL (High)?? 06/28/2022 17:56 Albumin 4.4 Gm/dL ()?? 06/28/2022 17:56 AG Ratio 1.1 ()?? 06/28/2022 17:56 Alkaline Phosphatase 95 units/L ()?? 06/28/2022 17:56 AST (SGOT) HEMOLYZED units/L ()?? 06/28/2022 17:56 ALT (SGPT) 26 units/L ()?? 06/28/2022 17:56 Bilirubin, Total 0.7 mg/dL ()?? 06/28/2022 17:56 Bilirubin, Direct HEMOLYZED mg/dL ()?? 06/28/2022 17:56 Bilirubin, Indirect Unable to calculate mg/dL ()?? 06/28/2022 17:56 Lactate 2.2 mmol/L ()?? 06/29/2022 02:12 ?? COAG INR 1.1 ()?? 06/28/2022 17:56 Protime (PT) 11.4 seconds ()?? 06/28/2022 17:56 APTT 65.4 seconds (High)?? 06/28/2022 17:56 ?? ENDOCRINE/TUMOR MARKER TSH 1.82 uIU/mL ()?? 06/28/2022 17:56 Free T4 1.02 ng/dL ()?? 06/28/2022 17:56 ?? LIPID STUDIES Cholesterol 116 mg/dL ()?? 06/29/2022 02:22 Triglycerides 213 mg/dL (High)?? 06/29/2022 02:22 HDL Cholesterol 36 mg/dL (Low)?? 06/29/2022 02:22 LDL Cholesterol 37 mg/dL ()?? 06/29/2022 02:22 Non HDL Cholesterol 80 mg/dL ()?? 06/29/2022 02:22 ?? UA/URINALYSIS Appear/Color, Urine LIGHT YELLOW ()?? 06/29/2022 02:30 Specific [place], Urine 1.047 (High)?? 06/29/2022 02:30 pH, Urine 7.0 ()?? 06/29/2022 02:30 Albumin, Urine TRACE (Abnormal)?? 06/29/2022 02:30 Glucose, Urine NEGATIVE ()?? 06/29/2022 02:30 Ketones, Urine NEGATIVE ()?? 06/29/2022 02:30 Bilirubin, Urine NEGATIVE ()?? 06/29/2022 02:30 Hemoglobin, Urine NEGATIVE ()?? 06/29/2022 02:30 Nitrite, Urine NEGATIVE ()?? 06/29/2022 02:30 Leukocyte, Urine NEGATIVE ()?? 06/29/2022 02:30 Urobilinogen NORMAL mg/dL ()?? 06/29/2022 02:30 WBC's, Urine 1 /HPF ()?? 06/29/2022 02:30 RBC's, Urine 2 /HPF ()?? 06/29/2022 02:30 Squamous Epith <1 /HPF ()?? 06/29/2022 02:30 ?? VIROLOGY COVID-19 by RT-PCR NEGATIVE ()?? 06/28/2022 21:30 Assessment/Plan 77-year-old man past medical history of COVID-19 in 2021, BPH, carotid artery stenosis, low back pain, reflux, hypercholesterolemia, peripheral neuropathy, sleep apnea, Parkinson's admitted to [facility] after anterior STEMI with PCI to LAD. ?? #Anterior STEMI s/p PCI with AVINASH to LAD #Familial CAD #Hx pf??carotid artery disease #Hyperlipidemia Presented with CP, found to have ST-elevations with elevated HS-T of 58 (never repeated). Loaded with ASA 324mg, Brilinta 180mg PO, and Heparin. S/p PCI with AVINASH to LAD on 06/29. Continued to endorse CP after cath, resolved with Nitro ggt. Currently CP free. Off all drips, including Nitro and Heparin. ?? A1c 6.1, LDL 37. Started daily ASA 81mg PO QD and Brilinta 90mg PO BID. Increased home Atorvastatin from 40mg PO to 80mg PO nightly. ?? ECHO completed this morning (06/29)- poor visualization of LV but LVEF appears reduced compared to prior ECHO from 10/2018;??septum and anterior wall also appear akinetic in limited views.? PLAN: -Continue DAPT, will check with pharmacy to see if Brilinta is covered -Start Metoprolol 25mg XL and Losartan 25mg PO QD -Continue Atorvastatin 80mg PO QD -Repeat EKG for??new/recurrent/change in CP -Cardiac rehab -Will request outpatient F/U with [facility] at the [place]site ? #Prediabetes A1c 06/28 6.1. ?? PLAN: -F/U with PCP -Encouraged??healthy eating and exercise to promote weight loss ? STABLE/CHRONIC MEDICAL CONDITIONS: #MASSIEL on CPAP: Continue at night and naps per home settings #Parkinson's Disease: Continue home Sinemet #Vitamin D &??B12 deficiency:??Continue home supplements #Depression/insomnia/peripheral neuropathy:??Continue home Duloxetine 60mg PO BID,??Trazodone 50mg PO QD, Pregabalin 150mg PO BID #GERD:??On Omeprazole 20mg PO QD at home,??continue Pantoprazole 20mg PO QD??while admitted since Omeprazole??not on formulary ? QUALITY??MEASURES: Code Status: FULL, MOLST in file DVT ppx: Lovenox subQ Diet: Cardiac AM labs: CBC, BMP, Mg OMN: Hemodynamic stability with new meds added today Dispo: Home likely tomorrow, 06/30 ?? Proxy: Daughter Chula and grandson Marcel ? Patient reviewed with supervising??attending Dr. Luz. ?? Tiana Sunshine, DO Internal Medicine, PGY-1 Pager# [phone] * Sukh LANDAVERDE, Matilde S: PERFORM Event Display: Progress Note Hospital Authored Date: Patient seen and discussed with CCU team agree with above plan management. Deprecated Cardiac rehabilitation treatment plan Progress note and attainment of goals (narrative) * Lorena Perez RN: PERFORM, SIGN, VERIFY Event Display: Cardiac Rehab Note Authored Date: Patient: MARTÍN LARRY Age: 77 years Sex: Male : 1945 Associated Diagnoses: None Author: Lorena Perez RN Diagnosis Cardiac Rehab Diagnosis: s/p IL and PCI. Pre-exercise Vitals Vital Signs: 84 HR, 107/63 BP Sitting, 98 SaO2. Vital Signs Comment: Reviewed in CIS. Pre-exercise Physical Examination Neurologic: alert & oriented. Cardiovascular: heart rate regular. Activity Symptoms with Cardiac Rehab Symptoms: Weakness, parkinsons. Activity Transfers: assist x 1 . Ambulate: assist x 1 , assistive device, distance ambulated 4 feet. Assistive Devices Assistive Device: Wheeled walker. Post-exercise Vitals Vital Signs: 90 HR, 98 SaO2. Patient Education Education: Patient alone, Written material included, Stent card reviewed. Topic: Pathophysiology, Medication education, Role of exercise, Home activity guidelines/limits. Recommendation and Plan Ambulate: 3 times/day, with assist of staff , with assistive device. Outpatient follow up recommended: [facility]. Cardiac Rehab: Will sign off at this time. Recommendation comment: RN notified of plan, increase activity with walker and assist--high risk for falls Expect to home with at d/c. Portable XR Chest Views * [facility] , [facility] S: TRANSCRIBE Charli Jaquez MD: VERIFY Event Display: Result: Authored Date: [id number] Chest Portable Reason: CHF COMPARISON: March 12, 2022 FINDINGS: LINES AND TUBES: None. LUNGS AND PLEURA: Allowing for rotation, there is prominence of the central pulmonary vasculature and left lower lobeairspace opacity. Probable left pleural effusion. No pneumothorax. HEART, MEDIASTINUM AND AGATA: Heart is mildly enlarged. The left upper mediastinum is somewhat distorted by rotation but there does appear to be some left hilar fullness. BONES AND SOFT TISSUES: No acute abnormality. IMPRESSION: Central vascular congestion. Somewhat limited by rotation with probable left pleural effusion and ill-defined left-sided airspace opacities. WSN: [id number] Ordering Physician: Alphonso Mensah Dictated By: Charli Jaquez MD Dictated Date/Time: 06/28/22 6:48 pm Reviewed By: Charli Jaquez MD Signed By: Charli Jaquez MD Signed Date/Time: 06/28/22 6:48 pm Transcribed By: JONY Transcribed Date/Time: 06/28/22 6:45 pm Patient Care team information Care Team Personnel Name: Azael Stafford RN Position: [facility] RN Member Role: Primary Care Nurse Name: Martín Thornton RN Position: S RN Member Role: Primary Care Nurse Name: Froylan Cooley RN Position: S RN Member Role: Primary Care Nurse Name: Jose Galindo MD Position: [facility] Primary Care Physician Member Role: PCP Address: Address: [address] [place] [address]- [place] Name: Xiao Cervantes RN Position: [facility] RN Member Role: Primary Care Nurse Name: Jenni Tran RN Position: [facility] Onco RN Member Role: Primary Care Nurse Name: *[facility], ED Attending Position: [facility] ED Attendings Patient Name: Katherine Rojas Position: [facility] ED TA [facility] Member Role: Report Programmer Name: Krunal Washington Position: [facility] TA Member Role: Patient Care Provider Name: Dominic Cordero DO Position: [facility] Resident Member Role: ED Attending Physician Address: Address: [address] [place] [address] Dept [place] [address]- Care Team Related Persons Name: LEIGH ANN LARRY Address: home [address] [place] [address] Name: CHULA LARRY Address: home [id number] [place] [address] Name: LEIGH ANN SILVERIO Address: home [address] [place] [address]
--- OUTSIDE RECORDS SUMMARY | 2022-10-08 19:47 | XMS_ITS | Patient Health Record ---
Author Name Unknown [facility] [place] Address [address] [place] [address] Care Team Providers Care Blind Hanger Name Role Phone Jose Galindo MD Primary Care Provider Miki Maddox Unavailable [phone] ALLERGIES Allergen (clinical drug ingredient) Drug/Non Drug Allergy documented on EMR Reaction Allergy Type Onset Date Status shrimp allergenic extract Shrimp (Diagnostic) Unknown Drug Allergy Active Shellfish (FN) Shellfish-derived Products Unknown Drug Allergy Active REASON FOR REFERRAL No Information MEDICATIONS Medication SIG (Take, Route, Frequency, Duration) Notes Start Date End Date Status clonazePAM 0.5 MG Oral for 30 Not-Taking Amitriptyline HCl 10 MG Oral for 30 Not-Taking Omeprazole 20 MG Oral for 30 A ctive Gabapentin 300 MG Oral for 90 Active Voltaren 1 % as directed Transder mal apply bid to toes for 30 days Active DULoxetine HCl 30 MG Oral for 30 Active Maria Guadalupe Aspirin 325 MG 1 tablet Orally Onc e a day Active IMMUNIZATIONS Vaccine Route Administration Date Status Comme nts COVID-19 Moderna Vaccine Unknown 03/17/2021 Administered 1st 04/30/2020 2nd 05/27/2020 SOCIAL HISTORY Tobacco Use: Social History Observation Description Date Details (start date - stop date) Never Smoker NA - NA Sex Assigned At : Social History Observation Description Sex Assigned At Unknown Tobacco Use/Smoking Question Answer Notes Are you a: nonsmoker Additional Findings: Tobacco Non-User Current no n-smoker Alcohol Screen Question Answer Notes Did you have a drink containing alcohol in the p ast year? No Points 0 Interpretation Negative Tobacco use other than smoking: Question Answer Notes Are you an other tobacco user? 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) Active confirmed Localized, primary osteoarthritis of the ankle and/or foot (304925670) Problem Parkinson disease (G20) Active confirmed [id number] Encounters Encounter Location Date Provider Diagnosis [address] [address] 12/15/2021 Miki De Los Santos Tinea unguium B35.1 ; Pain in left foot M79.672 ; Pain in right toe(s) M79.674 ; Pain in right foot M79.671 ; Pain in left toe(s) M79.675 ; Metatarsalgia, right foot M77.41 ; Primary osteoarthritis, right ankle and foot M19.071 ; Primary osteoarthritis, left ankle and foot M19.072 ; Parkinson disease G20 and Unspecified atherosclerosis of stockbridge arteries of extremities, bilateral legs I70.[address] [address] 06/15/2022 Miki De Los Santos Tinea unguium B35.1 ; Pain in left foot M79.672 ; Pain in right toe(s) M79.674 ; Pain in right foot M79.671 ; Pain in left toe(s) M79.675 ; Metatarsalgia, right foot M77.41 ; Primary osteoarthritis, right ankle and foot M19.071 ; Primary osteoarthritis, left ankle and foot M19.072 ; Parkinson disease G20 and Unspecified atherosclerosis of stockbridge arteries of extremities, bilateral legs I70.[address] [address] 06/15/2022 Miki De Los Santos ASSESSMENTS Encounter Date Diagnosis Assessment Notes Treatment Notes Treatment Clinical Notes 12/15/2021 Tinea unguium (ICD-1 0 - B35.1) 12/15/2021 Pain in left foot (ICD-10 - M79.672) 06/15/2022 Tinea unguium (ICD-1 0 - B35.1) 12/15/2021 Pain in right toe(s) (ICD-10 - M79.674) 06/15/2022 Pain in left foot (ICD-10 - M79.672) 12/15/2021 Pain in right foot (ICD-10 - M79.671) 06/15/2022 Pain in right toe(s) (ICD-10 - M79.674) 12/15/2021 Pain in left toe(s) (ICD-10 - M79.675) 06/15/2022 Pain in right foot (ICD-10 - M79.671) 06/15/2022 Pain in left toe(s) (ICD-10 - M79.675) 12/15/2021 Metatarsalgia, right foot (ICD-10 - M77.41) 12/15/2021 Primary osteoarthritis, right ankle and foot (ICD-10 - M19.071) 06/15/2022 Metatarsalgia, right foot (ICD-10 - M77.41) 06/15/2022 Primary osteoarthritis, right ankle and foot (ICD-10 - M19.071) 12/15/2021 Primary osteoarthritis, left ankle and foot (ICD-10 - M19.072) 12/15/2021 Parkinson disease (ICD-10 - G20) 06/15/2022 Primary osteoarthritis, left ankle and foot (ICD-10 - M19.072) 06/15/2022 Parkinson disease (ICD-10 - G20) 12/15/2021 Unspecified atherosclerosis of stock[place] arteries of extremities, bilateral legs (ICD-10 - I70.203) 06/15/2022 Unspecified atherosclerosis of [place] arteries of extremities, bilateral legs (ICD-10 - I70.203) PLAN OF TREATMENT Pending Test Test Name Order Date X ray : Foot, left 3V 02/09/2020 X ray : Foot, right 3V 02/09/2020, [id number] INJECT or DRAIN, JOINT/BUR SA 05/15/2019 [id number] SKIN LESIONS, 2 TO 4 12/03/19 [id number] SKIN LESIONS, 2 TO 4 06/17/19, [id number]/INJECT, JOINT/BURSA 1 04/21/2017 [id number] OF HEMATOMA/FLUID 019 [id number] OF HEMATOMA/FLUID 020 [id number] OF HEMATOMA/FLUID 020 93010- Nail Unit Biopsy 12/10/2017 Insurance Providers Payer Name Payer Address Payer Phone Subscriber Number Group Number Insured Name Patient Relationship to Insured Coverage Start Date Coverage End Date Medicare National [employer] [address] [place] [address] [id number] Martín Jordan Self - patient is the insured 2 [employer] [address] [place] [address] [phone] [id number] Martín Jordan Self - patient is the insured MEDICAL (GENERAL) HISTORY Medical History History ICD Code Back,Hip,and Knee pain Cataracts Diverticulosis Hiatal hernia Numbness Reflux Measles Mumps Chicken pox Surgical History Surgery Date(Month/Year) appendectomy 1957 Esophageal surgery 1982 back surgery 1985 left cataract surgery 12/2018 corotid artery surgery 06/2020 Hospitalization History Reason Date(Month/Year) broken ribs,ankle sprain du to fall 01/17 05/06 [facility]-been falling down have broken 8 ribs left side [facility]- 8 days stay after sx 06/2020 [facility]- fell 2x 1 week stay rehab 2 weeks 2 021
[2022-10-08 19:58] LABS: Alanine Aminotransferase 14 U/L (0-40); Albumin Level 3.8 g/dL (3.5-5.0); Alkaline Phosphatase 79 U/L (39-117); Anion Gap 15 (12-20); Aspartate Amino Transferase 17 U/L (5-37); Blood Urea Nitrogen 12 mg/dL (9-16); Calcium 9.6 mg/dL (8.4-10.2); Carbon Dioxide 24 mmol/L (22-29); Chloride 102 mmol/L (96-108); Creatinine Clr Calc Pharmacy 69.3; Estimated Glomerular Filt Rate > 60; Glucose Random 185 mg/dL (60-115); Magnesium 1.9 mg/dL (1.6-2.6); Potassium 4.8 mmol/L (3.3-5.1); Sodium 136 mmol/L (135-145); Total Protein 8.1 g/dL (6.5-8.0)
--- NOTE | 2022-10-08 20:41 | ECG_ITS ---
Test Reason : ALTERED MENTAL STATUS Blood Pressure : / mmHG Vent. Rate : 080 BPM Atrial Rate : 080 BPM P-R Int : 122 ms QRS Dur : 092 ms QT Int : 410 ms P-R-T Axes : 057 -17 104 degrees QTc Int : 472 ms Normal sinus rhythm Septal infarct , age undetermined Abnormal ECG When compared with ECG of 16-JAN-2022 15:00, Septal infarct is now Present Referred By: Debby Rouse Electronically Signed By:KERRY ALONZO MD
--- NOTE | 2022-10-08 20:43 | ED.AMS ---
HPI - Altered Mental Status General Chief Complaint: Altered Mental Status Stated Complaint: AMS, back pain x1week Time Seen by Provider: 10/08/22 19:40 Source: patient Mode of arrival: EMS Limitations: altered mental status History of Present Illness HPI narrative: Patient comes in the emergency room via ambulance from home. According to EMS, the nailing machine feeder stated that he has altered mental status, seeing things that are not making any sense. Patient states that he is aware his nailing machine feeder called 911 but is not sure why. Patient states that he feels well, has no complaints. Related Data Home Medications Medication Instructions Recorded Confirmed atorvastatin 40 mg tablet 40 mg PO DAILY 05/11/20 01/16/22 omeprazole 20 mg capsule,delayed 20 mg PO BEDTIME 05/11/20 01/16/22 release cholecalciferol (vitamin D3) 50 50 mcg PO DAILY 07/13/20 01/16/22 mcg (2,000 unit) capsule coenzyme [id number] E 100 mg-100 1 cap PO BEDTIME 07/13/20 01/16/22 unit capsule carbidopa 25 mg-levodopa 100 mg 3 tab PO TID 07/27/21 01/16/22 tablet duloxetine 60 mg capsule,delayed 60 mg PO BID 07/27/21 01/16/22 release omega 8-qpt-agc-fish oil 60 mg-90 1 cap PO BEDTIME 07/27/21 01/16/22 mg-500 mg capsule (Fish Oil) pregabalin 75 mg capsule (Lyrica) 75 mg PO BID 07/27/21 01/16/22 aspirin 81 mg chewable tablet 81 mg PO DAILY 01/16/22 01/16/22 copper 2 mg tablet 1 mg PO DAILY 01/16/22 01/16/22 zinc 15 mg tablet 15 mg PO DAILY 01/16/22 01/16/22 Previous Rx's Medication Instructions Recorded cefpodoxime 200 mg tablet 200 mg PO BID 3 days #6 tabs 01/18/22 doxycycline hyclate 100 mg capsule 100 mg PO BID 3 days #6 caps 01/18/22 cefuroxime axetil 500 mg tablet 500 mg PO BID #20 tabs 10/09/22 Allergies Allergy/AdvReac Type Severity Reaction Status Date / Time Crustaceans Allergy Mild HIVES Uncoded 07/27/21 12:07 shrimp Allergy Mild Swelling Uncoded 07/27/21 12:07 Review of Systems Review of Systems: Constitutional : No Weight loss, No Fever, No Chills, No Night Sweats, No Fatigue, No Malaise ENT/Mouth : No Hearing loss, No Ear Pain, No Nasal Congestion, No Sinus Pain, No Hoarseness, No sore throat, No Rhinorrhea, No Swallowing Difficulty Eyes: No Eye Pain, No Swelling, No Redness, No Foreign Body, No Discharge, No Vision Changes Cardiovascular : No Chest Pain, No SOB, No Dyspnea on Exertion, No Orthopnea, No Edema, No Palpitations Respiratory : No Cough, No Sputum, No Wheezing, No Smoke Exposure, No Dyspnea Gastrointestinal : No Nausea, No Vomiting, No Diarrhea, No Constipation, No abdominal Pain, No Hematochezia, No Melena Genitourinary : no irregular bleeding, No Dysuria, No Urinary Frequency, No Hematuria, No Urinary Incontinence, No Urgency, No Flank Pain, No Urinary Flow Changes, No Hesitancy Musculoskeletal : No joint pain, No Myalgias, No Joint Swelling Skin : No Skin Lesions, No rash Neuro : No Weakness, No Numbness, No Paresthesias, No Loss of Consciousness, No Dizziness, No Headache Psych : No Anxiety/Panic, No Depression, No SI/HI/AH/VH, No Social Issues, Heme/Lymph: No Bruising, No Bleeding,No Lymphadenopathy Endocrine : No Polyuria, No Polydipsia, No Temperature Intolerance Yes Other (Unclear of patient's history is reliable) [facility] Past Medical History Medical History BPH (benign prostatic hyperplasia) Chronic vertigo Dyspnea on exertion Dyspnea on exertion Esophageal reflux Fatigue Hypercholesteremia Obesity (BMI 30-39.9) MASSIEL (obstructive sleep apnea) Peripheral neuropathy Pre-op chest exam Pulmonary fibrosis Restrictive lung disease Skin lesion Surgical History H/O colonoscopy H/O lumbosacral spine surgery History of appendectomy Social History Social History Household Members: Spouse Household Members Other:: Housing: House Do you presently have visiting nurse or other home services: Yes Alcohol intake: current Alcohol intake frequency: holidays/special occasions only Alcohol type: hard liquor Patient Tobacco Use Status: Never used Tobacco Smoked in Last 30 Days: No Use of substances other than those prescribed or required for medical reasons: No Advance Directives: No Advance Directives Information Provided: No service: Yes Current occupational status: retired Physical Exam ED Vital Signs: Vital Signs - 24 hr 10/08/22 18:53 10/08/22 22:42 10/09/22 00:41 Temperature 98.7 F 100.1 F 99.0 F Pulse Rate 81 77 91 Respiratory Rate 22 H 18 16 Blood Pressure 119/49 L 118/59 L 141/65 H Pulse Oximetry 97 96 94 Oxygen Delivery Method Room Air Nasal Cannula Room Air Oxygen Flow Rate 2 BMI result Body Mass Index 26.7 Const Other: Appearance: Alert. Oriented [id number] to light. ENT: Pharynx normal. Neck: Normal inspection. Neck supple. No lymph nodes noted. No crepitus CVS: Normal heart rate and rhythm. Pulses normal. Normal S1 and S2 Respiratory: No respiratory distress. Breath sounds normal. No Wheezing. No rales Abdomen: Soft and nontender. No rigidity. No distention. Skin: Skin warm and dry. Normal skin color. Normal skin turgor. Extremities: No lower extremity edema. No Lacerations. No Rash Neuro: Oriented X 2. No motor deficit. No sensory deficit. Moving all extremities. No slurred speech. CN 2 through 12 grossly intact Psych: calm, cooperative, normal affect Course Course Course Narrative: -all of patient's labs pending -patient's vital stable - Medications Administered Discontinued Medications Generic Name Dose Route Start Last Admin Trade Name Freq PRN Reason Stop Dose Admin Ceftriaxone Sodium 1 gm/ 50 mls @ 100 mls/hr 10/09/22 00:40 10/09/22 00:56 Sodium Chloride IV 10/09/22 01:09 100 mls/hr ONCE ONE Administration Medical Decision Making Medical Decision Making MDM Narrative: -patient has altered mental status and elevated white blood cell count, admission was patient again recommended. However, patient's family states that they can take care of him at home, since the patient had baseline has confusion. -patient's nurse was able to talk to the patient's family. They already have services at home. Patient's family thinks that they can not take care of him at home. Patient was given 1 dose of IV ceftriaxone in the emergency room. Patient will continue p.o. cefuroxime -patient's family will be able to sisal picker him up at 09:00 in the morning. Discussed the patient with charge nurse, the patient can stay in the emergency room tonight. -cefuroxime due at 08:00, order entered -physician observation started at 02:00 -sign out given to Dr. Rudolph Differential Diagnosis Differential Diagnoses: The differential diagnosis associated with the presentation includes (UTI, dementia) Admission/Observation Consideration of admission/observation: Escalation of care including admission/observation considered Lab Data [facility] Lab Attestation statement: I reviewed the patient's lab results. 10/08/22 19:32 10/08/22 19:32 Labs: Lab Results 10/08/22 10/08/22 10/08/22 Range/Units 19:32 21:11 21:11 WBC 14.3 H (4.8-10.8) X10*3/uL RBC 4.53 L (4.60-5.80) X10*6/uL Hgb 15.0 (14.0-18.0) g/dl Hct 42.4 (42.0-52.0) % MCV 93.6 (80.0-98.0) fL MCH 33.1 H (27.0-33.0) pg MCHC 35.4 (31.0-36.0) g/dl RDW 12.0 (11.0-16.0) % Plt Count 213 (160-400) X10*3/uL MPV 10.0 (9.4-12.4) fL Immature Gran % (Auto) 0.4 (0.0-0.4) % Neut % (Auto) 84.2 H (45-73) % Lymph % (Auto) 7.6 L (20-40) % [place] % (Auto) 7.2 (2-11) % Eos % (Auto) 0.3 (0-4) % Baso % (Auto) 0.3 (0-2) % Lymph # (Auto) 1.1 L (1.2-4.9) X10*3/uL [place] # (Auto) 1.0 (0.1-1.2) X10*3/uL Eos # (Auto) 0.0 (0.0-0.4) X10*3/uL Baso # (Auto) 0.0 (0.0-0.2) X10*3/uL Abs Immat Gran (auto) 0.05 H (0.00-0.03) X10*3/uL Absolute Neuts (auto) 12.0 H (2.0-8.3) x10*3/uL Absolute Nucleated RBC 0.000 (0.0-0.012) X10*3/uL Nucleated RBC % (auto) 0.0 (0.0-0.2) /100WBC Sodium 136 (135-145) mmol/L Potassium 4.8 (3.3-5.1) mmol/L Chloride 102 (96-108) mmol/L Carbon Dioxide 24 (22-29) mmol/L Anion Gap 15 (12-20) BUN 12 (9-16) mg/dL Creatinine 0.92 (0.5-1.4) mg/dL Estim Creat Clear Calc 69.3 Estimated GFR > 60 Random Glucose 185 H (60-115) mg/dL Lactic Acid 1.5 (0.5-2.0) mmol/L Calcium 9.6 D (8.4-10.2) mg/dL Magnesium 1.9 (1.6-2.6) mg/dL Total Bilirubin 1.0 (0.0-1.0) mg/dL AST 17 (5-37) U/L ALT 14 (0-40) U/L Alkaline Phosphatase 79 (39-117) U/L Total Protein 8.1 H (6.5-8.0) g/dL Albumin 3.8 (3.5-5.0) g/dL Urine Color Urine Appearance Urine pH (5.0-9.0) Ur Specific [place] (1.005-1.025) Urine Protein (Neg-Trace) mg/dL Urine Glucose (UA) (Negative) mg/dL Urine Ketones (Negative) mg/dL Urine Blood (Negative) Urine Nitrite (Negative) Ur Leukocyte Esterase (Negative) Urine RBC (0-2) /HPF Urine WBC (0-5) /HPF Ur Squamous Epith Cells (0-2) /HPF Urine Bacteria (None Seen) Hyaline Casts (0-2) /LPF Urine Opiates Screen (Not Detect) Urine Fentanyl Screen (Not Detect) Ur Barbiturates Screen (Not Detect) Ur Phencyclidine Scrn (Not Detect) Ur Amphetamines Screen (Not Detect) U Benzodiazepines Scrn (Not Detect) Urine Cocaine Screen (Not Detect) U Marijuana (THC) Screen (Not Detect) Ethyl Alcohol mg/dL 10/08/22 10/08/22 10/08/22 Range/Units 21:11 23:27 23:27 WBC (4.8-10.8) X10*3/uL RBC (4.60-5.80) X10*6/uL Hgb (14.0-18.0) g/dl Hct (42.0-52.0) % MCV (80.0-98.0) fL MCH (27.0-33.0) pg MCHC (31.0-36.0) g/dl RDW (11.0-16.0) % Plt Count (160-400) X10*3/uL MPV (9.4-12.4) fL Immature Gran % (Auto) (0.0-0.4) % Neut % (Auto) (45-73) % Lymph % (Auto) (20-40) % [place] % (Auto) (2-11) % Eos % (Auto) (0-4) % Baso % (Auto) (0-2) % Lymph # (Auto) (1.2-4.9) X10*3/uL [place] # (Auto) (0.1-1.2) X10*3/uL Eos # (Auto) (0.0-0.4) X10*3/uL Baso # (Auto) (0.0-0.2) X10*3/uL Abs Immat Gran (auto) (0.00-0.03) X10*3/uL Absolute Neuts (auto) (2.0-8.3) x10*3/uL Absolute Nucleated RBC (0.0-0.012) X10*3/uL Nucleated RBC % (auto) (0.0-0.2) /100WBC Sodium (135-145) mmol/L Potassium (3.3-5.1) mmol/L Chloride (96-108) mmol/L Carbon Dioxide (22-29) mmol/L Anion Gap (12-20) BUN (9-16) mg/dL Creatinine (0.5-1.4) mg/dL Estim Creat Clear Calc Estimated GFR Random Glucose (60-115) mg/dL Lactic Acid (0.5-2.0) mmol/L Calcium (8.4-10.2) mg/dL Magnesium 1.8 (1.6-2.6) mg/dL Total Bilirubin (0.0-1.0) mg/dL AST (5-37) U/L ALT (0-40) U/L Alkaline Phosphatase (39-117) U/L Total Protein (6.5-8.0) g/dL Albumin (3.5-5.0) g/dL Urine Color Dark Yellow Urine Appearance Cloudy Urine pH 6.5 (5.0-9.0) Ur Specific [place] 1.020 (1.005-1.025) Urine Protein 300 (3+) H (Neg-Trace) mg/dL Urine Glucose (UA) Negative (Negative) mg/dL Urine Ketones Negative (Negative) mg/dL Urine Blood Large (3+) H (Negative) Urine Nitrite Negative (Negative) Ur Leukocyte Esterase Moderate (2+) H (Negative) Urine RBC >20 H (0-2) /HPF Urine WBC >50 H (0-5) /HPF Ur Squamous Epith Cells 3-5 (0-2) /HPF Urine Bacteria 1+ (None Seen) Hyaline Casts 6-10 (0-2) /LPF Urine Opiates Screen Not Detected (Not Detect) Urine Fentanyl Screen Not Detected (Not Detect) Ur Barbiturates Screen Not Detected (Not Detect) Ur Phencyclidine Scrn Not Detected (Not Detect) Ur Amphetamines Screen Not Detected (Not Detect) U Benzodiazepines Scrn Not Detected (Not Detect) Urine Cocaine Screen Not Detected (Not Detect) U Marijuana (THC) Screen Not Detected (Not Detect) Ethyl Alcohol < 10 mg/dL Independent Interpretation I performed an independent interpretation of an: EKG (Normal sinus rhythm, heart rate 80, no ST segment depression or elevation, no T-wave inversion, QTC 472) and CT Scan ([place] position head CT: No intracranial bleed) Radiology Impression Discussion of test interpretation with radiology: I have reviewed the radiologist's reading. Radiologist Impression: FINDINGS: There is no evidence of acute intracranial hemorrhage or edematous territorial infarction. A few foci of hypoattenuation in the periventricular and deep white matter are consistent with mild microangiopathy. Senior-white matter differentiation is preserved. Proportional prominence of the ventricles and sulcal spaces. No evidence for obstructive hydrocephalus. No abnormal mass effect or midline shift. No extra-axial fluid collections. No acute soft tissue or osseous abnormalities. Small left-sided mastoid effusion. The paranasal sinuses are clear. Left-sided lens extraction. ? CT/CT head/brain wo IV con IMPRESSION: No evidence of acute intracranial hemorrhage or edematous territorial infarction. Critical Care Time Critical Care Time Critical Care Time: Yes Total Critical Care Time: 60 Attestation: I have personally provided critical care time. Time includes review of lab data, radiology results, discussion with consultants, and monitoring for potential decompensation. Intervention performed as documented. Discharge Plan Discharge Clinical Impression: Acute UTI, Altered mental status Patient Disposition: Home, Self-Care Instructions: Urinary Tract Infection in Older Adults (ED) Additional Instructions: Please follow-up with your primary care physician tomorrow. If you have any worsening or new symptoms, please return to the emergency room or call 911 Prescriptions: New cefuroxime axetil 500 mg tablet 500 mg PO BID Qty: 20 0RF No Action zinc 15 mg Tablet 15 mg PO DAILY aspirin 81 mg Tablet,Chewable 81 mg PO DAILY copper 2 mg Tablet 1 mg PO DAILY cefpodoxime 200 mg tablet 200 mg PO BID 3 Days Qty: 6 0RF Rx Instructions: must administer with a meal/food doxycycline hyclate 100 mg capsule 100 mg PO BID 3 Days Qty: 6 0RF cholecalciferol (vitamin D3) 50 mcg (2,000 unit) capsule 50 mcg PO DAILY coenzyme [id number] E 100-100 mg-unit capsule 1 cap PO BEDTIME duloxetine 60 mg capsule,delayed release(DR/EC) 60 mg PO BID carbidopa-levodopa 25-100 mg tablet 3 tab PO TID Rx Instructions: 3 tabs tid omeprazole 20 mg capsule,delayed release(DR/EC) 20 mg PO BEDTIME atorvastatin 40 mg tablet 40 mg PO DAILY pregabalin [Lyrica] 75 mg capsule 75 mg PO BID omega 3-brv-ufa-fish oil [Fish Oil] 60-90-500 mg capsule 1 cap PO BEDTIME
[2022-10-08 21:23] LABS: Basophils Percent Auto 0.3 % (0-2); Eosinophils Percent Auto 0.3 % (0-4); Hematocrit 42.4 % (42.0-52.0); Imm Gran Abs Auto 0.05 X10*3/uL (0.00-0.03); Imm Gran Pct Auto 0.4 % (0.0-0.4); Lymphocytes Absolute Auto 1.1 X10*3/uL (1.2-4.9); Lymphocytes Percent Auto 7.6 % (20-40); Mean Corpuscular HGB Conc 35.4 g/dl (31.0-36.0); Mean Corpuscular Hemoglobin 33.1 pg (27.0-33.0); Mean Corpuscular Volume 93.6 fL (80.0-98.0); Monocytes Percent Auto 7.2 % (2-11); Neutrophils Percent Auto 84.2 % (45-73); Platelet Count 213 X10*3/uL (160-400); Red Blood Count 4.53 X10*6/uL (4.60-5.80); White Blood Count 14.3 X10*3/uL (4.8-10.8)
[2022-10-08 21:31] LABS: Lactic Acid 1.5 mmol/L (0.5-2.0)
[2022-10-08 21:36] LABS: Ethanol < 10 mg/dL; Magnesium 1.8 mg/dL (1.6-2.6)
[2022-10-08 22:42] VITALS: BP 118/59; PULSE 77; RESP 18; TEMP 37.8; O2SAT 96
[2022-10-08 23:36] LABS: Appearance Urine Cloudy; Color Urine Dark Yellow; Glucose Urine UA Negative (Negative); Leukocyte Esterase Urine Moderate (2+) (Negative); Nitrite Urine Negative (Negative); PH 6.5 (5.0-9.0); UMIC TRIGGER UACC YES; Urine Blood Large (3+) (Negative); Urine Ketones Negative (Negative); Urine Protein 300 (3+) mg/dL (Neg-Trace)
[2022-10-08 23:42] LABS: Bacteria Urine 1+ (None Seen); RBC Urine >20 /HPF (0-2); UACC Culture Trigger YES; WBC Urine >50 /HPF (0-5)
[2022-10-08 23:51] LABS: Amphetamine Screen Urine Not Detected (Not Detect); Barbiturates, Urine Not Detected (Not Detect); Benzodiazepines Screen Urine Not Detected (Not Detect); Cannabinoid Screen Urine Not Detected (Not Detect); Cocaine Screen Urine Not Detected (Not Detect); Fentanyl, urine Not Detected (Not Detect); Opiate Screen Urine Not Detected (Not Detect); Phencyclidine Screen Urine Not Detected (Not Detect)
--- NOTE | 2022-10-09 00:02 | PC.NURSE ---
This curriculum writer assumed care of this Pt at 2300. Pt A&O to self, place and year. Reports pain/burning with urination. Pt ambulated 20 ft, with staff assist and walker use.
[2022-10-09 00:41] VITALS: BP 141/65; PULSE 91; RESP 16; TEMP 37.2; O2SAT 94
--- NOTE | 2022-10-09 00:43 | PC.NURSE ---
T/W spoke to Pt daughter Linda, who stated caretakers early availability to pick Pt up at 0930. Dr. Rouse made aware.
[2022-10-09] MEDS: cefTRIAXone sodium 1 GM in 0.9 % Sodium Chloride 50 ML IV (00:56)
[2022-10-09 02:21] VITALS: BP 130/63; PULSE 89; RESP 17; TEMP 37.4; O2SAT 94
--- NOTE | 2022-10-09 06:28 | PC.NURSE ---
Pt incontinent of urine, incontinent care provided, changed to new hospital attire.
[2022-10-09 06:40] VITALS: BP 152/56; PULSE 84; RESP 17; TEMP 37.4; O2SAT 94
[2022-10-09 07:10] VITALS: BP 152/54; PULSE 85; RESP 18; TEMP 37.1; O2SAT 95
--- NOTE | 2022-10-09 07:21 | PC.NURSE ---
patient resting quietly in stretcher, resp equal and unlabored.
[2022-10-09 09:22] VITALS: BP 142/59; PULSE 82; RESP 18; TEMP 36.8; O2SAT 98
--- NOTE | 2022-10-09 09:29 | PC.NURSE ---
answers all orientation questions correctly. voiding in urinal. repositioned w/pillow. given d/c instructions. awaiting ride. vss.
--- NOTE | 2022-10-09 10:23 | MHC.CM.ED ---
Received notification from UMANG Lozoya that patient is active with [facility] for PT & OT. [facility] requesting referral in [facility]. Referral made as requested. Continue to monitor for d/c needs.
== END 2022-10-09 11:43 | disposition home or self-care (01) ==
PROVIDERS: Physician Assistant Medical; Emergency Provider Emergency Medicine
DX: R41.82 Altered mental status, unspecified (principal); N39.0 Urinary tract infection, site not specified; B95.2 Enterococcus as the cause of diseases classified elsewhere; E78.00 Pure hypercholesterolemia, unspecified; Z79.82 Long term (current) use of aspirin; Z79.899 Other long term (current) drug therapy
CPT/HCPCS: 36415; 70450; 80053; 80307; 81001; 83605; 83735; 85025; 87040; 87086; 87088; 87186; 93005; 96365; 99284; 99285; J0696

== ENCOUNTER → 2022-10-08 20:41 | Outpatient (BNV) | payer MEDICARE, SELFPAY | PROVIDERS: Emergency Provider Emergency Medicine; Visit Provider Internal Medicine Cardiovascular Disease | DX: R41.82 Altered mental status, unspecified (principal) | CPT/HCPCS: 93010 ==

== ENCOUNTER 2022-12-23 14:12 | Inpatient (IN) | payer MEDICARE, SELFPAY ==
[2022-12-23] VITALS (7 sets, daily range): BP systolic 108–145; BP diastolic 43–112; PULSE 68–76; RESP 18–24; TEMP 36.4–37.1; O2SAT 91–95; BMI 29.0
--- NOTE | 2022-12-23 14:24 | ED.WEAKNESS ---
HPI - Weakness General Chief complaint: General Medical Stated complaint: STROKE ALERT Time Seen by Provider: 12/23/22 14:22 Source: patient and EMS Mode of arrival: EMS Limitations: no limitations History of Present Illness HPI Narrative: 77-year-old male with a history of Parkinson's disease, restrictive lung disease, dyspnea on exertion, peripheral vascular disease, obstructive sleep apnea who presents emergency department for evaluation of confusion and weakness. The patient states that his symptoms started last night at around 21:30 hours. He felt confused as if he was ?delusional ?. He states that he did know where he was and had trouble remembering things. This morning, his JALOUSIES INSTALLER felt that he was more confused was having difficulty talking. There was also concerned that he might have had right-sided weakness therefore an ambulance was called and was brought to emergency department. Patient was made a stroke alert and I did evaluate him on the sports development officer stretcher. Patient was awake and alert, speech pattern was normal, there was no confusion, his neurologic exam was nonfocal therefore he was brought to a room further evaluation. The review of systems was positive for fever, chills, rhinorrhea, productive cough, frequency and dysuria. He denied shortness of breath or dyspnea on exertion above his baseline. Denied nausea, vomiting or diarrhea. Related Data Home Medications Medication Instructions Recorded Confirmed omeprazole 20 mg capsule,delayed 20 mg PO BEDTIME 05/11/20 12/23/22 release carbidopa 25 mg-levodopa 100 mg 2 tab PO QID 07/27/21 12/23/22 tablet duloxetine 60 mg capsule,delayed 60 mg PO BID 07/27/21 12/23/22 release omega 0-suw-gpv-fish oil 60 mg-90 1 cap PO BEDTIME 07/27/21 12/23/22 mg-500 mg capsule (Fish Oil) pregabalin 75 mg capsule (Lyrica) 150 mg PO BID 07/27/21 12/23/22 aspirin 81 mg chewable tablet 81 mg PO DAILY 01/16/22 12/23/22 copper 2 mg tablet 1 mg PO DAILY 01/16/22 12/23/22 zinc 15 mg tablet 15 mg PO DAILY 01/16/22 12/23/22 clopidogrel 75 mg tablet 75 mg PO DAILY 10/09/22 12/23/22 losartan 25 mg tablet 25 mg PO BEDTIME 10/09/22 12/23/22 metoprolol succinate 50 mg 50 mg PO DAILY 10/09/22 12/23/22 tablet,extended release 24 hr atorvastatin 80 mg tablet 80 mg PO BEDTIME 12/23/22 12/23/22 cholecalciferol (vitamin D3) 125 125 mcg PO DAILY 12/23/22 12/23/22 mcg (5,000 unit) tablet coenzyme Q10 10 mg capsule 10 mg PO DAILY 12/23/22 12/23/22 cyanocobalamin (vitamin B-12) 1,000 mcg PO DAILY 12/23/22 12/23/22 1,000 mcg tablet meclizine 25 mg tablet 25 mg PO TID PRN Vertigo 12/23/22 12/23/22 trazodone 50 mg tablet 50 mg PO BEDTIME 12/23/22 12/23/22 Previous Rx's Medication Instructions Recorded cefuroxime axetil 500 mg tablet 500 mg PO BID 10 days #20 tabs 12/26/22 Allergies Allergy/AdvReac Type Severity Reaction Status Date / Time Crustaceans Allergy Mild HIVES Uncoded 12/23/22 22:19 shrimp Allergy Mild Swelling Uncoded 12/23/22 22:19 Review of Systems Review of Systems: Yes all other systems are reviewed and are negative [facility] Past Medical History [facility] Narrative: Social history: He states he lives at home with his mother. 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 He denies tobacco use. Occasionally drinks alcohol. Denies drug use Medical History Restrictive lung disease Dyspnea on exertion Pre-op chest exam Skin lesion Peripheral neuropathy Hypercholesteremia Fatigue Esophageal reflux Dyspnea on exertion Chronic vertigo BPH (benign prostatic hyperplasia) Pulmonary fibrosis MASSIEL (obstructive sleep apnea) Obesity (BMI 30-39.9) Surgical History H/O lumbosacral spine surgery History of appendectomy H/O colonoscopy Social History Social History Household Members: Spouse and Caregiver Household Members Other:: Housing: House Do you presently have visiting nurse or other home services: Yes Alcohol intake: current Alcohol intake frequency: holidays/special occasions only Alcohol type: hard liquor Patient Tobacco Use Status: Never used Tobacco Smoked in Last 30 Days: No Use of substances other than those prescribed or required for medical reasons: No Currently Displaying Signs/Symptoms of Drug Intoxication Withdrawal: No Have you been hit, kicked, punched, or otherwise hurt by someone within the past year? If so, by whom?: No Do you feel safe in your current relationship?: Yes Is there a partner from a previous relationship who is making you feel unsafe now?: No Are you made to feel afraid or neglected: No Advance Directives: Yes Advance Directives Information Provided: Yes Advance Directives on File: No Advance Directives Date on File: 12/23/22 Do you have thoughts of harming others: None Do you have a plan to hurt others: No Plan Recently lost weight without trying: Unsure Nutrition Risks: No Nutritional Risk service: Yes Current occupational status: retired Physical Exam Vital Signs: Vital Signs: Last Vital Signs Temp 97.5 F 12/26/22 16:00 Pulse 84 12/26/22 16:00 Resp 18 12/26/22 16:00 BP 147/83 H 12/26/22 16:00 Pulse Ox 96 12/26/22 16:00 O2 Del Method Room Air 12/26/22 16:00 BMI result Body Mass Index 29.0 Vital signs were normal Exam: General: Awake, alert in no distress Head: Normocephalic, atraumatic EENT: PERRL, Lids normal, sclera normal, conjunctiva normal, nose normal , ears normal, throat without erythema or exudates Neck: Supple, no adenopathy, trachea midline and nontender Lung: breath sounds symmetric, no wheezing, or rhonchi. Patient does have rales at the bases left greater than right Chest: symmetric movement, nontender Heart: regular rate and rhythm, normal S1, S2 no murmurs or rubs Abdomen: soft, non-tender, nondistended, normal bowel sounds Back: no vertebral tenderness, no CVAT Extremities: no deformities, moves all extremities symmetrically Skin: no rashes, no lesion, normal color and warmth Neuro: Awake, alert, oriented, normal speech, cranial nerves intact, moves all extremities symmetrically Psych: Pleasant, cooperative Medications Administered Discontinued Medications Generic Name Dose Route Start Last Admin Trade Name Freq PRN Reason Stop Dose Admin Acetaminophen 650 mg 12/23/22 18:42 12/25/22 20:54 Acetaminophen 325 Mg Tablet PO 650 mg Q6H PRN Administration Pain, Mild (Pain Scale 1-3) Aspirin 81 mg 12/24/22 09:00 12/26/22 08:58 Aspirin 81 Mg Tab.Chew PO 81 mg DAILY KANNAN Administration Atorvastatin Calcium 80 mg 12/23/22 21:00 12/25/22 20:55 Atorvastatin Calcium 80 Mg Tablet PO 80 mg BEDTIME KANNAN Administration Benzonatate 200 mg 12/24/22 16:40 12/26/22 08:57 Benzonatate 100 Mg Capsule PO 200 mg TID PRN Administration Cough Carbidopa/Levodopa 2 tab 12/23/22 21:00 12/26/22 14:09 Carbidopa/Levodopa 25/100 Tablet PO 2 tab QID KANNAN Administration Clopidogrel Bisulfate 75 mg 12/24/22 09:00 12/26/22 08:58 Clopidogrel Bisulfate 75 Mg Tablet PO 75 mg DAILY KANNAN Administration Duloxetine HCl 60 mg 12/23/22 21:00 12/26/22 08:57 Duloxetine Hcl 60 Mg Capsule.Dr PO 60 mg BID KANNAN Administration Enoxaparin Sodium 40 mg 12/23/22 20:00 12/25/22 20:55 Enoxaparin Sodium 40 Mg/0.4 Ml Syringe SUBCUT 40 mg Q24H KANNAN Administration Ceftriaxone Sodium 1 gm/ 50 mls @ 100 mls/hr 12/23/22 17:15 12/23/22 19:15 Sodium Chloride IV 12/23/22 17:44 Infused ONCE ONE Infusion Azithromycin 500 mg/ Sodium 250 mls @ 125 mls/hr 12/23/22 17:15 12/23/22 23:18 Chloride IV 12/23/22 19:14 Infused ONCE ONE Infusion Sodium Chloride 1,000 mls @ 150 mls/hr 12/23/22 17:30 12/24/22 12:02 Ns IVCONT Not Given .Q6H40M KANNAN Sodium Chloride 1,000 mls @ 100 mls/hr 12/23/22 18:45 12/25/22 21:20 Ns IVCONT Infused .Q10H KANNAN Infusion Ceftriaxone Sodium 1 gm/ 50 mls @ 100 mls/hr 12/24/22 17:00 12/25/22 17:02 Sodium Chloride IV Infused Q24H KANNAN Infusion Azithromycin 500 mg/ Sodium 250 mls @ 125 mls/hr 12/24/22 19:00 12/25/22 21:00 Chloride IV 12/28/22 20:59 Infused Q24H KANNAN Infusion Omeprazole 20 mg 12/23/22 21:00 12/25/22 20:55 Omeprazole 20 Mg Capsule. PO 20 mg BEDTIME KANNAN Administration Pregabalin 150 mg 12/23/22 21:00 12/26/22 08:58 Pregabalin 150 Mg Capsule PO 150 mg BID KANNAN Administration Sodium Chloride 3 ml 12/24/22 00:00 12/26/22 16:23 0.9 % Sodium Chloride Flush 3 Ml Syringe IVFLUSH Not Given QSHIFT KANNAN Medical Decision Making Medical Decision Making [facility] Narrative: 77-year-old male with a history of Parkinson's disease, restrictive lung disease, dyspnea on exertion, peripheral vascular disease, obstructive sleep apnea who presents emergency department for evaluation of confusion and weakness with symptoms starting last night around 21:30 hours. The patient states that all day yesterday he felt confused as if he was ?delusional ?. He also complained of fever, chills, rhinorrhea and productive cough. He also noted dysuria and urinary frequency. Vital signs were normal. Lung exam did reveal rales at the bases left greater than right. Telling evaluation was ordered: CBC, CMP, ethanol level, lipase, COVID-19, influenza, TSH with reflex T4, one-view chest x-ray, CT scan of the brain. 17:22 My interpretation patient's laboratory evaluation as follows: elevated white blood count 54474, lactic acid was normal at 1.5 COVID-19 influenza were negative. Blood ethanol level below detectable limits. Patient's chest x-ray was interpreted by me as left lower infiltrate-radiology reading is pending. Given the patient's clinical presentation with weakness, confusion, fever, chills and productive cough-patient will be treated for pneumonia with ceftriaxone and Zithromax I will discuss patient's presentation with the covering hospitalist. Differential Diagnosis 17:22 Differential includes was not limited to stroke, TIA, pneumonia, urinary tract infection electrolyte abnormality, anemia Admission/Observation Consideration of admission/observation: Escalation of care including admission/observation considered Consult Healthcare Provider Management of the patient was discussed with: Hospitalist Lab Data [facility] Lab Attestation statement: I reviewed the patient's lab results. See MDM 12/26/22 06:20 12/26/22 06:20 Labs: Lab Results 12/23/22 12/23/22 12/23/22 Range/Units 14:27 15:19 16:00 WBC 14.1 H (4.8-10.8) X10*3/uL RBC 4.11 L (4.60-5.80) X10*6/uL Hgb 13.9 L (14.0-18.0) g/dl Hct 39.9 L (42.0-52.0) % MCV 97.1 (80.0-98.0) fL MCH 33.8 H (27.0-33.0) pg MCHC 34.8 (31.0-36.0) g/dl RDW 12.7 (11.0-16.0) % Plt Count 180 (160-400) X10*3/uL MPV 9.4 (9.4-12.4) fL Immature Gran % (Auto) 0.4 (0.0-0.4) % Neut % (Auto) 83.9 H (45-73) % Lymph % (Auto) 8.1 L (20-40) % [place] % (Auto) 5.7 (2-11) % Eos % (Auto) 1.4 (0-4) % Baso % (Auto) 0.5 (0-2) % Lymph # (Auto) 1.1 L (1.2-4.9) X10*3/uL [place] # (Auto) 0.8 (0.1-1.2) X10*3/uL Eos # (Auto) 0.2 (0.0-0.4) X10*3/uL Baso # (Auto) 0.1 (0.0-0.2) X10*3/uL Abs Immat Gran (auto) 0.05 H (0.00-0.03) X10*3/uL Absolute Neuts (auto) 11.8 H (2.0-8.3) x10*3/uL Absolute Nucleated RBC 0.000 (0.0-0.012) X10*3/uL Nucleated RBC % (auto) 0.0 (0.0-0.2) /100WBC PT 12.5 (11.1-13.3) SEC INR 1.0 (0.9-1.1) APTT 27.6 (26.0-36.4) SEC Sodium 136 (135-145) mmol/L Potassium 4.1 (3.3-5.1) mmol/L Chloride 103 (96-108) mmol/L Carbon Dioxide 24 (22-29) mmol/L Anion Gap 13 (12-20) BUN 16 (9-16) mg/dL Creatinine 1.01 (0.5-1.4) mg/dL Estim Creat Clear Calc 69.5 Estimated GFR > 60 POC Glucose 176 H (60-115) mg/dL Random Glucose 198 H (60-115) mg/dL Lactic Acid 1.5 (0.5-2.0) mmol/L Calcium 8.9 D (8.4-10.2) mg/dL Total Bilirubin 0.8 (0.0-1.0) mg/dL AST 18 (5-37) U/L ALT < 5 (0-40) U/L Alkaline Phosphatase 93 (39-117) U/L Total Creatine Kinase 59 (38-174) U/L Troponin I High Sens 9.6 (<3.5-35.0) ng/L Total Protein 6.8 (6.5-8.0) g/dL Albumin 3.5 (3.5-5.0) g/dL Lipase 30 (8-78) U/L TSH 0.90 (0.32-4.0) uIU/mL Ethyl Alcohol < 10 mg/dL COVID-19 (DEB) Negative (Negative) COVID-19 Clin Com See Note Influenza Type A (CHRISTIAN) Negative (Negative) Influenza Type B (CHRISTIAN) Negative (Negative) Influenza A & B Note See Note Independent Interpretation I performed an independent interpretation of an: EKG and Plain X-Ray Interpretation: My independent interpretation patient's one-view chest x-ray is as follows: Patient has a left lower lobe infiltrate My independent interpretation patient's 12 EKG done at 13:44 hours is as follows sinus tachycardia with a rate of 114, prolonged QRS 130 milliseconds, prolonged QTC interval 485 milliseconds, no ST segment elevation, no ST segment depression, right bundle-branch block, no PACs, no PVCs Radiology Impression Discussion of test interpretation with radiology: I have reviewed the radiologist's reading. Radiologist Impression: CT head/brain wo IV con IMPRESSION: No acute intracranial abnormality. There is global cerebral volume loss, there is mild chronic microangiopathy, and there is atherosclerotic calcification throughout the intracranial arterial vasculature. Dictated By: Fernando Friedman MD Discharge Plan Discharge Clinical Impression: Pneumonia, Weakness Patient Disposition: Admitted As Inpatient Interventions: Admission Worksheet (ED) Last Done: 12/23/22 22:00 Discharge Date/Time: 12/23/22 22:02
--- NOTE | 2022-12-23 14:31 | PC.NURSE ---
pt arrives via EMS. pt AOx3. caregiver called EMS due to weakness, inability to stand and pivot like usual, and confusion which is not baseline. During triage pt does not exhibit any focal deficits, grasps are equal bilaterally, no extremity drift noted, no slurred speech or facial droop. pt can converse with staff without confusion. LKW [id number] last night. Pt has [place] cath in place from home. Per caregiver via EMS pt has hx of Parkinson
--- NOTE | 2022-12-23 16:04 | PC.NURSE ---
labs and cultures obtained by provider via EJ
[2022-12-23 16:30] LABS: Alanine Aminotransferase < 5 U/L (0-40); Albumin Level 3.5 g/dL (3.5-5.0); Alkaline Phosphatase 93 U/L (39-117); Anion Gap 13 (12-20); Aspartate Amino Transferase 18 U/L (5-37); Bilirubin Total 0.8 mg/dL (0.0-1.0); Blood Urea Nitrogen 16 mg/dL (9-16); Calcium 8.9 mg/dL (8.4-10.2); Carbon Dioxide 24 mmol/L (22-29); Chloride 103 mmol/L (96-108); Creatinine Clr Calc Pharmacy 69.5; Estimated Glomerular Filt Rate > 60; Glucose Random 198 mg/dL (60-115); Lipase 30 U/L (8-78); Potassium 4.1 mmol/L (3.3-5.1); Sodium 136 mmol/L (135-145); Total Protein 6.8 g/dL (6.5-8.0)
--- NOTE | 2022-12-23 17:51 | PC.NURSE ---
pt has been unable to provide urine sample. [place] cath in place. bladder scan showed 124cc in bladder. fluids infusing per MAR, ABX started. pt appears confused.
--- NOTE | 2022-12-23 18:39 | PHA.MEDREC ---
Pharmacy Consult ? Medication Reconciliation Pharmacy has completed the medication reconciliation.Med rec complete, spoke with patients daughter who takes care of medications.
--- NOTE | 2022-12-23 18:49 | PM.IMHP ---
History of Present Illness Date of Service: 12/23/22 Chief Complaint: confusion weakness 77-year-old male with a history of Parkinson's disease, restrictive lung disease, dyspnea on exertion, peripheral vascular disease, obstructive sleep apnea who presents emergency department for evaluation of confusion and weakness. The patient states that his symptoms started last night at around 21:30 hours. He felt confused as if he was ?delusional ?. He states that he did know where he was and had trouble remembering things. This morning, his NIB ADJUSTER felt that he was more confused was having difficulty talking. There was also concerned that he might have had right-sided weakness therefore an ambulance was called and was brought to emergency department. Not stroke alert protocol. ER Course mild leukocytosis; chest x-ray with questionable left lower lobe infiltrate exam consistent with same Review of Systems Review of Systems: denies chest pain Denies shortness of breath Denies nausea vomiting diarrhea Denies fever chills [facility] Medical History Restrictive lung disease Dyspnea on exertion Pre-op chest exam Skin lesion Peripheral neuropathy Hypercholesteremia Fatigue Esophageal reflux Dyspnea on exertion Chronic vertigo BPH (benign prostatic hyperplasia) Pulmonary fibrosis MASSIEL (obstructive sleep apnea) Obesity (BMI 30-39.9) Surgical History H/O lumbosacral spine surgery History of appendectomy H/O colonoscopy Social History Household Members: Spouse Household Members Other:: Housing: House Do you presently have visiting nurse or other home services: Yes Alcohol intake: current Alcohol intake frequency: holidays/special occasions only Alcohol type: hard liquor Patient Tobacco Use Status: Never used Tobacco Smoked in Last 30 Days: No Use of substances other than those prescribed or required for medical reasons: No Advance Directives: Yes Advance Directives Information Provided: Yes Advance Directives on File: No service: Yes Current occupational status: retired Meds Allergies Allergy/AdvReac Type Severity Reaction Status Date / Time Crustaceans Allergy Mild HIVES Uncoded 07/27/21 12:07 shrimp Allergy Mild Swelling Uncoded 07/27/21 12:07 Active Medications: Current Medications Acetaminophen (Acetaminophen 325 Mg Tablet) 650 mg PO Q6H PRN PRN Reason: Pain, Mild (Pain Scale 1-3) Aspirin (Aspirin 81 Mg Tab.Chew) 81 mg PO DAILY [facility] Atorvastatin Calcium (Atorvastatin Calcium 80 Mg Tablet) 80 mg PO BEDTIME [facility] Carbidopa/Levodopa (Carbidopa/Levodopa 25/100 Tablet) 2 tab PO QID [facility] Clopidogrel Bisulfate (Clopidogrel Bisulfate 75 Mg Tablet) 75 mg PO DAILY [facility] Duloxetine HCl (Duloxetine Hcl 60 Mg Capsule.) 60 mg PO BID [facility] Enoxaparin Sodium (Enoxaparin Sodium 40 Mg/0.4 Ml Syringe) 40 mg SUBCUT Q24H [facility] Azithromycin 500 mg/ Sodium (Chloride) 250 mls @ 125 mls/hr IV ONCE ONE Stop: 12/23/22 19:14 Sodium Chloride (Ns) 1,000 mls @ 150 mls/hr IVCONT .Q6H40M [facility] Last Admin: 12/23/22 17:46 Dose: 150 mls/hr Sodium Chloride (Ns) 1,000 mls @ 100 mls/hr IVCONT .Q10H [facility] Non-Formulary Medication (Copper) 1 mg PO DAILY [facility] Non-Formulary Medication (Zinc) 15 mg PO DAILY [facility] Omeprazole (Omeprazole 20 Mg Capsule.) 20 mg PO BEDTIME [facility] Ondansetron HCl (Ondansetron Hcl 4 Mg/2 Ml Vial) 4 mg IVPUSH Q8H PRN PRN Reason: Nausea and Vomiting Pregabalin (Pregabalin 150 Mg Capsule) 150 mg PO BID [facility] Sodium Chloride (0.9 % Sodium Chloride Flush 3 Ml Syringe) 3 ml IVFLUSH QSHIFT [facility] Home Medications Medication Instructions Recorded Confirmed Last Taken Type omeprazole 20 mg capsule,delayed 20 mg PO BEDTIME 05/11/20 12/23/22 01/16/22 History release carbidopa 25 mg-levodopa 100 mg 2 tab PO QID 07/27/21 12/23/22 01/16/22 History tablet duloxetine 60 mg capsule,delayed 60 mg PO BID 07/27/21 12/23/22 01/16/22 History release omega 8-dwr-mpz-fish oil 60 mg-90 1 cap PO BEDTIME 07/27/21 12/23/22 01/16/22 History mg-500 mg capsule (Fish Oil) pregabalin 75 mg capsule (Lyrica) 150 mg PO BID 05/02/0712/23/22 01/16/22 History aspirin 81 mg chewable tablet 81 mg PO DAILY 01/16/22 12/23/22 01/16/22 History copper 2 mg tablet 1 mg PO DAILY 01/16/22 12/23/22 01/16/22 History zinc 15 mg tablet 15 mg PO DAILY 01/16/22 12/23/22 01/16/22 History clopidogrel 75 mg tablet 75 mg PO DAILY 10/09/22 12/23/22 Unknown History losartan 25 mg tablet 25 mg PO BEDTIME 10/09/22 12/23/22 Unknown History metoprolol succinate 50 mg 50 mg PO DAILY 10/09/22 12/23/22 Unknown History tablet,extended release 24 hr atorvastatin 80 mg tablet 80 mg PO BEDTIME 12/23/22 12/23/22 Unknown History cholecalciferol (vitamin D3) 125 125 mcg PO DAILY 12/23/22 12/23/22 Unknown History mcg (5,000 unit) tablet coenzyme Q10 10 mg capsule 10 mg PO DAILY 12/23/22 12/23/22 Unknown History cyanocobalamin (vitamin B-12) 1,000 mcg PO DAILY 12/23/22 12/23/22 Unknown History 1,000 mcg tablet meclizine 25 mg tablet 25 mg PO TID PRN Vertigo 12/23/22 12/23/22 Unknown History trazodone 50 mg tablet 50 mg PO BEDTIME 12/23/22 12/23/22 Unknown History Physical Exam Vital Signs and Narrative: Vital Signs: Last Vital Signs Temp 98 F 12/23/22 18:01 Pulse 70 12/23/22 18:01 Resp 18 12/23/22 18:01 BP 108/43 L 12/23/22 18:01 Pulse Ox 93 12/23/22 18:01 O2 Del Method Room Air 12/23/22 18:01 BMI result Body Mass Index 29.0 Const: Other: awake; slightly confused Resp: Other: bilateral basilar crackles left greater than right Cardio: Other: no S4; positive S1-S2; no S3 murmurs rubs or gallops GI: Other: soft nontender nondistended normoactive bowel sounds Neuro: Other: cranial nerves 2-12 grossly intact as tested. Motor 5/5 as tested in bed. Sensation appears intact. Gait not observed Extrem: Other: no edema bilaterally Results Labs 12/23/22 16:00 12/23/22 16:00 Labs: Laboratory Results - last 24 hr 12/23/22 12/23/22 12/23/22 14:27 15:19 16:00 MCV 97.1 MCH 33.8 H MCHC 34.8 RDW 12.7 Plt Count 180 MPV 9.4 Immature Gran % (Auto) 0.4 Neut % (Auto) 83.9 H Lymph % (Auto) 8.1 L [place] % (Auto) 5.7 Eos % (Auto) 1.4 Baso % (Auto) 0.5 Lymph # (Auto) 1.1 L [place] # (Auto) 0.8 Eos # (Auto) 0.2 Baso # (Auto) 0.1 Abs Immat Gran (auto) 0.05 H Absolute Neuts (auto) 11.8 H Absolute Nucleated RBC 0.000 Nucleated RBC % (auto) 0.0 PT 12.5 INR 1.0 APTT 27.6 Anion Gap 13 Estim Creat Clear Calc 69.5 Estimated GFR > 60 POC Glucose 176 H Random Glucose 198 H Lactic Acid 1.5 Calcium 8.9 D Total Bilirubin 0.8 AST 18 ALT < 5 Alkaline Phosphatase 93 Total Creatine Kinase 59 Total Protein 6.8 Albumin 3.5 Lipase 30 TSH 0.90 Ethyl Alcohol < 10 COVID-19 (DEB) Negative COVID-19 Clin Com See Note Influenza Type A (CHRISTIAN) Negative Influenza Type B (CHRISTIAN) Negative Influenza A & B Note See Note Imaging Radiologist's Impressions: Impressions Head CT 12/23/22 15:35 IMPRESSION: No acute intracranial abnormality. There is global cerebral volume loss, there is mild chronic microangiopathy, and there is atherosclerotic calcification throughout the intracranial arterial vasculature. Chest X-Ray 12/23/22 16:10 IMPRESSION: Streaky airspace opacities in the retrocardiac area similar to chest x-ray September 10, 2020. This may be scarring or atelectasis. Assessment and Plan (1) Pneumonia: Qualifiers: Laterality: left Lung location: lower lobe of lung Pneumonia type: due to unspecified organism Qualified Code(s): J18.9 - Pneumonia, unspecified organism Status: Acute (2) Weakness: Status: Acute (3) PAD (peripheral artery disease): Status: Acute Plan 77-year-old male with history of Parkinson's disease, restrictive lung disease, peripheral vascular disease presents to the emergency department for evaluation of confusion and weakness acute onset approximately 24 hours prior to arrival. States he felt delusional . Also noted subjective fevers. In the emergency room evaluation/ exam consistent with left lower lobe pneumonia 1.Community-acquired pneumonia - ceftriaxone/ azithromycin (1) - titrate O2 to maintain sats greater than or equal to 90% - DuoNebs p.r.n. 2. PAD - continue Plavix and aspirin - resume additional therapies when clinically appropriate ( appropriate BP) 3.Parkinsons Disease - continue carbidopa level dull but as per outpatient dosing - PT eval prior to discharge 4.Hyperlipidemia - continue statin at outpatient dosing full code Lovenox patient will require at least 2 midnights inpatient stay to treat community-acquired pneumonia with IV antibiotics. This cannot be achieved a lesser acute setting Time Spent With Patient Time: Total time managing care of this patient today ____ minutes. Quality Stroke Does the patient have a stroke diagnosis?: No VTE Prior VTE?: No VTE Risk Level:: Medical - moderate - high VTE Device Contraindication: Treatment Not Indicated VTE Drug Contraindication: N/A - Med Ordered
--- NOTE | 2022-12-23 19:11 | PC.NURSE ---
pt a&ox3. respirations even and unlabored, lung sounds clear bilaterally with a noted productive cough. pt abdomen soft non tender to touch with active bowel sounds throughout. pt denies denies, shortness, nausea, vomiting and diarrhea. pt has 150ns running at this time.
--- NOTE | 2022-12-23 21:06 | PC.NURSE ---
pt removed condom catheter, EJ IV, and tele leads at this time. delay in antibiotic administration and IV fluids paused.
--- NOTE | 2022-12-23 21:12 | PC.NURSE ---
iv established at this time in pt left AC.
--- NOTE | 2022-12-23 21:24 | PC.NURSE ---
message sent to to clarify fluid order. pt currently has 150ML NS running at this time.
--- NOTE | 2022-12-23 21:29 | PC.NURSE ---
this rn at bedside about to preform a staight cath to obtain urine sample, pt urinated on his own. urine obtained in sterile cup and sent down to lab.
--- NOTE | 2022-12-23 21:42 | PC.NURSE ---
report given to Poonam.
--- NOTE | 2022-12-23 21:57 | PC.NURSE ---
pt transport at bedside transporting pt to unit
--- NOTE | 2022-12-23 23:19 | PC.NURSE ---
Upon arrival to room 373 patients belonging list was reviewed and noted that a cell phone and a president & ceo listed were not present with patient. On the other hand patient had a gold necklace in a denture cup that was not mentioned on the list and which was placed on patient per his request. This RN called ER , spoke to the tech. who prepared the list and she stated that she never saw the phone and that the patient told her he had it. Per nursing evaluation patient is very forgetful, not clear and disoriented. ER room was searched and nothing was found.
[2022-12-24] VITALS: RESP 18
[2022-12-24 03:22] VITALS: BP 121/59; PULSE 66; RESP 17; TEMP 36.3; O2SAT 93
[2022-12-24 05:41] LABS: MANUAL DIFF FLAG NO
[2022-12-24 05:48] LABS: Basophils Percent Auto 0.4 % (0-2); Eosinophils Absolute Auto 0.3 X10*3/uL (0.0-0.4); Eosinophils Percent Auto 3.6 % (0-4); Hematocrit 38.8 % (42.0-52.0); Hemoglobin 13.6 g/dl (14.0-18.0); Imm Gran Abs Auto 0.03 X10*3/uL (0.00-0.03); Imm Gran Pct Auto 0.3 % (0.0-0.4); Lymphocytes Absolute Auto 1.8 X10*3/uL (1.2-4.9); Lymphocytes Percent Auto 18.7 % (20-40); Mean Corpuscular HGB Conc 35.1 g/dl (31.0-36.0); Mean Corpuscular Hemoglobin 33.6 pg (27.0-33.0); Mean Corpuscular Volume 95.8 fL (80.0-98.0); Mean Platelet Volume 9.5 fL (9.4-12.4); Monocytes Absolute Auto 0.6 X10*3/uL (0.1-1.2); Monocytes Percent Auto 6.6 % (2-11); Neutrophils Absolute Auto 6.6 x10*3/uL (2.0-8.3); Neutrophils Percent Auto 70.4 % (45-73); Platelet Count 154 X10*3/uL (160-400); Red Blood Count 4.05 X10*6/uL (4.60-5.80); Red Cell Distribution Width 12.8 % (11.0-16.0); White Blood Count 9.3 X10*3/uL (4.8-10.8)
[2022-12-24 06:08] LABS: Alanine Aminotransferase < 5 U/L (0-40); Albumin Level 3.3 g/dL (3.5-5.0); Alkaline Phosphatase 64 U/L (39-117); Anion Gap 14 (12-20); Aspartate Amino Transferase 14 U/L (5-37); Bilirubin Total 0.9 mg/dL (0.0-1.0); Blood Urea Nitrogen 14 mg/dL (9-16); Calcium 8.6 mg/dL (8.4-10.2); Carbon Dioxide 25 mmol/L (22-29); Chloride 105 mmol/L (96-108); Creatinine Clr Calc Pharmacy 73.9; Estimated Glomerular Filt Rate > 60; Glucose Random 141 mg/dL (60-115); Sodium 140 mmol/L (135-145); Total Protein 6.6 g/dL (6.5-8.0)
[2022-12-24 08:00] VITALS: BP 122/57; PULSE 66; RESP 16; TEMP 36; O2SAT 94
--- NOTE | 2022-12-24 08:49 | MHC.CM.PN ---
Interview conducted w/Pt's daughter/HCP Linda. Pt lives at home w/ in 1 level small home w/3 stairs to enter, no ramp. is at home on hospice care w/brain CA. Pt and have a 24 hr live-in caregiver, as well as an additional caregiver that comes M, T, W, F for 4.5 hrs in the am. Both caregivers transport both Pt and to where they need to go (appts., groceries, etc). Both caregivers are responsible for both Pt and and their in-home needs. Pt currently active w/[facility] and HCP does not want Pt to return to service. She is requesting [facility] for in-home D/C needs for D/C. She indicates that although Pt most likely may have a STR D/C for recommendation, this is not an option; HCP reports Pt's is very closely end-of-life and Pt insists on being home w/her. HCP states previously rendering services were: nursing, PT and OT. This CM discussed potential/risk for waiting period should VNAs be switched at D/C; at times VNAs are unable to see patients right after D/C from the hospital and the concern would be further functional decline. HCP stated she would consider this w/Pt for VNA flexibility for D/C. D/C transportation anticipated ambulance; HCP states Pt newly unable to ambulate D/T functional decline and over the past several weeks has not been able to manipulate stairs to enter home, as well as walk around home; he has been using a WC w/caregiver assist. Caregiver will not be able to get him in the house should they be required to transport him home. CM to follow.
--- NOTE | 2022-12-24 09:28 | PC.NURSE ---
This RN was able to help pt call Daughter Linda who stated patients cell phone and data recovery planner were at home.
--- NOTE | 2022-12-24 12:03 | HO.PM.IMPN ---
Subjective Subjective Date of Service: 12/24/22 Interval History: much brighter; less confused this a.m.. Still with productive cough but states shortness of breath is improved Review of Systems denies chest pain Denies shortness of breath Denies nausea vomiting diarrhea Denies fever chills Physical Exam Vital Signs: Vital Signs: Last Vital Signs Temp 96.8 F 12/24/22 08:00 Pulse 66 12/24/22 08:00 Resp 16 12/24/22 08:00 BP 122/57 L 12/24/22 08:00 Pulse Ox 94 12/24/22 08:00 O2 Del Method Room Air 12/24/22 08:00 BMI result Body Mass Index 29.0 Const: Other: awake; alert and oriented this a.m. Resp: Other: bilateral basilar crackles left greater than right Cardio: Other: no S4; positive S1-S2; no S3 murmurs rubs or gallops GI: Other: soft nontender nondistended normoactive bowel sounds Neuro: Other: cranial nerves 2-12 grossly intact as tested. Motor 5/5 as tested in bed. Sensation appears intact. Gait not observed Extrem: Other: no edema bilaterally Objective Data Active Medications Acetaminophen (Acetaminophen 325 Mg Tablet) 650 mg PO Q6H PRN PRN Reason: Pain, Mild (Pain Scale 1-3) Aspirin (Aspirin 81 Mg Tab.Chew) 81 mg PO DAILY [facility] Last Admin: 12/24/22 08:15 Dose: 81 mg Documented By: JHONY Atorvastatin Calcium (Atorvastatin Calcium 80 Mg Tablet) 80 mg PO BEDTIME [facility] Last Admin: 12/23/22 21:18 Dose: 80 mg Documented By: LISSETH Carbidopa/Levodopa (Carbidopa/Levodopa 25/100 Tablet) 2 tab PO QID [facility] Last Admin: 12/24/22 08:15 Dose: 2 tab Documented By: JHONY Clopidogrel Bisulfate (Clopidogrel Bisulfate 75 Mg Tablet) 75 mg PO DAILY [facility] Last Admin: 12/24/22 08:15 Dose: 75 mg Documented By: JHONY Duloxetine HCl (Duloxetine Hcl 60 Mg Capsule.Dr) 60 mg PO BID [facility] Last Admin: 12/24/22 08:15 Dose: 60 mg Documented By: JHONY Enoxaparin Sodium (Enoxaparin Sodium 40 Mg/0.4 Ml Syringe) 40 mg SUBCUT Q24H [facility] Last Admin: 12/23/22 21:19 Dose: 40 mg Documented By: LISSETH Sodium Chloride (Ns) 1,000 mls @ 150 mls/hr IVCONT .Q6H40M [facility] Last Admin: 12/24/22 12:02 Dose: Not Given Documented By: JHONY Non-Admin Reason: duplicate order Sodium Chloride (Ns) 1,000 mls @ 100 mls/hr IVCONT .Q10H [facility] Last Admin: 12/24/22 09:25 Dose: 100 mls/hr Documented By: JHONY Ceftriaxone Sodium 1 gm/ (Sodium Chloride) 50 mls @ 100 mls/hr IV Q24H [facility] Azithromycin 500 mg/ Sodium (Chloride) 250 mls @ 125 mls/hr IV Q24H [facility] Stop: 12/28/22 20:59 Omeprazole (Omeprazole 20 Mg Capsule.Dr) 20 mg PO BEDTIME [facility] Last Admin: 12/23/22 21:18 Dose: 20 mg Documented By: LISSETH Ondansetron HCl (Ondansetron Hcl 4 Mg/2 Ml Vial) 4 mg IVPUSH Q8H PRN PRN Reason: Nausea and Vomiting Pregabalin (Pregabalin 150 Mg Capsule) 150 mg PO BID [facility] Last Admin: 12/24/22 08:15 Dose: 150 mg Documented By: JHONY Sodium Chloride (0.9 % Sodium Chloride Flush 3 Ml Syringe) 3 ml IVFLUSH QSHIFT [facility] Last Admin: 12/24/22 08:14 Dose: 3 ml Documented By: JHONY Labs 12/24/22 05:11 12/24/22 05:11 Labs: Laboratory Results - last 24 hr 12/23/22 12/23/22 12/23/22 14:27 15:19 16:00 MCV 97.1 MCH 33.8 H MCHC 34.8 RDW 12.7 Plt Count 180 MPV 9.4 Immature Gran % (Auto) 0.4 Neut % (Auto) 83.9 H Lymph % (Auto) 8.1 L [place] % (Auto) 5.7 Eos % (Auto) 1.4 Baso % (Auto) 0.5 Lymph # (Auto) 1.1 L [place] # (Auto) 0.8 Eos # (Auto) 0.2 Baso # (Auto) 0.1 Abs Immat Gran (auto) 0.05 H Absolute Neuts (auto) 11.8 H Absolute Nucleated RBC 0.000 Nucleated RBC % (auto) 0.0 PT 12.5 INR 1.0 APTT 27.6 Anion Gap 13 Estim Creat Clear Calc 69.5 Estimated GFR > 60 POC Glucose 176 H Random Glucose 198 H Lactic Acid 1.5 Calcium 8.9 D Total Bilirubin 0.8 AST 18 ALT < 5 Alkaline Phosphatase 93 Total Creatine Kinase 59 Total Protein 6.8 Albumin 3.5 Lipase 30 TSH 0.90 Urine Color Urine Appearance Urine pH Ur Specific [place] Urine Protein Urine Glucose (UA) Urine Ketones Urine Blood Urine Nitrite Ur Leukocyte Esterase Urine RBC Urine WBC Ur Squamous Epith Cells Urine Bacteria Hyaline Casts Urine Opiates Screen Urine Fentanyl Screen Ur Barbiturates Screen Ur Phencyclidine Scrn Ur Amphetamines Screen U Benzodiazepines Scrn Urine Cocaine Screen U Marijuana (THC) Screen Ethyl Alcohol < 10 COVID-19 (DEB) Negative COVID-19 Clin Com See Note Influenza Type A (CHRISTIAN) Negative Influenza Type B (CHRISTIAN) Negative Influenza A & B Note See Note 12/23/22 12/24/22 21:31 05:11 MCV 95.8 MCH 33.6 H MCHC 35.1 RDW 12.8 Plt Count 154 L MPV 9.5 Immature Gran % (Auto) 0.3 Neut % (Auto) 70.4 Lymph % (Auto) 18.7 L [place] % (Auto) 6.6 Eos % (Auto) 3.6 Baso % (Auto) 0.4 Lymph # (Auto) 1.8 [place] # (Auto) 0.6 Eos # (Auto) 0.3 Baso # (Auto) 0.0 Abs Immat Gran (auto) 0.03 Absolute Neuts (auto) 6.6 Absolute Nucleated RBC 0.000 Nucleated RBC % (auto) 0.0 PT INR APTT Anion Gap 14 Estim Creat Clear Calc 73.9 Estimated GFR > 60 POC Glucose Random Glucose 141 H Lactic Acid Calcium 8.6 Total Bilirubin 0.9 AST 14 ALT < 5 Alkaline Phosphatase 64 Total Creatine Kinase Total Protein 6.6 Albumin 3.3 L Lipase TSH Urine Color Yellow Urine Appearance Clear Urine pH 6.5 Ur Specific [place] 1.025 Urine Protein Trace Urine Glucose (UA) Negative Urine Ketones Trace Urine Blood Negative Urine Nitrite Negative Ur Leukocyte Esterase Trace H Urine RBC 0-2 Urine WBC 0-5 Ur Squamous Epith Cells 0-2 Urine Bacteria None Seen Hyaline Casts 0-2 Urine Opiates Screen Not Detected Urine Fentanyl Screen Not Detected Ur Barbiturates Screen Not Detected Ur Phencyclidine Scrn Not Detected Ur Amphetamines Screen Not Detected U Benzodiazepines Scrn Not Detected Urine Cocaine Screen Not Detected U Marijuana (THC) Screen Not Detected Ethyl Alcohol COVID-19 (DEB) COVID-19 Clin Com Influenza Type A (CHRISTIAN) Influenza Type B (CHRISTIAN) Influenza A & B Note Assessment and Plan (1) Pneumonia: Status: Acute Plan 77-year-old male with history of Parkinson's disease, restrictive lung disease, peripheral vascular disease presents to the emergency department for evaluation of confusion and weakness acute onset approximately 24 hours prior to arrival. States he felt delusional . Also noted subjective fevers. In the emergency room evaluation/ exam consistent with left lower lobe pneumonia 1.Community-acquired pneumonia - ceftriaxone/ azithromycin (2) - titrate O2 to maintain sats greater than or equal to 90% - DuoNebs p.r.n. 2. PAD - continue Plavix and aspirin - resume additional therapies when clinically appropriate ( appropriate BP) 3.Parkinsons Disease - continue carbidopa level dull but as per outpatient dosing - PT eval prior to discharge 4.Hyperlipidemia - continue statin at outpatient dosing full code Lovenox patient will require at least 2 midnights inpatient stay to treat community-acquired pneumonia with IV antibiotics. This cannot be achieved a lesser acute setting Time Spent With Patient Time: Total time managing care of this patient today ____ minutes. Quality Stroke Does the patient have a stroke diagnosis?: No VTE Prior VTE?: No VTE Risk Level:: Medical - moderate - high VTE Device Contraindication: Treatment Not Indicated VTE Drug Contraindication: N/A - Med Ordered
[2022-12-24 15:22] VITALS: BP 111/56; PULSE 75; RESP 18; TEMP 36.3; O2SAT 97
--- NOTE | 2022-12-24 20:37 | PC.NURSE ---
Pt's cell phone was leno in by pt's final operations technician.
[2022-12-25] VITALS: BP 138/63; PULSE 74; RESP 16; TEMP 35.9; O2SAT 95
[2022-12-25 07:17] VITALS: BP 141/66; PULSE 80; RESP 16; TEMP 36; O2SAT 96
--- NOTE | 2022-12-25 12:15 | HO.PM.IMPN ---
Subjective Subjective Date of Service: 12/25/22 Interval History: continues to improve. Ambulating on room with walker Review of Systems denies chest pain Denies shortness of breath Denies nausea vomiting diarrhea Denies fever chills Physical Exam Vital Signs: Vital Signs: Last Vital Signs Temp 96.8 F 12/25/22 07:17 Pulse 80 12/25/22 07:17 Resp 16 12/25/22 07:17 BP 141/66 H 12/25/22 07:17 Pulse Ox 96 12/25/22 07:17 O2 Del Method Room Air 12/25/22 07:17 BMI result Body Mass Index 29.0 Const: Other: awake; alert and oriented this a.m. Resp: Other: bilateral basilar crackles left greater than right Cardio: Other: no S4; positive S1-S2; no S3 murmurs rubs or gallops GI: Other: soft nontender nondistended normoactive bowel sounds Neuro: Other: cranial nerves 2-12 grossly intact as tested. Motor 5/5 as tested in bed. Sensation appears intact. Gait not observed Extrem: Other: no edema bilaterally Objective Data Active Medications Acetaminophen (Acetaminophen 325 Mg Tablet) 650 mg PO Q6H PRN PRN Reason: Pain, Mild (Pain Scale 1-3) Last Admin: 12/24/22 20:17 Dose: 650 mg Documented By: MIRZA Aspirin (Aspirin 81 Mg Tab.Chew) 81 mg PO DAILY [facility] Last Admin: 12/25/22 09:06 Dose: 81 mg Documented By: BLAISE Atorvastatin Calcium (Atorvastatin Calcium 80 Mg Tablet) 80 mg PO BEDTIME [facility] Last Admin: 12/24/22 20:17 Dose: 80 mg Documented By: MIRZA Benzonatate (Benzonatate 100 Mg Capsule) 200 mg PO TID PRN PRN Reason: Cough Last Admin: 12/25/22 09:11 Dose: 200 mg Documented By: BLAISE Carbidopa/Levodopa (Carbidopa/Levodopa 25/100 Tablet) 2 tab PO QID [facility] Last Admin: 12/25/22 09:06 Dose: 2 tab Documented By: BLAISE Clopidogrel Bisulfate (Clopidogrel Bisulfate 75 Mg Tablet) 75 mg PO DAILY [facility] Last Admin: 12/25/22 09:06 Dose: 75 mg Documented By: BLAISE Duloxetine HCl (Duloxetine Hcl 60 Mg Capsule.) 60 mg PO BID [facility] Last Admin: 12/25/22 09:06 Dose: 60 mg Documented By: BLAISE Enoxaparin Sodium (Enoxaparin Sodium 40 Mg/0.4 Ml Syringe) 40 mg SUBCUT Q24H [facility] Last Admin: 12/24/22 20:16 Dose: 40 mg Documented By: MIRZA Sodium Chloride (Ns) 1,000 mls @ 100 mls/hr IVCONT .Q10H [facility] Last Admin: 12/25/22 09:11 Dose: 100 mls/hr Documented By: BLAISE Ceftriaxone Sodium 1 gm/ (Sodium Chloride) 50 mls @ 100 mls/hr IV Q24H [facility] Last Infusion: 12/24/22 16:57 Dose: Infused Documented By: JHONY Azithromycin 500 mg/ Sodium (Chloride) 250 mls @ 125 mls/hr IV Q24H [facility] Stop: 12/28/22 20:59 Last Infusion: 12/24/22 20:31 Dose: Infused Documented By: MIRZA Omeprazole (Omeprazole 20 Mg Capsule.) 20 mg PO BEDTIME [facility] Last Admin: 12/24/22 20:17 Dose: 20 mg Documented By: MIRZA Ondansetron HCl (Ondansetron Hcl 4 Mg/2 Ml Vial) 4 mg IVPUSH Q8H PRN PRN Reason: Nausea and Vomiting Pregabalin (Pregabalin 150 Mg Capsule) 150 mg PO BID [facility] Last Admin: 12/25/22 09:06 Dose: 150 mg Documented By: BLAISE Sodium Chloride (0.9 % Sodium Chloride Flush 3 Ml Syringe) 3 ml IVFLUSH QSHIFT [facility] Last Admin: 12/25/22 07:20 Dose: Not Given Documented By: BLAISE Non-Admin Reason: IV Running Labs 12/25/22 06:06 12/25/22 06:06 Labs: Laboratory Results - last 24 hr 12/25/22 06:06 MCV 96.2 MCH 33.3 H MCHC 34.6 RDW 12.4 Plt Count 152 L MPV 9.7 Immature Gran % (Auto) 0.4 Neut % (Auto) 52.7 Lymph % (Auto) 30.7 [place] % (Auto) 9.0 Eos % (Auto) 6.7 H Baso % (Auto) 0.5 Lymph # (Auto) 1.7 [place] # (Auto) 0.5 Eos # (Auto) 0.4 Baso # (Auto) 0.0 Abs Immat Gran (auto) 0.02 Absolute Neuts (auto) 2.9 Absolute Nucleated RBC 0.000 Nucleated RBC % (auto) 0.0 Anion Gap 12 Estim Creat Clear Calc 72.4 Estimated GFR > 60 Random Glucose 132 H Calcium 8.6 Total Bilirubin 0.5 AST 15 ALT < 5 Alkaline Phosphatase 82 Total Protein 6.6 Albumin 3.3 L Microbiology Microbiology Results: Microbiology 12/23/22 16:00 Blood Culture - Preliminary Blood - Venous No growth after 24 hours. 12/23/22 15:19 Blood Culture - Preliminary Blood - Venous No growth after 24 hours. Assessment and Plan (1) Pneumonia: Status: Acute Plan 77-year-old male with history of Parkinson's disease, restrictive lung disease, peripheral vascular disease presents to the emergency department for evaluation of confusion and weakness acute onset approximately 24 hours prior to arrival. States he felt delusional . Also noted subjective fevers. In the emergency room evaluation/ exam consistent with left lower lobe pneumonia 1.Community-acquired pneumonia - ceftriaxone/ azithromycin (3) - titrate O2 to maintain sats greater than or equal to 90% - DuoNebs p.r.n. 2. PAD - continue Plavix and aspirin - resume additional therapies when clinically appropriate ( appropriate BP) 3.Parkinsons Disease - continue carbidopa level dull but as per outpatient dosing - PT eval prior to discharge... will reassess in a.m. now that walking with walker 4.Hyperlipidemia - continue statin at outpatient dosing full code Lovenox requires ongoing hospitalization for IV antibiotics to treat acute be acquired pneumonia and titrate O2 Time Spent With Patient Time: Total time managing care of this patient today ____ minutes. Quality Stroke Does the patient have a stroke diagnosis?: No VTE Prior VTE?: No VTE Risk Level:: Medical - moderate - high VTE Device Contraindication: Treatment Not Indicated VTE Drug Contraindication: N/A - Med Ordered
[2022-12-25 15:50] VITALS: BP 135/63; PULSE 89; RESP 18; TEMP 36; O2SAT 94
[2022-12-25 19:54] VITALS: BP 150/70; PULSE 91; RESP 18; TEMP 36.2; O2SAT 96
[2022-12-26] VITALS: BP 137/70; PULSE 87; RESP 18; TEMP 36.6; O2SAT 94
[2022-12-26 09:05] VITALS: BP 175/77; PULSE 74; RESP 18; TEMP 36.8; O2SAT 94
--- NOTE | 2022-12-26 11:44 | MHC.CM.PN ---
Addendum entered by Domenica Solis 12/26/22 14:37: PT SET TO DC CM SPOKE TO DAUGHTER WHO WILL CONTACT [facility] TO TRANSPORT SHE IS AWARE THERE IS A RX AT [facility] PREFERRED [facility], CLINICAL SERVICES SPECIALIST WILL GET THAT WELL PT WILL DC HOME TODAY WITH RESUMPTION OF PRIVATE PAY CLINICAL SERVICES SPECIALIST AND RESUMPTION OF [facility] Original Note: CM INFORMED PT WILL BE CLEARED TO DC TODAY CM CALLED PTS DAUGHTERTASHA [phone] CM INFORMED HER [facility] IS UNABLE TO ACCEPT SHE SAYS SHE WOULD LIKE TO RESUME SERVICES WITH [facility] SENT SHE REPORTS SINCE THE PT WAS ABLE TO TRANSFER WITH PT, SHE WILL PROVIDE TRANSPORT BLS IS NOT COVERED BY HIS INSURANCE SHE ALSO ASKS THAT ONE OR TWO [place] [facility] BE SENT WITH HIM IF POSSIBLE CM WILL SPEAK WITH RN AND CALL HER BACK
[2022-12-26 12:23] VITALS: BP 132/70
--- NOTE | 2022-12-26 12:34 | PM.DS ---
DS: Providers Provider Date of Service: 12/26/22 Date of admission: 12/23/22 18:43 Date of discharge: 12/26/22 Primary care physician: Jose Galindo MD DS: Diagnosis Discharge Diagnosis (1) Pneumonia: Status: Acute DS: Summary Hospital Course Hospital Course: 77-year-old male with a history of Parkinson's disease, restrictive lung disease, dyspnea on exertion, peripheral vascular disease, obstructive sleep apnea who presents emergency department for evaluation of confusion and weakness. The patient states that his symptoms started last night at around 21:30 hours. He felt confused as if he was ?delusional ?. He states that he did know where he was and had trouble remembering things. This morning, his OLERICULTURE PROFESSOR felt that he was more confused was having difficulty talking. There was also concerned that he might have had right-sided weakness therefore an ambulance was called and was brought to emergency department. Not stroke alert protocol. ER course mild leukocytosis; chest x-ray with questionable left lower lobe infiltrate exam consistent with same Hospital Course Admitted to general medical floor. Was continued on ceftriaxone and azithromycin. Clinically responded well to therapies and was weaned off supplemental oxygen. White count normalized. At this time he wishes to be home with his was on hospice; discussed with daughter who is in agreement. He will be discharged to home to complete a course of oral Ceftin Time Spent with Patient Time attestation: Total time managing care of this patient today ____ minutes. Discharge coordination time: Greater than 30 minutes Quality: Safe Use of Opioids Does Pt have an Active Cancer Diagnosis on the Problem List?: No Quality: Stroke Does the patient have a stroke diagnosis?: No Physical Exam Vital Signs: Vital Signs: Last Vital Signs Temp 98.2 F 12/26/22 09:05 Pulse 74 12/26/22 09:05 Resp 18 12/26/22 09:05 BP 132/70 12/26/22 12:23 Pulse Ox 94 12/26/22 09:05 O2 Del Method Room Air 12/26/22 09:05 BMI result Body Mass Index 29.0 Const: Other: awake; alert and oriented this a.m. Resp: Other: bilateral basilar crackles left greater than right Cardio: Other: no S4; positive S1-S2; no S3 murmurs rubs or gallops GI: Other: soft nontender nondistended normoactive bowel sounds Neuro: Other: cranial nerves 2-12 grossly intact as tested. Motor 5/5 as tested in bed. Sensation appears intact. Gait not observed Extrem: Other: no edema bilaterally DS: Data Data Completed and Pending Completed studies during hospitalization [Text1]: Procedures Extirpation of Matter from Right Common Carotid Artery, Open Approach (06/08/20) Extirpation of Matter from Right External Carotid Artery, Open Approach (06/08/20) Extirpation of Matter from Right Internal Carotid Artery, Open Approach (06/08/20) Labs on day of discharge: Laboratory Results - last 24 hr 12/26/22 06:20 WBC 6.0 RBC 3.94 L Hgb 13.0 L Hct 37.7 L MCV 95.7 MCH 33.0 MCHC 34.5 RDW 12.4 Plt Count 179 MPV 9.8 Immature Gran % (Auto) 0.5 H Neut % (Auto) 56.1 Lymph % (Auto) 26.8 [place] % (Auto) 7.5 Eos % (Auto) 8.8 H Baso % (Auto) 0.3 Lymph # (Auto) 1.6 [place] # (Auto) 0.5 Eos # (Auto) 0.5 H Baso # (Auto) 0.0 Abs Immat Gran (auto) 0.03 Absolute Neuts (auto) 3.4 Absolute Nucleated RBC 0.000 Nucleated RBC % (auto) 0.0 Sodium 140 Potassium 4.0 Chloride 105 Carbon Dioxide 25 Anion Gap 14 BUN 11 Creatinine 0.93 Estim Creat Clear Calc 75.5 Estimated GFR > 60 Random Glucose 121 H Calcium 9.0 Total Bilirubin 0.5 AST 16 ALT < 5 Alkaline Phosphatase 78 Total Protein 6.6 Albumin 3.3 L Preliminary micro results at discharge 12/23/22 16:00 Blood Culture - Preliminary Blood - Venous No growth after 48 hours. 12/23/22 15:19 Blood Culture - Preliminary Blood - Venous No growth after 48 hours. Discharge Plan Discharge Anticipated Discharge Date/Time: 12/26/22 12:27 Patient Disposition: Home Health Service Discharge Diagnosis: Pneumonia Referrals: [facility] [Outside] - 3-5 Days Jose Galindo MD [Primary Care Provider] - 1 Week Discharge Medications: New cefuroxime axetil 500 mg tablet 500 mg PO BID 10 Days Qty: 20 0RF Continued zinc 15 mg Tablet 15 mg PO DAILY aspirin 81 mg Tablet,Chewable 81 mg PO DAILY copper 2 mg Tablet 1 mg PO DAILY trazodone 50 mg Tablet 50 mg PO BEDTIME atorvastatin 80 mg Tablet 80 mg PO BEDTIME meclizine 25 mg Tablet 25 mg PO TID PRN (Reason: Vertigo) cyanocobalamin (vitamin B-12) 1,000 mcg Tablet 1,000 mcg PO DAILY cholecalciferol (vitamin D3) 125 mcg (5,000 unit) Tablet 125 mcg PO DAILY coenzyme Q10 10 mg Capsule 10 mg PO DAILY metoprolol succinate 50 mg tablet extended release 24 hr 50 mg PO DAILY clopidogrel 75 mg tablet 75 mg PO DAILY losartan 25 mg tablet 25 mg PO BEDTIME duloxetine 60 mg capsule,delayed release(DR/EC) 60 mg PO BID carbidopa-levodopa 25-100 mg tablet 2 tab PO QID omeprazole 20 mg capsule,delayed release(DR/EC) 20 mg PO BEDTIME pregabalin [Lyrica] 75 mg capsule 150 mg PO BID omega [id number] oil [Fish Oil] 60-90-500 mg capsule 1 cap PO BEDTIME Discharge Orders: Discharge Order (Routine); Ordered 12/26/22 Ordered By: Vu Dyson Diet: Advance to usual diet Activity on Discharge: As tolerated Stand Alone Forms: Patient Portal Discharge page Care Plan Goals: Complete course of Ceftin 500 twice a day for 10 days Health Concerns: Resume all your pre-hospital medications as previously taken Plan of Treatment: Follow-up with PCP as scheduled Assessment: See discharge summary
[2022-12-26 16:00] VITALS: BP 147/83; PULSE 84; RESP 18; TEMP 36.4; O2SAT 96
== END 2022-12-26 16:41 | disposition home health service (06) | DRG 195 ==
LOC: HO.ED 17:32 → HO.EDOVER 19:06 → HO.S3 21:03
PROVIDERS: Admitting Provider Hospitalist; Emergency Provider Emergency Medicine Emergency Medical Services; PCP Internal Medicine; Visit Provider Hospitalist
DX: J18.9 Pneumonia, unspecified organism (principal); G20.A1 Parkinson's disease without dyskinesia, without mention of fluctuations; I73.9 Peripheral vascular disease, unspecified; E78.5 Hyperlipidemia, unspecified; G47.33 Obstructive sleep apnea (adult) (pediatric); Z20.822 Contact with and (suspected) exposure to COVID-19; Z79.82 Long term (current) use of aspirin; Z79.899 Other long term (current) drug therapy
CPT/HCPCS: 36415; 70450; 71045; 80053; 80307; 81001; 82550; 82947; 83605; 83690; 84443; 84484; 85025; 85610; 85730; 87040; 87502; 87635; 93005; 97162; 99285; J0456; J0696; J1650

== ENCOUNTER → 2022-12-23 15:52 | Outpatient (BNV) | payer MEDICARE, SELFPAY | PROVIDERS: Emergency Provider Emergency Medicine Emergency Medical Services; PCP Internal Medicine; Visit Provider Hospitalist | DX: J18.9 Pneumonia, unspecified organism (principal) | CPT/HCPCS: 99223; 99231; 99232; 99239 ==